=== PATIENT | male | born 1950 | race Caucasian/White ===

== ENCOUNTER 2017-04-07 17:20 | Emergency (ER) | payer MEDICARE, BC ==
[2017-04-07 17:29] VITALS: RESP 18; TEMP 99
--- NOTE | 2017-04-07 18:05 | ED ---
Head Injury HPI - General Chief complaint: Head Injury Stated complaint: fall Time Seen by Provider: 04/07/17 17:37 Source: patient, family, RN notes reviewed, old records reviewed Mode of arrival: ambulatory Limitations: no limitations - History of Present Illness Initial comments: 66-year-old male presents emergency department for possibly having a seizure, hitting his head and causing a left ear laceration.. Patient family reports that shortly after they discovered him after the fall they noticed some bleeding from the left ear. They state that he was acting normally approximately 1-2 minutes after they found him. Patient denies any head pain. Patient does have a history of seizures, and is managed by multiple medications from Dr. Rodriguez. 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 Patient's family reports that he is acting totally appropriate at this time. He stated he went to an urgent care and were not pleased with the urgent cares physician recommendations and therefore came here. Patient denies any recent fever, chills, shortness of breath, chest pain, back pain, abdominal pain, nausea vomiting, numbness or tingling, dysuria or hematuria, constipation or diarrhea, headaches or visual changes, or any other current symptoms Place: home - Related Data Home Medications Medication Instructions Recorded Confirmed Betamethasone Dipropionate 1 applic TOPICAL DAILY PRN 04/03/15 04/07/17 [Diprolene] Calcium Carbonate/Vitamin D3 1 each PO DAILY 04/03/15 04/07/17 [Calcium 600 + Vit D Tablet] Escitalopram [Lexapro] 10 mg PO DAILY 04/03/15 04/07/17 levETIRAcetam [Levetiracetam] 500 mg PO BID 04/03/15 04/07/17 levETIRAcetam [levETIRAcetam] 1,000 mg PO BID 04/03/15 04/07/17 Lacosamide [Vimpat] 150 mg PO BID 04/07/17 04/07/17 Allergies/Adverse reactions: Allergies Allergy/AdvReac Type Severity Reaction Status Date / Time No Known Allergies Allergy Verified 04/07/17 17:35 Review of Systems ROS Statement: Those systems with pertinent positive or pertinent negative responses have been documented in the HPI. ROS Other: All systems not noted in ROS Statement are negative. Past Medical History Past Medical History: Seizure Disorder Additional Past Medical History / Comment(s): head injury as a child History of Any Multi-Drug Resistant Organisms: None Reported Additional Past Surgical History / Comment(s): lip cancer removed Past Psychological History: Anxiety Smoking Status: Never smoker Past Alcohol Use History: None Reported Past Drug Use History: None Reported General Exam - General Exam Comments Initial Comments: Pleasant 66-year-old male. No acute distress. Limitations: no limitations General appearance: alert, in no apparent distress Head exam: Present: atraumatic, normocephalic, normal inspection Eye exam: Present: normal appearance, PERRL, EOMI. Absent: scleral icterus, conjunctival injection, periorbital swelling ENT exam: Present: normal exam, mucous membranes moist, other (Patient is a 2 cm laceration within the left pinna) Neck exam: Present: normal inspection. Absent: tenderness, meningismus, lymphadenopathy Respiratory exam: Present: normal lung sounds bilaterally. Absent: respiratory distress, wheezes, rales, rhonchi, stridor Cardiovascular Exam: Present: regular rate, normal rhythm, normal heart sounds. Absent: systolic murmur, diastolic murmur, rubs, gallop, clicks GI/Abdominal exam: Present: soft, normal bowel sounds. Absent: distended, tenderness, guarding, rebound, rigid Extremities exam: Present: normal inspection, full ROM, normal capillary refill. Absent: tenderness, pedal edema, joint swelling, calf tenderness Back exam: Present: normal inspection Neurological exam: Present: alert, oriented X3, CN II-XII intact Psychiatric exam: Present: normal affect, normal mood Skin exam: Present: warm, dry, intact, normal color. Absent: rash Course Vital Signs 04/07/17 04/07/17 04/07/17 17:22 19:10 19:11 Temperature 99 F 99 F Pulse Rate 59 L 61 61 Respiratory 18 18 18 Rate Blood Pressure 169/83 173/80 173/80 O2 Sat by Pulse 99 96 96 Oximetry Procedures - Laceration Laceration #1 Site: other (left ear) Size (cm): 2 Description: flap Depth: simple, single layer Anesthetic Used: lidocaine 1% Anesthesia Technique: local infiltration Amount (mls): 2 Pre-repair: wound explored, irrigated extensively Type of Sutures: nylon Size of Sutures: 6-0 Number of Sutures: 6 Technique: simple, interrupted Patient Tolerated Procedure: well, no complications Medical Decision Making - Medical Decision Making 66-year-old male presents emergency department for possibly having a seizure, hitting his head and causing a left ear laceration.. Patient family reports that shortly after they discovered him after the fall they noticed some bleeding from the left ear. They state that he was acting normally approximately 1-2 minutes after they found him. Patient denies any head pain. Patient does have a history of seizures, and is managed by multiple medications from Dr. Rodriguez. 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 And is neurologically intact and is appearing well. Patient does have a 2 cm laceration over the left auricle. Patient laceration will be cleaned and given a suture. Patient CT brain was performed and negative for any acute process. Patient's family reports is alert and oriented and in no distress. Patient discharged at this time instructed on head injury instructions. Patient family agrees to treatment plan will comply. Advised to monitor for any signs of infection of the suture site. - Radiology Data Radiology results: report reviewed Chronic appearing white matter ischemic changes. Exam is stable from 04/03/2015. Disposition Clinical Impression: Laceration of ear, Minor head injury Disposition: HOME SELF-CARE Condition: Good Instructions: Care For Your Stitches (ED) Additional Instructions: Please return to the emergency room in 7-10 days to have sutures removed. Please leave wound covered for the first 24-48 hours and then leave open to air after that time. Please use clean soap and water to clean the suture area to prevent scabbing over the top of your sutures. Please watch for any signs of infection which may include but not limited to increased pain, swelling, redness , fever or chills. Please return to the emergency room if any signs of infection do occur. Please return to the emergency room for any other concerns or complications. Referrals: Carlos Barry DO [Primary Care Provider] - 1-2 days Time of Disposition: 18:59
--- NOTE | 2017-04-07 18:14 | CT ---
EXAMINATION TYPE: CT brain wo con DATE OF EXAM: 04/07/2017 COMPARISON: 04/03/2015 INDICATION: Fall today, left sided head injury. Possible seizure today. History of seizures. DLP: 1095.60 mGycm, Automated exposure control for dose reduction was used. CONTRAST: None CT of the brain is performed utilizing 3 mm thick sections through the posterior fossa and 3 mm thick sections through the remaining calvarium. Study is performed within 24 hours of arrival to the hosp [facility]. No abnormal hyperdensity is present to suggest an acute intracranial hemorrhage. No mass lesion is evident. No acute infarcts are evident. Mild periventricular white matter hypodensity is present, likely on th e basis of chronic white matter ischemic changes. Ventricles and sulci are appropriate for the patient age. Paranasal sinuses and mastoid air cells within the [id number] are clear. IMPRESSIONS: 1. Chronic appearing white matter ischemic changes. 2. Exam is stable from 04/03/2015
[2017-04-07 19:11] VITALS: BP 173/80; PULSE 61
== END 2017-04-07 19:11 | disposition home or self-care (01) ==
LOC: EC 17:20
DX: S01.312A Laceration without foreign body of left ear, initial encounter (principal); S09.90XA Unspecified injury of head, initial encounter; I67.82 Cerebral ischemia; G40.909 Epilepsy, unspecified, not intractable, without status epilepticus; F41.9 Anxiety disorder, unspecified; Z79.899 Other long term (current) drug therapy; Z85.819 Personal history of malignant neoplasm of unspecified site of lip, oral cavity, and pharynx; Z98.890 Other specified postprocedural states; W22.8XXA Striking against or struck by other objects, initial encounter; Y92.009 Unspecified place in unspecified non-institutional (private) residence as the place of occurrence of the external cause
CPT/HCPCS: 12011; 70450; 99284

== ENCOUNTER 2018-05-03 07:45 | Emergency (ER) | payer MEDICARE, BC ==
[2018-05-03 07:55] VITALS: BP 174/96; PULSE 58; RESP 18; TEMP 98
[2018-05-03] MEDS ORDERED: DIPH,PERTUS(ACELL)TETVAC-LF 0.5 ML VIAL IM ONE (08:23)
[2018-05-03] MEDS ORDERED: LIDOCAINE 1% INJ 10MG/ML (20 ML MDV) SQ STA (08:23)
--- NOTE | 2018-05-03 08:25 | ED ---
General Adult HPI - General Chief complaint: Animal Bite Stated complaint: Bit by horse Time Seen by Provider: 05/03/18 08:16 Source: patient, RN notes reviewed Mode of arrival: wheelchair Limitations: no limitations - History of Present Illness Initial comments: 68-year-old male presented emergency room today with chief complaint of being bitten by a horse this morning. He states that they were feeding. He states that the horse turned around and bit him catching him on the face lower jaw top of the neck and chest area. States small abrasion to the top of the chest. No specific cut the neck. Does admit to come to the chin and lower lip. Patient states unsure of his tetanus status. Patient denies any other complaint. Patient denies any recent fever, chills, shortness of breath, chest pain, back pain, abdominal pain, nausea or vomiting, numbness or tingling, headaches or visual changes, or any other complaints. - Related Data Home Medications Medication Instructions Recorded Confirmed Betamethasone Dipropionate 1 applic TOPICAL DAILY PRN 04/03/15 05/03/18 [Diprolene] Calcium Carbonate/Vitamin D3 1 each PO DAILY 04/03/15 05/03/18 [Calcium 600 + Vit D Tablet] Escitalopram [Lexapro] 10 mg PO DAILY 04/03/15 05/03/18 levETIRAcetam 1,000 mg PO BID 04/03/15 05/03/18 levETIRAcetam [Levetiracetam] 500 mg PO BID 04/03/15 05/03/18 Lacosamide [Vimpat] 150 mg PO BID 04/07/17 05/03/18 Previous Rx's Medication Instructions Recorded Cephalexin [Keflex] 500 mg PO Q12HR #14 cap 05/03/18 Allergies Allergy/AdvReac Type Severity Reaction Status Date / Time No Known Allergies Allergy Verified 05/03/18 08:11 Review of Systems ROS Statement: Those systems with pertinent positive or pertinent negative responses have been documented in the HPI. ROS Other: All systems not noted in ROS Statement are negative. Past Medical History Past Medical History: Seizure Disorder Additional Past Medical History / Comment(s): head injury as a child History of Any Multi-Drug Resistant Organisms: None Reported Additional Past Surgical History / Comment(s): lip cancer removed Past Psychological History: Anxiety Smoking Status: Never smoker Past Alcohol Use History: None Reported Past Drug Use History: None Reported General Exam - General Exam Comments Initial Comments: General: The patient is awake and alert, in no distress, and does not appear acutely ill. Eye: Pupils are equal, round and reactive to light, extra-ocular movements are intact. No nystagmus. There is normal conjunctiva bilaterally. No signs of icterus. Ears, nose, mouth and throat: There are moist mucous membranes and no oral lesions. Neck: The neck is supple, there is no tenderness or JVD. Musculoskeletal: Normal ROM, no tenderness. Strength 5/5. Sensation intact. Pulses equal bilaterally 2+. Neurological: A&O x 3. CN II-XII intact, There are no obvious motor or sensory deficits. Coordination appears grossly intact. Speech is normal. Skin: Superficial skin tear to the upper chest measuring half centimeter in size. No lacerations to the neck. The 2 cm laceration running vertically to the right side of the chin. A 1 cm laceration to the right side of the lower lip through the vermilion border running vertically. No active bleeding. Psychiatric: Cooperative, appropriate mood & affect, normal judgment. Limitations: no limitations Course Vital Signs 05/03/18 07:51 Temperature 98.0 F Pulse Rate 58 L Respiratory 18 Rate Blood Pressure 174/96 O2 Sat by Pulse 97 Oximetry Procedures - Procedures Initial comment: Patient had 2 cm L-shaped laceration to the right side of the chin.The skin was anesthetized with 1% lidocaine. The laceration was then cleansed withand irrigated with normal saline. The wound was inspected, and there was no evidence of injury to deep structures. No foreign body was noted in the wound. A total of 5 skin sutures were placed utilizing 5-0 nylon. Second laceration to the lower lip on the right side running through the vermilion border measuring approximately 1 cm.The skin was anesthetized with 1% lidocaine. The laceration was then cleansed with and irrigated with normal saline. The wound was inspected, and there was no evidence of injury to deep structures. No foreign body was noted in the wound. A total of 2 skin sutures were placed utilizing 5-0 nylon. Medical Decision Making - Medical Decision Making Patient be started on antibiotics. Lacerations cleaned and closed here in emergency room. Signs of infection were discussed. Patient will be discharged home tetanus updated. Disposition Clinical Impression: Bite by animal Disposition: HOME SELF-CARE Condition: Good Instructions: Animal Bite (ED) Additional Instructions: Please use antibiotic that was sent to pharmacy as discussed. Please follow-up and have sutures removed in 5 days. Please watch for any signs of infection. Please return to emergency room if the symptoms increase or worsen or for any other concerns. Prescriptions: Cephalexin [Keflex] 500 mg PO Q12HR #14 cap Is patient prescribed a controlled substance at d/c from ED?: No Referrals: Carlos Barry DO [Primary Care Provider] - 1-2 days Time of Disposition: 09:06
== END 2018-05-03 09:28 | disposition home or self-care (01) ==
LOC: EC 07:45
DX: S01.85XA Open bite of other part of head, initial encounter (principal); S01.551A Open bite of lip, initial encounter; S20.319A Abrasion of unspecified front wall of thorax, initial encounter; G40.909 Epilepsy, unspecified, not intractable, without status epilepticus; F41.9 Anxiety disorder, unspecified; Z23 Encounter for immunization; Z79.899 Other long term (current) drug therapy; W55.11XA Bitten by horse, initial encounter; Y93.89 Activity, other specified
CPT/HCPCS: 90715; 99283; 12011; 40650; 90471; J2001

== ENCOUNTER 2018-10-16 15:54 | Emergency (ER) | payer MEDICARE, BC ==
--- NOTE | 2018-10-16 17:10 | CT ---
EXAMINATION TYPE: CT brain rasheed lay con DATE OF EXAM: 10/16/2018 COMPARISON: 04/03/2015 HISTORY: Pain post fall. CT DLP: 1356.3 mGycm Automated exposure control for dose reduction was used. TECHNIQUE: CT scan of the head and cervical spine are performed without contrast. FINDINGS: There is cerebral cortical atrophy. There is no mass effect nor midline shift. There is h ypodensity in the white matter of both frontal lobes. There is old 2 cm lacunar infarct left thalamus . The calvarium is intact. There is mild straightening of the cervical spine. There is extensive hypertrophic anterior spurring from C3 to C6. Posterior elements are intact. There is multilevel hypertrophic facet arthropathy. IMPRESSION: Cerebral atrophy and chronic small vessel ischemia. Old left thalamic lacunar infarct. Multilevel cervical spondylotic changes. No fracture. Brain and cervical spine not significantly different than old exam.
--- NOTE | 2018-10-16 17:31 | ED ---
General Adult HPI <Jamal Posada - Last Filed: 10/16/18 20:08> - General Source: patient, RN notes reviewed, old records reviewed Mode of arrival: wheelchair Limitations: no limitations <Sky Zacarias - Last Filed: 10/19/18 12:03> - General Chief complaint: Fall Stated complaint: FALL, RT ARM INJURY - History of Present Illness Initial comments: 68-year-old male patient past medical history of seizure disorder, cognitive disorder presents to ED after sustaining a mechanical fall in house. Patient was walking in the house with sister who is also primary caregiver. Patient reportedly tripped falling forward landing on his outstretched arms. Sustained was walking behind did not entirely witnessed fall. Head trauma loss of consciousness pain neck is denied. Patient primary complaint is left humerus pain. Patient denies suffering any other injury. Patient denies abdominal pain , nausea vomiting diarrhea, fever chills. Patient is ambulatory. Systemic: Pt denies fatigue, myalgia, fever/chills, rash. Pt denies weakness, night sweats, weight loss. Neuro: Pt denies headache, visual disturbances, syncope or pre-syncope. HEENT: Pt denies ocular discharge or irritation, otalgia, rhinorrhea, pharyngitis or notable lymphadenopathy. Cardiopulmonary: Pt denies chest pain, SOB, heart palpitations, dyspnea on exertion. Abdominal/GI: Pt denies abdominal pain, n/v/d. : Pt denies dysuria, burning w/ urination, frequency/urgency. Denies new onset urinary or bowel incontinence. MSK: Pt denies myalgia, loss of strength or function in extremities. Neuro: Pt denies new onset weakness, paresthesias. (Sky Zacarias) - Related Data Home Medications Medication Instructions Recorded Confirmed Betamethasone Dipropionate 1 applic TOPICAL DAILY PRN 04/03/15 05/03/18 [Diprolene] Calcium Carbonate/Vitamin D3 1 each PO DAILY 04/03/15 05/03/18 [Calcium 600 + Vit D Tablet] Escitalopram [Lexapro] 10 mg PO DAILY 04/03/15 05/03/18 levETIRAcetam 1,000 mg PO BID 04/03/15 05/03/18 levETIRAcetam [Levetiracetam] 500 mg PO BID 04/03/15 05/03/18 Lacosamide [Vimpat] 150 mg PO BID 04/07/17 05/03/18 Previous Rx's Medication Instructions Recorded Cephalexin [Keflex] 500 mg PO Q12HR #14 cap 05/03/18 Ibuprofen [Motrin] 600 mg PO Q6HR PRN #40 day 10/16/18 Allergies Allergy/AdvReac Type Severity Reaction Status Date / Time No Known Allergies Allergy Verified 10/16/18 16:03 Review of Systems ROS Other: All systems not noted in ROS Statement are negative. <Jamal Posada - Last Filed: 10/16/18 20:08> ROS Other: All systems not noted in ROS Statement are negative. <Sky Zacarias - Last Filed: 10/19/18 12:03> ROS Statement: Those systems with pertinent positive or pertinent negative responses have been documented in the HPI. Past Medical History Past Medical History: Seizure Disorder Additional Past Medical History / Comment(s): head injury as a child History of Any Multi-Drug Resistant Organisms: None Reported Additional Past Surgical History / Comment(s): lip cancer removed Past Psychological History: Anxiety Smoking Status: Never smoker Past Alcohol Use History: None Reported Past Drug Use History: None Reported <Sky Zacarias - Last Filed: 10/19/18 12:03> General Exam <Jamal Posada - Last Filed: 10/16/18 20:08> Limitations: no limitations <Sky Zacarias - Last Filed: 10/19/18 12:03> - General Exam Comments Initial Comments: Constitutional: NAD, AOX3, Pt has pleasant affect. HEENT: NC/AT, trachea midline, neck supple, no lymphadenopathy. Posterior pharynx non erythematous, without exudates. External ears appear normal, without discharge. Mucous membranes moist. Eyes PERRLA, EOM intact. There is no scleral icterus. No pallor noted. Cardiopulmonary: RRR, no murmurs, rubs or gallops, no JVD noted. Lungs CTAB in anterior and posterior loaiza. No peripheral edema. Abdominal exam: Abdomen soft and non-distended. Abdomen non-tender to palpation in all 4 quadrants. Bowel sounds active in LLQ. No hepatosplenomegaly. No ecchymosis Neuro: CN II-XII intact. No nuchal rigidity. No cervical spinal tenderness. MSK: anterior dislocation of R shoulder. Patient has tenderness to palpation of right midshaft humerus. Patient neurovascularly intact. Sensation intact. Radial pulse +2. No posterior calf tenderness bilaterally, homans sign negative bilaterally. Posterior tibialis and radial pulse +2 bilaterally. Sensation intact in upper and lower extremities. Full active ROM in upper and lower extremities, 5/5 stregnth. Pt neurovascularly intact post anatomic shoulder reduction. (Sky Zacarias) Vital Signs 10/16/18 10/16/18 10/16/18 16:03 19:14 19:34 Temperature 98 F 98.3 F Pulse Rate 53 L 64 63 Respiratory 18 18 18 Rate Blood Pressure 174/90 195/103 193/95 O2 Sat by Pulse 97 95 95 Oximetry 10/16/18 10/16/18 10/16/18 19:45 19:50 19:55 Temperature Pulse Rate 60 71 71 Respiratory 18 18 16 Rate Blood Pressure 195/104 181/100 200/107 O2 Sat by Pulse 98 97 96 Oximetry 10/16/18 10/16/18 10/16/18 20:00 20:17 21:34 Temperature Pulse Rate 65 71 82 Respiratory 16 18 18 Rate Blood Pressure 187/99 178/96 168/81 O2 Sat by Pulse 97 96 95 Oximetry 10/16/18 21:57 Temperature 98.5 F Pulse Rate Respiratory Rate Blood Pressure O2 Sat by Pulse Oximetry Procedures - Orthopedic Joint Reduction Joint #1 Consent Obtained: verbal consent Time Out Performed: Yes Side: right Joint Reduction Location: shoulder Analgesia: procedural sedation Shoulder Technique Used (if applicable): traction/counter-traction Post-Reduction Neuro Exam: intact Post-Reduction Vascular Exam: intact Post Reduction X-Ray Results: reduced Patient Tolerated Procedure: well, no complications - Procedural Sedation Procedural Sedation Start Time: 19:41 Procedural Sedation Stop Time: 20:09 Indications: fracture/dislocation reduction Preparation: vehicle monitor technician applied, pulse oximeter, capnometry used, supplemental O2 applied IV Propofol Dose (mgs): 10 Complications: none Patient Tolerated Procedure: well, no complications <Jamal Posada - Last Filed: 10/16/18 20:08> Medical Decision Making <Jamal Posada - Last Filed: 10/16/18 20:08> <Sky Zacarias - Last Filed: 10/19/18 12:03> - Medical Decision Making 68-year-old male patient past medical history of seizure disorder, cognitive disorder presents to ED after sustaining a mechanical fall in house. Patient was walking in the house with sister who is also primary caregiver. Patient reportedly tripped falling forward landing on his outstretched arms. Sustained was walking behind did not entirely witnessed fall. Head trauma loss of consciousness pain neck is denied. Patient primary complaint is left humerus pain. Patient denies suffering any other injury. Patient denies abdominal pain , nausea vomiting diarrhea, fever chills. Patient is ambulatory. Physical exam displayed anterior right shoulder dislocation. Patient neurovascularly intact. Imaging modalities right humerus displayed anterior dislocation of shoulder, CT had not did not display any acute process, right forearm film negative, chest x-ray did not display any acute process. Patient diagnosed with right anterior shoulder dislocation. Anterior shoulder Reduction performed by Dr. Posada. Conscious sedation performed. Follow-up right shoulder film confirmed anatomic reduction, patient neurovascularly intact after reduction. Radial pulse +2, capillary refill less than 2 seconds, sensation intact. Patient mildly hypertensive during hospital stay. Per patient family he has not had a history of hypertension. Review of previous hospital stays also displayed some mild hypertension. Patient blood pressures ranged from low 200's to 170's. Patient given 2.5 mg Norvasc by mouth in ED. Blood pressure 168/81 at discharge. Patient to follow up with PCP for continued monitoring of blood pressure. Patient to follow up with orthopedic for continued evaluation of right shoulder dislocation. Patient to return to ED if any new signs symptoms develop including headache, changes in vision, new symptoms of shoulder or if condition worsens in any way. Case discussed and pt seen by Dr. Posada. (Sky Zacarias) Disposition <Jamal Posada - Last Filed: 10/16/18 20:08> Is patient prescribed a controlled substance at d/c from ED?: No Time of Disposition: 21:47 <Sky Zacarias - Last Filed: 10/19/18 12:03> Clinical Impression: Anterior shoulder dislocation Disposition: HOME SELF-CARE Condition: Good Instructions: Shoulder Dislocation (ED), Fall Prevention for Older Adults (ED) Additional Instructions: Patient to adhere to previously discussed treatment plan and will take medication(s) as directed. Patient to follow up with PCP in 1-2 days. Patient to return to ED if symptoms do not improve. Prescriptions: Ibuprofen [Motrin] 600 mg PO Q6HR PRN #40 day PRN Reason: Pain Referrals: Carlos Barry DO [Primary Care Provider] - 1-2 days Aly Cummings PAC [PHYSICIAN [employer] MANAGER] - 1-2 days
--- NOTE | 2018-10-16 17:41 | XR ---
EXAMINATION TYPE: XR forearm RT DATE OF EXAM: 10/16/2018 COMPARISON: NONE HISTORY: Shoulder pain arm pain TECHNIQUE: 3 views FINDINGS: The radius and ulna appear intact. There is spurring on the olecranon process of the ulna. I see no fracture. IMPRESSION: Negative right forearm exam. No fracture seen.
--- NOTE | 2018-10-16 17:43 | XR ---
EXAMINATION TYPE: XR humerus RT DATE OF EXAM: 10/16/2018 COMPARISON: NONE HISTORY: Pain TECHNIQUE: 4 views FINDINGS: There is anterior dislocation of the glenohumeral joint. The elbow joint appears intact. Th ere is moderate spurring on the olecranon process. I see no fracture. IMPRESSION: Anterior dislocation of the shoulder joint.
--- NOTE | 2018-10-16 17:44 | XR ---
EXAMINATION TYPE: XR chest 2V DATE OF EXAM: 10/16/2018 COMPARISON: 04/03/2015 HISTORY: Pain TECHNIQUE: Frontal and lateral views of the chest are obtained. FINDINGS: There is no heart failure nor confluent pneumonic infiltrate. Costophrenic angles are delilah r. Ribs appear intact. There is anterior dislocation of the shoulder joint. There is old healed left clavicle fracture. IMPRESSION: No active cardiopulmonary disease. No change.
[2018-10-16] MEDS ORDERED: MORPHINE SULFATE 4 MG/ML SYRINGE IV STA ×2 (18:24→21:08)
[2018-10-16] MEDS ORDERED: ETOMIDATE 2 MG/ML 10 ML VIAL IVP STA (19:22)
--- NOTE | 2018-10-16 20:09 | XR ---
EXAMINATION TYPE: XR shoulder limited RT DATE OF EXAM: 10/16/2018 COMPARISON: Today HISTORY: Post reduction TECHNIQUE: Single view FINDINGS: There is anatomic reduction of the glenohumeral joint. I see no fracture line. There is spu rring at the AC joint. IMPRESSION: Anatomic reduction.
[2018-10-16 20:18] VITALS: RESP 18
[2018-10-16] MEDS ORDERED: amLODIPine 5 MG TAB PO STA (21:27)
[2018-10-16 21:35] VITALS: BP 168/81; PULSE 82
[2018-10-16 21:59] VITALS: TEMP 98.5
== END 2018-10-16 21:57 | disposition home or self-care (01) ==
LOC: EC 15:54
DX: S43.014A Anterior dislocation of right humerus, initial encounter (principal); G40.909 Epilepsy, unspecified, not intractable, without status epilepticus; F41.9 Anxiety disorder, unspecified; Z79.899 Other long term (current) drug therapy; Z85.818 Personal history of malignant neoplasm of other sites of lip, oral cavity, and pharynx; W10.9XXA Fall (on) (from) unspecified stairs and steps, initial encounter; Y93.01 Activity, walking, marching and hiking; Y92.008 Other place in unspecified non-institutional (private) residence as the place of occurrence of the external cause
CPT/HCPCS: 73020; 73060; 73090; 71046; 72125; 70450; 99284; 96374; 99152; 23650; L3670; J2270

== ENCOUNTER 2019-08-01 20:29 | Emergency (ER) | payer MEDICARE, BC ==
[2019-08-01] MEDS ORDERED: SODIUM CHLORIDE 0.9% 500 ML 500 ML IV STA (21:55)
[2019-08-01 22:04] LABS: Basophils # (A) 0.1 k/uL (0-0.2); Basophils % (A) 1 %; Eosinophils # (A) 0.1 k/uL (0-0.7); Eosinophils % (A) 1 %; HCT 46.6 % (39.0-53.0); HGB 15.7 gm/dL (13.0-17.5); Lymphocytes % (A) 9 %; MCH 32.5 pg (25.0-35.0); MCHC 33.7 g/dL (31.0-37.0); MCV 96.4 fL (80.0-100.0); Mean Platelet Volume 6.4; Monocytes # (A) 0.7 k/uL (0-1.0); Monocytes % (A) 6 %; Neutrophils # (A) 9.2 k/uL (1.3-7.7); Neutrophils % (A) 81 %; Platelet Count 334 k/uL (150-450); RBC 4.84 m/uL (4.30-5.90); WBC 11.3 k/uL (3.8-10.6)
[2019-08-01 22:14] LABS: ALT 20 U/L (21-72); AST 26 U/L (17-59); African American GFR (CKD) >90 (>60 ml/min/1.73 sqM); Albumin 4.2 g/dL (3.5-5.0); Alkaline Phosphatase 89 U/L (38-126); Anion Gap 9 mmol/L; Blood Urea Nitrogen 24 mg/dL (9-20); Calcium 9.6 mg/dL (8.4-10.2); Carbon Dioxide 27 mmol/L (22-30); Chloride 103 mmol/L (98-107); Glucose 105 mg/dL (74-99); Potassium 4.4 mmol/L (3.5-5.1); Sodium 139 mmol/L (137-145); Total Bilirubin 0.3 mg/dL (0.2-1.3); Total Protein 6.9 g/dL (6.3-8.2)
--- NOTE | 2019-08-01 22:31 | CT ---
EXAMINATION TYPE: CT brain rasheed lay con DATE OF EXAM: 08/01/2019 COMPARISON: 10/16/2018 HISTORY: fall CT DLP: 1594.4 mGycm Automated exposure control for dose reduction was used. TECHNIQUE: CT scan of the head and cervical spine are performed without contrast. FINDINGS: There is cerebral cortical atrophy. There is no mass effect nor midline shift. There is n o sign of intracranial hemorrhage. The calvarium is intact. 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 There is moderate spondylotic change in the cervical spine with hypertrophic endplate spur formation and bridging osteophyte formation. There is normal alignment of the vertebra. Posterior elements are intact. The skull base is intact. IMPRESSION: Spondylotic changes in the cervical spine. No fracture. No change. Old left thalamic lacunar infarct. No acute intracranial abnormality. No change.
[2019-08-01 23:09] VITALS: RESP 18; TEMP 97.8
[2019-08-01] MEDS ORDERED: KETOROLAC 30 MG/ML 1 ML VIAL IVP STA (23:32)
--- NOTE | 2019-08-01 23:43 | ED ---
Fall HPI - General Chief Complaint: Fall Stated Complaint: POSS SEIZURE Time Seen by Provider: 08/01/19 21:51 Source: patient Mode of arrival: ambulatory - History of Present Illness Initial Comments: 69-year-old male patient presents to the emergency department today for evaluati on after experiencing an unwitnessed fall at home. Family member states that he does have history of seizures and generally does not remember when he has one. States that she found patient sitting in the dark watching television. She noticed that he was bleeding. He had laceration to the left posterior scalp. States that she did find blood in the bathroom and believes that may have been where he fell. Patient denies any current headache, blurred vision, double vision. Denies any neck or back pain. Last tetanus vaccine was 05/03/2018. Patient denies any recent rash, fever, chills, shortness breath, chest pain, abdominal pain, nausea, vomiting, diarrhea, constipation, numbness, tingling, dizziness, weakness, hematuria, dysuria, urinary urgency, urinary frequency, visual changes, or any other complaints. - Related Data Home Medications Medication Instructions Recorded Confirmed Betamethasone Dipropionate 1 applic TOPICAL DAILY PRN 04/03/15 05/03/18 [Diprolene] Calcium Carbonate/Vitamin D3 1 each PO DAILY 04/03/15 05/03/18 [Calcium 600 + Vit D Tablet] Escitalopram [Lexapro] 10 mg PO DAILY 04/03/15 05/03/18 levETIRAcetam 1,000 mg PO BID 04/03/15 05/03/18 levETIRAcetam [Levetiracetam] 500 mg PO BID 04/03/15 05/03/18 Lacosamide [Vimpat] 150 mg PO BID 04/07/17 05/03/18 Previous Rx's Medication Instructions Recorded Cephalexin [Keflex] 500 mg PO Q12HR #14 cap 05/03/18 Ibuprofen [Motrin] 600 mg PO Q6HR PRN #40 day 10/16/18 Allergies Allergy/AdvReac Type Severity Reaction Status Date / Time No Known Allergies Allergy Verified 08/01/19 20:41 Review of Systems ROS Statement: Those systems with pertinent positive or pertinent negative responses have been documented in the HPI. ROS Other: All systems not noted in ROS Statement are negative. Past Medical History Past Medical History: Seizure Disorder Additional Past Medical History / Comment(s): head injury as a child History of Any Multi-Drug Resistant Organisms: None Reported Additional Past Surgical History / Comment(s): lip cancer removed Past Psychological History: Anxiety Smoking Status: Never smoker Past Alcohol Use History: None Reported Past Drug Use History: None Reported General Exam Limitations: no limitations General appearance: alert, in no apparent distress, other (Well-developed, well- nourished elderly male patient in no acute distress. Vital signs upon presentation are temperature 98.0F, pulse 64, respiration 16, blood pressure 147/89, pulse ox 96% on room air.) Head exam: Present: other (There is a 5 cm laceration noted to the left occipital scalp. There is mild active bleeding. Surrounding soft tissue swelling. No bony step-off or deformity noted.) Eye exam: Present: normal appearance, PERRL, EOMI. Absent: scleral icterus, conjunctival injection, nystagmus, periorbital swelling ENT exam: Present: normal exam, normal oropharynx, mucous membranes moist, TM's normal bilaterally (No hemotympanum) Neck exam: Present: normal inspection, tenderness (Lower cervical tenderness), full ROM, other (Linear area of ecchymosis noted to the right side of the neck.). Absent: meningismus, lymphadenopathy Respiratory exam: Present: normal lung sounds bilaterally. Absent: respiratory distress, wheezes, rales, rhonchi, stridor Cardiovascular Exam: Present: regular rate, normal rhythm, normal heart sounds. Absent: systolic murmur, diastolic murmur, rubs, gallop, clicks GI/Abdominal exam: Present: soft, normal bowel sounds. Absent: distended, tenderness, guarding, rebound, rigid Neurological exam: Present: alert, oriented X3, CN II-XII intact Psychiatric exam: Present: normal affect, normal mood Skin exam: Present: warm, dry, intact, normal color. Absent: rash Course Vital Signs 08/01/19 08/01/19 08/01/19 20:39 23:05 23:47 Temperature 98.0 F 97.8 F Pulse Rate 64 65 63 Respiratory 16 18 18 Rate Blood Pressure 147/89 170/105 160/94 O2 Sat by Pulse 96 97 98 Oximetry Procedures - Laceration Laceration #1 Consent Obtained: verbal consent Indication: laceration Site: scalp Size (cm): 5 Description: linear Depth: simple, single layer Pre-repair: irrigated extensively Type of Sutures: other (adriel) Number of Sutures: 7 Patient Tolerated Procedure: well, no complications Medical Decision Making - Medical Decision Making 69-year-old male patient presented to the emergency department today for evaluation of head injury with laceration after experiencing what was most likely a seizure. Physical examination did reveal 5 cm laceration to the left occipital scalp with surrounding hematoma. A CT brain C-spine was negative. Labs reviewed and were unremarkable. The level is pending. Laceration was repaired as documented. Patient will be discharged home to follow-up with his primary care physician for recheck in 1-2 days. Return parameters were discussed in detail. Family members verbalize understanding and agree with this plan. - Lab Data Result diagrams: 08/01/19 21:05 08/01/19 21:05 Lab Results 08/01/19 08/01/19 Range/Units 21:05 21:05 WBC 11.3 H (3.8-10.6) k/uL RBC 4.84 (4.30-5.90) m/uL Hgb 15.7 (13.0-17.5) gm/dL Hct 46.6 (39.0-53.0) % MCV 96.4 (80.0-100.0) fL MCH 32.5 (25.0-35.0) pg MCHC 33.7 (31.0-37.0) g/dL RDW 13.0 (11.5-15.5) % Plt Count 334 (150-450) k/uL Neutrophils % 81 % Lymphocytes % 9 % Monocytes % 6 % Eosinophils % 1 % Basophils % 1 % Neutrophils # 9.2 H (1.3-7.7) k/uL Lymphocytes # 1.0 (1.0-4.8) k/uL Monocytes # 0.7 (0-1.0) k/uL Eosinophils # 0.1 (0-0.7) k/uL Basophils # 0.1 (0-0.2) k/uL Sodium 139 (137-145) mmol/L Potassium 4.4 (3.5-5.1) mmol/L Chloride 103 (98-107) mmol/L Carbon Dioxide 27 (22-30) mmol/L Anion Gap 9 mmol/L BUN 24 H (9-20) mg/dL Creatinine 0.90 (0.66-1.25) mg/dL Est GFR (CKD-EPI)AfAm >90 (>60 ml/min/1.73 sqM) Est GFR (CKD-EPI)NonAf 86 (>60 ml/min/1.73 sqM) Glucose 105 H (74-99) mg/dL Calcium 9.6 (8.4-10.2) mg/dL Total Bilirubin 0.3 (0.2-1.3) mg/dL AST 26 (17-59) U/L ALT 20 L (21-72) U/L Alkaline Phosphatase 89 (38-126) U/L Total Protein 6.9 (6.3-8.2) g/dL Albumin 4.2 (3.5-5.0) g/dL - EKG Data -: EKG Interpreted by Me EKG Comments: EKG obtained at 2055 shows normal sinus rhythm with an incomplete right bundle branch block. Ventricular rate is 62, MD interval 152, QRS duration 94, QT 398, QTC 43. - Radiology Data Radiology results: report reviewed, image reviewed CT brain C-spine without contrast was obtained. Report was reviewed in its entirety. Impression by Dr. Sales shows spondylotic changes in the cervical spine. No fracture. No change. Old left thalamic lacunar infarct. No acute intracranial abnormality. No change. Disposition Clinical Impression: Seizure, Fall with injury, Head injury, Scalp laceration, Scalp hematoma Disposition: HOME SELF-CARE Condition: Good Instructions (If sedation given, give patient instructions): Laceration (ED), Head Injury (ED), Staple Care (ED), Recurrent Seizures in Adults (ED) Additional Instructions: Keep wound clean and dry. Monitor for signs or symptoms of infection including but not limited to redness, swelling, drainage of pus, fever, or chills. Monitor for signs of worsening head injury including but not limited to worsening headache, dizziness, confusion, or vomiting. Follow-up with the primary care physician for recheck in 1-2 days. Return in 7 days to have adriel removed. Return for any other new, worsening, or concerning symptoms. Is patient prescribed a controlled substance at d/c from ED?: No Referrals: Carlos Barry DO [Primary Care Provider] - 1-2 days Time of Disposition: 23:43
[2019-08-01 23:47] VITALS: BP 160/94; PULSE 63
== END 2019-08-02 00:08 | disposition home or self-care (01) ==
LOC: EC 20:29
DX: S01.01XA Laceration without foreign body of scalp, initial encounter (principal); G40.909 Epilepsy, unspecified, not intractable, without status epilepticus; S10.93XA Contusion of unspecified part of neck, initial encounter; F41.9 Anxiety disorder, unspecified; Z79.899 Other long term (current) drug therapy; Z85.819 Personal history of malignant neoplasm of unspecified site of lip, oral cavity, and pharynx; Z87.828 Personal history of other (healed) physical injury and trauma; Z98.890 Other specified postprocedural states; W19.XXXA Unspecified fall, initial encounter; Y92.009 Unspecified place in unspecified non-institutional (private) residence as the place of occurrence of the external cause
CPT/HCPCS: 36415; 93005; 80053; 80177; 85025; 72125; 70450; 99284; 12002; 96374; 96361 ×2; J1885

== ENCOUNTER 2020-01-05 10:17 | Emergency (ER) | payer MEDICARE, BC ==
[2020-01-05 10:25] VITALS: TEMP 97.6
[2020-01-05] MEDS ORDERED: SODIUM CHLORIDE 0.9% 500 ML 500 ML IV STA (10:47)
[2020-01-05] MEDS ORDERED: LIDOCAINE 1% INJ 10MG/ML (20 ML MDV) SQ ONE (11:16)
--- NOTE | 2020-01-05 11:20 | ED ---
General Adult HPI - General Source: patient, family, RN notes reviewed Mode of arrival: wheelchair Limitations: no limitations <Lui Mayen - Last Filed: 01/05/20 12:21> <Jennifer Sheikh - Last Filed: 01/06/20 21:26> - General Chief complaint: Fall Stated complaint: fall, facial injury Time Seen by Provider: 01/05/20 10:28 - History of Present Illness Initial comments: 69-year-old male with a past medical history of seizure disorder presents to the emergency department for a fall. Apparently patient fell around 5 AM this morning, or about 5 hours prior to arrival. He states he thinks he did this while he was getting ready for the day. States that he got up about 3 minutes after this fall and sat in the chair. Daughter did find patient in the chair this morning. However daughter at bedside states he is a very poor memory. Patient does not clearly remember the fall. Daughter states he may have had a seizure. She denies any bleeding from the mouth or patient was in bladder or bowel function. At this time he denies any chest pain or shortness of breath. Denies headache. Denies blood thinners. Patient does have a laceration noted above the right eye.Patient has no other complaints at this time including shortness of breath, chest pain, abdominal pain, nausea or vomiting, headache, or visual changes. (Lui Mayen) - Related Data Home Medications Medication Instructions Recorded Confirmed Betamethasone Dipropionate 1 applic TOPICAL DAILY PRN 04/03/15 05/03/18 [Diprolene] Calcium Carbonate/Vitamin D3 1 each PO DAILY 04/03/15 05/03/18 [Calcium 600 + Vit D Tablet] Escitalopram [Lexapro] 10 mg PO DAILY 04/03/15 05/03/18 levETIRAcetam 1,000 mg PO BID 04/03/15 05/03/18 levETIRAcetam [Levetiracetam] 500 mg PO BID 04/03/15 05/03/18 Lacosamide [Vimpat] 150 mg PO BID 04/07/17 05/03/18 Previous Rx's Medication Instructions Recorded Cephalexin [Keflex] 500 mg PO Q12HR #14 cap 05/03/18 Ibuprofen [Motrin] 600 mg PO Q6HR PRN #40 day 10/16/18 Allergies Allergy/AdvReac Type Severity Reaction Status Date / Time No Known Allergies Allergy Verified 01/05/20 10:25 Review of Systems ROS Other: All systems not noted in ROS Statement are negative. <Lui Mayen P - Last Filed: 01/05/20 12:21> ROS Other: All systems not noted in ROS Statement are negative. <AlyshuJennifer López - Last Filed: 01/06/20 21:26> ROS Statement: Those systems with pertinent positive or pertinent negative responses have been documented in the HPI. Past Medical History Past Medical History: Seizure Disorder Additional Past Medical History / Comment(s): head injury as a child History of Any Multi-Drug Resistant Organisms: None Reported Additional Past Surgical History / Comment(s): lip cancer removed Past Psychological History: Anxiety Smoking Status: Never smoker Past Alcohol Use History: None Reported Past Drug Use History: None Reported <Lui Mayen P - Last Filed: 01/05/20 12:21> General Exam Limitations: no limitations General appearance: alert, in no apparent distress Head exam: Present: normocephalic, normal inspection. Absent: atraumatic (Patient has a laceration noted above the right eye) Eye exam: Present: normal appearance, PERRL, EOMI. Absent: scleral icterus, conjunctival injection, periorbital swelling ENT exam: Present: normal exam, normal oropharynx, mucous membranes moist, TM's normal bilaterally, normal external ear exam Neck exam: Present: normal inspection, full ROM. Absent: tenderness, menin gismus, lymphadenopathy Respiratory exam: Present: normal lung sounds bilaterally. Absent: respiratory distress, wheezes, rales, rhonchi, stridor Cardiovascular Exam: Present: regular rate, normal rhythm, normal heart sounds. Absent: systolic murmur, diastolic murmur, rubs, gallop, clicks GI/Abdominal exam: Present: soft, normal bowel sounds. Absent: distended, tenderness, guarding, rebound, rigid Neurological exam: Present: alert, oriented X3 <Lui Mayen P - Last Filed: 01/05/20 12:21> Course Vital Signs 01/05/20 01/05/20 01/05/20 10:18 10:25 11:25 Temperature 97.6 F Pulse Rate 62 57 L Respiratory 16 16 16 Rate Blood Pressure 123/77 151/86 O2 Sat by Pulse 97 98 Oximetry 01/05/20 01/05/20 12:00 12:40 Temperature Pulse Rate 58 L 78 Respiratory 16 18 Rate Blood Pressure 151/90 151/90 O2 Sat by Pulse 98 98 Oximetry EKG Findings - EKG Comments: EKG Findings:: Sinus bradycardia, ventricular rate 56, VA interval 162, QTC 414, also reviewed by Dr. Sheikh. <Lui Mayen - Last Filed: 01/05/20 12:21> Procedures - Laceration Laceration #1 Consent Obtained: verbal consent Indication: laceration Site: face Size (cm): 3 Description: stellate Depth: simple, single layer Anesthetic Used: lidocaine 1% Anesthesia Technique: local infiltration Amount (mls): 3 Pre-repair: wound explored, irrigated extensively (with saline pressure irrigation) Type of Sutures: other (ethilon) Size of Sutures: 5-0 Number of Sutures: 5 Technique: simple, interrupted Patient Tolerated Procedure: well, no complications <Lui Mayen - Last Filed: 01/05/20 12:21> Medical Decision Making - Lab Data Result diagrams: 01/05/20 10:53 01/05/20 10:53 <Lui Mayen - Last Filed: 01/05/20 12:21> - Lab Data Result diagrams: 01/05/20 10:53 01/05/20 10:53 <Jennifer Sheikh - Last Filed: 01/06/20 21:26> - Medical Decision Making Physical exam does reveal left-sided facial droop however 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 Patient has a normal gait when testing him in the ER according to daughter. He limps on the left leg secondary to a bad knee. Patient denies any increased weakness of the left leg. Denies any other injuries besides hitting his head. Vitals are stable. Patient is well-appearing although does have a 3 cm laceration above the right eye extending through the eyebrow with associated con tusion. Globe appears within normal limits.. No other signs of trauma. CBC CMP unremarkable. There is evidence of dehydration, patient was gently rehydrated. CT brain and C-spine showed no acute fracture or dislocation. No acute intracranial hemorrhage, mass effect, or midline shift. There are chronic changes and soft tissue hematoma noted. Wound was sutured using 5 simple sutures. Chest x-ray shows subsegmental changes at the lung bases felt to be most typical of atelectasis. Coarsened interstitium could be the basis of poor respiration rather than venous congestion or interstitial pneumonitis. Patient is not complaining of cough or shortness of breath. At this time patient can be discharged home to follow up with primary care. I do have his seizure medication levels pending. He will return for any worsening symptoms. (Lui Mayen) I was available for consultation in the emergency department. The history and physical exam were done by the midlevel provider. I was consulted for this patients care. I reviewed the case with the midlevel provider and based on their presentation of the patient, I agree with the assessment, medical decision making and plan of care as documented. Chart was dictated using [employer] dictation software. Attempts were made to correct any dictation errors however some typographical errors may persist. (Jennifer Sheikh) - Lab Data Lab Results 01/05/20 01/05/20 01/05/20 Range/Units 10:53 10:53 10:53 WBC 8.3 (3.8-10.6) k/uL RBC 5.14 (4.30-5.90) m/uL Hgb 15.9 (13.0-17.5) gm/dL Hct 48.8 (39.0-53.0) % MCV 94.9 (80.0-100.0) fL MCH 31.0 (25.0-35.0) pg MCHC 32.7 (31.0-37.0) g/dL RDW 13.9 (11.5-15.5) % Plt Count 308 (150-450) k/uL Neutrophils % 71 % Lymphocytes % 16 % Monocytes % 9 % Eosinophils % 1 % Basophils % 1 % Neutrophils # 5.9 (1.3-7.7) k/uL Lymphocytes # 1.3 (1.0-4.8) k/uL Monocytes # 0.7 (0-1.0) k/uL Eosinophils # 0.1 (0-0.7) k/uL Basophils # 0.1 (0-0.2) k/uL PT 9.9 (9.0-12.0) sec INR 0.9 (<1.2) APTT 24.5 (22.0-30.0) sec Sodium 139 (137-145) mmol/L Potassium 4.3 (3.5-5.1) mmol/L Chloride 105 (98-107) mmol/L Carbon Dioxide 26 (22-30) mmol/L Anion Gap 8 mmol/L BUN 26 H (9-20) mg/dL Creatinine 0.95 (0.66-1.25) mg/dL Est GFR (CKD-EPI)AfAm >90 (>60 ml/min/1.73 sqM) Est GFR (CKD-EPI)NonAf 81 (>60 ml/min/1.73 sqM) Glucose 79 (74-99) mg/dL Calcium 9.2 (8.4-10.2) mg/dL Magnesium 2.5 H (1.6-2.3) mg/dL Total Bilirubin 0.6 (0.2-1.3) mg/dL AST 26 (17-59) U/L ALT 13 (4-49) U/L Alkaline Phosphatase 81 (38-126) U/L Troponin I (0.000-0.034) ng/mL Total Protein 6.8 (6.3-8.2) g/dL Albumin 4.1 (3.5-5.0) g/dL 01/05/20 Range/Units 10:53 WBC (3.8-10.6) k/uL RBC (4.30-5.90) m/uL Hgb (13.0-17.5) gm/dL Hct (39.0-53.0) % MCV (80.0-100.0) fL MCH (25.0-35.0) pg MCHC (31.0-37.0) g/dL RDW (11.5-15.5) % Plt Count (150-450) k/uL Neutrophils % % Lymphocytes % % Monocytes % % Eosinophils % % Basophils % % Neutrophils # (1.3-7.7) k/uL Lymphocytes # (1.0-4.8) k/uL Monocytes # (0-1.0) k/uL Eosinophils # (0-0.7) k/uL Basophils # (0-0.2) k/uL PT (9.0-12.0) sec INR (<1.2) APTT (22.0-30.0) sec Sodium (137-145) mmol/L Potassium (3.5-5.1) mmol/L Chloride (98-107) mmol/L Carbon Dioxide (22-30) mmol/L Anion Gap mmol/L BUN (9-20) mg/dL Creatinine (0.66-1.25) mg/dL Est GFR (CKD-EPI)AfAm (>60 ml/min/1.73 sqM) Est GFR (CKD-EPI)NonAf (>60 ml/min/1.73 sqM) Glucose (74-99) mg/dL Calcium (8.4-10.2) mg/dL Magnesium (1.6-2.3) mg/dL Total Bilirubin (0.2-1.3) mg/dL AST (17-59) U/L ALT (4-49) U/L Alkaline Phosphatase (38-126) U/L Troponin I <0.012 (0.000-0.034) ng/mL Total Protein (6.3-8.2) g/dL Albumin (3.5-5.0) g/dL Disposition Is patient prescribed a controlled substance at d/c from ED?: No Time of Disposition: 12:23 <Lui Mayen P - Last Filed: 01/05/20 12:21> <Jennifer Sheikh A - Last Filed: 01/06/20 21:26> Clinical Impression: Fall, Laceration Disposition: HOME SELF-CARE Condition: Good Instructions (If sedation given, give patient instructions): Care For Your Stitches (ED), Laceration (ED), Head Injury (ED) Additional Instructions: Please follow up with primary care in 1-2 days. Follow up on Keppra and Vimpat levels. Return in 5 days for suture removal. You have FIVE sutures. Return for any other worsening symptoms. Referrals: Carlos Barry DO [Primary Care Provider] - 1-2 days
[2020-01-05 11:35] LABS: Basophils # (A) 0.1 k/uL (0-0.2); Basophils % (A) 1 %; Eosinophils # (A) 0.1 k/uL (0-0.7); Eosinophils % (A) 1 %; HCT 48.8 % (39.0-53.0); HGB 15.9 gm/dL (13.0-17.5); Lymphocytes # (A) 1.3 k/uL (1.0-4.8); Lymphocytes % (A) 16 %; MCHC 32.7 g/dL (31.0-37.0); MCV 94.9 fL (80.0-100.0); Mean Platelet Volume 8.1; Monocytes # (A) 0.7 k/uL (0-1.0); Monocytes % (A) 9 %; Neutrophils # (A) 5.9 k/uL (1.3-7.7); Neutrophils % (A) 71 %; Platelet Count 308 k/uL (150-450); RBC 5.14 m/uL (4.30-5.90); RDW 13.9 % (11.5-15.5); WBC 8.3 k/uL (3.8-10.6)
--- NOTE | 2020-01-05 11:35 | XR ---
EXAMINATION TYPE: XR chest 2V DATE OF EXAM: 01/05/2020 COMPARISON: 10/16/2018 TECHNIQUE: PA and lateral views submitted. HISTORY: Chest pain FINDINGS: There is a left clavicular remote fracture. There is subsegmental changes at both lung bases with coa rsened central interstitium. Biapical pleural thickening. IMPRESSION: 1. Subsegmental changes at the lung bases felt to BE most typical of atelectasis. Coarsened interstit ium could been the basis of poor inspiration rather than venous congestion or interstitial pneumoniti s.
--- NOTE | 2020-01-05 11:42 | CT ---
EXAMINATION TYPE: CT brain rasheed wo con DATE OF EXAM: 01/05/2020 COMPARISON: 08/01/2019 HISTORY: Fall, head injury, open wound to Rt eyelid CT DLP: 1466.3 mGycm Automated exposure control for dose reduction was used. TECHNIQUE: CT scan of the head and cervical spine are performed without contrast. FINDINGS: There is cerebral cortical atrophy. There is no mass effect nor midline shift. There is no sign of intracranial hemorrhage. The calvarium is intact. 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 Soft tissue hematoma overlying the right orbit and frontal bone. Osseous structures appear intact. The globe appears intact. Low-attenuation t he white matter is nonspecific but most typical remote ischemia. There is loss the normal cervical lordosis with severe degenerative disc disease at level C3-T1. Ante rior hypertrophic spurring is noted. There is multilevel foraminal encroachment at all levels greater on the left. Multilevel canal stenosis suspected. Vascular calcifications of the carotid arteries no star. Calcified pleural nodule measuring 1 mm right upper lobe. On the coronal images there is a linea r lucency through the body of 4 which appears to be stable from prior exam. This is also noted on exa m dating back to 2014. Therefore is felt to be chronic. IMPRESSION: 1. There is no acute fracture or dislocation evident in the cervical spine. Severe degenerative disc disease and facet arthropathy with multilevel canal stenosis and foraminal encroachment. 2. No acute intracranial hemorrhage, mass effect, or midline shift is seen. Chronic appearing remote ischemic changes and agenesis of the corpus callosum again noted. Soft tissue hematoma overlying the right frontal bone and orbit.
[2020-01-05 11:45] LABS: ALT 13 U/L (4-49); AST 26 U/L (17-59); African American GFR (CKD) >90 (>60 ml/min/1.73 sqM); Albumin 4.1 g/dL (3.5-5.0); Alkaline Phosphatase 81 U/L (38-126); Anion Gap 8 mmol/L; Blood Urea Nitrogen 26 mg/dL (9-20); Calcium 9.2 mg/dL (8.4-10.2); Carbon Dioxide 26 mmol/L (22-30); Chloride 105 mmol/L (98-107); Glucose 79 mg/dL (74-99); Magnesium 2.5 mg/dL (1.6-2.3); Non-African American GFR(CKD) 81 (>60 ml/min/1.73 sqM); Potassium 4.3 mmol/L (3.5-5.1); Sodium 139 mmol/L (137-145); Total Bilirubin 0.6 mg/dL (0.2-1.3); Total Protein 6.8 g/dL (6.3-8.2)
[2020-01-05 12:17] LABS: INR 0.9 (<1.2); Partial Thromboplastin Time 24.5 sec (22.0-30.0); Prothrombin Time 9.9 sec (9.0-12.0)
[2020-01-05 12:41] VITALS: BP 151/90; PULSE 78; RESP 18
[2020-01-07 09:56] LABS: Levetiracetam (Keppra) 58.6 ug/mL (3.0-60.0)
== END 2020-01-05 12:45 | disposition home or self-care (01) ==
LOC: EC 10:17
DX: S01.111A Laceration without foreign body of right eyelid and periocular area, initial encounter (principal); G40.909 Epilepsy, unspecified, not intractable, without status epilepticus; Z79.899 Other long term (current) drug therapy; Z87.820 Personal history of traumatic brain injury; Z85.818 Personal history of malignant neoplasm of other sites of lip, oral cavity, and pharynx; W19.XXXA Unspecified fall, initial encounter
CPT/HCPCS: 36415; 93005; 80053; 80177; 83735; 84484; 85025; 85610; 85730; 80235; 71046; 72125; 70450; 99284; 12013; J2001

== ENCOUNTER → 2020-02-19 | Outpatient (CLI) | payer MEDICARE, BC, OTHER ==
[2020-02-19 11:22] LABS: ALT 14 U/L (4-49); AST 22 U/L (17-59); African American GFR (CKD) >90 (>60 ml/min/1.73 sqM); Albumin 4.1 g/dL (3.5-5.0); Alkaline Phosphatase 81 U/L (38-126); Anion Gap 9 mmol/L; Blood Urea Nitrogen 24 mg/dL (9-20); Calcium 9.3 mg/dL (8.4-10.2); Carbon Dioxide 24 mmol/L (22-30); Chloride 103 mmol/L (98-107); Cholesterol 191 mg/dL (<200); Glucose 89 mg/dL (74-99); HDL Cholesterol 60 mg/dL (40-60); LDL Cholesterol,Calculated 116 mg/dL (0-99); Non-African American GFR(CKD) 83 (>60 ml/min/1.73 sqM); Potassium 4.6 mmol/L (3.5-5.1); Sodium 136 mmol/L (137-145); Total Bilirubin 0.5 mg/dL (0.2-1.3); Total Protein 6.9 g/dL (6.3-8.2); Triglycerides 75 mg/dL (<150)
--- NOTE | 2020-02-19 11:32 | ECHOF ---
Referral Reason:Edema MEASUREMENTS -------- HEIGHT: 180.3 cm WEIGHT: 90.3 kg BP: RVIDd: 2.9 cm (< 3.3) IVSd: 1.6 cm (0.6 - 1.1) LVIDd: 4.1 cm (3.9 - 5.3) LVPWd: 1.7 cm (0.6 - 1.1) IVSs: 2.1 cm LVIDs: 2.3 cm LVPWs: 2.3 cm IVSd: 2.7 cm (0.6 - 1.1) Ao Diam: 2.7 cm (2.0 - 3.7) AV Cusp: 1.8 cm (1.5 - 2.6) LA Diam: 2.8 cm (2.7 - 3.8) MV EXCURSION: 14.924 mm (> 18.000) MV EF SLOPE: 55 mm/s (70 - 150) EPSS: 0.3 cm MV E Roland: 0.52 m/s MV DecT: 192 ms MV A Roland: 0.36 m/s MV E/A Ratio: 1.43 RAP: 5.00 mmHg RVSP: 11.51 mmHg FINDINGS -------- Sinus rhythm. This was a technically difficult study with suboptimal views. The left ventricular size is normal. There is severe concentric left ventricular hypertrophy. Ove rall left ventricular systolic function is normal with, an EF between 55 - 60 %. The right ventricle is normal in size. The left atrial size is normal. The right atrial size is normal. Aortic valve is trileaflet and is mildly thickened. The mitral valve is normal. There is trace mitral regurgitation. The tricuspid valve appears structurally normal. Trace tricuspid regurgitation present. Right kate tricular systolic pressure is normal at < 35 mmHg. There is no pulmonic regurgitation present. The aortic root size is normal. IVC Not well visulized. There is a small, generalized pericardial effusion present. CONCLUSIONS -------- 1. Sinus rhythm. 2. This was a technically difficult study with suboptimal views. 3. The left ventricular size is normal. 4. There is severe concentric left ventricular hypertrophy. 5. Overall left ventricular systolic function is normal with, an EF between 55 - 60 %. 6. The right ventricle is normal in size. 7. The left atrial size is normal. 8. The right atrial size is normal. 9. Aortic valve is trileaflet and is mildly thickened. 10. The mitral valve is normal. 11. There is trace mitral regurgitation. 12. The tricuspid valve appears structurally normal. 13. Trace tricuspid regurgitation present. 14. Right ventricular systolic pressure is normal at < 35 mmHg. 15. There is no pulmonic regurgitation present. 16. The aortic root size is normal. 17. IVC Not well visulized. 18. There is a small, generalized pericardial effusion present. CLAIM APPROVER: Xin Burger RDCS
[2020-02-19 11:38] LABS: T4, Free (Free Thyroxine) 1.03 ng/dL (0.78-2.19)
[2020-02-19 18:14] LABS: Hemoglobin A1C 5.6 % (4.0-6.0)
== END | disposition home or self-care (01) ==
LOC: RADECHMAIN 09:41
PROVIDERS: ATTEND Family Medicine
DX: I51.7 Cardiomegaly (principal); I31.3 Pericardial effusion (noninflammatory); Z00.00 Encounter for general adult medical examination without abnormal findings; R60.0 Localized edema; F32.9 Major depressive disorder, single episode, unspecified; E66.9 Obesity, unspecified; G40.909 Epilepsy, unspecified, not intractable, without status epilepticus
CPT/HCPCS: 80053; 80061; 80177; 83036; 83880; 84153; 84439; 84443; 93306

== ENCOUNTER 2021-03-22 20:39 | Emergency (ER) | payer MEDICARE, BC, OTHER ==
[2021-03-22 20:47] VITALS: TEMP 98.2
[2021-03-22] MEDS ORDERED: SODIUM CHLORIDE 0.9% 1,000 ML IV STA (21:55)
[2021-03-22] MEDS ORDERED: LIDOCAINE 1% INJ 10MG/ML (20 ML MDV) SQ ONE (21:56)
[2021-03-22 22:06] LABS: Basophils # (A) 0.1 k/uL (0-0.2); Basophils % (A) 1 %; Eosinophils # (A) 0.4 k/uL (0-0.7); Eosinophils % (A) 5 %; HCT 45.5 % (39.0-53.0); HGB 15.6 gm/dL (13.0-17.5); Lymphocytes # (A) 1.4 k/uL (1.0-4.8); Lymphocytes % (A) 19 %; MCH 32.2 pg (25.0-35.0); MCHC 34.3 g/dL (31.0-37.0); MCV 93.8 fL (80.0-100.0); Mean Platelet Volume 7.8; Monocytes # (A) 0.6 k/uL (0-1.0); Monocytes % (A) 8 %; Neutrophils # (A) 4.9 k/uL (1.3-7.7); Neutrophils % (A) 65 %; Platelet Count 277 k/uL (150-450); RBC 4.85 m/uL (4.30-5.90); RDW 13.2 % (11.5-15.5); WBC 7.5 k/uL (3.8-10.6)
--- NOTE | 2021-03-22 22:16 | ED ---
Fall HPI - General Chief Complaint: Fall Stated Complaint: seizure,Fall Time Seen by Provider: 03/22/21 21:16 Source: patient, RN notes reviewed Mode of arrival: ambulatory - History of Present Illness Initial Comments: Patient is a 70-year-old male that presents to emergency department after falling and hitting his head on a waste basket. He did get a left eye brow laceration. Sister state patient does have a history of seizures and this seemed like an episode of seizure. She notes that he is on medications but still has breakthrough seizures every once a while. She notes that when she found him he was on his knees with his head up against a plastic garbage pail. She notes that his pain shortness ankles as she was most likely go to the bathroom she notes that he was a little bit foggy and unclear. She notes that he gets like this after he has seizures. Patient denied any pain. He was in no apparent distress while sitting up in bed during exam and interview. He denied any chest pain shortness of breath headache nausea vomiting diarrhea constipation fever fatigue chills. - Related Data Home Medications Medication Instructions Recorded Confirmed Betamethasone Dipropionate 1 applic TOPICAL DAILY PRN 04/03/15 05/03/18 [Diprolene] Calcium Carbonate/Vitamin D3 1 each PO DAILY 04/03/15 05/03/18 [Calcium 600 + Vit D Tablet] Escitalopram [Lexapro] 10 mg PO DAILY 04/03/15 05/03/18 levETIRAcetam 1,000 mg PO BID 04/03/15 05/03/18 levETIRAcetam [Levetiracetam] 500 mg PO BID 04/03/15 05/03/18 Lacosamide [Vimpat] 150 mg PO BID 04/07/17 05/03/18 Previous Rx's Medication Instructions Recorded Cephalexin [Keflex] 500 mg PO Q12HR #14 cap 05/03/18 Ibuprofen [Motrin] 600 mg PO Q6HR PRN #40 day 10/16/18 Allergies Allergy/AdvReac Type Severity Reaction Status Date / Time No Known Allergies Allergy Verified 03/22/21 20:47 Review of Systems ROS Statement: Those systems with pertinent positive or pertinent negative responses have been documented in the HPI. ROS Other: All systems not noted in ROS Statement are negative. Past Medical History Past Medical History: Seizure Disorder Additional Past Medical History / Comment(s): head injury as a child History of Any Multi-Drug Resistant Organisms: None Reported Additional Past Surgical History / Comment(s): lip cancer removed Past Psychological History: Anxiety Smoking Status: Never smoker Past Alcohol Use History: None Reported Past Drug Use History: None Reported General Exam Limitations: no limitations General appearance: alert, in no apparent distress Head exam: Present: normocephalic, normal inspection. Absent: atraumatic (Patient has a 3-4 cm laceration following the contour of the left eyebrow on the lateral aspect.) Eye exam: Present: normal appearance, PERRL, EOMI. Absent: scleral icterus, conjunctival injection, periorbital swelling Neck exam: Present: normal inspection. Absent: tenderness, meningismus, lymphadenopathy Respiratory exam: Present: normal lung sounds bilaterally. Absent: respiratory distress, wheezes, rales, rhonchi, stridor Cardiovascular Exam: Present: regular rate, normal rhythm, normal heart sounds. Absent: systolic murmur, diastolic murmur, rubs, gallop, clicks GI/Abdominal exam: Present: soft, normal bowel sounds. Absent: distended, tenderness, guarding, rebound, rigid Extremities exam: Present: normal inspection, full ROM, normal capillary refill. Absent: tenderness, pedal edema, joint swelling, calf tenderness Neurological exam: Present: alert, oriented X3 Psychiatric exam: Present: normal affect, normal mood Skin exam: Present: warm, dry, intact, normal color. Absent: rash Course Vital Signs 03/22/21 03/22/21 20:43 22:00 Temperature 98.2 F Pulse Rate 62 54 L Respiratory 20 18 Rate Blood Pressure 179/85 177/94 O2 Sat by Pulse 96 98 Oximetry Procedures - Laceration Laceration #1 Consent Obtained: verbal consent Site: face (Left eyebrow) Size (cm): 5 Description: linear Depth: simple, single layer Anesthetic Used: lidocaine 1% Anesthesia Technique: local infiltration Pre-repair: irrigated extensively Type of Sutures: nylon Size of Sutures: 5-0 Number of Sutures: 6 Technique: simple, interrupted Patient Tolerated Procedure: well, no complications Medical Decision Making - Medical Decision Making 70-year-old male status post fall with left eyebrow laceration. Fall potentially due to a seizure. Labs, EKG, 1 L normal saline, CT of the brain ordered. Patient declined the need for any pain medication this time. Lidocaine ordered. Labs unremarkable. CT negative for any acute intracranial process. case discussed with Dr. Smith, patient can discharge home with follow-up primary care. - Lab Data Result diagrams: 03/22/21 21:59 03/22/21 21:59 Lab Results 03/22/21 03/22/21 03/22/21 Range/Units 21:59 21:59 21:59 WBC 7.5 (3.8-10.6) k/uL RBC 4.85 (4.30-5.90) m/uL Hgb 15.6 (13.0-17.5) gm/dL Hct 45.5 (39.0-53.0) % MCV 93.8 (80.0-100.0) fL MCH 32.2 (25.0-35.0) pg MCHC 34.3 (31.0-37.0) g/dL RDW 13.2 (11.5-15.5) % Plt Count 277 (150-450) k/uL MPV 7.8 Neutrophils % 65 % Lymphocytes % 19 % Monocytes % 8 % Eosinophils % 5 % Basophils % 1 % Neutrophils # 4.9 (1.3-7.7) k/uL Lymphocytes # 1.4 (1.0-4.8) k/uL Monocytes # 0.6 (0-1.0) k/uL Eosinophils # 0.4 (0-0.7) k/uL Basophils # 0.1 (0-0.2) k/uL Sodium 140 (137-145) mmol/L Potassium 3.7 (3.5-5.1) mmol/L Chloride 103 (98-107) mmol/L Carbon Dioxide 28 (22-30) mmol/L Anion Gap 9 mmol/L BUN 26 H (9-20) mg/dL Creatinine 0.89 (0.66-1.25) mg/dL Est GFR (CKD-EPI)AfAm >90 (>60 ml/min/1.73 sqM) Est GFR (CKD-EPI)NonAf 86 (>60 ml/min/1.73 sqM) Glucose 109 H (74-99) mg/dL Calcium 9.2 (8.4-10.2) mg/dL Magnesium 2.3 (1.6-2.3) mg/dL Total Bilirubin 0.2 (0.2-1.3) mg/dL AST 22 (17-59) U/L ALT 11 (4-49) U/L Alkaline Phosphatase 92 (38-126) U/L Total Protein 6.4 (6.3-8.2) g/dL Albumin 3.9 (3.5-5.0) g/dL - EKG Data -: EKG Interpreted by Me EKG shows normal: sinus rhythm Rate: bradycardia EKG Comments: Ventricular rate 54 bpm, NE interval 170 ms, QRS duration 84 ms, QT/QTc 418/396 ms, PRT axes 58/-12/64. Sinus bradycardia, inferior infarct, age undetermined, abnormal ECG. - Radiology Data Radiology results: report reviewed, image reviewed CT of the brain: Old lacunar infarct left thalamus. Cerebral atrophy. Chronic small vessel ischemia is more noticeable around the frontal lobes. No acute intracranial abnormality no significant change. Disposition Clinical Impression: Fall, Laceration of left eyebrow Disposition: HOME SELF-CARE Condition: Stable Instructions (If sedation given, give patient instructions): Fall Prevention for Older Adults (ED) Additional Instructions: Please return to the Emergency Department if symptoms worsen or any other concerns. Follow-up with primary care as needed. Please return in 5-7 days for suture removal. Can wash with warm water gentle soap to keep clean. Is patient prescribed a controlled substance at d/c from ED?: No Referrals: Carlos Barry DO [Primary Care Provider] - 1-2 days Time of Disposition: 23:51
[2021-03-22 22:19] LABS: ALT 11 U/L (4-49); AST 22 U/L (17-59); African American GFR (CKD) >90 (>60 ml/min/1.73 sqM); Albumin 3.9 g/dL (3.5-5.0); Alkaline Phosphatase 92 U/L (38-126); Anion Gap 9 mmol/L; Blood Urea Nitrogen 26 mg/dL (9-20); Calcium 9.2 mg/dL (8.4-10.2); Carbon Dioxide 28 mmol/L (22-30); Chloride 103 mmol/L (98-107); Glucose 109 mg/dL (74-99); Non-African American GFR(CKD) 86 (>60 ml/min/1.73 sqM); Potassium 3.7 mmol/L (3.5-5.1); Sodium 140 mmol/L (137-145); Total Bilirubin 0.2 mg/dL (0.2-1.3); Total Protein 6.4 g/dL (6.3-8.2)
--- NOTE | 2021-03-22 22:25 | CT ---
EXAMINATION TYPE: CT brain wo con DATE OF EXAM: 03/22/2021 COMPARISON: 01/05/2020 HISTORY: fall CT DLP: 1125.4 mGycm Automated exposure control for dose reduction was used. There is some cerebral cortical atrophy. There is no mass effect nor midline shift. There is no sign of intracranial hemorrhage. There is patchy hypodensity in the periventricular white matter. The calv arium is intact. There is 1.5 cm old lacunar infarct in the left thalamus. There is significant thinn ing or agenesis of the corpus callosum. The calvarium is intact. IMPRESSION: Old lacunar infarct left thalamus. Cerebral atrophy. Chronic small vessel ischemia that is more notic eable around the frontal lobes. No acute intracranial abnormality. No significant change.
[2021-03-22 23:17] VITALS: RESP 18
[2021-03-22] MEDS ORDERED: TOPICAL SKIN ADHESIVE 1 EACH AMP TOPICAL ONE (23:25)
[2021-03-23] LABS: INR 0.9 (<1.2); Prothrombin Time 9.9 sec (9.0-12.0)
[2021-03-23 00:19] VITALS: BP 169/95; PULSE 59
== END 2021-03-23 00:19 | disposition home or self-care (01) ==
LOC: EC 20:39
DX: S01.112A Laceration without foreign body of left eyelid and periocular area, initial encounter (principal); G40.909 Epilepsy, unspecified, not intractable, without status epilepticus; W01.198A Fall on same level from slipping, tripping and stumbling with subsequent striking against other object, initial encounter; Z79.899 Other long term (current) drug therapy
CPT/HCPCS: 12013 ×2; 99285 ×2; 96360 ×2; 93005; 80053; 83735; 85025; 85610; 85730; 70450; J2001

== ENCOUNTER 2021-05-10 14:42 | Inpatient (IN) | payer MEDICARE, BC, OTHER ==
[2021-05-10] MEDS ORDERED: ACETAMINOPHEN TAB 500 MG TAB PO STA (15:07)
[2021-05-10] MEDS ORDERED: SODIUM CHLORIDE 0.9% 1,000 ML IV ONE (15:54)
[2021-05-10] MEDS ORDERED: DIPH,PERTUS(ACELL)TETVAC-LF 0.5 ML VIAL IM ONE (15:56)
[2021-05-10] MEDS ORDERED: levETIRAcetam IV 1,500 MG in SALINE 1 100ML.BAG IVPB STA (15:58)
--- NOTE | 2021-05-10 16:17 | ED ---
General Adult HPI - General Chief complaint: Fall Stated complaint: Fall head lac Time Seen by Provider: 05/10/21 15:04 Source: patient, RN notes reviewed, old records reviewed Mode of arrival: ambulatory Limitations: no limitations - History of Present Illness Initial comments: Patient is a 71-year-old male with past medical history remarkable for seizure disorder who presents emergency Department today brought by her son after a fall at home. Patient was having seizures last night. They stopped and patient returned to baseline. Patient had an additional seizure possibly this morning, as he was home alone and was found at home on the ground with an injury to the back of his head. Patient does seem mildly postictal at this time per son, dominique doc he is mostly at baseline. He has not noticed any new weakness or anything else concerning except for a possible laceration or abrasion to his posterior scalp. He states that the patient is compliant with his antiepileptic medications. He states the fall was not witnessed. The patient cannot recall the fall. He has an overall poor historian which is his baseline. He denies any pain except to the back of his head. He is not on blood thinners. He is not up-to-date on his tetanus shot. - Related Data Home Medications Medication Instructions Recorded Confirmed Escitalopram [Lexapro] 10 mg PO DAILY 04/03/15 05/10/21 levETIRAcetam 1,000 mg PO BID 04/03/15 05/10/21 levETIRAcetam [Levetiracetam] 500 mg PO BID 04/03/15 05/10/21 Lacosamide [Vimpat] 150 mg PO BID 04/07/17 05/10/21 Allergies Allergy/AdvReac Type Severity Reaction Status Date / Time No Known Allergies Allergy Verified 05/10/21 19:51 Review of Systems ROS Statement: Those systems with pertinent positive or pertinent negative responses have been documented in the HPI. Review of Systems: CONST: Denies fever EYES: Denies blurry vision ENT: Denies nasal congestion C/V: Denies Chest pain RESP: Denies shortness of breath GI: Denies abdominal pain : Denies dysuria SKIN: Endorses abrasion or injury to the posterior scalp MSK: Denies joint pain. NEURO: Endorses headache ROS Other: All systems not noted in ROS Statement are negative. Past Medical History Past Medical History: Seizure Disorder Additional Past Medical History / Comment(s): head injury as a child History of Any Multi-Drug Resistant Organisms: None Reported Additional Past Surgical History / Comment(s): lip cancer removed Past Psychological History: Anxiety Smoking Status: Never smoker Past Alcohol Use History: None Reported Past Drug Use History: None Reported General Exam - General Exam Comments Initial Comments: General: Appears in no acute distress. HEAD: Patient has dried blood over the posterior scalp which makes examination of the source of the bleeding difficult. He is not currently bleeding. There are no obvious step-offs or deformities. Patient does not have raccoon eyes. There is no Fall sign. EYES: PERRLA, EOMI, conjunctiva normal, no discharge. Pupils are 3 mm and equal bilaterally. ENT: Hearing grossly intact, normal oropharynx. Patient has no face turns to palpation. RESPIRATORY: Clear breath sounds bilaterally. No wheezes, rales, or rhonchi. C/V: Regular rate and rhythm. S1 and S2 auscultated, no edema, peripheral pulses 2+ and intact throughout ABD: Abd is soft, nontender, nondistended EXT: Normal range of motion, no obvious deformity. Pelvis is stable. Patient is no extremity tenderness to palpation. He has no cervical, thoracic, lumbar spine tenderness to palpation. SKIN: Patient has dried blood caked over the posterior scalp. He has an approximate 5 cm linear laceration with underlying hematoma over the left posterior occiput. NEURO: Patient is alert and oriented 2-3 which is his baseline. Cranial nerves II through XII are intact. NIH stroke scale is 0. He has no focal sensory or strength deficits. Patient is able to ambulate. He does appear mildly postictal. Limitations: no limitations Course Vital Signs 05/10/21 05/10/21 14:56 18:03 Temperature 97.5 F L 98.9 F Pulse Rate 99 73 Respiratory 17 18 Rate Blood Pressure 150/83 166/93 O2 Sat by Pulse 94 L 97 Oximetry Medical Decision Making - Medical Decision Making Based on the patient's presentation and physical exam, I believe the patient experienced a fall of unknown etiology. I cannot rule syncopal, cardiac causes for his fall. He may have had a breakthrough seizure. Therefore we will obtain basic lab for studies, EKG, troponin, chest x-ray. We will also obtain a CT head. Seizure precautions were placed. He'll be bolus 1500 mg of IV Keppra. He appears mildly postictal and he will be observed for improvement. He'll be given a 1 L fluid bolus as well. We will check his urine. We will attempt to clean off the patient's posterior scalp to clear up any clotting. Patient was in agreement with this plan. He will be given Tylenol for pain management. Patient's EKG showed no signs of acute ischemia. Chest x-ray showed no acute cardiopulmonary process. Head CT showed no acute intracranial process. Laboratory studies are remarkable for mildly elevated leukocytosis of 1.3. Patient's troponin is elevated to 0.08. After exposing the patient's scalp, did place 6 adriel in the linear laceration over the posterior occiput. Patient tolerated the procedure well. This after the wound was irrigated by nursing staff. Physical crit the patient as well as his nephew regarding his findings and explained that I would like him to the hospital due to the elevated troponin and concern for possible NSTEMI. There were agreement with this plan. Troponins will be trended while he is admitted in the hospital. I spoke with the admitting physician, Dr. Posada, who accepted the patient. Cardiology was consult and I spoke with Dr. Sher who agreed with the plan. He'll be started on a heparin drip for the NSTEMI. I also consulted Dr. Adame of neurology to evaluate the patient and the morning as he did have at least one breakthrough seizure yesterday. There were agreement with this plan. He was therefore admitted to the hospital and serous condition to a telemetry bed.. - Lab Data Result diagrams: 05/10/21 16:08 05/10/21 16:08 Lab Results 05/10/21 05/10/21 05/10/21 Range/Units 16:08 16:08 16:08 WBC 11.3 H (3.8-10.6) k/uL RBC 5.09 (4.30-5.90) m/uL Hgb 16.0 (13.0-17.5) gm/dL Hct 48.1 (39.0-53.0) % MCV 94.6 (80.0-100.0) fL MCH 31.4 (25.0-35.0) pg MCHC 33.2 (31.0-37.0) g/dL RDW 13.8 (11.5-15.5) % Plt Count 335 (150-450) k/uL MPV 7.5 Neutrophils % 76 % Lymphocytes % 14 % Monocytes % 7 % Eosinophils % 0 % Basophils % 1 % Neutrophils # 8.6 H (1.3-7.7) k/uL Lymphocytes # 1.5 (1.0-4.8) k/uL Monocytes # 0.8 (0-1.0) k/uL Eosinophils # 0.0 (0-0.7) k/uL Basophils # 0.1 (0-0.2) k/uL PT 10.2 (9.0-12.0) sec INR 0.9 (<1.2) APTT 22.9 (22.0-30.0) sec Sodium 143 (137-145) mmol/L Potassium 3.8 (3.5-5.1) mmol/L Chloride 104 (98-107) mmol/L Carbon Dioxide 28 (22-30) mmol/L Anion Gap 11 mmol/L BUN 25 H (9-20) mg/dL Creatinine 0.97 (0.66-1.25) mg/dL Est GFR (CKD-EPI)AfAm 90 (>60 ml/min/1.73 sqM) Est GFR (CKD-EPI)NonAf 78 (>60 ml/min/1.73 sqM) Glucose 79 (74-99) mg/dL Calcium 9.8 (8.4-10.2) mg/dL Magnesium 2.4 H (1.6-2.3) mg/dL Total Bilirubin 0.3 (0.2-1.3) mg/dL AST 27 (17-59) U/L ALT 16 (4-49) U/L Alkaline Phosphatase 98 (38-126) U/L Troponin I (0.000-0.034) ng/mL Total Protein 7.3 (6.3-8.2) g/dL Albumin 4.7 (3.5-5.0) g/dL 05/10/21 Range/Units 16:08 WBC (3.8-10.6) k/uL RBC (4.30-5.90) m/uL Hgb (13.0-17.5) gm/dL Hct (39.0-53.0) % MCV (80.0-100.0) fL MCH (25.0-35.0) pg MCHC (31.0-37.0) g/dL RDW (11.5-15.5) % Plt Count (150-450) k/uL MPV Neutrophils % % Lymphocytes % % Monocytes % % Eosinophils % % Basophils % % Neutrophils # (1.3-7.7) k/uL Lymphocytes # (1.0-4.8) k/uL Monocytes # (0-1.0) k/uL Eosinophils # (0-0.7) k/uL Basophils # (0-0.2) k/uL PT (9.0-12.0) sec INR (<1.2) APTT (22.0-30.0) sec Sodium (137-145) mmol/L Potassium (3.5-5.1) mmol/L Chloride (98-107) mmol/L Carbon Dioxide (22-30) mmol/L Anion Gap mmol/L BUN (9-20) mg/dL Creatinine (0.66-1.25) mg/dL Est GFR (CKD-EPI)AfAm (>60 ml/min/1.73 sqM) Est GFR (CKD-EPI)NonAf (>60 ml/min/1.73 sqM) Glucose (74-99) mg/dL Calcium (8.4-10.2) mg/dL Magnesium (1.6-2.3) mg/dL Total Bilirubin (0.2-1.3) mg/dL AST (17-59) U/L ALT (4-49) U/L Alkaline Phosphatase (38-126) U/L Troponin I 0.080 H* (0.000-0.034) ng/mL Total Protein (6.3-8.2) g/dL Albumin (3.5-5.0) g/dL - EKG Data -: EKG Interpreted by Me EKG Comments: 12-lead Electrocardiogram Interpretation Note EKG was reviewed and interpreted by myself. 12-lead ECG performed at 1614 is interpreted by me as revealing normal sinus rhythm at a rate of 74 beats per minute. [place] is normal. OR interval is 160 ms, QRS duration is 94 ms, QTc is 386 pulse seconds.. There were no ST or T wave abnormalities to suggest myocardial ischemia or injury. R wave progression across the precordium was satisfactory. By my interpretation this EKG is non-diagnostic for acute ischemia. Patient does have an incomplete right bundle-branch block. Disposition Clinical Impression: NSTEMI (non-ST elevated myocardial infarction), Fall, Laceration of head, Sta pled skin wound, History of seizures, Hematoma of occipital region of scalp Disposition: ADMITTED IP TO THIS HOSP Condition: Serious
[2021-05-10 16:45] LABS: Basophils # (A) 0.1 k/uL (0-0.2); Basophils % (A) 1 %; Eosinophils % (A) 0 %; HCT 48.1 % (39.0-53.0); Lymphocytes # (A) 1.5 k/uL (1.0-4.8); Lymphocytes % (A) 14 %; MCH 31.4 pg (25.0-35.0); MCHC 33.2 g/dL (31.0-37.0); MCV 94.6 fL (80.0-100.0); Mean Platelet Volume 7.5; Monocytes # (A) 0.8 k/uL (0-1.0); Monocytes % (A) 7 %; Neutrophils # (A) 8.6 k/uL (1.3-7.7); Neutrophils % (A) 76 %; Platelet Count 335 k/uL (150-450); RBC 5.09 m/uL (4.30-5.90); RDW 13.8 % (11.5-15.5); WBC 11.3 k/uL (3.8-10.6)
[2021-05-10 16:47] LABS: Albumin 4.7 g/dL (3.5-5.0); Calcium 9.8 mg/dL (8.4-10.2); Magnesium 2.4 mg/dL (1.6-2.3); Potassium 3.8 mmol/L (3.5-5.1); Total Bilirubin 0.3 mg/dL (0.2-1.3); Total Protein 7.3 g/dL (6.3-8.2)
[2021-05-10 16:49] LABS: INR 0.9 (<1.2); Partial Thromboplastin Time 22.9 sec (22.0-30.0); Prothrombin Time 10.2 sec (9.0-12.0)
[2021-05-10] MEDS ORDERED: ASPIRIN 325 MG TAB PO STA (17:50)
--- NOTE | 2021-05-10 18:01 | XR ---
EXAMINATION TYPE: XR chest 1V portable DATE OF EXAM: 05/10/2021 COMPARISON: 01/05/2020 HISTORY: Fall. Injury. TECHNIQUE: FINDINGS: There is no heart failure. Heart size is top normal. Costophrenic angles are clear. There i s no pleural effusion or pneumothorax. There is some coarsening of the lung markings in the lower [place]. IMPRESSION: Mild pulmonary fibrotic changes. No change compared to old exam. No heart failure. Old he aled fracture left clavicle noted.
--- NOTE | 2021-05-10 18:19 | CT ---
EXAMINATION TYPE: CT brain wo con DATE OF EXAM: 05/10/2021 COMPARISON: 03/22/2021 HISTORY: Fall with injury and laceration today CT DLP: 1147.4 mGycm Automated exposure control for dose reduction was used. There is diffuse cerebral cortical atrophy. There is no mass effect nor midline shift. There is no si gn of intracranial hemorrhage. There are scalp adriel noted posteriorly on the left side. There is 1 .7 cm hypodense area in the left thalamus related to old lacunar infarct. There is hypodensity in the periventricular white matter. The calvarium is intact. IMPRESSION: No acute intracranial abnormality. Chronic small vessel ischemia. Old left thalamic infarct. Cerebral atrophy. No change.
[2021-05-10] MEDS ORDERED: HEPARIN SODIUM 1,000 UN/ML (10ML VL) IV ONE (18:29)
[2021-05-10] MEDS ORDERED: HEPARIN SODIUM 1,000 UN/ML (10ML VL) IV PRN (18:29)
[2021-05-10] MEDS ORDERED: HEPARIN SOD,PORK IN 0.45% NACL 25,000 UNIT in 0.45% NACL 1 250ML.BAG IV SCH (18:30)
[2021-05-10] MEDS ORDERED: ACETAMINOPHEN TAB 325 MG TAB PO PRN (18:45)
[2021-05-10] MEDS: levETIRAcetam 500 MG TAB PO SCH ×2 (22:56→22:57)
[2021-05-11] MEDS: LACOSAMIDE 150 MG TABLET PO SCH ×3 (01:01→20:17)
[2021-05-11 02:46] LABS: Prothrombin Time 10.6 sec (9.0-12.0)
[2021-05-11 04:48] LABS: Basophils # (A) 0.1 k/uL (0-0.2); Basophils % (A) 1 %; Eosinophils # (A) 0.3 k/uL (0-0.7); Eosinophils % (A) 4 %; HCT 43.3 % (39.0-53.0); HGB 14.5 gm/dL (13.0-17.5); Lymphocytes # (A) 1.9 k/uL (1.0-4.8); Lymphocytes % (A) 26 %; MCH 31.7 pg (25.0-35.0); MCHC 33.6 g/dL (31.0-37.0); MCV 94.5 fL (80.0-100.0); Mean Platelet Volume 8.2; Monocytes # (A) 0.7 k/uL (0-1.0); Monocytes % (A) 9 %; Neutrophils # (A) 4.3 k/uL (1.3-7.7); Neutrophils % (A) 58 %; Platelet Count 280 k/uL (150-450); RBC 4.58 m/uL (4.30-5.90); RDW 13.1 % (11.5-15.5); WBC 7.4 k/uL (3.8-10.6)
[2021-05-11] MEDS: levETIRAcetam 500 MG TAB PO SCH ×2 (08:17)
[2021-05-11] MEDS: ESCITALOPRAM 10 MG TAB PO SCH (08:17)
[2021-05-11] MEDS: ASPIRIN 81 MG PO SCH (08:26)
[2021-05-11] MEDS: METOPROLOL TARTRATE 25 MG TAB PO SCH (08:26)
--- NOTE | 2021-05-11 09:31 | P.CRDCN ---
History of Present Illness History of present illness: HISTORY OF PRESENTING ILLNESS Due to patient's current mental status HPI information obtained from patient, as well as patient's and son. This is a pleasant 71-year-old male past medical history significant for traumatic head injury at age 2 and seizures. He does not follow with a ca rdiologist. We have been asked to see in consultation for elevated troponin. Patient presents emergency department after an unwitnessed fall. Patient has a history of seizure disorder. Yesterday, somewhat congested check on the patient he was found in the living room in the chair bleeding from the back of his head. Apparently patient did fall in the kitchen, patient has had recurrent laceratio n posterior occipital, he did get up and walked to the living room and sat in his chair. This is where the patient was found. Unknown down time, Unknown if loss of consciousness. Patient denies chest pain, palpitations, shortness of breath, lower, fatigue, weakness, lightheadedness. Speaking with patient's , She denies patient complaining of chest pain, palpitations or shortness of breath. She also denies patient having symptoms of orthopnea or PND. She states he does not have history of coronary artery disease, DE, Diabetes, or Stroke. Patient occasionally has had hypertension in the past, but has never been prescribed medication. He is a non-smoker. He does not drink alcohol. He is not very active at home. She states he walks with a walker and has a history of his right knee "giving out" on him. He is a poor historian at baseline. states at baseline, does not remember the year or his age. DIAGNOSTICS EKG reveals sinus rhythm, heart rate 64, incomplete right bundle branch block, no significant STT wave abnormalities. Prior EKG with similar findings, HR 54, incomplete right bundle branch block, no significant STT wave abnormalities. Postexercise echocardiogram 01/2020 revealed EF of 55-60%, trace MR, trace TR, small generalized pericardial effusion Telemetry tracings indicate sinus mechanism HR 50-60s, no arrhythmia or ectopy noted Chest xray Some coarsening of the lung markings in the lower lung loaiza, Old healed fracture left clavicle noted. Heart size is stable Brain CT- No acute intracranial abnormality, Old left thalamic infarct, Chronic small vessel ischemia Laboratory reviewed, Troponin trend 0.08--0.07--0.05, CBC unremarkable, Sodium 143, K 2.8, BUN 25, sCr 0.97, Mag 2.4 REVIEW OF SYSTEMS At the time of my exam: CONSTITUTIONAL: Denies fever or chills. CARDIOVASCULAR: Denies chest pain, shortness of breath, orthopnea, PND or palpitations. RESPIRATORY: Denies cough. GASTROINTESTINAL: Denies abdominal pain, diarrhea, constipation, nausea or vomiting. MUSCULOSKELETAL: Denies myalgias. NEUROLOGIC: Denies numbness, tingling, headacbe or weakness. ENDOCRINE: Denies fatigue, weight change, polydipsia or polyurina. GENITOURINARY: Denies burning, hematuria or urgency with micturation. HEMATOLOGIC: Denies history of anemia or bleeding. PHYSICAL EXAMINATION Blood pressure 149/95 heart rate 62 afebrile and maintaining oxygen saturation 9 5% on room air CONSTITUTIONAL: No apparent distress. HEENT: Head is normocephalic. Pupils are equal, round. Sclerae anicteric. Mucous membranes of the mouth are moist. No JVD. No carotid bruit. CHEST EXAMINATION: Lungs are clear to auscultation. No chest wall tenderness is noted on palpation or with deep breathing. HEART EXAMINATION: Regular rate and rhythm. S1, S2 heard. No murmurs, gallops or rub. ABDOMEN: Soft, nontender. Positive bowel sounds. EXTREMITIES: 2+ peripheral pulses, no lower extremity edema and no calf tenderness. SKIN: Posterior occipital laceration with sanguineous drainage, with adriel present NEUROLOGIC EXAMINATION: Patient is awake, alert, oriented to person ASSESSMENT Elevated troponin, indicative to seizure activity, not indicative of acute coronary syndrome Seizure Disorder Fall with injury History of multiple falls Hypertension Old left thalamic infarct noted on CT brain PLAN Obtain 2D echocardiogram and doppler study to assess cardiac structure and function. 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 Patient was seen and examined. Past Medical History Past Medical History: Seizure Disorder Additional Past Medical History / Comment(s): head injury as a child History of Any Multi-Drug Resistant Organisms: None Reported Additional Past Surgical History / Comment(s): lip cancer removed Past Psychological History: Anxiety Smoking Status: Never smoker Past Alcohol Use History: None Reported Past Drug Use History: None Reported Medications and Allergies Home Medications Medication Instructions Recorded Confirmed Type Escitalopram [Lexapro] 10 mg PO DAILY 04/03/15 05/10/21 History levETIRAcetam 1,000 mg PO BID 04/03/15 05/10/21 History levETIRAcetam [Levetiracetam] 500 mg PO BID 04/03/15 05/10/21 History Lacosamide [Vimpat] 150 mg PO BID 04/07/17 05/10/21 History Allergies Allergy/AdvReac Type Severity Reaction Status Date / Time No Known Allergies Allergy Verified 05/10/21 19:51 Physical Exam Vitals: Vital Signs Temp Pulse Resp BP Pulse Ox 05/11/21 06:53 97.4 F L 71 18 161/93 94 L 05/11/21 04:42 97.4 F L 74 18 173/96 94 L 05/11/21 00:23 16 05/10/21 18:03 98.9 F 73 18 166/93 97 05/10/21 14:56 97.5 F L 99 17 150/83 94 L Intake and Output 05/10/21 05/10/21 05/11/21 14:59 22:59 06:59 Intake Total 61 Balance 61 Intake: Intake, IV Titration 61 Amount Heparin Sod,Pork in 0.45% 61 NaCl 25,000 unit In 0.45 % NaCl 1 250ml.bag @ 11. 603 UNITS/KG/HR 10 mls/hr IV .Q24H [facility] Rx#: [id number] Other: Weight 86.183 kg Results 05/11/21 04:37 05/10/21 16:08 Cardiac Enzymes 05/10/21 05/10/21 05/10/21 Range/Units 16:08 16:08 18:58 AST 27 (17-59) U/L Troponin I 0.080 H* 0.070 H* (0.000-0.034) ng/mL 05/10/21 Range/Units 22:15 AST (17-59) U/L Troponin I 0.058 H* (0.000-0.034) ng/mL Coagulation 05/10/21 05/11/21 05/11/21 Range/Units 16:08 00:11 02:22 PT 10.2 10.6 (9.0-12.0) sec APTT 22.9 >200.0 H* (22.0-30.0) sec 05/11/21 Range/Units 04:37 PT (9.0-12.0) sec APTT 23.8 (22.0-30.0) sec CBC 05/10/21 05/11/21 Range/Units 16:08 04:37 WBC 11.3 H 7.4 (3.8-10.6) k/uL RBC 5.09 4.58 (4.30-5.90) m/uL Hgb 16.0 14.5 (13.0-17.5) gm/dL Hct 48.1 43.3 (39.0-53.0) % Plt Count 335 280 (150-450) k/uL Comprehensive Metabolic Panel 05/10/21 Range/Units 16:08 Sodium 143 (137-145) mmol/L Potassium 3.8 (3.5-5.1) mmol/L Chloride 104 (98-107) mmol/L Carbon Dioxide 28 (22-30) mmol/L BUN 25 H (9-20) mg/dL Creatinine 0.97 (0.66-1.25) mg/dL Glucose 79 (74-99) mg/dL Calcium 9.8 (8.4-10.2) mg/dL AST 27 (17-59) U/L ALT 16 (4-49) U/L Alkaline Phosphatase 98 (38-126) U/L Total Protein 7.3 (6.3-8.2) g/dL Albumin 4.7 (3.5-5.0) g/dL Current Medications Generic Name Dose Route Start Last Admin Trade Name Freq PRN Reason Stop Dose Admin Acetaminophen 650 mg 05/10/21 18:45 Acetaminophen Tab 325 Mg Tab PO Q6HR PRN Mild Pain or Fever > 100.5 Escitalopram Oxalate 10 mg 05/11/21 09:00 Escitalopram 10 Mg Tab PO DAILY [facility] Heparin Sodium (Porcine) 0 unit 05/10/21 18:29 Heparin Sodium 1,000 Un/Ml (10ml Vl) IV PER PROTOCOL PRN Low PTT Protocol Heparin Sodium/Sodium Chloride 250 mls @ 10 mls/hr 05/10/21 18:30 05/11/21 05:58 25,000 unit/ Sodium Chloride IV 14.603 units/kg/hr .Q24H [facility] 12.585 mls/hr Titration Protocol 11.603 UNITS/KG/HR Lacosamide 150 mg 05/10/21 21:30 05/11/21 01:01 Lacosamide 150 Mg Tablet PO 150 mg BID [facility] Administration Levetiracetam 1,000 mg 05/10/21 21:00 05/10/21 22:56 Levetiracetam 500 Mg Tab PO 1,000 mg BID [facility] Administration Levetiracetam 500 mg 05/10/21 21:30 05/10/21 22:57 Levetiracetam 500 Mg Tab PO 500 mg BID P[facility]RO Administration Intake and Output 05/10/21 05/10/21 05/11/21 14:59 22:59 06:59 Intake Total 61 Balance 61 Intake: Intake, IV Titration 61 Amount Heparin Sod,Pork in 0.45% 61 NaCl 25,000 unit In 0.45 % NaCl 1 250ml.bag @ 11. 603 UNITS/KG/HR 10 mls/hr IV .Q24H [facility] Rx#: [id number] Other: Weight 86.183 kg Patient Weight 05/11/21 06:59 Weight 86.183 kg 05/11/21 04:37 05/10/21 16:08
--- NOTE | 2021-05-11 10:17 | P.CNNES ---
History of Present Illness Consult date: 05/11/21 Requesting physician: Michael Perkins Reason for Consult: breakthru seizure History of Present Illness: This is a 71-year-old gentleman with medical history of epilepsy, traumatic brain injury at the age of 2 who presented emergency department on 05/10/2021 after unwitnessed fall. He is accompanied with his great-grandson (Giuseppe) and spoke with his sister Sushma (via Giuseppe's phone). It seems that yesterday somebody check up on him and the patient was found in the living room and that he was sitting in the chair and he had some bleeding in the back of his head. According to the great-grandson the patient had a fall in the kitchen but the episode was unwitnessed. It is unknown how long the patient was down for an whether he lost consciousness of not. Per the patient's sister the patient has had seizures since a child and he has a blank stares and does not respond during these episodes. She stated that these are the episodes that the are considered seizures and that she denies that he has any jerk in of any of the extremities that they know. Denies any foaming around the mouth or urinary or bowel incon tinence. Per the sister his last seizure was about a week ago and the patient is known to Dr. Galvan for years. Patient is on Keppra 1500 mg 1 tablet twice a day and the Vimpat 150 mg 1 tablet twice a day for his antiepileptic drugs and the per the sister he's been on this for years and that they haven't been modified the for for couple years to her knowledge. She stated that he had the multiple workup for his epilepsy and and which the 15 years ago he was admitted to the hospital for mapping the seizures and the he was told that the seizures are throughout the brain and it seems that he is not a surgical candidate somewhat the sister was describing. She denies being told that he had a stroke to her knowledge. She stated that the baseline he is oriented to self and place and sometimes he'll know the month but not the year. He does have chronic left nasal labial flattening as well as mild slurring of the speech and left eye issues in which she stated that he has macular degeneration and he has some ptosis over the left eye which is chronic. Per the sister the patient is compliant with his medication, does not smoke or consume alcohol. Besides the antiepileptic medication the he is on at home he is on Lexapro 10 mg daily. He is not on any aspirin, Plavix, anticoagulation or statins. Some of the workup in our facility consisted of: Initial vital signs: Blood pressure of 150/83, heart rate of 99, Estefanía 17, temperature of 97.5 per hour oral and pulse ox of 94% liters on room air. CT of the head is reported as no acute intracranial abnormality. Chronic small vessel ischemia. Old left thalamus infarct appeared cerebral atrophy. No change. I will back as a 2017 and he had the left thalamus Stroke there. I spoke with the patient's sister and she denied that she was told that he had a stroke. EKG is reported as normal sinus rhythm. Incomplete right bundle branch block appeared moderate voltage criteria for left ventricle hypertrophy, may be normal variant. Inferior infarct, age undetermined. Abnormal EKG. On initial presentation the patient's white blood cells 11.3 thousand and is noted to photic 8.6 but then the repeated the CBC with differential is un remarkable. Chemistry panel: Pertinent is the magnesium is 2.4 which is just on the border of slight elevation otherwise the rest of the chemistry panel is unremarkable except for the troponin was 0.0 8-0 repeat it was 0.070 so it's trending down. Calcium is 9.8, glucose on presentation 79, AST of 27 ALT of 16 which is unremarkable. Initial basic chronic ablation study is within normal limits. As a result of elevated troponin that [facility] emergency Department started the patient on heparin drip and consulted cardiology. Review of Systems Review of system: The 12 point system was reviewed and apparent positive and negative per HPI. Past Medical History Past Medical History: Seizure Disorder Additional Past Medical History / Comment(s): head injury as a child History of Any Multi-Drug Resistant Organisms: None Reported Additional Past Surgical History / Comment(s): lip cancer removed Past Psychological History: Anxiety Smoking Status: Never smoker Past Alcohol Use History: None Reported Past Drug Use History: None Reported - Past Family History Father Additional Family Medical History / Comment(s): alzheimers Mother Family Medical History: Myocardial Infarction ([place]) Additional Family Medical History / Comment(s): macular degeneration Medications and Allergies Home Medications Medication Instructions Recorded Confirmed Type Escitalopram [Lexapro] 10 mg PO DAILY 04/03/15 05/10/21 History levETIRAcetam 1,000 mg PO BID 04/03/15 05/10/21 History levETIRAcetam [Levetiracetam] 500 mg PO BID 04/03/15 05/10/21 History Lacosamide [Vimpat] 150 mg PO BID 04/07/17 05/10/21 History Allergies Allergy/AdvReac Type Severity Reaction Status Date / Time No Known Allergies Allergy Verified 05/10/21 19:51 Physical Examination - Vital Signs Vital Signs: Vital Signs Temp Pulse Pulse Resp BP BP Pulse Ox 05/11/21 08:10 97.8 F 62 18 149/85 95 05/11/21 07:11 97.6 F 62 18 174/94 97 05/11/21 06:53 97.4 F L 71 18 161/93 94 L 05/11/21 04:42 97.4 F L 74 18 173/96 94 L 05/11/21 00:23 16 05/10/21 18:03 98.9 F 73 18 166/93 97 05/10/21 14:56 97.5 F L 99 17 150/83 94 L Intake and Output 05/10/21 05/11/21 05/11/21 22:59 06:59 14:59 Intake Total 61 Balance 61 Intake: Intake, IV Titration 61 Amount Heparin Sod,Pork in 0.45% 61 NaCl 25,000 unit In 0.45 % NaCl 1 250ml.bag @ 11. 603 UNITS/KG/HR 10 mls/hr IV .Q24H [facility] Rx#: [id number] Other: # Voids 1 # Bowel Movements 1 GENERAL: The patient is lying in bed and is not in acute distress. CHEST: The heart rate is regular rate rhythm. No murmurs to auscultation. LUNG: Clear to auscultation bilaterally no wheezing noted throughout. Not labored breathing. ABDOMEN/GI: Bowel sounds present in all 4 quadrants. No tenderness to palpation throughout. NEUROLOGICAL: Higher mental function: The patient is awake, alert, oriented to self and place. He stated the month correctly but said he does not know the year (baseline). He is able to identify some objects (pen, watch and glasses). Patient is f ollowing commands. Language testing is limited because of his cooperation but No aphasia and no neglect from limited testing. Cranial nerves: The pupils are round, equal and reactive to light. He has dysconjugate gaze and ptosis of left eye (baseline per family). Visual loaiza were hard to accurately assess. Extraocular movement is intact no nystagmus is noted. Facial sensation is normal to touch throughout. The facial strength is left nasolabial flattening (old per family). Hearing is moderately decreased bilaterally to hand rub. Tongue is midline and moved [id number] without any difficulty. Mild dysarthria is noted (baseline). Shoulder shrug is normal bilaterally. Motor: The strength is 5- over the left upper extremity while right seems 5/5. Bilateral lowers are 5-. Normal tone and bulk. Cerebellum: Had end action tremor over the right, otherwise Normal finger to nose bilaterally. Sensation: Sensation is normal to touch throughout. Reflexes (right/left): 1+ throughout. Plantars is upgoing on the left at baseline. Otherwise mute over the left. . Results - Laboratory Findings CBC and BMP: 05/11/21 04:37 05/10/21 16:08 Abnormal Lab Findings: Abnormal Labs 05/10/21 05/10/21 05/10/21 16:08 16:08 16:08 WBC 11.3 H Neutrophils # 8.6 H APTT BUN 25 H Magnesium 2.4 H Troponin I 0.080 H* 05/10/21 05/10/21 05/11/21 18:58 22:15 00:11 WBC Neutrophils # APTT >200.0 H* BUN Magnesium Troponin I 0.070 H* 0.058 H* Assessment and Plan Assessment: Fall posterior scalp laceration possibly due to breakthrough seizure. I feel undermedicated especially since having frequent seizures History of epilepsy since childhood with history of traumatic brain injury Old left thalamic stroke (was seen as back as 2017) Mild Elevated troponin Plan: * In the ED the patient was given 1500 mg Keppra loading dose once. Then was restarted on his the home medication of Keppra 1500 mg 1 tablet twice a day and Vimpat 150 mg twice a day. * The patient's sister stated that she does not want his antiepileptic drugs to be modified as an inpatient and was to defer the medication as well as the rest of the workup to his neurologist (Dr. Galvan) as outpatient. * Every 4 hours neuro checks. * Patient is placed on seizure pads and seizure precaution. * I agree with the aspirin 81 mg daily and I'll start the patient on Lipitor 20 mg daily for secondary stroke prophylaxis. * Regarding the history of stroke seen on the CT of the head looks old and that the sister well once further workup as an outpatient and we'll defer that to his neurologist. * Cardiology is on board and they ordered lipid panel and 2-D echo and that's pending. * We'll defer the rest of the medical management to primary team. * Upon discharge the patient needs to follow up with a neurologist (Dr. Galvan) the as an outpatient within 1-2 weeks. The plan is discussed with the patient family members (great-grand son (Giuseppe) and sister (Sushma)) as well as his nurse. Thank you for the consultation. Bienvenido Adame MD Neuro-Hospitalist Time with Patient: Greater than 30
--- NOTE | 2021-05-11 18:35 | ECHOF ---
Referral Reason:elevated troponin, LV function MEASUREMENTS -------- HEIGHT: 177.8 cm WEIGHT: 86.2 kg BP: 149/85 RVIDd: 2.9 cm (< 3.3) IVSd: 1.6 cm (0.6 - 1.1) LVIDd: 3.8 cm (3.9 - 5.3) LVPWd: 1.6 cm (0.6 - 1.1) IVSs: 2.2 cm LVIDs: 2.1 cm LVPWs: 1.9 cm LAESV Index (A-L): 32.65 ml/m Ao Diam: 3.5 cm (2.0 - 3.7) AV Cusp: 1.7 cm (1.5 - 2.6) MV E Roland: 0.84 m/s MV DecT: 171 ms MV A Roland: 0.61 m/s MV E/A Ratio: 1.36 RAP: 5.00 mmHg RVSP: 34.92 mmHg FINDINGS -------- This was a technically difficult study with suboptimal apical views. The left ventricular size is normal. There is moderate concentric left ventricular hypertrophy. O verall left ventricular systolic function is normal with, an EF between 55 - 60 %. The right ventricle is normal in size. LA is moderately dilated 34-39 ml/m2 The right atrium was not well visualized. 5.0mg of Lumason was utilized for enhancement of images Interatrial and interventricular septum intact. There is mild aortic valve sclerosis. There is no evidence of aortic regurgitation. There is no e vidence of aortic stenosis. Mild mitral regurgitation is present. Mild tricuspid regurgitation present. There is borderline pulmonary artery hypertension. The righ t ventricular systolic pressure, as measured by Doppler, is 34.92mmHg. There is no pulmonic regurgitation present. The aortic root size is normal. IVC Not well visulized. CONCLUSIONS -------- 1. The left ventricular size is normal. 2. There is moderate concentric left ventricular hypertrophy. 3. Overall left ventricular systolic function is normal with, an EF between 55 - 60 %. 4. LA is moderately dilated 34-39 ml/m2 5. There is mild aortic valve sclerosis. 6. Mild mitral regurgitation is present. 7. Mild tricuspid regurgitation present. 8. There is borderline pulmonary artery hypertension. 9. The right ventricular systolic pressure, as measured by Doppler, is 34.92mmHg. SALES ENGAGEMENT EXECUTIVE: Mary Anne Arshad RDCS
[2021-05-11] MEDS ORDERED: ATORVASTATIN 20 MG TAB PO SCH (21:00)
[2021-05-12] MEDS: METOPROLOL TARTRATE 25 MG TAB PO SCH ×2 (00:32→09:55)
[2021-05-12 01:17] LABS: Chol/HDL Ratio 3.8
[2021-05-12 04:19] VITALS: RESP 17
[2021-05-12 07:09] LABS: African American GFR (CKD) >90 (>60 ml/min/1.73 sqM); Anion Gap 6 mmol/L; Blood Urea Nitrogen 23 mg/dL (9-20); Calcium 8.9 mg/dL (8.4-10.2); Carbon Dioxide 27 mmol/L (22-30); Chloride 106 mmol/L (98-107); Glucose 109 mg/dL (74-99); Non-African American GFR(CKD) 86 (>60 ml/min/1.73 sqM); Sodium 139 mmol/L (137-145)
[2021-05-12 09:50] VITALS: BP 129/65; PULSE 72; TEMP 97.5
[2021-05-12] MEDS: ESCITALOPRAM 10 MG TAB PO SCH (09:55)
[2021-05-12] MEDS: ASPIRIN 81 MG PO SCH (09:55)
[2021-05-12] MEDS: LACOSAMIDE 150 MG TABLET PO SCH (09:55)
--- NOTE | 2021-05-12 10:49 | P.DS ---
Providers Date of admission: 05/10/21 18:46 Expected date of discharge: 05/12/21 Attending physician: Carlos Barry Consults: 05/10/21 18:45 Consult Physician Stat Consulting Provider: Royce Sher Consult Reason/Comments: NSTEMI, elevated troponin Do you want consulting provider notified?: Already Contacted 05/10/21 22:46 Consult Physician Stat Consulting Provider: Bienvenido Adame Consult Reason/Comments: breakthrough seizures Do you want consulting provider notified?: Yes, Notify in am Primary care physician: Carlos Barry Hospital Course: Possible breakthrough seizure, possibly undermedicated with frequent seizures at home, family declining further workup or adjustment in anticonvulsant therapy. Fall, unwitnessed, sustained posterior scalp laceration History of traumatic brain injury at age 2 with seizure disorder Old left thalamic stroke reported per CT, sister reports unaware of this finding prior; declining further inpatient workup, further workup outpatient with . Mild Elevated troponin, not ACS as per cardiology Hypertension Borderline pulmonary hypertension Hospital course: This a 71-year-old gentleman with medical history of epilepsy/traumatic brain injury since childhood, presented to the ER post unwitnessed fall sustaining a posterior scalp laceration. Received a loading dose of Keppra in the ER with home anticonvulsants, Keppra and Vimpat resumed.CT of the head is reported as no acute intracranial abnormality. Chronic small vessel ischemia. Old left thalamus infarct appeared cerebral atrophy. No change. EKG is reported as normal sinus rhythm. Incomplete right bundle branch block appeared moderate voltage criteria for left ventricle hypertrophy, may be normal variant. Inferior infarct, age undetermined. Abnormal EKG. Troponins was 0.080, 0.070 and continue trending down to 0.058. Evaluated by cardiology, not ACS with B-keith added to med regimen. Echo reported moderate concentric left ventricular hypertrophy, normal LV function, EF 55-60%, moderately dilated LA, borderline pulmonary hypertension Further neuro workup declined by family.The patient's sister does not want his antiepileptic drugs to be modified as an inpatient and request to defer the medication as well as the rest of the workup to his neurologist (Dr. Galvan) as outpatient. Aspirin and statin added for secondary stroke prophylaxis. No further seizure activity reported . Significant clinical improvement .Maintain seizure precautions, as further neurological workup recommended. Patient will be discharged home today in a stable condition with guarded prognosis. The impression and plan of care has been dictated as directed. : I performed a history and examination of this patient, discussed the same with the dictator. I agree with the dictator's note ,documented as a scribe. Any additional findings or plans will be noted. Patient Condition at Discharge: Stable Plan - Discharge Summary Discharge Rx Participant: Yes New Discharge Prescriptions: New Atorvastatin [Lipitor] 20 mg PO HS #30 tab Metoprolol Tartrate [Lopressor] 25 mg PO BID #60 tab Aspirin 81 mg PO DAILY chew Continue Escitalopram [Lexapro] 10 mg PO DAILY levETIRAcetam 1,000 mg PO BID levETIRAcetam [Levetiracetam] 500 mg PO BID Lacosamide [Vimpat] 150 mg PO BID Discharge Medication List Escitalopram [Lexapro] 10 mg PO DAILY 04/03/15 [History] levETIRAcetam 1,000 mg PO BID 04/03/15 [History] levETIRAcetam [Levetiracetam] 500 mg PO BID 04/03/15 [History] Lacosamide [Vimpat] 150 mg PO BID 04/07/17 [History] Aspirin 81 mg PO DAILY chew 05/12/21 [Rx] Atorvastatin [Lipitor] 20 mg PO HS #30 tab 05/12/21 [Rx] Metoprolol Tartrate [Lopressor] 25 mg PO BID #60 tab 05/12/21 [Rx] Follow up Appointment(s)/Referral(s): Linus Galvan DO [STAFF PHYSICIAN] - 1 Week Carlos Barry DO [Primary Care Provider] - 1 Week Activity/Diet/Wound Care/Special Instructions: Maintain seizure precautions /seizure pads .Patient's sister stated that she tuttle s not want his antiepileptic drugs to be modified as an inpatient and was to defer the medication as well as the rest of the workup to his neurologist (Dr. Galvan) as outpatient. Scalp sutures to be removed at PCPs office in one week.
--- NOTE | 2021-05-12 12:10 | P.PN ---
Subjective This is a pleasant 71-year-old male past medical history significant for traumatic head injury at age 2 and seizures. He does not follow with a card iologist. We have been asked to see in consultation for elevated troponin. Patient seen and examined at bedside, no acute distress. He denies any chest pain, shortness of breath, lightheadedness, dizziness, palpitations. He is seen at the bedside chair with his grand son at bedside. Blood pressure 129/65, heart rate 72, afebrile, maintaining oxygen saturations on room air. Echocardiogram revealed an EF 55-60%, LA is mildly dilated, mild aortic valve sclerosis, mild mitral regurgitation, mild tricuspid regurgitation. Laboratory data reviewed sodium 139, potassium 4.0, BUN 23, serum 0.87, triglycerides 105, cholesterol 194, LDL 122, HDL 51 PHYSICAL EXAMINATION CONSTITUTIONAL: No apparent distress. HEENT: Head is normocephalic. No JVD. No carotid bruit. CHEST EXAMINATION: Lungs are clear to auscultation. No chest wall tenderness is noted on palpation or with deep breathing. HEART EXAMINATION: Regular rate and rhythm. S1, S2 heard. No murmurs, gallops or rub. ABDOMEN: Soft, nontender. Positive bowel sounds. EXTREMITIES: 2+ peripheral pulses, no lower extremity edema and no calf tenderness. SKIN: Posterior occipital laceration with sanguineous drainage, with adriel p resent NEUROLOGIC EXAMINATION: Patient is awake, alert, oriented to person ASSESSMENT Elevated troponin, indicative to seizure activity, not indicative of acute coronary syndrome Seizure Disorder Fall with injury History of multiple falls Hypertension Old left thalamic infarct noted on CT brain Dyslipidemia- 10 year ASCVD risk is high 21.8% PLAN Recommending continue statin and aspirin 81mg daily and Metoprolol tartrate 25mg BID From cardiology, patient stable to be discharged home. Patient can follow up in the office as an outpatient Thank you kindly for this consultation Nurse Practitioner note has been reviewed, I agree with a documented findings and plan of care. Patient was seen and examined. Objective - Vital Signs Vital signs: Vital Signs Temp 97.5 F L 05/12/21 08:00 Pulse 72 05/12/21 08:00 Resp 17 05/12/21 08:00 BP 129/65 05/12/21 08:00 Pulse Ox 93 L 05/12/21 08:00 Intake & Output 05/11/21 05/12/2121 18:59 06:59 18:59 Intake Total 360 100 0 Output Total 550 1200 Balance -190 -1100 0 Weight 86.183 kg 100 kg Intake: Oral 360 100 0 Output: Urine 550 1200 Straight 600 Other: # Voids 1 1 0 # Bowel Movements 1 1 - Labs CBC & Chem 7: 05/11/21 04:37 05/12/21 05:57 Labs: Abnormal Lab Results - Last 24 Hours (Table) 05/12/21 Range/Units 05:57 BUN 23 H (9-20) mg/dL Glucose 109 H (74-99) mg/dL
== END 2021-05-12 11:59 | disposition home or self-care (01) | DRG 101 ==
LOC: EC 14:42 → 3SCARD 18:46 → 3NCARDOBS 05-11 22:59
PROVIDERS: ADMIT Family Medicine; ATTEND Family Medicine
PROC: 0HQ0XZZ Repair Scalp Skin, External Approach (ICD-10-PCS; principal; 2021-05-10)
DX: G40.909 Epilepsy, unspecified, not intractable, without status epilepticus (principal); H35.30 Unspecified macular degeneration; H02.402 Unspecified ptosis of left eyelid; D72.829 Elevated white blood cell count, unspecified; I10 Essential (primary) hypertension; R77.8 Other specified abnormalities of plasma proteins; F41.9 Anxiety disorder, unspecified; I27.20 Pulmonary hypertension, unspecified; Z85.819 Personal history of malignant neoplasm of unspecified site of lip, oral cavity, and pharynx; I45.10 Unspecified right bundle-branch block; Z87.820 Personal history of traumatic brain injury; R29.6 Repeated falls; S01.01XA Laceration without foreign body of scalp, initial encounter; W19.XXXA Unspecified fall, initial encounter; Y92.000 Kitchen of unspecified non-institutional (private) residence as the place of occurrence of the external cause; Z79.899 Other long term (current) drug therapy; Z82.0 Family history of epilepsy and other diseases of the nervous system; Z82.49 Family history of ischemic heart disease and other diseases of the circulatory system; Z83.518 Family history of other specified eye disorder; Z87.828 Personal history of other (healed) physical injury and trauma; Z91.81 History of falling
CPT/HCPCS: 36415; 70450; 71045; 80048; 80053; 80061; 83735; 84484; 85025; 85610; 85730; 90471; 90715; 93005; 93306; 96374; 99285

== ENCOUNTER 2021-08-26 18:00 | Emergency (ER) | payer MEDICARE, BC, OTHER ==
[2021-08-26 18:56] VITALS: TEMP 99.3
[2021-08-26] MEDS ORDERED: ACET/COD 300 MG/30 MG STARTER PACK 6 TAB BTL PO STA (20:09)
--- NOTE | 2021-08-26 20:38 | ED ---
Fall HPI - General Chief Complaint: Fall Stated Complaint: Fall/Right ankle injury Time Seen by Provider: 08/26/21 20:00 Source: family Mode of arrival: wheelchair - History of Present Illness Initial Comments: 71-year-old male patient presents to the emergency department today for evaluation of right ankle pain after a fall. Patient states he tripped over a chair and fell backwards. States he twisted his ankle in the process. States he did strike his mid upper back. Denies significant pain to the area. Denies any radiation down his arms. He denies hitting his head or losing consciousness. Denies any neck pain. Denies numbness or tingling to the foot. Reports pain around the ankle. Significant pain with weight bearing. Denies previous injury to the ankle. Denies use of blood thinning medications. Has not taken anything for pain. - Related Data Home Medications Medication Instructions Recorded Confirmed Escitalopram [Lexapro] 10 mg PO DAILY 04/03/15 05/10/21 levETIRAcetam 1,000 mg PO BID 04/03/15 05/10/21 levETIRAcetam [Levetiracetam] 500 mg PO BID 04/03/15 05/10/21 Lacosamide [Vimpat] 150 mg PO BID 04/07/17 05/10/21 Previous Rx's Medication Instructions Recorded Aspirin 81 mg PO DAILY chew 05/12/21 Atorvastatin [Lipitor] 20 mg PO HS #30 tab 05/12/21 Metoprolol Tartrate [Lopressor] 25 mg PO BID #60 tab 05/12/21 Allergies Allergy/AdvReac Type Severity Reaction Status Date / Time No Known Allergies Allergy Verified 08/26/21 18:56 Review of Systems ROS Statement: Those systems with pertinent positive or pertinent negative responses have been documented in the HPI. ROS Other: All systems not noted in ROS Statement are negative. Past Medical History Past Medical History: Seizure Disorder Additional Past Medical History / Comment(s): head injury as a child History of Any Multi-Drug Resistant Organisms: None Reported Additional Past Surgical History / Comment(s): lip cancer removed Past Anesthesia/Blood Transfusion Reactions: No Reported Reaction Additional Past Anesthesia/Blood Transfusion Reaction / Comment(s): never had blood transfusion Past Psychological History: Anxiety Smoking Status: Never smoker Past Alcohol Use History: None Reported Past Drug Use History: None Reported - Past Family History Father Additional Family Medical History / Comment(s): alzheimers Mother Family Medical History: Myocardial Infarction ([place]) Additional Family Medical History / Comment(s): macular degeneration General Exam Limitations: altered mental status General appearance: alert, in no apparent distress, other (This is a well- developed, well-nourished adult male patient in no acute distress.) ENT exam: Present: normal exam, normal oropharynx Neck exam: Present: normal inspection, full ROM, other (Nontender, no step-off, no deformity to firm midline palpation of the posterior cervical spine. Full range of motion without pain or limitation.) Respiratory exam: Present: normal lung sounds bilaterally. Absent: respiratory distress, wheezes, rales, rhonchi, stridor Cardiovascular Exam: Present: regular rate, normal rhythm, normal heart sounds. Absent: systolic murmur, diastolic murmur, rubs, gallop, clicks GI/Abdominal exam: Present: soft, normal bowel sounds. Absent: distended, tenderness, guarding, rebound, rigid Extremities exam: Present: full ROM, normal capillary refill, other (Right ankle swelling, pain with palpation over medial and lateral malleolus. Nursing Associate ankle ecchymosis. Skin to the foot is pink, warm, dry. Cap refill less than 3 seconds. Pedal and posttibial pulses 2+.). Absent: tenderness, pedal edema, joint swelling, calf tenderness Back exam: Present: normal inspection, vertebral tenderness (Thoracic mid. No bony step-off or deformity.), other (No surface trauma) Neurological exam: Present: alert, oriented X3, CN II-XII intact Psychiatric exam: Present: normal affect, normal mood Skin exam: Present: warm, dry, intact, normal color. Absent: rash Course Vital Signs 08/26/21 08/26/21 18:52 22:11 Temperature 99.3 F Pulse Rate 66 68 Respiratory 18 16 Rate Blood Pressure 142/79 130/68 O2 Sat by Pulse 95 96 Oximetry Medical Decision Making - Medical Decision Making 71-year-old male patient presented to the emergency department today for evaluation of back pain and right ankle pain after a fall. Physical examination did reveal mild tenderness over the upper thoracic spine. He also had soft tissue swelling surrounding the right ankle. Neurovascular status is intact. X-rays are negative for any acute fracture. He was placed in ankle stirrup splint. Discussed sprain as a cause for his symptoms. We discussed rest, ice, elevation. Instructed to follow-up with the primary care physician for further evaluation of symptoms are not improved over the next week. Return parameters were discussed in detail. They verbalize understanding and agree with this plan. My attending is Dr. Smith. Disposition Clinical Impression: Right ankle sprain Disposition: HOME SELF-CARE Condition: Good Instructions (If sedation given, give patient instructions): Ankle Sprain (ED) Additional Instructions: Use splint. Rest, ice, elevate the ankle. Take, Motrin for pain control. Follow-up with the primary care physician for recheck in 1-2 days. Return for any new, worsening, or concerning symptoms. Is patient prescribed a controlled substance at d/c from ED?: No Referrals: Carlos Barry DO [Primary Care Provider] - 1-2 days Time of Disposition: 21:39
--- NOTE | 2021-08-26 21:13 | XR ---
PROCEDURE: XR ankle complete LT - 3V DATE AND TIME: 08/26/2021 8:36 PM CLINICAL INDICATION: PHH; ankle pain TECHNIQUE: Department protocol COMPARISON: None FINDINGS: There is no fracture or malalignment. There appears to be circumferential soft tissue swell ing. IMPRESSION: Soft tissue swelling.
--- NOTE | 2021-08-26 21:18 | XR ---
PROCEDURE: XR thoracic spine complete - 4V DATE AND TIME: 08/26/2021 8:36 PM CLINICAL INDICATION: PHH; back pain after fall TECHNIQUE: Department protocol COMPARISON: None FINDINGS: There is no fracture or malalignment. The soft tissues are unremarkable. IMPRESSION: NO ACUTE PROCESS.
[2021-08-26 22:12] VITALS: BP 130/68; PULSE 68; RESP 16
== END 2021-08-26 22:11 | disposition home or self-care (01) ==
LOC: EC 18:00
DX: S93.401A Sprain of unspecified ligament of right ankle, initial encounter (principal); G40.909 Epilepsy, unspecified, not intractable, without status epilepticus; F41.9 Anxiety disorder, unspecified; Z79.82 Long term (current) use of aspirin; Z79.899 Other long term (current) drug therapy; Z82.49 Family history of ischemic heart disease and other diseases of the circulatory system; W07.XXXA Fall from chair, initial encounter; X50.1XXA Overexertion from prolonged static or awkward postures, initial encounter
CPT/HCPCS: 29515; 72072; 99284

== ENCOUNTER 2023-01-25 09:50 | Inpatient (IN) | payer MEDICARE, BC, OTHER ==
--- NOTE | 2023-01-25 10:36 | ED ---
General Adult HPI - General Chief complaint: Fall Stated complaint: Fall Source: family, EMS, RN notes reviewed Mode of arrival: EMS - History of Present Illness Initial comments: 72-year-old male presents to the emergency department via EMS with chief complaint of fall. PMH seizures. He was placed in a c-collar by EMS. Family states that he was going down wheelchair ramp and fell face first into the ground at 0900. He has a 4 cm laceration on his forehead and a 0.5 cm laceration on the bridge of his nose. Complains of left wrist pain. Denies loss of consciousness. Denies neck and back pain. Denies chest pain, shortness of breath. He is not on any blood thinners. Up-to-date on tetanus. - Related Data Home Medications Medication Instructions Recorded Confirmed Escitalopram [Lexapro] 10 mg PO HS 04/03/15 01/25/23 levETIRAcetam 1,000 mg PO BID 04/03/15 01/25/23 levETIRAcetam [Levetiracetam] 500 mg PO BID 04/03/15 01/25/23 Atorvastatin [Lipitor] 20 mg PO DAILY 01/25/23 01/25/23 Calcium Carbonate/Vitamin D3 2 tab PO W/SUPPER 01/25/23 01/25/23 [Calcium 600-Vit D3 10 mcg (400 Iu)] Vit C/E/Zn/Coppr/Lutein/Zeaxan 1 tab PO BID-W/MEALS 01/25/23 01/25/23 [Preservision Areds 2 Chew Tab] Previous Rx's Medication Instructions Recorded Metoprolol Tartrate [Lopressor] 25 mg PO BID #60 tab 05/12/21 Allergies Allergy/AdvReac Type Severity Reaction Status Date / Time No Known Allergies Allergy Verified 01/25/23 10:30 Review of Systems ROS Statement: Those systems with pertinent positive or pertinent negative responses have been documented in the HPI. ROS Other: All systems not noted in ROS Statement are negative. Past Medical History Past Medical History: Seizure Disorder Additional Past Medical History / Comment(s): head injury as a child History of Any Multi-Drug Resistant Organisms: None Reported Additional Past Surgical History / Comment(s): lip cancer removed Past Anesthesia/Blood Transfusion Reactions: No Reported Reaction Additional Past Anesthesia/Blood Transfusion Reaction / Comment(s): never had blood transfusion Past Psychological History: Anxiety Smoking Status: Never smoker Past Alcohol Use History: None Reported Past Drug Use History: None Reported - Past Family History Father Additional Family Medical History / Comment(s): alzheimers Mother Family Medical History: Myocardial Infarction ([place]) Additional Family Medical History / Comment(s): macular degeneration General Exam Limitations: language barrier General appearance: alert, in no apparent distress Head exam: Absent: atraumatic (4cm laceration on mid forehead), normal inspection Eye exam: Present: normal appearance, PERRL, EOMI. Absent: scleral icterus, conjunctival injection, periorbital swelling ENT exam: Present: mucous membranes moist. Absent: normal exam (.5cm laceration on bridge of nose ) Neck exam: Present: normal inspection. Absent: tenderness, meningismus, lymphadenopathy Respiratory exam: Present: normal lung sounds bilaterally. Absent: respiratory distress, wheezes, rales, rhonchi, stridor Cardiovascular Exam: Present: normal rhythm, bradycardia (bradycardic in 40s since arrival ), normal heart sounds. Absent: systolic murmur, diastolic murmur, rubs, gallop, clicks GI/Abdominal exam: Present: soft, normal bowel sounds. Absent: distended, tenderness, guarding, rebound, rigid Extremities exam: Present: full ROM, normal capillary refill, pedal edema (edema of zeferino lower extremities ). Absent: normal inspection (bruising of left hand and wrist ), tenderness, joint swelling, calf tenderness Left Forearm Wrist exam: Present: tenderness, swelling, ecchymosis Vascular: Present: normal capillary refill Neurological exam: Present: alert, oriented X3, CN II-XII intact Psychiatric exam: Present: normal affect, normal mood Skin exam: Present: warm, dry, intact, normal color. Absent: rash Course Vital Signs 01/25/23 01/25/23 01/25/23 09:55 10:54 12:26 Temperature 98.0 F Pulse Rate 45 L 41 L 41 L Respiratory 18 18 20 Rate Blood Pressure 178/87 169/80 176/79 O2 Sat by Pulse 96 98 97 Oximetry 01/25/23 13:35 Temperature Pulse Rate 40 L Respiratory 19 Rate Blood Pressure 182/93 O2 Sat by Pulse 98 Oximetry EKG Findings - EKG Comments: EKG Findings:: 14:26 Sinus bradycardia rate 42, GA 1, QRS 101, QT/QTc 463/405 - EKG Results: EKG: interpreted by ERMD Procedures - Laceration Laceration #1 Consent Obtained: verbal consent Indication: laceration Site: face (mid forehead ) Size (cm): 4 Description: irregular Depth: simple, single layer Anesthetic Used: lidocaine 1% Anesthesia Technique: local infiltration Pre-repair: wound explored, irrigated extensively Type of Sutures: nylon Size of Sutures: 6-0 Number of Sutures: 17 Technique: simple, interrupted Patient Tolerated Procedure: well Laceration #2 Consent Obtained: verbal consent Indication: laceration Site: face (nose) Size (cm): 1 Description: linear Depth: simple, single layer Anesthetic Used: lidocaine 1% Anesthesia Technique: local infiltration Pre-repair: wound explored, irrigated extensively Type of Sutures: nylon Size of Sutures: 6-0 Number of Sutures: 1 Technique: simple, interrupted Patient Tolerated Procedure: well Medical Decision Making - Medical Decision Making Was pt. sent in by a medical professional or institution (, PA, ELECTRONIC SCALE ASSEMBLER AND TESTER, urgent care, hospital, or skilled nursing...) When possible be specific @ -[No] Did you speak to anyone other than the patient for history (EMS, parent, family, police, friend...)? What history was obtained from this source @ -[No] Did you review nursing and triage notes (agree or disagree)? Why? @ -[I reviewed and agree with nursing and triage notes] Were old charts reviewed (outside hosp., previous admission, EMS record, old EKG, old radiological studies, urgent care reports/EKG's, skilled nursing records)? Report findings @ -[No old charts were reviewed] Differential Diagnosis (chest pain, altered mental status, abdominal pain women, abdominal pain men, vaginal bleeding, weakness, fever, dyspnea, syncope, headache, dizziness, GI bleed, back pain, seizure, CVA, palpatations, mental health, musculoskeletal)? @ -[Fall, laceration, cervical fracture, wrist fracture, bradycardia, hypokalemia this list is not all-inclusive. EKG interpreted by me (3pts min.). @ -[Sinus bradycardia rate 44, GA 204, QRS 101, QT/QTc 453/405] X-rays interpreted by me (1pt min.). @ -[X-ray left wrist shows no acute fractures] CT interpreted by me (1pt min.). @ -[CT brain showed atrophy with chronic appearing periventricular white matter ischemic-type changes. CT cervical spine shows no acute fractures. ] U/S interpreted by me (1pt. min.). @ -[None done] What testing was considered but not performed or refused? (CT, X-rays, U/S, labs)? Why? @ -[None] What meds were considered but not given or refused? Why? @ -[None] Did you discuss the management of the patient with other professionals (professionals i.e. , PA, ELECTRONIC SCALE ASSEMBLER [employer] TESTER, lab, RT, psych nurse, social media marketer, geothermal heat pump machinist, teacher, [employer] revenue officer, hospice case manager)? Give summary @ -[No] Was smoking cessation discussed for >3mins.? @ -[No] Was critical care preformed (if so, how long)? @ -[No] Were there social determinants of health that impacted care today? How? (Homelessness, low income, unemployed, alcoholism, drug addiction, transportation, low edu. Level, literacy, decrease access to med. care, assisted, rehab)? @ -[No] Was there de-escalation of care discussed even if they declined (Discuss DNR or withdrawal of care, Hospice)? DNR status @ -[No] What co-morbidities impacted this encounter? (DM, HTN, Smoking, COPD, CAD, Cancer, CVA, ARF, Chemo, Hep., AIDS, mental health diagnosis, sleep apnea, m orbid obesity)? @ -[None] Was patient admitted / discharged? Hospital course, mention meds given and route, prescriptions, significant lab abnormalities, going to OR and other pertinent info. @ -Admitted. Patient presented to emergency department after a fall in which he hit his head. He has a laceration on his forehead requiring 17 sutures and a 0.5 cm laceration on his nose requiring 1 suture. He was bradycardic at 40 bpm at presentation which persisted. CBC, CMP was obtained. Potassium 2.7. Admitted for cardiology evaluation, potassium replacement, and further monitoring. Undiagnosed new problem with uncertain prognosis? @ -[No] Drug Therapy requiring intensive monitoring for toxicity (Heparin, Nitro, Insulin, Cardizem)? @ -[No] Were any procedures done? @ -Yes. Laceration repair forehead requiring 17 sutures. Laceration repair nose requiring 1 suture. Diagnosis/symptom? @ -Bradycardia Acute, or Chronic, or Acute on Chronic? @ -Acute Uncomplicated (without systemic symptoms) or Complicated (systemic symptoms)? @ -Complicated Side effects of treatment? @ -[No] Exacerbation, Progression, or Severe Exacerbation? @ -[No] Poses a threat to life or bodily function? How? (Chest pain, [place], GA, pneumonia, PE, COPD, DKA, ARF, appy, cholecystitis, CVA, Diverticulitis, Homicidal, Suicidal, threat to staff... and all critical care pts) @ -[No] Diagnosis/symptom? @ -Hypokalemia Acute, or Chronic, or Acute on Chronic? @ -[Acute Uncomplicated (without systemic symptoms) or Complicated (systemic symptoms)? @ -Complicated Side effects of treatment? @ -[none] Exacerbation, Progression, or Severe Exacerbation] @ -[no] Poses a threat to life or bodily function? @ -[no] Diagnosis/symptom? @ -[Laceration Acute, or Chronic, or Acute on Chronic? @ -Acute Uncomplicated (without systemic symptoms) or Complicated (systemic symptoms)? @ -Uncomplicated Side effects of treatment? @ -[none] Exacerbation, Progression, or Severe Exacerbation] @ -[no] Poses a threat to life or bodily function? @ -[no] - Lab Data Result diagrams: 01/25/23 10:54 01/25/23 10:54 Lab Results 01/25/23 01/25/23 01/25/23 Range/Units 10:54 10:54 10:54 WBC 10.4 (3.8-10.6) k/uL RBC 4.48 (4.30-5.90) m/uL Hgb 14.3 (13.0-17.5) gm/dL Hct 41.1 (39.0-53.0) % MCV 91.8 (80.0-100.0) fL MCH 31.8 (25.0-35.0) pg MCHC 34.6 (31.0-37.0) g/dL RDW 14.0 (11.5-15.5) % Plt Count 325 (150-450) k/uL MPV 8.2 Neutrophils % 72 % Lymphocytes % 14 % Monocytes % 7 % Eosinophils % 4 % Basophils % 1 % Neutrophils # 7.5 (1.3-7.7) k/uL Lymphocytes # 1.4 (1.0-4.8) k/uL Monocytes # 0.8 (0-1.0) k/uL Eosinophils # 0.4 (0-0.7) k/uL Basophils # 0.1 (0-0.2) k/uL Sodium 143 (137-145) mmol/L Potassium 2.7 L* (3.5-5.1) mmol/L Chloride 100 (98-107) mmol/L Carbon Dioxide 37 H (22-30) mmol/L Anion Gap 6 mmol/L BUN 23 H (9-20) mg/dL Creatinine 0.88 (0.66-1.25) mg/dL Est GFR (CKD-EPI)AfAm >90 (>60 ml/min/1.73 sqM) Est GFR (CKD-EPI)NonAf 85 (>60 ml/min/1.73 sqM) Glucose 110 H (74-99) mg/dL Calcium 8.6 (8.4-10.2) mg/dL Magnesium (1.6-2.3) mg/dL Total Bilirubin 0.8 (0.2-1.3) mg/dL AST 26 (17-59) U/L ALT 17 (4-49) U/L Alkaline Phosphatase 107 (38-126) U/L NT-Pro-B Natriuret Pep 814 pg/mL Total Protein 6.8 (6.3-8.2) g/dL Albumin 3.9 (3.5-5.0) g/dL 01/25/23 Range/Units 10:54 WBC (3.8-10.6) k/uL RBC (4.30-5.90) m/uL Hgb (13.0-17.5) gm/dL Hct (39.0-53.0) % MCV (80.0-100.0) fL MCH (25.0-35.0) pg MCHC (31.0-37.0) g/dL RDW (11.5-15.5) % Plt Count (150-450) k/uL MPV Neutrophils % % Lymphocytes % % Monocytes % % Eosinophils % % Basophils % % Neutrophils # (1.3-7.7) k/uL Lymphocytes # (1.0-4.8) k/uL Monocytes # (0-1.0) k/uL Eosinophils # (0-0.7) k/uL Basophils # (0-0.2) k/uL Sodium (137-145) mmol/L Potassium (3.5-5.1) mmol/L Chloride (98-107) mmol/L Carbon Dioxide (22-30) mmol/L Anion Gap mmol/L BUN (9-20) mg/dL Creatinine (0.66-1.25) mg/dL Est GFR (CKD-EPI)AfAm (>60 ml/min/1.73 sqM) Est GFR (CKD-EPI)NonAf (>60 ml/min/1.73 sqM) Glucose (74-99) mg/dL Calcium (8.4-10.2) mg/dL Magnesium 2.3 (1.6-2.3) mg/dL Total Bilirubin (0.2-1.3) mg/dL AST (17-59) U/L ALT (4-49) U/L Alkaline Phosphatase (38-126) U/L NT-Pro-B Natriuret Pep pg/mL Total Protein (6.3-8.2) g/dL Albumin (3.5-5.0) g/dL Disposition Clinical Impression: Laceration of head, Fall, Bradycardia, Hypokalemia Disposition: ADMITTED IP TO THIS [facility] Condition: Stable Referrals: None,Stated [REFERRING] - 1-2 days Time of Disposition: 13:55
--- NOTE | 2023-01-25 11:00 | XR ---
EXAMINATION TYPE: XR chest 1V portable DATE OF EXAM: 01/25/2023 COMPARISON: Chest x-ray May 10, 2021 HISTORY: Fall injury with pain and swelling. TECHNIQUE: Single frontal view of the chest is obtained. FINDINGS: Cardiomegaly redemonstrated. No suspicious new focal airspace opacity, pleural effusion, p neumothorax seen bilaterally. Background mild chronic parenchymal changes remain present. The osseou s structures are intact. IMPRESSION: Cardiomegaly without acute pulmonary process. No significant change from prior.
--- NOTE | 2023-01-25 11:01 | XR ---
EXAMINATION TYPE: XR wrist complete LT DATE OF EXAM: 01/25/2023 CLINICAL HISTORY: Fall injury with pain TECHNIQUE: Frontal, lateral, scaphoid, and oblique images of the left wrist are obtained. 4 view sc aphoid view is performed. COMPARISON: None FINDINGS: There is no acute fracture/dislocation evident in the left wrist. The joint spaces in the left wrist appear within normal limits. The overlying soft tissue appears unremarkable. IMPRESSION: There is no acute fracture or dislocation in the left wrist.
--- NOTE | 2023-01-25 11:05 | CT ---
EXAMINATION TYPE: CT brain rasheed lay con DATE OF EXAM: 01/25/2023 COMPARISON: 05/10/2021 HISTORY: Fall CT DLP: 1526.1 mGycm, Automated exposure control for dose reduction was used. CONTRAST: Patient injected with 0 mL of Isovue 300. CT of the brain is performed utilizing 3 mm thick sections through the posterior fossa and 3 mm thick sections through the remaining calvarium. Study is performed within 24 hours of arrival to the hospital. No abnormal hyperdensity is present to suggest an acute intracranial hemorrhage. No mass lesion is evident. No acute infarcts are evident. Periventricular white matter hypodensity is present, likely on the ba sis of chronic white matter ischemic changes. Ventricles and sulci are prominent for the patient age. Paranasal sinuses and mastoid air cells within the [id number] are clear. Soft tissue swelling is over the frontal region. No fractures are evident. IMPRESSIONS: 1. Atrophy with chronic appearing periventricular white matter ischemic-type changes. CT cervical spine. COMPARISON: None CT of the cervical spine is performed in the axial plane at 2 mm thick sections. Reconstructed image s in the coronal, and sagittal plane are reviewed on the computer. No acute fractures are evident. There is a mild kyphosis present. There is loss of disc height present C3-4 through T1-T2. Vertebral body heights are preserved. No spinal canal stenosis is evident. Some uncovertebral joint hypertrophy is contributing to left foraminal stenosis C5-6 and C4-5. IMPRESSIONS: 1. Degenerative disc disease and left foraminal narrowing. 2. No acute fractures evident.
[2023-01-25 11:11] LABS: Basophils # (A) 0.1 k/uL (0-0.2); Basophils % (A) 1 %; Eosinophils # (A) 0.4 k/uL (0-0.7); Eosinophils % (A) 4 %; HCT 41.1 % (39.0-53.0); HGB 14.3 gm/dL (13.0-17.5); Lymphocytes # (A) 1.4 k/uL (1.0-4.8); Lymphocytes % (A) 14 %; MCH 31.8 pg (25.0-35.0); MCHC 34.6 g/dL (31.0-37.0); MCV 91.8 fL (80.0-100.0); Mean Platelet Volume 8.2; Monocytes # (A) 0.8 k/uL (0-1.0); Monocytes % (A) 7 %; Neutrophils # (A) 7.5 k/uL (1.3-7.7); Neutrophils % (A) 72 %; Platelet Count 325 k/uL (150-450); RBC 4.48 m/uL (4.30-5.90); WBC 10.4 k/uL (3.8-10.6)
[2023-01-25] MEDS ORDERED: LIDOCAINE 1% INJ 10MG/ML (30 ML VIAL-PF) SQ ONE (11:24)
[2023-01-25 11:40] LABS: ALT 17 U/L (4-49); AST 26 U/L (17-59); African American GFR (CKD) >90 (>60 ml/min/1.73 sqM); Albumin 3.9 g/dL (3.5-5.0); Alkaline Phosphatase 107 U/L (38-126); Anion Gap 6 mmol/L; Blood Urea Nitrogen 23 mg/dL (9-20); Calcium 8.6 mg/dL (8.4-10.2); Carbon Dioxide 37 mmol/L (22-30); Chloride 100 mmol/L (98-107); Glucose 110 mg/dL (74-99); Non-African American GFR(CKD) 85 (>60 ml/min/1.73 sqM); Sodium 143 mmol/L (137-145); Total Bilirubin 0.8 mg/dL (0.2-1.3); Total Protein 6.8 g/dL (6.3-8.2)
[2023-01-25 11:58] LABS: Potassium 2.7 mmol/L (3.5-5.1)
[2023-01-25] MEDS ORDERED: POTASSIUM CHLORIDE 40 MEQ in WATER FOR INJECTION 1 100ML.BAG IVPB STA (13:11)
[2023-01-25] MEDS ORDERED: ACETAMINOPHEN TAB 325 MG TAB PO PRN (13:43)
[2023-01-25] MEDS ORDERED: NALOXONE 0.4 MG/ML 1 ML VIAL IV PRN (13:43)
[2023-01-25] MEDS ORDERED: hydrALAZINE HCL 20 MG/ML 1 ML VIAL IVP STA (15:25)
[2023-01-25] MEDS: ESCITALOPRAM 10 MG TAB PO SCH (20:47)
[2023-01-25] MEDS ORDERED: levETIRAcetam 500 MG TAB PO SCH (21:00)
[2023-01-25] MEDS ORDERED: amLODIPine 5 MG TAB PO STA (21:43)
[2023-01-25] MEDS: HYDROmorphone 0.5 MG/0.5 ML SYRINGE IVP PRN (21:50)
[2023-01-26] MEDS: ATORVASTATIN 20 MG TAB PO SCH (08:56)
[2023-01-26 09:00] LABS: African American GFR (CKD) >90 (>60 ml/min/1.73 sqM); Anion Gap 9 mmol/L; Blood Urea Nitrogen 20 mg/dL (9-20); Calcium 8.6 mg/dL (8.4-10.2); Carbon Dioxide 32 mmol/L (22-30); Chloride 101 mmol/L (98-107); Glucose 148 mg/dL (74-99); Non-African American GFR(CKD) >90 (>60 ml/min/1.73 sqM); Sodium 142 mmol/L (137-145)
[2023-01-26] MEDS ORDERED: LOSARTAN 25 MG TAB PO SCH (09:00)
--- NOTE | 2023-01-26 10:01 | P.CRDCN ---
History of Present Illness History of present illness: HISTORY OF PRESENT ILLNESS: This is a 72-year-old male with a past medical history significant for traumatic brain injury, seizures, hypertension, hyperlipidemia. Patient does not follow with a aquatic laborer. We have been asked to see the patient in consultation for bradycardia. Patient examined at the bedside. Patient states he was in his wheelchair yesterday when he fell out of it and hit his head on the cement. According to the ER records, the patient did not lose consciousness. This morning, he states he does not remember falling. He states he does not remember having any chest pain, pressure, shortness of breath, dizziness or lightheadness. Patient was found to be bradycardic with a heart rate in the 40s. According to the ER documentation the patients heart rate was down into the 20s at times during suturing of his forehead laceration. The patient is prescribed metoprolol 25 mg twice a day at home. This is currently on hold. Telemetry this morning reveals sinus bradycardia with a heart rate in the 50s to 60s. * EKG reveals sinus bradycardia with no signs of AV block * Chest xray cardiomegaly without acute pulmonary process. No significant c hange from prior.. * Laboratory data: WBC 10.4. Hemoglobin 14.3. Platelet count 325. Sodium 142. Potassium 2.7. Repeat 3.0. B UN 20. Creatinine 0.72. Magnesium 2.3. * Current home cardiac medications include Lipitor 20 mg daily and metoprolol tartrate 25 mg twice a day * Most recent echocardiogram obtained in April 2021 revealing ejection fraction 55-60%, mild MR, mild TR, and borderline pulmonary artery hypertension REVIEW OF SYSTEMS: At the time of my exam: CONSTITUTIONAL: Denies fever or chills. HEENT: Denies blurred vision, vision changes, or eye pain. Denies hemoptysis CARDIOVASCULAR: Denies chest pain. Denies orthopnea. Denies PND. Denies palpitat ions RESPIRATORY: Denies shortness of breath. GASTROINTESTINAL: Denies abdominal pain. Denies nausea or vomiting. HEMATOLOGIC: Denies bleeding disorders. GENITOURINARY: Denies any blood in urine. SKIN: Denies pruitis. Denies rash. PHYSICAL EXAM: VITAL SIGNS: Reviewed. GENERAL: Well-developed in no acute distress. HEENT: Head is normocephalic. Pupils are equal, round. Sclerae anicteric. Mucous membranes of the mouth are moist. Neck supple. No JVD or thyromegaly. Lacera tion to forehead noted with suturing. LUNGS: Respirations even and unlabored. Lungs essentially clear to auscultation bilaterally. HEART: Bradycardic. Regular rate and rhythm. S1 and S2 heard. ABDOMEN: Soft. Nondistended. Nontender. EXTREMITIES: Normal range of motion. No clubbing or cyanosis. Peripheral pulses intact. No lower extremity edema NEUROLOGIC: Awake and alert. Oriented x 3. ASSESSMENT: S/P Fall, no evidence of seizure activity, r/o syncopal episodes secondary to bradycardia Bradycardia, on metoprolol outpatient, rule out syncopal episode Hypokalemia Hypertension, uncontrolled on admission Hyperlipidemia History of traumatic brain injury History of seizure PLAN: Obtain 2-D echo to assess cardiac structure and function Continue to hold AV raman blocking agents including metoprolol Check TSH Continue telemetry monitoring Add losartan for optimal blood pressure control Replace potassium No plans for PPM at this time Further recommendations pending patient's course Nurse practitioner note has been reviewed by physician. Signing provider agrees with the documented findings, assessment, and plan of care. Past Medical History Past Medical History: Seizure Disorder Additional Past Medical History / Comment(s): head injury as a child History of Any Multi-Drug Resistant Organisms: None Reported Additional Past Surgical History / Comment(s): lip cancer removed Past Anesthesia/Blood Transfusion Reactions: No Reported Reaction Additional Past Anesthesia/Blood Transfusion Reaction / Comment(s): never had blood transfusion Past Psychological History: Anxiety Additional Psychological History / Comment(s): On Lexapro Smoking Status: Never smoker Past Alcohol Use History: None Reported Past Drug Use History: None Reported - Past Family History Father Additional Family Medical History / Comment(s): alzheimers Mother Family Medical History: Myocardial Infarction ([place]) Additional Family Medical History / Comment(s): macular degeneration Medications and Allergies Home Medications Medication Instructions Recorded Confirmed Type Escitalopram [Lexapro] 10 mg PO HS 04/03/15 01/25/23 History levETIRAcetam 1,000 mg PO BID 04/03/15 01/25/23 History levETIRAcetam [Levetiracetam] 500 mg PO BID 04/03/15 01/25/23 History Metoprolol Tartrate [Lopressor] 25 mg PO BID #60 tab 05/12/21 01/25/23 Rx Atorvastatin [Lipitor] 20 mg PO DAILY 01/25/23 01/25/23 History Calcium Carbonate/Vitamin D3 2 tab PO W/SUPPER 01/25/23 01/25/23 History [Calcium 600-Vit D3 10 mcg (400 Iu)] Vit C/E/Zn/Coppr/Lutein/Zeaxan 1 tab PO BID-W/MEALS 01/25/23 01/25/23 History [Preservision Areds 2 Chew Tab] Allergies Allergy/AdvReac Type Severity Reaction Status Date / Time No Known Allergies Allergy Verified 01/25/23 10:30 Physical Exam Vitals: Vital Signs Temp Pulse Pulse Resp BP BP Pulse Ox 01/26/23 03:13 98.3 F 59 L 16 171/77 92 L 01/25/23 23:29 97 F L 58 L 16 175/90 94 L 01/25/23 20:20 97.5 F L 50 L 18 173/72 95 01/25/23 20:04 97.5 F L 47 L 16 190/91 98 01/25/23 18:19 50 L 16 168/87 99 01/25/23 17:05 52 L 17 148/87 98 01/25/23 16:30 50 L 19 150/76 97 01/25/23 15:25 97.6 F 43 L 17 191/102 97 01/25/23 14:29 42 L 17 180/88 98 01/25/23 13:35 40 L 19 182/93 98 01/25/23 12:26 41 L 20 176/79 97 01/25/23 10:54 41 L 18 169/80 98 01/25/23 09:55 98.0 F 45 L 18 178/87 96 Intake and Output 01/25/23 01/26/23 01/26/23 22:59 06:59 14:59 Other: Weight 113.398 kg Results 01/25/23 10:54 01/26/23 08:20 Cardiac Enzymes 01/25/23 Range/Units 10:54 AST 26 (17-59) U/L CBC 01/25/23 Range/Units 10:54 WBC 10.4 (3.8-10.6) k/uL RBC 4.48 (4.30-5.90) m/uL Hgb 14.3 (13.0-17.5) gm/dL Hct 41.1 (39.0-53.0) % Plt Count 325 (150-450) k/uL Comprehensive Metabolic Panel 01/25/23 Range/Units 10:54 Sodium 143 (137-145) mmol/L Potassium 2.7 L* (3.5-5.1) mmol/L Chloride 100 (98-107) mmol/L Carbon Dioxide 37 H (22-30) mmol/L BUN 23 H (9-20) mg/dL Creatinine 0.88 (0.66-1.25) mg/dL Glucose 110 H (74-99) mg/dL Calcium 8.6 (8.4-10.2) mg/dL AST 26 (17-59) U/L ALT 17 (4-49) U/L Alkaline Phosphatase 107 (38-126) U/L Total Protein 6.8 (6.3-8.2) g/dL Albumin 3.9 (3.5-5.0) g/dL Current Medications Generic Name Dose Route Start Last Admin Trade Name Freq PRN Reason Stop Dose Admin Acetaminophen 1,000 mg 01/25/23 21:43 Acetaminophen Tab 500 Mg Tab PO Q6HR PRN Fever and/ or Pain Atorvastatin Calcium 20 mg 01/26/23 09:00 Atorvastatin 20 Mg Tab PO DAILY PEDRO Escitalopram Oxalate 10 mg 01/25/23 21:00 01/25/23 20:47 Escitalopram 10 Mg Tab PO 10 mg HS PEDRO Administration Hydromorphone HCl 0.5 mg 01/25/23 21:44 01/25/23 21:50 Hydromorphone 0.5 Mg/0.5 Ml Syringe IVP 0.5 mg Q6HR PRN Administration Pain Levetiracetam 1,500 mg 01/25/23 21:00 01/25/23 20:47 Levetiracetam 750 Mg Tab PO 1,500 mg BID PEDRO Administration Naloxone HCl 0.2 mg 01/25/23 13:43 Naloxone 0.4 Mg/Ml 1 Ml Vial IV Q2M PRN Opioid Reversal Intake and Output 01/25/23 01/26/23 01/26/23 22:59 06:59 14:59 Other: Weight 113.398 kg 01/25/23 10:54 01/25/23 10:54
--- NOTE | 2023-01-26 11:44 | CA ---
Transthoracic Echo Report Name: Jhonny Newman Age: 72 Gender: M : 1950 Exam Date: 01/26/2023 09:58 Exam Location: [place] [facility] Echo Ht (in): 70 Wt (lb): 250 Ordering Physician: Christina Morton Attending/Referring Phys: [id number], Praveen Cryogenic Transport Driver Chapis Boyce, EMILIANO Procedure CPT: Indications: LV function, bradycardia Cardiac Hx: Technical Quality: Good Contrast 1: Total Dose (mL): Contrast 2: Total Dose (mL): MEASUREMENTS (Male / Female) Normal Values 2D ECHO LV Diastolic Diameter PLAX 5.0 cm 4.2 - 5.9 / 3.9 - 5.3 cm LV Systolic Diameter PLAX 3.1 cm IVS Diastolic Thickness 1.6 cm 0.6 - 1.0 / 0.6 - 0.9 cm LVPW Diastolic Thickness 1.5 cm 0.6 - 1.0 / 0.6 - 0.9 cm LV Relative Wall Thickness 0.6 RV Internal Dim ED PLAX 3.0 cm LA Systolic Diameter LX 3.6 cm 3.0 - 4.0 / 2.7 - 3.8 cm LA Volume 37.9 cm??? 18 - 58 / 22 - 52 cm??? M-MODE Aortic Root Diameter MM 3.5 cm MV E Point Septal Separation 0.3 cm AV Cusp Separation MM 2.1 cm DOPPLER AV Peak Velocity 218.9 cm/s AV Peak Gradient 19.2 mmHg AV Mean Velocity 131.0 cm/s AV Mean Gradient 8.8 mmHg AV Velocity Time Integral 39.9 cm MV Area PHT 3.0 cm??? Mitral E Point Velocity 75.6 cm/s Mitral A Point Velocity 85.3 cm/s Mitral E to A Ratio 0.9 MV Deceleration Time 255.4 ms MV E' Velocity 5.4 cm/s Mitral E to MV E' Ratio 14.0 FINDINGS Left Ventricle Left ventricular ejection fraction is estimated at 55-60 %. Left ventricular cavity size normal. Moderate concentric left ventricular hypertrophy. No obvious regional wall motion abnormalities. Right Ventricle Normal right ventricular size and function. No TR unable to estimate the right ventricular systolic pressure. Right Atrium Normal right atrial size. Left Atrium Left atrium not well visualized. Mitral Valve Structurally normal mitral valve. Trace mitral regurgitation. Aortic Valve Trileaflet aortic valve. Aortic valve sclerosis. Mild aortic stenosis with a peak gradient of 19 mmHg and a mean gradient of 9 mmHg. Tricuspid Valve Structurally normal tricuspid valve. No tricuspid stenosis, regurgitation or prolapse. Pulmonic Valve Structurally normal pulmonic valve. Trace to mild pulmonic regurgitation. Pericardium Normal pericardium. No pericardial effusion. Aorta Normal size aortic root and proximal ascending aorta. CONCLUSIONS Normal LV size and systolic function with [id number] concentric LVH. Aortic valve sclerosis with mild increase in velocity. Mild mitral and tricuspid regurgitation no pericardial effusion Previewed by: Dr. Jessica Aranda MD (Electronically Signed) Final Date: 26 January 2023 11:43
[2023-01-26] MEDS: POTASSIUM CHLORIDE ER 20 MEQ TAB.ER PO SCH ×6 (12:31→20:42)
--- NOTE | 2023-01-26 13:41 | P.HPIM ---
History of Present Illness H&P Date: 01/26/23 Chief Complaint: Status post fall, bradycardia This is a 72-year-old gentleman with medical history of epilepsy/traumatic brain injury since childhood, presented to the ER post unwitnessed fall sustaining a forehead laceration. Patient reported he fell out of the chair, hitting his head on the ground, denies chest pain, palpitations or shortness of breath. Denies seizure activity. ER reports, family stated he was going down wheelchair ramp and fell face first onto the ground without loss of consciousness, no seizure activity, bradycardic heart rates down into the 20s during suturing. Forehead laceration required 17 sutures. Telemetry currently reporting sinus bradycardia, heart rates in the mid to high 50s with metoprolol on hold. EKG refer to sinus bradycardia, chest x-ray reported nonacute. Afebrile, hematology panel unremarkable, sodium 142, potassium 3, bicarbonate 32, BUN 20, creatinine 0.7 to, glucose 148, mag 2.3, TSH 2.3. CT brain C-spine reported atrophy with chronic appearing periventricular white matter ischemic type changes, degenerative disc disease with left foraminal narrowing, no acute fractures evident. Wrist x-ray reported no acute fracture or dislocation of left wrist. Review of Systems Review of systems, Limited as patient is a poor historian, no family at bedside. Past Medical History Past Medical History: Seizure Disorder Additional Past Medical History / Comment(s): head injury as a child History of Any Multi-Drug Resistant Organisms: None Reported Additional Past Surgical History / Comment(s): lip cancer removed Past Anesthesia/Blood Transfusion Reactions: No Reported Reaction Additional Past Anesthesia/Blood Transfusion Reaction / Comment(s): never had blood transfusion Past Psychological History: Anxiety Additional Psychological History / Comment(s): On Lexapro Smoking Status: Never smoker Past Alcohol Use History: None Reported Past Drug Use History: None Reported - Past Family History Father Additional Family Medical History / Comment(s): alzheimers Mother Family Medical History: Myocardial Infarction ([place]) Additional Family Medical History / Comment(s): macular degeneration Medications and Allergies Home Medications Medication Instructions Recorded Confirmed Type Escitalopram [Lexapro] 10 mg PO HS 04/03/15 01/25/23 History levETIRAcetam 1,000 mg PO BID 04/03/15 01/25/23 History levETIRAcetam [Levetiracetam] 500 mg PO BID 04/03/15 01/25/23 History Metoprolol Tartrate [Lopressor] 25 mg PO BID #60 tab 05/12/21 01/25/23 Rx Atorvastatin [Lipitor] 20 mg PO DAILY 01/25/23 01/25/23 History Calcium Carbonate/Vitamin D3 2 tab PO W/SUPPER 01/25/23 01/25/23 History [Calcium 600-Vit D3 10 mcg (400 Iu)] Vit C/E/Zn/Coppr/Lutein/Zeaxan 1 tab PO BID-W/MEALS 01/25/23 01/25/23 History [Preservision Areds 2 Chew Tab] Allergies Allergy/AdvReac Type Severity Reaction Status Date / Time No Known Allergies Allergy Verified 01/25/23 10:30 Physical Exam Vitals: Vital Signs Temp Pulse Pulse Resp BP BP Pulse Ox 01/26/23 12:34 52 L 16 112/64 97 01/26/23 08:55 97 F L 54 L 16 124/72 96 01/26/23 03:13 98.3 F 59 L 16 171/77 92 L 01/25/23 23:29 97 F L 58 L 16 175/90 94 L 01/25/23 20:20 97.5 F L 50 L 18 173/72 95 01/25/23 20:04 97.5 F L 47 L 16 190/91 98 01/25/23 18:19 50 L 16 168/87 99 01/25/23 17:05 52 L 17 148/87 98 01/25/23 16:30 50 L 19 150/76 97 01/25/23 15:25 97.6 F 43 L 17 191/102 97 01/25/23 14:29 42 L 17 180/88 98 01/25/23 13:35 40 L 19 182/93 98 Intake and Output 01/25/23 01/26/23 01/26/23 22:59 06:59 14:59 Intake Total 190 Balance 190 Intake: IV 10 Invasive Line 1 10 Oral 180 Other: Weight 113.398 kg CONSTITUTIONAL: No apparent distress. HEENT: Head is normocephalic. Pupils equal, round, conjunctiva normal. Forehead laceration with suturing. Neck supple, No JVD. No carotid bruit. CHEST EXAMINATION: Lungs are clear to auscultation. No chest wall tenderness is noted on palpation or with deep breathing. HEART EXAMINATION: rate and rhythm. S1, S2 heard. Bradycardic. No murmurs, gallops or rub. ABDOMEN: Soft, nontender. Positive bowel sounds. EXTREMITIES: 2+ peripheral pulses, no lower extremity edema and no calf tenderness. SKIN: Posterior occipital laceration with sanguineous drainage, with adriel present NEUROLOGIC EXAMINATION: Patient is awake, alert, Results CBC & Chem 7: 01/25/23 10:54 01/26/23 08:20 Labs: Abnormal Lab Results - Last 24 Hours (Table) 01/26/23 Range/Units 08:20 Potassium 3.0 L (3.5-5.1) mmol/L Carbon Dioxide 32 H (22-30) mmol/L Glucose 148 H (74-99) mg/dL Thrombosis Risk Factor Assmnt - Choose All That Apply Any of the Below Risk Factors Present?: Yes Each Factor Represents 1 point: Obesity (BMI >25), Swollen legs (current) Each Risk Factor Represents 2 Points: Age 61-74 years Other congenital or acquired thrombophilia - If yes, enter type in comment: No Thrombosis Risk Factor Assessment Total Risk Factor Score: 4 Thrombosis Risk Factor Assessment Level: Moderate Risk Assessment and Plan Assessment: Status post Fall, suspect syncope ,no evidence of seizure activity, bradycardia in a patient on beta keith; beta keith discontinued Hypokalemia Hypertension, uncontrolled Hyperlipidemia History of multiple falls Seizure history History of traumatic brain injury at age 2 with seizure disorder History of old left thalamic stroke Borderline pulmonary hypertension Plan: Continue on current medication regime ,monitoring and symptomatic treatment. Beta keith placed on hold. 2-D echo pending. Cardiology consult in place, recommendations pending. Potassium replacement ordered. Keppra level ordered. The impression and plan of care has been dictated as directed. : I performed a history and examination of this patient, discussed the same with the dictator. I agree with the dictator's note ,documented as a scribe. Any additional findings or plans will be noted.
[2023-01-26] MEDS: ACETAMINOPHEN TAB 500 MG TAB PO PRN ×2 (14:19→20:10)
[2023-01-26] MEDS: PANTOPRAZOLE 40 MG/10 ML VIAL IVP SCH (16:28)
[2023-01-26] MEDS: ESCITALOPRAM 10 MG TAB PO SCH (20:10)
[2023-01-26] MEDS ORDERED: LOSARTAN 25 MG TAB PO STA (20:35)
[2023-01-26] MEDS: HYDROmorphone 0.5 MG/0.5 ML SYRINGE IVP PRN (22:34)
[2023-01-27 08:40] LABS: African American GFR (CKD) >90 (>60 ml/min/1.73 sqM); Anion Gap 7 mmol/L; Blood Urea Nitrogen 20 mg/dL (9-20); Calcium 8.4 mg/dL (8.4-10.2); Carbon Dioxide 32 mmol/L (22-30); Chloride 106 mmol/L (98-107); Glucose 116 mg/dL (74-99); Magnesium 2.2 mg/dL (1.6-2.3); Non-African American GFR(CKD) 90 (>60 ml/min/1.73 sqM); Potassium 3.2 mmol/L (3.5-5.1); Sodium 145 mmol/L (137-145)
[2023-01-27] MEDS ORDERED: LOSARTAN 50 MG TAB PO SCH (09:00)
[2023-01-27] MEDS: PANTOPRAZOLE 40 MG/10 ML VIAL IVP SCH (09:02)
[2023-01-27] MEDS: ATORVASTATIN 20 MG TAB PO SCH (09:02)
[2023-01-27] MEDS: POTASSIUM CHLORIDE ER 20 MEQ TAB.ER PO SCH ×3 (09:42→11:20)
[2023-01-27] MEDS: amLODIPine 10 MG TAB PO SCH (11:19)
--- NOTE | 2023-01-27 12:39 | P.PN ---
Subjective Progress Note Date: 01/27/23 HISTORY OF PRESENT ILLNESS: This is a 72-year-old male with a past medical history significant for traumatic brain injury, seizures, hypertension, hyperlipidemia. Patient does not follow with a environmental services aide. We have been asked to see the patient in consultation for bradycardia. Patient examined at the bedside. Patient states he was in his wheelchair yesterday when he fell out of it and hit his head on the cement. According to the ER records, the patient did not lose consciousness. This morning, he states he does not remember falling. He states he does not remember having any chest pain, pressure, shortness of breath, dizziness or lightheadness. Patient was found to be bradycardic with a heart rate in the 40s. According to the ER documentation the patients heart rate was down into the 20s at times during suturing of his forehead laceration. The patient is prescribed metoprolol 25 mg twice a day at home. This is currently on hold. Telemetry this morning reveals sinus bradycardia with a heart rate in the 50s to 60s. * EKG reveals sinus bradycardia with no signs of AV block * Chest xray cardiomegaly without acute pulmonary process. No significant change from prior.. * Laboratory data: WBC 10.4. Hemoglobin 14.3. Platelet count 325. Sodium 142. Potassium 2.7. Repeat 3.0. B UN 20. Creatinine 0.72. Magnesium 2.3. * Current home cardiac medications include Lipitor 20 mg daily and metoprolol tartrate 25 mg twice a day * Most recent echocardiogram obtained in April 2021 revealing ejection fraction 55-60%, mild MR, mild TR, and borderline pulmonary artery hypertension 01/27/2023 Patient examined this morning at the bedside. Patient denies chest pain or pressure. He denies shortness of breath. Patient worked with physical therapy this morning and was walking in his room and to the hallway. Telemetry reveals sinus mechanism. No significant bradycardia or AV block noted. Patients blood pressure remains elevated this morning and his blood pressure medication has been adjusted per primary medicine prior to my examination. Echocardiogram completed revealing EF 55-60%, trace MR, and mild . Patient's potassium remains low this morning at 3.2. TSH normal at 2.300. PHYSICAL EXAM: VITAL SIGNS: Reviewed. GENERAL: Well-developed in no acute distress. HEENT: Head is normocephalic. Pupils are equal, round. Sclerae anicteric. Mucous membranes of the mouth are moist. Neck supple. No JVD or thyromegaly. L aceration to forehead noted with suturing. LUNGS: Respirations even and unlabored. Lungs essentially clear to auscultation bilaterally. HEART: Bradycardic. Regular rate and rhythm. S1 and S2 heard. ABDOMEN: Soft. Nondistended. Nontender. EXTREMITIES: Normal range of motion. No clubbing or cyanosis. Peripheral pulses intact. No lower extremity edema NEUROLOGIC: Awake and alert. Oriented x 3. ASSESSMENT: S/P Fall, no evidence of seizure activity, r/o syncopal episodes secondary to bradycardia Bradycardia, on metoprolol outpatient, rule out syncopal episode Hypokalemia Hypertension, uncontrolled on admission Hyperlipidemia History of traumatic brain injury History of seizure PLAN: Continue to hold AV raman blocking agents including metoprolol. No indication for permanent pacemaker at this time Losartan increased this morning per primary medicine. Monitor blood pressure. Continue telemetry monitoring Replace potassium Further recommendations pending patient's course Nurse practitioner note has been reviewed by physician. Signing provider agrees with the documented findings, assessment, and plan of care. Objective - Vital Signs Vital signs: Vital Signs Temp 98.0 F 01/27/23 09:06 Pulse 72 01/27/23 11:15 Resp 16 01/27/23 11:15 BP 181/101 01/27/23 11:15 Pulse Ox 97 01/27/23 11:15 FiO2 Intake & Output 01/26/23 01/27/23 01/27/23 18:59 06:59 18:59 Intake Total 318 250 250 Balance 318 250 250 Intake: IV 20 10 10 Invasive Line 1 20 10 10 Oral 298 240 240 Other: Voiding Method Diaper Diaper # Voids 1 # Bowel Movements 1 - Labs CBC & Chem 7: 01/25/23 10:54 01/27/23 07:48 Labs: Abnormal Lab Results - Last 24 Hours (Table) 01/26/23 01/27/23 Range/Units 16:10 07:48 Potassium 3.0 L 3.2 L (3.5-5.1) mmol/L Carbon Dioxide 32 H (22-30) mmol/L Glucose 116 H (74-99) mg/dL
[2023-01-27] MEDS ORDERED: Potassium Replacement Protocol 1 EACH MISC MISCELLANE PRN (13:07)
--- NOTE | 2023-01-27 13:18 | P.PN ---
Subjective Progress Note Date: 01/27/23 H&P Date: 01/26/23 Chief Complaint: Status post fall, bradycardia This is a 72-year-old gentleman with medical history of epilepsy/traumatic brain injury since childhood, presented to the ER post unwitnessed fall sustaining a forehead laceration. Patient reported he fell out of the chair, hitting his head on the ground, denies chest pain, palpitations or shortness of breath. Denies seizure activity. ER reports, family stated he was going down wheelchair ramp and fell face first onto the ground without loss of consciousness, no seizure activity, bradycardic heart rates down into the 20s during suturing. Forehead laceration required 17 sutures. Telemetry currently reporting sinus bradycardia, heart rates in the mid to high 50s with metoprolol on hold. EKG refer to sinus bradycardia, chest x-ray reported nonacute. Afebrile, hematology panel unremarkable, sodium 142, potassium 3, bicarbonate 32, BUN 20, creatinine 0.7 to, glucose 148, mag 2.3, TSH 2.3. CT brain C-spine reported atrophy with chronic appearing periventricular white matter ischemic type changes, degenerative disc disease with left foraminal narrowing, no acute fractures bryant dent. Wrist x-ray reported no acute fracture or dislocation of left wrist. 01/27/2023 sitting up in bed, feels better. Echo reported EF 50-60%, mild aortic stenosis. Hypertensive, losartan increased. Telemetry sinus, heart rates currently in the low 70s. He ambulated with physical therapy today, tolerated exertion well. Potassium supplemented throughout yesterday, currently 3.2, supplementation ordered. Keppra level 41.4. Objective - Vital Signs Vital signs: Vital Signs Temp 98.0 F 01/27/23 09:06 Pulse 72 01/27/23 11:15 Resp 16 01/27/23 11:15 BP 181/101 01/27/23 11:15 Pulse Ox 97 01/27/23 11:15 FiO2 Intake & Output 01/26/23 01/27/23 01/27/23 18:59 06:59 18:59 Intake Total 318 250 250 Balance 318 250 250 Intake: IV 20 10 10 Invasive Line 1 20 10 10 Oral 298 240 240 Other: Voiding Method Diaper Diaper # Voids 1 # Bowel Movements 1 - Exam CONSTITUTIONAL: Alert and oriented 2 ,Sitting up in bed, No apparent distress. HEENT: Head is normocephalic. Pupils equal, round, conjunctiva normal, left eye with thickened clear drainage. Forehead laceration with suturing. Neck supple, No JVD. CHEST EXAMINATION: Lungs are clear to auscultation. No chest wall tenderness is noted on palpation or with deep breathing. HEART EXAMINATION: rate and rhythm. S1, S2 heard. No murmurs, gallops or rub. ABDOMEN: Soft, nontender. Positive bowel sounds. EXTREMITIES: 2+ peripheral pulses, no lower extremity edema and no calf tenderness. SKIN: Posterior occipital laceration with sanguineous drainage, with adriel present NEUROLOGIC EXAMINATION: Patient is awake, alert. 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 Beta keith remains on hold. Hypertensive, losartan increased, close monitoring of blood pressure.Potassium replacement ordered. Erythromycin eye ointment ordered. Patient reports she slept well, RN states patient did not state the last night, melatonin added to med regimen. Discharge planning in progress for tomorrow pending final DC recommendations and clearance per cardiology. The impression and plan of care has been dictated as directed. : I performed a history and examination of this patient, discussed the same with the dictator. I agree with the dictator's note ,documented as a scribe. Any additional findings or plans will be noted.
[2023-01-27] MEDS: polyethylene glycoL 3350 17 GM POWD.PACK PO SCH (15:17)
[2023-01-27] MEDS: POTASSIUM BICARBONATE/CIT AC 20 MEQ TABLET.EFF NG-TUBE SCH ×2 (15:17→16:47)
[2023-01-27] MEDS: SENNOSIDES-DOCUSATE SODIUM 1 EACH TAB PO SCH ×2 (15:17→20:05)
[2023-01-27] MEDS: ERYTHROMYCIN 5 MG/GM OPHTH OINT 3.5 GM TUBE BOTH EYES SCH ×3 (15:18→23:25)
[2023-01-27] MEDS ORDERED: LOSARTAN 50 MG TAB PO STA (19:49)
[2023-01-27] MEDS: MELATONIN 5 MG TABLET PO SCH (20:04)
[2023-01-27] MEDS: ESCITALOPRAM 10 MG TAB PO SCH (20:04)
[2023-01-27 20:05] LABS: African American GFR (CKD) >90 (>60 ml/min/1.73 sqM); Anion Gap 7 mmol/L; Blood Urea Nitrogen 20 mg/dL (9-20); Calcium 8.8 mg/dL (8.4-10.2); Carbon Dioxide 31 mmol/L (22-30); Chloride 106 mmol/L (98-107); Glucose 147 mg/dL (74-99); Non-African American GFR(CKD) >90 (>60 ml/min/1.73 sqM); Potassium 3.4 mmol/L (3.5-5.1); Sodium 144 mmol/L (137-145)
[2023-01-27] MEDS ORDERED: POTASSIUM BICARBONATE/CIT AC 20 MEQ TABLET.EFF PO ONE (20:21)
[2023-01-28 08:39] LABS: African American GFR (CKD) >90 (>60 ml/min/1.73 sqM); Anion Gap 5 mmol/L; Blood Urea Nitrogen 21 mg/dL (9-20); Calcium 8.8 mg/dL (8.4-10.2); Carbon Dioxide 34 mmol/L (22-30); Chloride 107 mmol/L (98-107); Glucose 121 mg/dL (74-99); Non-African American GFR(CKD) >90 (>60 ml/min/1.73 sqM); Potassium 3.6 mmol/L (3.5-5.1); Sodium 146 mmol/L (137-145)
[2023-01-28] MEDS ORDERED: POTASSIUM BICARBONATE/CIT AC 20 MEQ TABLET.EFF NG-TUBE SCH (09:00)
[2023-01-28] MEDS: amLODIPine 10 MG TAB PO SCH (09:23)
[2023-01-28] MEDS: ATORVASTATIN 20 MG TAB PO SCH (09:23)
[2023-01-28] MEDS: LOSARTAN 50 MG TAB PO SCH (09:23)
[2023-01-28] MEDS: SENNOSIDES-DOCUSATE SODIUM 1 EACH TAB PO SCH ×2 (09:23→19:38)
[2023-01-28] MEDS: PANTOPRAZOLE 40 MG/10 ML VIAL IVP SCH (09:23)
[2023-01-28] MEDS: ERYTHROMYCIN 5 MG/GM OPHTH OINT 3.5 GM TUBE BOTH EYES SCH ×3 (09:25→23:04)
[2023-01-28] MEDS ORDERED: POTASSIUM BICARBONATE/CIT AC 20 MEQ TABLET.EFF PO ONE (10:00)
--- NOTE | 2023-01-28 10:04 | P.PN ---
Subjective Progress Note Date: 01/28/23 HISTORY OF PRESENT ILLNESS: This is a 72-year-old male with a past medical history significant for traumatic brain injury, seizures, hypertension, hyperlipidemia. 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 We have been asked to see the patient in consultation for bradycardia. Patient examined at the bedside. Patient states he was in his wheelchair yesterday when he fell out of it and hit his head on the cement. According to the ER records, the patient did not lose consciousness. This morning, he states he does not remember falling. He states he does not remember having any chest pain, pressure, shortness of breath, dizziness or lightheadness. Patient was found to be bradycardic with a heart rate in the 40s. According to the ER documentation the patients heart rate was down into the 20s at times during suturing of his forehead laceration. The patient is prescribed metoprolol 25 mg twice a day at home. This is currently on hold. Telemetry this morning reveals sinus bradycardia with a heart rate in the 50s to 60s. * EKG reveals sinus bradycardia with no signs of AV block * Chest xray cardiomegaly without acute pulmonary process. No significant change from prior.. * Laboratory data: WBC 10.4. Hemoglobin 14.3. Platelet count 325. Sodium 142. Potassium 2.7. Repeat 3.0. B UN 20. Creatinine 0.72. Magnesium 2.3. * Current home cardiac medications include Lipitor 20 mg daily and metoprolol tartrate 25 mg twice a day * Most recent echocardiogram obtained in April 2021 revealing ejection fraction 55-60%, mild MR, mild TR, and borderline pulmonary artery hypertension 01/27/2023 Patient examined this morning at the bedside. Patient denies chest pain or pressure. He denies shortness of breath. Patient worked with physical therapy this morning and was walking in his room and to the hallway. Telemetry reveals sinus mechanism. No significant bradycardia or AV block noted. Patients blood pressure remains elevated this morning and his blood pressure medication has been adjusted per primary medicine prior to my examination. Echocardiogram completed revealing EF 55-60%, trace MR, and mild . Patient's potassium remains low this morning at 3.2. TSH normal at 2.300. 01/28/2023 Patient examined this morning at the bedside. Patient denies chest pain or pressure. He denies shortness of breath. Telemetry reveals sinus mechanism with a heart rate in the 70s. Patient's blood pressure remains elevated and his losartan was increased 100 mg daily. Patient's potassium remains low at 3.4 today. He he received supplementation. PHYSICAL EXAM: VITAL SIGNS: Reviewed. GENERAL: Well-developed in no acute distress. HEENT: Head is normocephalic. Pupils are equal, round. Sclerae anicteric. Mucous membranes of the mouth are moist. Neck supple. No JVD or thyromegaly. Laceration to forehead noted with suturing. LUNGS: Respirations even and unlabored. Lungs essentially clear to auscultation bilaterally. HEART: Bradycardic. Regular rate and rhythm. S1 and S2 heard. ABDOMEN: Soft. Nondistended. Nontender. EXTREMITIES: Normal range of motion. No clubbing or cyanosis. Peripheral pulses intact. No lower extremity edema NEUROLOGIC: Awake and alert. Oriented x 3. ASSESSMENT: S/P Fall, no evidence of seizure activity, r/o syncopal episodes secondary to bradycardia Bradycardia, on metoprolol outpatient, rule out syncopal episode Hypokalemia Hypertension, uncontrolled on admission Hyperlipidemia History of traumatic brain injury History of seizure PLAN: Continue to hold AV raman blocking agents including metoprolol. No indication for permanent pacemaker at this time Losartan increased per primary medicine. Monitor blood pressure. Continue telemetry monitoring Replace potassium Further recommendations pending patient's course Nurse practitioner note has been reviewed by physician. Signing provider agrees with the documented findings, assessment, and plan of care. Objective - Vital Signs Vital signs: Vital Signs Temp 98.0 F 01/28/23 09:30 Pulse 71 01/28/23 09:30 Resp 18 01/28/23 09:30 BP 179/81 01/28/23 09:30 Pulse Ox 97 01/28/23 09:30 FiO2 Intake & Output 01/27/23 01/28/23 01/28/23 18:59 06:59 18:59 Intake Total 620 20 550 Balance 620 20 550 Intake: IV 20 20 10 Invasive Line 1 20 20 10 Oral 600 540 Other: Voiding Method Diaper Diaper Diaper # Voids 2 - Labs CBC & Chem 7: 01/25/23 10:54 01/28/23 08:00 Labs: Abnormal Lab Results - Last 24 Hours (Table) 01/27/23 01/27/23 01/28/23 Range/Units 14:04 19:34 08:00 Sodium 146 H (137-145) mmol/L Potassium 3.1 L 3.4 L (3.5-5.1) mmol/L Carbon Dioxide 31 H 34 H (22-30) mmol/L BUN 21 H (9-20) mg/dL Glucose 147 H 121 H (74-99) mg/dL
[2023-01-28] MEDS: polyethylene glycoL 3350 17 GM POWD.PACK PO SCH (10:58)
[2023-01-28] MEDS: hydrALAZINE HCL 50 MG TAB PO SCH ×3 (11:58→19:39)
[2023-01-28] MEDS: ACETAMINOPHEN TAB 500 MG TAB PO PRN (11:58)
[2023-01-28] MEDS ORDERED: hydrALAZINE HCL 20 MG/ML 1 ML VIAL IVP PRN (12:53)
--- NOTE | 2023-01-28 12:58 | P.PN ---
Progress Note - Text Progress Note Date: 01/28/23 Subjective: Patient seen and evaluated bedside, patient resting in bed, and patient does have generalized weakness, patient does remember he fell. Review of systems: Does complain of weakness, positive for fall. Review of systems Limited in general secondary to history of traumatic brain injury PHYSICAL EXAM: VITAL SIGNS: Reviewed. GENERAL: Well-developed in no acute distress. HEENT: . Laceration to forehead noted with suturing. LUNGS: Respirations even and unlabored. Lungs essentially clear to auscultation bilaterally. HEART: . Regular rate and rhythm. S1 and S2 heard. Heart rate improved ABDOMEN: Soft. Nondistended. Nontender. EXTREMITIES: Normal range of motion. No clubbing or cyanosis. Peripheral pulses intact. No lower extremity edema NEUROLOGIC: Awake and alert. Oriented x 3. Generalized weakness ASSESSMENT: * S/P Fall, no evidence of seizure activity, r/o syncopal episodes secondary to bradycardia * Bradycardia, on metoprolol outpatient, rule out syncopal episode * Hypertension, uncontrolled on admission * Hyperlipidemia * History of traumatic brain injury * History of seizure PLAN: * Patient seen by cardiology, hold beta keith, no indication for pacemaker at this point * Continue patient on losartan dose increase, continue hydralazine ordered 01/28 due to increased blood pressure * Follow up on electrolyte panel * physical therapy occupational therapy evaluation and placement
[2023-01-28] MEDS: MELATONIN 5 MG TABLET PO SCH (19:38)
[2023-01-28] MEDS: ESCITALOPRAM 10 MG TAB PO SCH (19:38)
[2023-01-28] MEDS: HYDROmorphone 0.5 MG/0.5 ML SYRINGE IVP PRN (19:39)
[2023-01-29] MEDS: ATORVASTATIN 20 MG TAB PO SCH (08:09)
[2023-01-29] MEDS: hydrALAZINE HCL 50 MG TAB PO SCH ×3 (08:09→20:18)
[2023-01-29] MEDS: PANTOPRAZOLE 40 MG/10 ML VIAL IVP SCH (08:09)
[2023-01-29] MEDS: LOSARTAN 50 MG TAB PO SCH (08:09)
[2023-01-29] MEDS: SENNOSIDES-DOCUSATE SODIUM 1 EACH TAB PO SCH (08:09)
[2023-01-29] MEDS: amLODIPine 10 MG TAB PO SCH (08:09)
[2023-01-29] MEDS: polyethylene glycoL 3350 17 GM POWD.PACK PO SCH (08:10)
[2023-01-29] MEDS ORDERED: SODIUM CHLORIDE 0.45% 1,000 ML IV SCH (08:45)
[2023-01-29 09:01] LABS: HCT 41.3 % (39.0-53.0); HGB 13.5 gm/dL (13.0-17.5); MCH 30.9 pg (25.0-35.0); MCHC 32.7 g/dL (31.0-37.0); MCV 94.6 fL (80.0-100.0); Mean Platelet Volume 8.2; Platelet Count 351 k/uL (150-450); RBC 4.37 m/uL (4.30-5.90); RDW 14.2 % (11.5-15.5); WBC 9.2 k/uL (3.8-10.6)
[2023-01-29 09:12] LABS: African American GFR (CKD) >90 (>60 ml/min/1.73 sqM); Anion Gap 9 mmol/L; Blood Urea Nitrogen 24 mg/dL (9-20); Calcium 8.9 mg/dL (8.4-10.2); Carbon Dioxide 29 mmol/L (22-30); Chloride 107 mmol/L (98-107); Glucose 166 mg/dL (74-99); Non-African American GFR(CKD) 86 (>60 ml/min/1.73 sqM); Potassium 3.3 mmol/L (3.5-5.1); Sodium 145 mmol/L (137-145)
[2023-01-29] MEDS ORDERED: POTASSIUM CHLORIDE ER 20 MEQ TAB.ER PO SCH (10:00)
[2023-01-29] MEDS: SPIRONOLACTONE 25 MG TAB PO SCH (11:24)
[2023-01-29] MEDS: POTASSIUM BICARBONATE/CIT AC 20 MEQ TABLET.EFF PO SCH ×3 (11:24→13:24)
--- NOTE | 2023-01-29 11:31 | P.PN ---
Subjective Progress Note Date: 01/29/23 HISTORY OF PRESENT ILLNESS: This is a 72-year-old male with a past medical history significant for traumatic brain injury, seizures, hypertension, hyperlipidemia. 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 We have been asked to see the patient in consultation for bradycardia. Patient examined at the bedside. Patient states he was in his wheelchair yesterday when he fell out of it and hit his head on the cement. According to the ER records, the patient did not lose consciousness. This morning, he states he does not remember falling. He states he does not remember having any chest pain, pressure, shortness of breath, dizziness or lightheadness. Patient was found to be bradycardic with a heart rate in the 40s. According to the ER documentation the patients heart rate was down into the 20s at times during suturing of his forehead laceration. The patient is prescribed metoprolol 25 mg twice a day at home. This is currently on hold. Telemetry this morning reveals sinus bradycardia with a heart rate in the 50s to 60s. * EKG reveals sinus bradycardia with no signs of AV block * Chest xray cardiomegaly without acute pulmonary process. No significant change from prior.. * Laboratory data: WBC 10.4. Hemoglobin 14.3. Platelet count 325. Sodium 142. Potassium 2.7. Repeat 3.0. B UN 20. Creatinine 0.72. Magnesium 2.3. * Current home cardiac medications include Lipitor 20 mg daily and metoprolol tartrate 25 mg twice a day * Most recent echocardiogram obtained in April 2021 revealing ejection fraction 55-60%, mild MR, mild TR, and borderline pulmonary artery hypertension 01/27/2023 Patient examined this morning at the bedside. Patient denies chest pain or pressure. He denies shortness of breath. Patient worked with physical therapy this morning and was walking in his room and to the hallway. Telemetry reveals sinus mechanism. No significant bradycardia or AV block noted. Patients blood pressure remains elevated this morning and his blood pressure medication has been adjusted per primary medicine prior to my examination. Echocardiogram completed revealing EF 55-60%, trace MR, and mild . Patient's potassium remains low this morning at 3.2. TSH normal at 2.300. 01/28/2023 Patient examined this morning at the bedside. Patient denies chest pain or pressure. He denies shortness of breath. Telemetry reveals sinus mechanism with a heart rate in the 70s. Patient's blood pressure remains elevated and his losartan was increased 100 mg daily. Patient's potassium remains low at 3.4 today. He he received supplementation. 01/29/2023 Patient examined this morning at the bedside. Patient denies chest pain or pressure. He denies shortness of breath. Telemetry reveals sinus mechanism with a heart rate in the 70s. Blood pressure stable. Potassium remains low. PHYSICAL EXAM: VITAL SIGNS: Reviewed. GENERAL: Well-developed in no acute distress. HEENT: Head is normocephalic. Pupils are equal, round. Sclerae anicteric. Mucous membranes of the mouth are moist. Neck supple. No JVD or thyromegaly. Laceration to forehead noted with suturing. LUNGS: Respirations even and unlabored. Lungs essentially clear to auscultation bilaterally. HEART: Bradycardic. Regular rate and rhythm. S1 and S2 heard. ABDOMEN: Soft. Nondistended. Nontender. EXTREMITIES: Normal range of motion. No clubbing or cyanosis. Peripheral pulses intact. No lower extremity edema NEUROLOGIC: Awake and alert. Oriented x 3. ASSESSMENT: S/P Fall, no evidence of seizure activity, r/o syncopal episodes secondary to bradycardia Bradycardia, on metoprolol outpatient, rule out syncopal episode Hypokalemia Hypertension, uncontrolled on admission Hyperlipidemia History of traumatic brain injury History of seizure PLAN: Continue to hold AV raman blocking agents including metoprolol. No indication for permanent pacemaker at this time Continue amlodipine, hydralazine, and losartan Discontinue PRN hydralazine as this counterproductive in managing patient's oral antihypertensive medication regimen Add Aldactone 25 mg daily Supplement potassium Further recommendations pending patient's course Nurse practitioner note has been reviewed by physician. Signing provider agrees with the documented findings, assessment, and plan of care. Objective - Vital Signs Vital signs: Vital Signs Temp 98.0 F 01/29/23 08:00 Pulse 91 01/29/23 08:00 Resp 16 01/29/23 08:00 BP 154/94 01/29/23 08:00 Pulse Ox 93 L 01/29/23 08:00 FiO2 Intake & Output 01/28/23 01/29/23 01/29/23 18:59 06:59 18:59 Intake Total 560 560 550 Balance 560 560 550 Intake: IV 20 20 10 Invasive Line 1 20 20 10 Oral 540 540 540 Other: Voiding Method Diaper Diaper Diaper # Voids 1 1 1 # Bowel Movements 1 1 - Labs CBC & Chem 7: 01/29/23 08:47 01/29/23 08:47 Labs: Abnormal Lab Results - Last 24 Hours (Table) 01/29/23 Range/Units 08:47 Potassium 3.3 L (3.5-5.1) mmol/L BUN 24 H (9-20) mg/dL Glucose 166 H (74-99) mg/dL
[2023-01-29] MEDS: ERYTHROMYCIN 5 MG/GM OPHTH OINT 3.5 GM TUBE BOTH EYES SCH ×2 (13:03→16:04)
[2023-01-29] MEDS ORDERED: POTASSIUM CHLORIDE ER 20 MEQ TAB.ER PO STA (13:25)
--- NOTE | 2023-01-29 13:29 | P.PN ---
Progress Note - Text Progress Note Date: 01/29/23 SUBJECTIVE : Patient seen and evaluated bedside. Patient completed a sister at bedside. Patient is alert persistent mentation has been waxing and waning Expected discharge home with home care within the next 24 hours REVIEW OF SYSTEMS: NEGATIVE EXCEPT FOR weakness and falls CONSTITUTIONAL: No fever, no malaise, no fatigue. HEENT: No recent visual problems or hearing problems. Denied any sore throat. CARDIOVASCULAR: No chest pain, orthopnea, PND, no palpitations, no syncope. PULMONARY: No shortness of breath, no cough, no hemoptysis. GASTROINTESTINAL: No diarrhea, no nausea, no vomiting, no abdominal pain. NEUROLOGICAL: No headaches, no weakness, no numbness. HEMATOLOGICAL: Denies any bleeding or petechiae. GENITOURINARY: Denies any burning micturition, frequency, or urgency. MUSCULOSKELETAL/RHEUMATOLOGICAL: Denies any joint pain, swelling, or any muscle pain. ENDOCRINE: Denies any polyuria or polydipsia. PHYSICAL EXAM: VITAL SIGNS: Reviewed. GENERAL: Well-developed in no acute distress. HEENT: . Laceration to forehead noted with suturing. LUNGS: Respirations even and unlabored. Lungs essentially clear to auscultation bilaterally. HEART: . Regular rate and rhythm. S1 and S2 heard. Heart rate improved ABDOMEN: Soft. Nondistended. Nontender. EXTREMITIES: Normal range of motion. No clubbing or cyanosis. Peripheral pulses intact. No lower extremity edema NEUROLOGIC: Awake and alert. Oriented x 3. Generalized weakness ASSESSMENT: * S/P Fall, no evidence of seizure activity, r/o syncopal episodes secondary to bradycardia * Bradycardia, on metoprolol outpatient, rule out syncopal episode * Hypernatremia, hypokalemia * Hypertension, uncontrolled on admission * Hyperlipidemia * History of traumatic brain injury * History of seizure PLAN: * Patient seen by cardiology, hold beta keith, no indication for pacemaker at this point * Continue patient on losartan dose increase, continue amlodipine, hydralazine, losartan, Aldactone * Follow up on electrolyte panel, potassium replace, treated with 0.45 saline to complete total 1 L * physical therapy occupational therapy evaluation, will go home with home care
[2023-01-29] MEDS ORDERED: POTASSIUM BICARBONATE/CIT AC 20 MEQ TABLET.EFF PO ONE (14:00)
[2023-01-29] MEDS: ESCITALOPRAM 10 MG TAB PO SCH (20:18)
[2023-01-29] MEDS: MELATONIN 5 MG TABLET PO SCH (20:18)
[2023-01-29] MEDS: HYDROmorphone 0.5 MG/0.5 ML SYRINGE IVP PRN (20:19)
[2023-01-29] MEDS ORDERED: METOPROLOL TARTRATE 25 MG TAB PO STA (23:23)
[2023-01-30] MEDS: ERYTHROMYCIN 5 MG/GM OPHTH OINT 3.5 GM TUBE BOTH EYES SCH ×2 (00:15→08:56)
[2023-01-30 06:59] LABS: HCT 38.8 % (39.0-53.0); MCH 31.4 pg (25.0-35.0); MCHC 33.5 g/dL (31.0-37.0); MCV 93.6 fL (80.0-100.0); Mean Platelet Volume 8.3; Platelet Count 323 k/uL (150-450); RBC 4.14 m/uL (4.30-5.90); RDW 14.1 % (11.5-15.5); WBC 9.9 k/uL (3.8-10.6)
[2023-01-30 07:06] VITALS: TEMP 98.5
[2023-01-30 07:30] LABS: African American GFR (CKD) >90 (>60 ml/min/1.73 sqM); Anion Gap 5 mmol/L; Blood Urea Nitrogen 27 mg/dL (9-20); Calcium 8.2 mg/dL (8.4-10.2); Carbon Dioxide 29 mmol/L (22-30); Chloride 106 mmol/L (98-107); Glucose 113 mg/dL (74-99); Non-African American GFR(CKD) 87 (>60 ml/min/1.73 sqM); Potassium 3.6 mmol/L (3.5-5.1); Sodium 140 mmol/L (137-145)
[2023-01-30 08:57] VITALS: PULSE 57; RESP 16
[2023-01-30] MEDS: polyethylene glycoL 3350 17 GM POWD.PACK PO SCH (08:57)
[2023-01-30] MEDS: amLODIPine 10 MG TAB PO SCH (08:57)
[2023-01-30] MEDS: SPIRONOLACTONE 25 MG TAB PO SCH (08:57)
[2023-01-30] MEDS: hydrALAZINE HCL 50 MG TAB PO SCH (08:57)
[2023-01-30] MEDS: PANTOPRAZOLE 40 MG/10 ML VIAL IVP SCH (08:57)
[2023-01-30] MEDS: ATORVASTATIN 20 MG TAB PO SCH (08:57)
[2023-01-30] MEDS: LOSARTAN 50 MG TAB PO SCH (08:57)
--- NOTE | 2023-01-30 14:09 | P.PN ---
Subjective Progress Note Date: 01/30/23 HISTORY OF PRESENT ILLNESS: This is a 72-year-old male with a past medical history significant for traumatic brain injury, seizures, hypertension, hyperlipidemia. 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 We have been asked to see the patient in consultation for bradycardia. Patient examined at the bedside. Patient states he was in his wheelchair yesterday when he fell out of it and hit his head on the cement. According to the ER records, the patient did not lose consciousness. This morning, he states he does not remember falling. He states he does not remember having any chest pain, pressure, shortness of breath, dizziness or lightheadness. Patient was found to be bradycardic with a heart rate in the 40s. According to the ER documentation the patients heart rate was down into the 20s at times during suturing of his forehead laceration. The patient is prescribed metoprolol 25 mg twice a day at home. This is currently on hold. Telemetry this morning reveals sinus bradycardia with a heart rate in the 50s to 60s. * EKG reveals sinus bradycardia with no signs of AV block * Chest xray cardiomegaly without acute pulmonary process. No significant change from prior.. * Laboratory data: WBC 10.4. Hemoglobin 14.3. Platelet count 325. Sodium 142. Potassium 2.7. Repeat 3.0. B UN 20. Creatinine 0.72. Magnesium 2.3. * Current home cardiac medications include Lipitor 20 mg daily and metoprolol tartrate 25 mg twice a day * Most recent echocardiogram obtained in April 2021 revealing ejection fraction 55-60%, mild MR, mild TR, and borderline pulmonary artery hypertension 01/27/2023 Patient examined this morning at the bedside. Patient denies chest pain or pressure. He denies shortness of breath. Patient worked with physical therapy this morning and was walking in his room and to the hallway. Telemetry reveals sinus mechanism. No significant bradycardia or AV block noted. Patients blood pressure remains elevated this morning and his blood pressure medication has been adjusted per primary medicine prior to my examination. Echocardiogram completed revealing EF 55-60%, trace MR, and mild . Patient's potassium remains low this morning at 3.2. TSH normal at 2.300. 01/28/2023 Patient examined this morning at the bedside. Patient denies chest pain or pressure. He denies shortness of breath. Telemetry reveals sinus mechanism with a heart rate in the 70s. Patient's blood pressure remains elevated and his losartan was increased 100 mg daily. Patient's potassium remains low at 3.4 today. He he received supplementation. 01/29/2023 Patient examined this morning at the bedside. Patient denies chest pain or pressure. He denies shortness of breath. Telemetry reveals sinus mechanism with a heart rate in the 70s. Blood pressure stable. Potassium remains low. 01/30 patient is seen today in follow-up. Early this morning, heart rate was in the 120s now at 57 sinus bradycardia. It appears that during the night, patient went into an atrial flutter typical and subsequently converted to sinus halina cardia. There is no plan for any anticoagulation at this time due to patient's frequent falls. Patient is a unable to provide any history. PHYSICAL EXAM: VITAL SIGNS: Reviewed. GENERAL: Well-developed in no acute distress. HEENT: Head is normocephalic. Pupils are equal, round. Sclerae anicteric. Mucous membranes of the mouth are moist. Neck supple. No JVD or thyromegaly. Laceration to forehead noted with suturing, ecchymosis to the face. LUNGS: Respirations even and unlabored. Lungs essentially clear to auscultation bilaterally. HEART: Bradycardic. Regular rate and rhythm. S1 and S2 heard. ABDOMEN: Soft. Nondistended. Nontender. EXTREMITIES: Normal range of motion. No clubbing or cyanosis. Peripheral pulses intact. No lower extremity edema ASSESSMENT: S/P Fall, no evidence of seizure activity, r/o syncopal episodes secondary to bradycardia Bradycardia, on metoprolol outpatient, rule out syncopal episode New-onset atrial flutter, typical Hypokalemia Hypertension, uncontrolled on admission Hyperlipidemia History of traumatic brain injury History of seizure PLAN: Continue to hold AV raman blocking agents including metoprolol. No indication for permanent pacemaker at this time Continue amlodipine, hydralazine, and losartan Discontinue PRN hydralazine as this counterproductive in managing patient's oral antihypertensive medication regimen Continue added Aldactone 25 mg daily Recommend outpatient event monitor Patient is cleared from Cardiology for discharge and may follow-up in the office with Dr. Chen in 2 weeks Nurse practitioner note has been reviewed by physician. Signing provider agrees with the documented findings, assessment, and plan of care. Objective - Vital Signs Vital signs: Vital Signs Temp 98.5 F 01/30/23 08:00 Pulse 57 L 01/30/23 08:00 Resp 16 01/30/23 08:00 BP 133/89 01/30/23 08:00 Pulse Ox 95 01/30/23 08:00 FiO2 Intake & Output 01/29/23 01/30/23 01/30/23 18:59 06:59 18:59 Intake Total 1458 20 Balance 1458 20 Intake: IV 20 20 Invasive Line 1 20 20 Oral 1438 Other: Voiding Method Diaper Diaper # Voids 1 1 # Bowel Movements 1 - Labs CBC & Chem 7: 01/30/23 06:29 01/30/23 06:29 Labs: Abnormal Lab Results - Last 24 Hours (Table) 01/30/23 01/30/23 Range/Units 06:29 06:29 RBC 4.14 L (4.30-5.90) m/uL Hct 38.8 L (39.0-53.0) % BUN 27 H (9-20) mg/dL Glucose 113 H (74-99) mg/dL Calcium 8.2 L (8.4-10.2) mg/dL
[2023-01-30 16:28] VITALS: BP 138/55
== END 2023-01-30 17:21 | disposition home or self-care (01) | DRG 310 ==
LOC: EC 09:50 → 3SCARD 13:24
PROVIDERS: ADMIT Family Medicine; ATTEND Family Medicine
PROC: 0HQ1XZZ Repair Face Skin, External Approach (ICD-10-PCS; principal; 2023-01-25)
DX: I48.3 Typical atrial flutter (principal); R29.6 Repeated falls; Z91.81 History of falling; S01.81XA Laceration without foreign body of other part of head, initial encounter; S01.21XA Laceration without foreign body of nose, initial encounter; W05.0XXA Fall from non-moving wheelchair, initial encounter; E78.5 Hyperlipidemia, unspecified; E87.6 Hypokalemia; F41.9 Anxiety disorder, unspecified; G40.909 Epilepsy, unspecified, not intractable, without status epilepticus; I10 Essential (primary) hypertension; I08.0 Rheumatic disorders of both mitral and aortic valves; I27.20 Pulmonary hypertension, unspecified; Z79.899 Other long term (current) drug therapy; Z82.0 Family history of epilepsy and other diseases of the nervous system; Z82.49 Family history of ischemic heart disease and other diseases of the circulatory system; Z85.819 Personal history of malignant neoplasm of unspecified site of lip, oral cavity, and pharynx; Z86.73 Personal history of transient ischemic attack (TIA), and cerebral infarction without residual deficits; Z87.820 Personal history of traumatic brain injury; Z87.828 Personal history of other (healed) physical injury and trauma; Z28.21 Immunization not carried out because of patient refusal
CPT/HCPCS: 12013; 36415; 70450; 71045; 72125; 80048; 80053; 80177; 83735; 83880; 84132; 84443; 85025; 85027; 93005; 93306; 96365; 99285

== ENCOUNTER 2023-02-03 10:06 | Inpatient (IN) | payer MEDICARE, BC, OTHER ==
[2023-02-03 10:11] LABS: Glucose,Whole Blood 119 mg/dL (70-110)
--- NOTE | 2023-02-03 10:19 | ED ---
General Adult HPI - General Stated complaint: Weakness Time Seen by Provider: 02/03/23 10:10 Source: patient, EMS, RN notes reviewed, old records reviewed - History of Present Illness Initial comments: This is a 72-year-old male presents emergency Department because his caregiver which is his sister sentiment because he is too weak to even stand and help him. This is abnormal for his baseline. Patient normally is able to get up and help but he is unable to do so. Patient did have a fall approximately one week ago and was seen at the hospital at that time. Patient did hit his head. Patient has not had any fever chills. There is been no difficulty breathing there's been no vomiting or diarrhea. Patient has no complaints himself but he is a very poor historian. EMS states he is not altered this is his normal baseline according to the family - Related Data Home Medications Medication Instructions Recorded Confirmed Escitalopram [Lexapro] 10 mg PO HS 04/03/15 02/03/23 levETIRAcetam 1,000 mg PO BID 04/03/15 02/03/23 levETIRAcetam [Levetiracetam] 500 mg PO BID 04/03/15 02/03/23 Atorvastatin [Lipitor] 20 mg PO DAILY 01/25/23 02/03/23 Calcium Carbonate/Vitamin D3 2 tab PO W/SUPPER 01/25/23 02/03/23 [Calcium 600-Vit D3 10 mcg (400 Iu)] Vit C/E/Zn/Coppr/Lutein/Zeaxan 1 tab PO BID-W/MEALS 01/25/23 02/03/23 [Preservision Areds 2 Chew Tab] Lacosamide [Vimpat] 200 mg PO BID 02/03/23 02/03/23 Naproxen Sodium [Aleve] 440 mg PO W/BRKFST 02/03/23 02/03/23 Previous Rx's Medication Instructions Recorded Losartan [Cozaar] 100 mg PO DAILY #30 tab 01/30/23 Spironolactone [Aldactone] 25 mg PO DAILY #30 tab 01/30/23 amLODIPine [Norvasc] 10 mg PO DAILY #30 tab 01/30/23 hydrALAZINE HCL [Apresoline] 50 mg PO TID #90 tab 01/30/23 Allergies Allergy/AdvReac Type Severity Reaction Status Date / Time No Known Allergies Allergy Verified 02/03/23 11:04 Review of Systems ROS Statement: Those systems with pertinent positive or pertinent negative responses have been documented in the HPI. ROS Other: All systems not noted in ROS Statement are negative. Past Medical History Past Medical History: Seizure Disorder Additional Past Medical History / Comment(s): head injury as a child History of Any Multi-Drug Resistant Organisms: None Reported Additional Past Surgical History / Comment(s): lip cancer removed Past Anesthesia/Blood Transfusion Reactions: No Reported Reaction Additional Past Anesthesia/Blood Transfusion Reaction / Comment(s): never had blood transfusion Past Psychological History: Anxiety Additional Psychological History / Comment(s): On Lexapro Smoking Status: Never smoker Past Alcohol Use History: None Reported Past Drug Use History: None Reported - Past Family History Father Additional Family Medical History / Comment(s): alzheimers Mother Family Medical History: Myocardial Infarction ([place]) Additional Family Medical History / Comment(s): macular degeneration General Exam - General Exam Comments Initial Comments: GENERAL: Patient is well-developed and well-nourished. Patient is nontoxic and well- hydrated and is in no acute distress. ENT: Neck is soft and supple. No significant lymphadenopathy is noted. Oropharynx is clear. Moist mucous membranes. Neck has full range of motion without eliciting any pain. EYES: The sclera were anicteric and conjunctiva were pink and moist. Extraocular movements were intact and pupils were equal round and reactive to light. Eyelids were unremarkable. PULMONARY: Unlabored respirations. Good breath sounds bilaterally. No audible rales rhonchi or wheezing was noted. CARDIOVASCULAR: Patient is a regular rate and rhythm at about 50 beats a minute. ABDOMEN: Soft and nontender with normal bowel sounds. No palpable organomegaly was noted. There is no palpable pulsatile mass. SKIN: Skin is clear with no lesions or rashes and otherwise unremarkable. NEUROLOGIC: Patient is alert and oriented 1 EMS states this is his baseline mentally. Cranial nerves II through XII are grossly intact. Motor and sensory are also intact. Normal speech, volume and content. Symmetrical smile. MUSCULOSKELETAL: Normal extremities with adequate strength and full range of motion. 2+ edema bilaterally LYMPHATICS: No significant lymphadenopathy is noted PSYCHIATRIC: Normal psychiatric evaluation. Course Vital Signs 02/03/23 02/03/23 02/03/23 10:08 13:12 14:31 Temperature 97.6 F Pulse Rate 49 L 59 L 56 L Respiratory 16 18 16 Rate Blood Pressure 122/68 122/68 133/67 O2 Sat by Pulse 98 98 98 Oximetry Medical Decision Making - Medical Decision Making EKG shows sinus bradycardia 50 bpm [place] interval is 179 QRS 101 Q-T intervals 462 QTC is 435. Patient's EKG shows no ST segment elevation or depression. Patient has Q waves in 3 and aVF Was pt. sent in by a medical professional or institution (, PA, SENIOR BUSINESS ARCHITECT, urgent care, hospital, or custodial...) When possible be specific @ -No Did you speak to anyone other than the patient for history (EMS, parent, family, police, friend...)? What history was obtained from this source @ -EMS and sister gave all of the history. Did you review nursing and triage notes (agree or disagree)? Why? @ -I reviewed and agree with nursing and triage notes Were old charts reviewed (outside hosp., previous admission, EMS record, old EKG, old radiological studies, urgent care reports/EKG's, custodial records)? Report findings @ -I reviewed prior charting on this patient as well as prior lab work Differential Diagnosis (chest pain, altered mental status, abdominal pain women, abdominal pain men, vaginal bleeding, weakness, fever, dyspnea, syncope, headache, dizziness, GI bleed, back pain, seizure, CVA, palpatations, mental health, musculoskeletal)? @ -Differential Weakness: Hypoglycemia, shock, sepsis, hyponatremia, anemia, infection, CA, ETOH, adverse medicine reaction, overdose, stroke, this is not meant to be an all-inclusive list. EKG interpreted by me (3pts min.). @ -As above X-rays interpreted by me (1pt min.). @ -Chest x-ray was interpreted by myself as no acute abnormality. CT interpreted by me (1pt min.). @ -CT of the brain was interpreted by myself I no acute abnormality. CT of the abdomen and pelvis showed a distended colon with possible stricture or obstruction of the distal colon U/S interpreted by me (1pt. min.). @ -None done What testing was considered but not performed or refused? (CT, X-rays, U/S, labs)? Why? @ -None What meds were considered but not given or refused? Why? @ -None Did you discuss the management of the patient with other professionals (professionals i.e. , PA, SENIOR BUSINESS ARCHITECT, lab, RT, psych nurse, social media strategist, last waxer, teacher, light armored reconnaissance officer, child welfare caseworker)? Give summary @ -I spoke with Dr. linares and he agreed to admit the patient admitted the patient wrote admitting orders Was smoking cessation discussed for >3mins.? @ -No Was critical care preformed (if so, how long)? @ -No Were there social determinants of health that impacted care today? How? (Homelessness, low income, unemployed, alcoholism, drug addiction, transportation, low edu. Level, literacy, decrease access to med. care, prison, rehab)? @ -No Was there de-escalation of care discussed even if they declined (Discuss DNR or withdrawal of care, Hospice)? DNR status @ -No What co-morbidities impacted this encounter? (DM, HTN, Smoking, COPD, CAD, Cance r, CVA, ARF, Chemo, Hep., AIDS, mental health diagnosis, sleep apnea, morbid obesity)? @ -None Was patient admitted / discharged? Hospital course, mention meds given and route, prescriptions, significant lab abnormalities, going to OR and other pertinent info. @ -Patient CAT scan showed a possible extraction also patient had low potassium and a slightly elevated troponin. Patient will be brought in place him on her troponins will be repeated potassium will be replaced and surgery will evaluate the possible stricture or obstruction of the colon Undiagnosed new problem with uncertain prognosis? @ -No Drug Therapy requiring intensive monitoring for toxicity (Heparin, Nitro, Insul in, Cardizem)? @ -No Were any procedures done? @ -No Diagnosis/symptom? @ -Colonic obstruction Acute, or Chronic, or Acute on Chronic? @ -Acute Uncomplicated (without systemic symptoms) or Complicated (systemic symptoms)? @ -Complicated Side effects of treatment? @ -No Exacerbation, Progression, or Severe Exacerbation? @ -No Poses a threat to life or bodily function? How? (Chest pain, [place], CA, pneumonia, PE, COPD, DKA, ARF, appy, cholecystitis, CVA, Diverticulitis, Homicidal, Suicidal, threat to staff... and all critical care pts) @ -No Diagnosis/symptom? @ -Hypokalemia Acute, or Chronic, or Acute on Chronic? @ -Acute Uncomplicated (without systemic symptoms) or Complicated (systemic symptoms)? @ -Uncomplicated Side effects of treatment? @ -none Exacerbation, Progression, or Severe Exacerbation] @ -no Poses a threat to life or bodily function? @ -no Diagnosis/symptom? @ -Elevated troponin Acute, or Chronic, or Acute on Chronic? @ -Acute Uncomplicated (without systemic symptoms) or Complicated (systemic symptoms)? @ -Complicated Side effects of treatment? @ -none Exacerbation, Progression, or Severe Exacerbation] @ -no Poses a threat to life or bodily function? @ -no - Lab Data Result diagrams: 02/03/23 10:53 02/03/23 10:53 Lab Results 02/03/23 02/03/23 02/03/23 Range/Units 10:09 10:53 10:53 WBC 11.1 H (3.8-10.6) k/uL RBC 4.62 (4.30-5.90) m/uL Hgb 14.3 (13.0-17.5) gm/dL Hct 43.4 (39.0-53.0) % MCV 94.1 (80.0-100.0) fL MCH 31.0 (25.0-35.0) pg MCHC 33.0 (31.0-37.0) g/dL RDW 14.0 (11.5-15.5) % Plt Count 360 (150-450) k/uL MPV 8.4 Neutrophils % 86 % Lymphocytes % 5 % Monocytes % 4 % Eosinophils % 4 % Basophils % 0 % Neutrophils # 9.6 H (1.3-7.7) k/uL Lymphocytes # 0.6 L (1.0-4.8) k/uL Monocytes # 0.4 (0-1.0) k/uL Eosinophils # 0.4 (0-0.7) k/uL Basophils # 0.0 (0-0.2) k/uL PT 10.5 (9.0-12.0) sec INR 1.0 (<1.2) APTT 24.0 (22.0-30.0) sec Sodium (137-145) mmol/L Potassium (3.5-5.1) mmol/L Chloride (98-107) mmol/L Carbon Dioxide (22-30) mmol/L Anion Gap mmol/L BUN (9-20) mg/dL Creatinine (0.66-1.25) mg/dL Est GFR (CKD-EPI)AfAm (>60 ml/min/1.73 sqM) Est GFR (CKD-EPI)NonAf (>60 ml/min/1.73 sqM) Glucose (74-99) mg/dL POC Glucose (mg/dL) 119 H (70-110) mg/dL POC Glu Fashion Designer ID Mclaughlin, Anyi Plasma Lactic Acid Hari (0.7-2.0) mmol/L Calcium (8.4-10.2) mg/dL Magnesium (1.6-2.3) mg/dL Total Bilirubin (0.2-1.3) mg/dL AST (17-59) U/L ALT (4-49) U/L Alkaline Phosphatase (38-126) U/L Troponin I (0.000-0.034) ng/mL NT-Pro-B Natriuret Pep pg/mL Total Protein (6.3-8.2) g/dL Albumin (3.5-5.0) g/dL Urine Color Urine Appearance (Clear) Urine pH (5.0-8.0) Ur Specific [place] (1.001-1.035) Urine Protein (Negative) Urine Glucose (UA) (Negative) Urine Ketones (Negative) Urine Blood (Negative) Urine Nitrite (Negative) Urine Bilirubin (Negative) Urine Urobilinogen (<2.0) mg/dL Ur Leukocyte Esterase (Negative) 02/03/23 02/03/23 02/03/23 Range/Units 10:53 10:53 10:53 WBC (3.8-10.6) k/uL RBC (4.30-5.90) m/uL Hgb (13.0-17.5) gm/dL Hct (39.0-53.0) % MCV (80.0-100.0) fL MCH (25.0-35.0) pg MCHC (31.0-37.0) g/dL RDW (11.5-15.5) % Plt Count (150-450) k/uL MPV Neutrophils % % Lymphocytes % % Monocytes % % Eosinophils % % Basophils % % Neutrophils # (1.3-7.7) k/uL Lymphocytes # (1.0-4.8) k/uL Monocytes # (0-1.0) k/uL Eosinophils # (0-0.7) k/uL Basophils # (0-0.2) k/uL PT (9.0-12.0) sec INR (<1.2) APTT (22.0-30.0) sec Sodium 144 (137-145) mmol/L Potassium 3.1 L (3.5-5.1) mmol/L Chloride 109 H (98-107) mmol/L Carbon Dioxide 28 (22-30) mmol/L Anion Gap 7 mmol/L BUN 26 H (9-20) mg/dL Creatinine 0.72 (0.66-1.25) mg/dL Est GFR (CKD-EPI)AfAm >90 (>60 ml/min/1.73 sqM) Est GFR (CKD-EPI)NonAf >90 (>60 ml/min/1.73 sqM) Glucose 107 H (74-99) mg/dL POC Glucose (mg/dL) (70-110) mg/dL POC Glu Fashion Designer ID Plasma Lactic Acid Hari 1.4 (0.7-2.0) mmol/L Calcium 8.6 (8.4-10.2) mg/dL Magnesium 2.3 (1.6-2.3) mg/dL Total Bilirubin 0.6 (0.2-1.3) mg/dL AST 23 (17-59) U/L ALT 21 (4-49) U/L Alkaline Phosphatase 105 (38-126) U/L Troponin I (0.000-0.034) ng/mL NT-Pro-B Natriuret Pep pg/mL Total Protein 6.4 (6.3-8.2) g/dL Albumin 3.7 (3.5-5.0) g/dL Urine Color Yellow Urine Appearance Clear (Clear) Urine pH 5.5 (5.0-8.0) Ur Specific [place] 1.019 (1.001-1.035) Urine Protein Trace H (Negative) Urine Glucose (UA) Negative (Negative) Urine Ketones Negative (Negative) Urine Blood Negative (Negative) Urine Nitrite Negative (Negative) Urine Bilirubin Negative (Negative) Urine Urobilinogen 2.0 (<2.0) mg/dL Ur Leukocyte Esterase Negative (Negative) 04/14/23 04/14/23 Range/Units 10:53 10:53 WBC (3.8-10.6) k/uL RBC (4.30-5.90) m/uL Hgb (13.0-17.5) gm/dL Hct (39.0-53.0) % MCV (80.0-100.0) fL MCH (25.0-35.0) pg MCHC (31.0-37.0) g/dL RDW (11.5-15.5) % Plt Count (150-450) k/uL MPV Neutrophils % % Lymphocytes % % Monocytes % % Eosinophils % % Basophils % % Neutrophils # (1.3-7.7) k/uL Lymphocytes # (1.0-4.8) k/uL Monocytes # (0-1.0) k/uL Eosinophils # (0-0.7) k/uL Basophils # (0-0.2) k/uL PT (9.0-12.0) sec INR (<1.2) APTT (22.0-30.0) sec Sodium (137-145) mmol/L Potassium (3.5-5.1) mmol/L Chloride (98-107) mmol/L Carbon Dioxide (22-30) mmol/L Anion Gap mmol/L BUN (9-20) mg/dL Creatinine (0.66-1.25) mg/dL Est GFR (CKD-EPI)AfAm (>60 ml/min/1.73 sqM) Est GFR (CKD-EPI)NonAf (>60 ml/min/1.73 sqM) Glucose (74-99) mg/dL POC Glucose (mg/dL) (70-110) mg/dL POC Glu Fashion Designer ID Plasma Lactic Acid Hari (0.7-2.0) mmol/L Calcium (8.4-10.2) mg/dL Magnesium (1.6-2.3) mg/dL Total Bilirubin (0.2-1.3) mg/dL AST (17-59) U/L ALT (4-49) U/L Alkaline Phosphatase (38-126) U/L Troponin I 0.041 H* (0.000-0.034) ng/mL NT-Pro-B Natriuret Pep 777 pg/mL Total Protein (6.3-8.2) g/dL Albumin (3.5-5.0) g/dL Urine Color Urine Appearance (Clear) Urine pH (5.0-8.0) Ur Specific [place] (1.001-1.035) Urine Protein (Negative) Urine Glucose (UA) (Negative) Urine Ketones (Negative) Urine Blood (Negative) Urine Nitrite (Negative) Urine Bilirubin (Negative) Urine Urobilinogen (<2.0) mg/dL Ur Leukocyte Esterase (Negative) Disposition Clinical Impression: Colonic obstruction, Troponin level elevated, Hypokalemia Disposition: ADMITTED IP TO THIS HOSP Referrals: Carlos Barry DO [Primary Care Provider] - 1-2 days Time of Disposition: 14:44
[2023-02-03 11:10] LABS: Basophils % (A) 0 %; Eosinophils # (A) 0.4 k/uL (0-0.7); Eosinophils % (A) 4 %; HCT 43.4 % (39.0-53.0); HGB 14.3 gm/dL (13.0-17.5); Lymphocytes # (A) 0.6 k/uL (1.0-4.8); Lymphocytes % (A) 5 %; MCV 94.1 fL (80.0-100.0); Mean Platelet Volume 8.4; Monocytes # (A) 0.4 k/uL (0-1.0); Monocytes % (A) 4 %; Neutrophils # (A) 9.6 k/uL (1.3-7.7); Neutrophils % (A) 86 %; Platelet Count 360 k/uL (150-450); RBC 4.62 m/uL (4.30-5.90); WBC 11.1 k/uL (3.8-10.6)
--- NOTE | 2023-02-03 11:26 | CT ---
EXAMINATION TYPE: CT brain wo con DATE OF EXAM: 02/03/2023 COMPARISON: 01/25/2023, 03/22/2021 HISTORY: Weakness post recent fall. CT DLP: 1202.4 mGycm Automated exposure control for dose reduction was used. FINDINGS: Moderate generalized degenerative change. No midline shift or mass effect. Low attenuation in the whi te matter is nonspecific but most typical remote white matter ischemia. Area of abnormal density seen within the left thalamus stable from multiple prior exams compatible with remote thalamic infarct. Calvarium is intact. Craniocervical junction is maintained. Sella turcica has a normal appearance. Or bits are symmetric. There is no evidence of acute hemorrhage or mass effect. IMPRESSION: DEGENERATIVE AND NONSPECIFIC WHITE MATTER CHANGES MOST AT THE LEVEL OF REMOTE ISCHEMIA.
[2023-02-03 11:29] LABS: ALT 21 U/L (4-49); AST 23 U/L (17-59); African American GFR (CKD) >90 (>60 ml/min/1.73 sqM); Albumin 3.7 g/dL (3.5-5.0); Alkaline Phosphatase 105 U/L (38-126); Anion Gap 7 mmol/L; Blood Urea Nitrogen 26 mg/dL (9-20); Calcium 8.6 mg/dL (8.4-10.2); Carbon Dioxide 28 mmol/L (22-30); Chloride 109 mmol/L (98-107); Glucose 107 mg/dL (74-99); Magnesium 2.3 mg/dL (1.6-2.3); Non-African American GFR(CKD) >90 (>60 ml/min/1.73 sqM); Potassium 3.1 mmol/L (3.5-5.1); Sodium 144 mmol/L (137-145); Total Bilirubin 0.6 mg/dL (0.2-1.3); Total Protein 6.4 g/dL (6.3-8.2)
[2023-02-03 11:30] LABS: Prothrombin Time 10.5 sec (9.0-12.0)
--- NOTE | 2023-02-03 11:57 | XR ---
EXAMINATION TYPE: XR chest 2V DATE OF EXAM: 02/03/2023 COMPARISON: NONE TECHNIQUE: PA and lateral views submitted. HISTORY: Shortness of breath FINDINGS: The lungs are clear and there is no pneumothorax, pleural effusion, or focal pneumonia. Heart size upper limits of normal and there is mild central interstitial prominence.. Chronic left clavicular fr acture noted. 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 IMPRESSION: 1. Cardiomegaly correlate for mild central venous congestion. No overt failure.
--- NOTE | 2023-02-03 12:15 | XR ---
EXAMINATION TYPE: XR shoulder complete RT DATE OF EXAM: 02/03/2023 COMPARISON: NONE HISTORY: Pain TECHNIQUE: Three views are submitted. FINDINGS: The osseous structures are intact. There is no acute fracture or dislocation. Severe hypertrophic AC joint arthropathy. IMPRESSION: 1. Severe AC joint arthropathy. No acute fracture.
[2023-02-03 12:30] LABS: Appearance,Urine Clear (Clear); Bilirubin,Urine Negative (Negative); Blood,Urine Negative (Negative); Color,Urine Yellow; Glucose,Urine (UA) Negative (Negative); Ketones,Urine Negative (Negative); Leukocyte Esterase,Urine Negative (Negative); Nitrite,Urine Negative (Negative); PH, Urine 5.5 (5.0-8.0); Protein,Urine Trace (Negative); Specific Gravity,Urine 1.019 (1.001-1.035)
--- NOTE | 2023-02-03 12:36 | XR ---
EXAMINATION TYPE: XR KUB DATE OF EXAM: 02/03/2023 COMPARISON: NONE HISTORY: Abdominal pain and distention TECHNIQUE: One view abdominal series FINDINGS: The osseous structures are intact. The bowel gas pattern is nonspecific. Hypertrophic degenerative c hanges spine. Arthropathy of the hips. Diffuse bowel dilation. Retained fecal debris throughout the c olon suggests constipation. IMPRESSION: 1. Markedly dilated bowel loops. Superior somewhat out of proportion for just constipation and findin gs are suspicious for distal obstruction obstruction, possibly colonic. Recommend CT scan.
--- NOTE | 2023-02-03 14:02 | CT ---
EXAMINATION TYPE: CT abdomen pelvis wo con CT DLP: 1483.4 mGycm, Automated exposure control for dose reduction was used. DATE OF EXAM: 02/03/2023 1:37 PM COMPARISON: KUB 02/03/2023 CLINICAL INDICATION:Male, 72 years old with history of Possible obstruction; Abdominal distention. TECHNIQUE: Standard CT of the abdomen and pelvis without IV or oral contrast. Lack of IV or oral co ntrast limits evaluation of solid and hollow organ viscera. Coronal and sagittal reformats were perfo rmed. FINDINGS: LOWER CHEST: The visualized lung bases are clear. Mild cardiomegaly. Mild coronary arterial calcifica tions. ABDOMEN LIVER: Unremarkable noncontrast appearance. GALLBLADDER AND BILE DUCTS: Cholelithiasis. No biliary ductal dilatation. PANCREAS: Unremarkable noncontrast appearance. SPLEEN: Unremarkable noncontrast appearance. ADRENAL GLANDS: Nonspecific thickening of the bilateral adrenal gland.. KIDNEYS AND URETERS: No evidence of hydronephrosis. Nonobstructive bilateral renal calculi. Bilateral renal sinus cysts. PELVIS BLADDER: Incompletely distended but grossly unremarkable. REPRODUCTIVE: Coarse calcifications of the prostate gland are identified. ABDOMEN & PELVIS STOMACH AND BOWEL: Stomach and duodenum are unremarkable. Gas-filled dilated sigmoid colon with narro wing of the distal aspect. Fluid-filled distal sigmoid colon and rectum. Moderate amount stool is pre sent throughout the colon. There is some mild narrowing of the distal: Wo twisted appearance measurin g up to 2 cm (series 201, image 73). No pneumatosis. Normal caliber small bowel. PERITONEUM: No evidence of pneumoperitoneum or free fluid. VASCULATURE: Mild atherosclerotic calcifications are present throughout the abdominal aorta and its b ranches. No evidence of aortic aneurysm. MUSCULOSKELETAL: No acute osseous abnormalities. Moderate disc degeneration changes are present throu ghout the thoracolumbar spine. Mild retrolisthesis of L2 on L3 and L3 on L4. LYMPH NODES: No gross evidence for lymphadenopathy. SOFT TISSUE/ABDOMINAL WALL: Fat filled right inguinal hernia. IMPRESSION: 1. Gas and fluid-filled dilated sigmoid colon with mild narrowing involving the distal portion. No f ocal twist identified to suggest volvulus. Findings may relate to colonic pseudoobstruction versus co lonic ileus versus mild stricture versus less likely sigmoid volvulus. 2. Nonobstructive bilateral renal calculi. 3. Cholelithiasis.
[2023-02-03] MEDS ORDERED: SODIUM CHLORIDE 0.9% 1,000 ML IV ONE (14:45)
[2023-02-03] MEDS ORDERED: POTASSIUM CHLORIDE 20 MEQ in WATER FOR INJECTION 1 100ML.BAG IVPB STA (14:46)
--- NOTE | 2023-02-03 16:43 | P.HPIM ---
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 Patient presents because of increased weakness. Patient is poor historian. Information obtained from the guardian and his sister Sushma I called the legal guardian and tried to talk to Miss Ordaz at [phone] (I left a message to call me back), and [phone] (I could not leave a message). However I met Sushma at bedside as per sister patient was feeling worsening generalized weakness. He is been generally weak for about 1.5 years, he mainly uses a wheelchair, he was able to walk little bit to the bathroom and just to stand and change position to he got more falling about 2 weeks ago and they brought him to the hospital. After discharge his sister thought he was going to rehab but he was sent home and stated. However the sister now, take care of him. As per sister his mentation is at baseline but he has most low to eat or to move . Also system and patient noticed that he has little more weakness on his right leg, right arm and light right facial droop. This is been going on for about a week. No recent more weakness over the last 1 or 2 days. Also as per sister he had a seizure about 2 weeks ago prior to hospitalization and she thinks he had another seizure while here in the hospital. Patient himself is alert awake to place as he knows he is in [facility] and he couldn't tell his sister but he is disoriented to his time and this is his baseline as per sister. He denies chest pain or dyspnea however he was breathing deep and slightly fast . No abdominal pain vomiting or diarrhea. He has been constipated for the last 2 days. Vital signs are reviewed, is mildly bradycardic at 56 other than that vitals are stable and he is afebrile. Labs showed mild leukocytosis of 11.1, rest of CBC is unremarkable INR is 1.0 BMP showed mild hypokalemia with creatinine within the reference range, elevated BUN at 26, liver enzymes were unremarkable Troponin is at 0.04 which is same as last admission and proBNP is 777. Urine analysis is negative for infection. CT of the brain: Degenerative and nonspecific white matter changes most of the level of remote ischemia Chest x-ray: Cardiomegaly with mild central venous congestion Shoulder x-ray showing severe before meals joint arthropathy, with no fracture KUB: Markedly dilated bowel loops. Suspicious for distal bowel obstruction possibly colonic and the recommended CAT scan CT of the abdomen and pelvis: Without IV or oral contrast showing gas and fluid- filled dilated sigmoid colon with mild narrowing involving the distal portion. This could be colonic pseudoobstruction versus colonic ileus versus mild stricture versus less likely sigmoid volvulus. Cholelithiasis. Nonobstructive bilateral renal calculi Review of Systems Review of systems CONSTITUTIONAL: No fever, no malaise, no fatigue. HEENT: No recent visual problems or hearing problems. Denied any sore throat. CARDIOVASCULAR: No orthopnea, PND, no palpitations, no syncope. PULMONARY: No shortness of breath, no cough, no hemoptysis. GASTROINTESTINAL: No diarrhea, no nausea, no vomiting, no abdominal pain. Normoactive bowel sounds. NEUROLOGICAL: No headaches, no numbness. HEMATOLOGICAL: Denies any bleeding or petechiae. GENITOURINARY: Denies any burning micturition, frequency, or urgency. MUSCULOSKELETAL/RHEUMATOLOGICAL: Denies any joint pain, swelling, or any muscle pain. ENDOCRINE: Denies any polyuria or polydipsia. Past Medical History Past Medical History: Seizure Disorder Additional Past Medical History / Comment(s): head injury as a child History of Any Multi-Drug Resistant Organisms: None Reported Additional Past Surgical History / Comment(s): lip cancer removed Past Anesthesia/Blood Transfusion Reactions: No Reported Reaction Additional Past Anesthesia/Blood Transfusion Reaction / Comment(s): never had blood transfusion Past Psychological History: Anxiety Additional Psychological History / Comment(s): On Lexapro Smoking Status: Never smoker Past Alcohol Use History: None Reported Past Drug Use History: None Reported - Past Family History Father Additional Family Medical History / Comment(s): alzheimers Mother Family Medical History: Myocardial Infarction ([place]) Additional Family Medical History / Comment(s): macular degeneration Medications and Allergies Home Medications Medication Instructions Recorded Confirmed Type Escitalopram [Lexapro] 10 mg PO HS 04/03/15 02/03/23 History levETIRAcetam 1,000 mg PO BID 04/03/15 02/03/23 History levETIRAcetam [Levetiracetam] 500 mg PO BID 04/03/15 02/03/23 History Atorvastatin [Lipitor] 20 mg PO DAILY 01/25/23 02/03/23 History Calcium Carbonate/Vitamin D3 2 tab PO W/SUPPER 01/25/23 02/03/23 History [Calcium 600-Vit D3 10 mcg (400 Iu)] Vit C/E/Zn/Coppr/Lutein/Zeaxan 1 tab PO BID-W/MEALS 01/25/23 02/03/23 History [Preservision Areds 2 Chew Tab] Losartan [Cozaar] 100 mg PO DAILY #30 tab 01/30/23 02/03/23 Rx Spironolactone [Aldactone] 25 mg PO DAILY #30 tab 01/30/23 02/03/23 Rx amLODIPine [Norvasc] 10 mg PO DAILY #30 tab 01/30/23 02/03/23 Rx hydrALAZINE HCL [Apresoline] 50 mg PO TID #90 tab 01/30/23 02/03/23 Rx Lacosamide [Vimpat] 200 mg PO BID 02/03/23 02/03/23 History Naproxen Sodium [Aleve] 440 mg PO W/BRKFST 02/03/23 02/03/23 History Allergies Allergy/AdvReac Type Severity Reaction Status Date / Time No Known Allergies Allergy Verified 02/03/23 11:04 Physical Exam Vitals: Vital Signs Temp Pulse Resp BP Pulse Ox 02/03/23 14:31 56 L 16 133/67 98 02/03/23 13:12 59 L 18 122/68 98 02/03/23 10:08 97.6 F 49 L 16 122/68 98 Intake and Output 02/02/23 02/03/23 02/03/23 22:59 06:59 14:59 Other: Weight 108.862 kg -GENERAL: The patient is alert and oriented x2, not in any acute distress. Well developed, well nourished. Generally weak HEENT: Pupils are round and equally reacting to light. EOMI. No scleral icterus. No conjunctival pallor. Normocephalic, atraumatic. No pharyngeal erythema. No thyromegaly. CARDIOVASCULAR: S1 and S2 present. No murmurs, rubs, or gallops. PULMONARY: Chest is clear to auscultation, no wheezing or crackles. ABDOMEN: Soft, nontender, nondistended, normoactive bowel sounds. No palpable organomegaly. MUSCULOSKELETAL: No joint swelling or deformity. -EXTREMITIES: No cyanosis, clubbing, bilateral pitting leg edema, swelling hands as well NEUROLOGICAL: Cranial nerves are grossly intact. He has mild weakness of the right upper extremity, right lower extremity like 4/5 on the right arm and leg compared to 4+/5 on the left side. Also he has slight right facial droop SKIN: No rashes. no petechiae. Results CBC & Chem 7: 02/03/23 10:53 02/03/23 10:53 Labs: Abnormal Lab Results - Last 24 Hours (Table) 02/03/23 02/03/23 02/03/23 Range/Units 10:09 10:53 10:53 WBC 11.1 H (3.8-10.6) k/uL Neutrophils # 9.6 H (1.3-7.7) k/uL Lymphocytes # 0.6 L (1.0-4.8) k/uL Potassium (3.5-5.1) mmol/L Chloride (98-107) mmol/L BUN (9-20) mg/dL Glucose (74-99) mg/dL POC Glucose (mg/dL) 119 H (70-110) mg/dL Troponin I (0.000-0.034) ng/mL Urine Protein Trace H (Negative) 02/03/23 02/03/23 Range/Units 10:53 10:53 WBC (3.8-10.6) k/uL Neutrophils # (1.3-7.7) k/uL Lymphocytes # (1.0-4.8) k/uL Potassium 3.1 L (3.5-5.1) mmol/L Chloride 109 H (98-107) mmol/L BUN 26 H (9-20) mg/dL Glucose 107 H (74-99) mg/dL POC Glucose (mg/dL) (70-110) mg/dL Troponin I 0.041 H* (0.000-0.034) ng/mL Urine Protein (Negative) Assessment and Plan Assessment: generalized weakness and myopathy, could be multifactorial, likely due to hypokalemia, bowel abnormality versus medication effect Bilateral leg swelling and anasarca, could be related to diastolic CHF Recent fall, patient also has history of recurrent falls. Suspected right-sided weakness, subsequent stroke colon Ileus versus bowel obstruction Mild asymptomatic bradycardia History of seizure Plan: Continue with gentle hydration Bowel rest Pain medication for management Surgery team consult there is suspicion of stroke however this is a pleasant 100 to start on aspirin until he speaks with Dr. Galvan as he is at-risk of falling. Risks and benefits were explained for the cistern details on patient as well. The holding aspirin upon the recommendation on any antiplatelet Check TSH, CPK, hemoglobin A1c, vitamin B12 Start IV Lasix 40 mg twice daily Continue with local some light and Keppra Continue with blood pressure medication losartan and Norvasc. Labs and medication were reviewed.. Continue same treatment. Continue with symptomatic treatment. Resume home medication. Monitor labs and vitals. DVT and GI prophylaxis. Further recommendations as per clinical course of the patient DVT prophylaxis: Subcutaneous heparin GI Prophylaxis: Pepcid PT/OT: Pending Prognosis is guarded. I discussed with the sister CODE STATUS she wants to be full code but she will consider it. Given multiple medical problems I would recommend more palliative approach especially if patient condition deteriorates. This was discussed with the sister and she agrees.
[2023-02-03 17:58] LABS: ABG Base Excess 2.6 mmol/L; ABG HCO3 26 mmol/L (21-25); ABG Oxygen Saturation 95.1 % (94-97); ABG PCO2 34 mmHg (35-45); ABG PH 7.49 (7.35-7.45); ABG PO2 74 mmHg (83-108); ABG TCO2 27 mmol/L (19-24); Allen Test Performed? Yes
[2023-02-03] MEDS: FUROSEMIDE 10 MG/ML 4 ML VIAL IV SCH (21:17)
[2023-02-03] MEDS: LACOSAMIDE 50 MG TABLET PO SCH (21:17)
[2023-02-03] MEDS: levETIRAcetam 500 MG TAB PO SCH ×2 (21:18)
[2023-02-03] MEDS: hydrALAZINE HCL 50 MG TAB PO SCH (21:18)
[2023-02-04 02:40] LABS: Glucose,Whole Blood 140 mg/dL (70-110)
[2023-02-04] MEDS ORDERED: Magnesium Replacement Protocol 1 EACH MISC MISCELLANE PRN (04:57)
[2023-02-04] MEDS ORDERED: Potassium Replacement Protocol 1 EACH MISC MISCELLANE PRN (04:57)
[2023-02-04] MEDS: levETIRAcetam 500 MG TAB PO SCH ×4 (09:29→20:34)
[2023-02-04] MEDS: LOSARTAN 50 MG TAB PO SCH (09:29)
[2023-02-04] MEDS: FUROSEMIDE 10 MG/ML 4 ML VIAL IV SCH (09:30)
[2023-02-04] MEDS: amLODIPine 10 MG TAB PO SCH (09:30)
[2023-02-04] MEDS: SPIRONOLACTONE 25 MG TAB PO SCH (09:30)
[2023-02-04] MEDS: CYANOCOBALAMIN 1,000 MCG/ML 1 ML VIAL IM SCH (09:30)
[2023-02-04] MEDS: LACOSAMIDE 50 MG TABLET PO SCH ×2 (09:30→20:33)
[2023-02-04] MEDS: ATORVASTATIN 20 MG TAB PO SCH (09:30)
[2023-02-04] MEDS: hydrALAZINE HCL 50 MG TAB PO SCH ×3 (09:30→20:34)
[2023-02-04 10:50] LABS: Basophils % (A) 0 %; Eosinophils % (A) 1 %; HCT 40.4 % (39.0-53.0); HGB 13.3 gm/dL (13.0-17.5); Lymphocytes # (A) 0.6 k/uL (1.0-4.8); Lymphocytes % (A) 10 %; MCH 31.1 pg (25.0-35.0); MCV 94.1 fL (80.0-100.0); Mean Platelet Volume 8.6; Monocytes # (A) 0.3 k/uL (0-1.0); Monocytes % (A) 6 %; Neutrophils # (A) 4.8 k/uL (1.3-7.7); Neutrophils % (A) 82 %; Platelet Count 330 k/uL (150-450); RBC 4.29 m/uL (4.30-5.90); RDW 14.1 % (11.5-15.5); WBC 5.8 k/uL (3.8-10.6)
[2023-02-04 11:02] LABS: ALT 20 U/L (4-49); AST 23 U/L (17-59); African American GFR (CKD) >90 (>60 ml/min/1.73 sqM); Albumin 3.3 g/dL (3.5-5.0); Alkaline Phosphatase 85 U/L (38-126); Anion Gap 9 mmol/L; Bilirubin, Delta 0.2 mg/dL (0.0-0.2); Bilirubin,Unconjugated 0.3 mg/dL (0.0-1.1); Blood Urea Nitrogen 28 mg/dL (9-20); Calcium 7.8 mg/dL (8.4-10.2); Carbon Dioxide 27 mmol/L (22-30); Chloride 110 mmol/L (98-107); Creatine Kinase 99 U/L (55-170); Glucose 113 mg/dL (74-99); Non-African American GFR(CKD) 87 (>60 ml/min/1.73 sqM); Potassium 2.8 mmol/L (3.5-5.1); Sodium 146 mmol/L (137-145); Total Bilirubin 0.5 mg/dL (0.2-1.3); Total Protein 5.9 g/dL (6.3-8.2)
--- NOTE | 2023-02-04 11:42 | P.CNNES ---
History of Present Illness Consult date: 02/04/23 Requesting physician: Tio E Sheet Reason for Consult: Possible stroke, generalized weakness History of Present Illness: This is a 72-year-old gentleman with history of epilepsy since childhoold who presented emergency department by his caregiver because of generalized weakness. Some of the history is obtained from medical record that. It seems that his sister's the caregiver and she brought in because he was too weak to stand up and had to help him. It seems that the patient is at baseline able to stand up with some help but is a unable to do so and that's why she brought him. It seems that he had a fall about a week ago and he did his ad. Today he is feeling better. I spoke with the primary team yesterday and he was generalized weak but today he is also better. Personally seen the patient myself in April 2021 for a fall and felt was possibly breakthrough seizure. I recommend the patient education usual medication of Keppra 1500 mg 1 tablet twice a day and Vimpat 150 mg twice a day. He was followed up with Dr. Galvan for her neurological management. Some of the workup during his hospital visit consisted of: Vitamin B12 is 188 which is deficient Folate is 8.90 Sodium is 146, potassium is 2.8 Immobile when it was a 6.5. Magnesium 2.3. CT of the head is reported as degenerative and nonspecific white matter changes most at the level of remote ischemia. I personally reviewed the CT of the head and the patient the looks like had an old left thalamus stroke Of note patient had a recent TSH on 01/26/2023 and it was 2.3 which was considered within normal limits. Review of Systems Review of system: The 12 point system was reviewed and apparent positive and negative per HPI. Past Medical History Past Medical History: Seizure Disorder Additional Past Medical History / Comment(s): head injury as a child History of Any Multi-Drug Resistant Organisms: None Reported Additional Past Surgical History / Comment(s): lip cancer removed Past Anesthesia/Blood Transfusion Reactions: No Reported Reaction Additional Past Anesthesia/Blood Transfusion Reaction / Comment(s): never had blood transfusion Past Psychological History: Anxiety Additional Psychological History / Comment(s): On Lexapro Smoking Status: Never smoker Past Alcohol Use History: None Reported Past Drug Use History: None Reported - Past Family History Father Additional Family Medical History / Comment(s): alzheimers Mother Family Medical History: Myocardial Infarction ([place]) Additional Family Medical History / Comment(s): macular degeneration Medications and Allergies Home Medications Medication Instructions Recorded Confirmed Type Escitalopram [Lexapro] 10 mg PO HS 04/03/15 02/03/23 History levETIRAcetam 1,000 mg PO BID 04/03/15 02/03/23 History levETIRAcetam [Levetiracetam] 500 mg PO BID 04/03/15 02/03/23 History Atorvastatin [Lipitor] 20 mg PO DAILY 01/25/23 02/03/23 History Calcium Carbonate/Vitamin D3 2 tab PO W/SUPPER 01/25/23 02/03/23 History [Calcium 600-Vit D3 10 mcg (400 Iu)] Vit C/E/Zn/Coppr/Lutein/Zeaxan 1 tab PO BID-W/MEALS 01/25/23 02/03/23 History [Preservision Areds 2 Chew Tab] Losartan [Cozaar] 100 mg PO DAILY #30 tab 01/30/23 02/03/23 Rx Spironolactone [Aldactone] 25 mg PO DAILY #30 tab 01/30/23 02/03/23 Rx amLODIPine [Norvasc] 10 mg PO DAILY #30 tab 01/30/23 02/03/23 Rx hydrALAZINE HCL [Apresoline] 50 mg PO TID #90 tab 01/30/23 02/03/23 Rx Lacosamide [Vimpat] 200 mg PO BID 02/03/23 02/03/23 History Naproxen Sodium [Aleve] 440 mg PO W/BRKFST 02/03/23 02/03/23 History Allergies Allergy/AdvReac Type Severity Reaction Status Date / Time No Known Allergies Allergy Verified 02/03/23 11:04 Physical Examination - Vital Signs Vital Signs: Vital Signs Temp Pulse Pulse Resp BP BP Pulse Ox 02/04/23 08:00 98.0 F 75 18 143/67 95 02/04/23 00:00 97.0 F L 77 18 138/75 93 L 02/03/23 20:00 97.2 F L 79 18 140/80 93 L 02/03/23 17:04 98.0 F 63 19 140/84 97 02/03/23 16:00 69 16 115/54 96 02/03/23 14:31 56 L 16 133/67 98 02/03/23 13:12 59 L 18 122/68 98 Intake and Output 02/03/23 02/04/23 02/04/23 22:59 06:59 14:59 Other: Voiding Method External Catheter External Catheter # Voids 2 Weight 108.862 kg GENERAL: The patient is lying in bed and is not in acute distress. HENT: Has old bruise on the middle of forehead (black in coloration) CHEST: The heart rate is regular rate rhythm. No murmurs to auscultation. LUNG: Clear to auscultation bilaterally no wheezing noted throughout. Not labored breathing. ABDOMEN/GI: Bowel sounds present in all 4 quadrants. No tenderness to palpation throughout. NEUROLOGICAL: Higher mental function: The patient is awake, alert, oriented to self and place (stated he was in the hospital). Stated current year is 1997 and month is February. Is able to name objects (pen and watch). Patient is following simple commands. No aphasia and no neglect. Cranial nerves: The pupils are round, equal and reactive to light. Visual loaiza are full to confrontation throughout. Extraocular movement is intact no nystagmus is noted. Facial sensation is normal to touch throughout. The facial strength is normal throughout. Hearing is moderately decreased bilaterally to hand rub. Tongue is midline and moved [id number] without any difficulty. Has nasal tone. Shoulder shrug is normal bilaterally. Motor: The strength is 5 over 5 throughout uppers and proximal lower extr emities. While distally in foot had antigravity but had hard time assessing because of cooperation.. Normal tone and bulk. Cerebellum: Normal finger to nose bilaterally. Sensation: Sensation is normal to touch throughout. Reflexes (right/left): 2+ in uppers while lowers is 1+. Plantars are mute bilaterally. Results - Laboratory Findings CBC and BMP: 02/04/23 09:13 02/04/23 09:13 Abnormal Lab Findings: Abnormal Labs 02/03/23 02/03/23 02/03/23 10:09 10:53 10:53 WBC 11.1 H RBC Neutrophils # 9.6 H Lymphocytes # 0.6 L ABG pH ABG pCO2 ABG pO2 ABG HCO3 ABG Total CO2 Sodium Potassium Chloride BUN Glucose POC Glucose (mg/dL) 119 H Hemoglobin A1c Calcium Troponin I Total Protein Albumin Vitamin B12 Procalcitonin Urine Protein Trace H 02/03/23 02/03/23 02/03/23 10:53 10:53 17:49 WBC RBC Neutrophils # Lymphocytes # ABG pH 7.49 H ABG pCO2 34 L ABG pO2 74 L ABG HCO3 26 H ABG Total CO2 27 H Sodium Potassium 3.1 L Chloride 109 H BUN 26 H Glucose 107 H POC Glucose (mg/dL) Hemoglobin A1c Calcium Troponin I 0.041 H* Total Protein Albumin Vitamin B12 Procalcitonin Urine Protein 02/03/23 02/03/23 02/03/23 19:20 19:26 19:26 WBC RBC Neutrophils # Lymphocytes # ABG pH ABG pCO2 ABG pO2 ABG HCO3 ABG Total CO2 Sodium Potassium Chloride BUN Glucose POC Glucose (mg/dL) Hemoglobin A1c 6.5 H Calcium Troponin I Total Protein Albumin Vitamin B12 188.0 L Procalcitonin 0.22 H Urine Protein 02/04/23 02/04/23 02/04/23 02:38 09:13 09:13 WBC RBC 4.29 L Neutrophils # Lymphocytes # 0.6 L ABG pH ABG pCO2 ABG pO2 ABG HCO3 ABG Total CO2 Sodium 146 H Potassium 2.8 L Chloride 110 H BUN 28 H Glucose 113 H POC Glucose (mg/dL) 140 H Hemoglobin A1c Calcium 7.8 L Troponin I Total Protein 5.9 L Albumin 3.3 L Vitamin B12 Procalcitonin Urine Protein Assessment and Plan Assessment: * Generalized weakness seems due to more electrolyte imbalance and vitamin B12 deficiency * B12 deficiency * Recurrent falls and most recent is about 1 week ago. Unsure of the cause. Possibly due to his peripheral diabetic neuropathy in addition has vitamin B12 deficiency that can cause neuropathy that would lead to falls. Unsure if the patient is having seizures as a result he is falling. * Hypokalemia * Slightly elevated troponin * Diabetes mellitus hemoglobin A1c is 6.5 most recent * History of epilepsy since childhood * History of left thalamic stroke Plan: I ordered a routine EEG which will be the performed this Monday since there is no tech for routine EEG over the weekend. Patient started on the vitamin B12 1000 mg IM by the primary team Currently the patient is also on his home antiseizure medication of Keppra 1500 mg 1 tablet twice a day and Vimpat 200 mg 1 tab twice a day at. Pending level for Keppra as well as Vimpat TSH is ordered by the primary team and is pending Unsure why the patient is not on any antiplatelets such as aspirin for secondary stroke prophylaxis unsure is because of the recurrent falls and risk of bleeding. In my opinion I would consider low dose aspirin as a secondary stroke prophylaxis if also felt safe by primary team. PT and OT is consulted We'll defer the rest of the medical management to primary team Plan was discussed with the primary team ordered Thank you for the consultation Time with Patient: Greater than 30
[2023-02-04] MEDS: POTASSIUM CHLORIDE 20 MEQ in WATER FOR INJECTION 1 100ML.BAG IVPB SCH ×4 (13:16→23:10)
--- NOTE | 2023-02-04 13:19 | P.PN ---
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 Patient presents because of increased weakness. Patient is poor historian. Information obtained from the guardian and his sister Sushma I called the legal guardian and tried to talk to Miss Ordaz at [phone] (I left a message to call me back), and [phone] (I could not leave a message). However I met Sushma at bedside as per sister patient was feeling worsening generalized weakness. He is been generally weak for about 1.5 years, he mainly uses a wheelchair, he was able to walk little bit to the bathroom and just to stand and change position to he got more falling about 2 weeks ago and they brought him to the hospital. After discharge his sister thought he was going to rehab but he was sent home and stated. However the sister now, take care of h im. As per sister his mentation is at baseline but he has most low to eat or to move. Also system and patient noticed that he has little more weakness on his right leg, right arm and light right facial droop. This is been going on for about a week. No recent more weakness over the last 1 or 2 days. Also as per sister he had a seizure about 2 weeks ago prior to hospitalization and she thinks he had another seizure while here in the hospital. Patient himself is alert awake to place as he knows he is in [facility] and he couldn't tell his sister but he is disoriented to his time and this is his baseline as per sister. He denies chest pain or dyspnea however he was breathing deep and slightly fast . No abdominal pain vomiting or diarrhea. He has been constipated for the last 2 days. Vital signs are reviewed, is mildly bradycardic at 56 other than that vitals are stable and he is afebrile. Labs showed mild leukocytosis of 11.1, rest of CBC is unremarkable INR is 1.0 BMP showed mild hypokalemia with creatinine within the reference range, elevated BUN at 26, liver enzymes were unremarkable Troponin is at 0.04 which is same as last admission and proBNP is 777. Urine analysis is negative for infection. CT of the brain: Degenerative and nonspecific white matter changes most of the level of remote ischemia Chest x-ray: Cardiomegaly with mild central venous congestion Shoulder x-ray showing severe before meals joint arthropathy, with no fracture KUB: Markedly dilated bowel loops. Suspicious for distal bowel obstruction possibly colonic and the recommended CAT scan CT of the abdomen and pelvis: Without IV or oral contrast showing gas and fluid- filled dilated sigmoid colon with mild narrowing involving the distal portion. This could be colonic pseudoobstruction versus colonic ileus versus mild stricture versus less likely sigmoid volvulus. Cholelithiasis. Nonobstructive bilateral renal calculi 02/04/2030 Patient generalized weakness significantly improved today after he was started on IV Lasix and this helped with some diuresis, his leg swelling is also im proved however not completely resolved. He has mild hypernatremia and hypokalemia secondary to diuretic effect therefore I think we can switch his IV Lasix in to oral dose 20 mg twice daily. We are going to replace electrolytes per protocol and monitor closely. Low vitamin B12 has been replaced IM 3 days and then continue with oral dose. Patient to resume his seizure medication, EEG pending. Level for vimpat and Keppra is pending. Patient is more pleasant today and he thinks that his back to baseline Objective - Vital Signs Vital signs: Vital Signs Temp 97.0 F L 02/04/23 00:00 Pulse 77 02/04/23 00:00 Resp 18 02/04/23 00:00 BP 138/75 02/04/23 00:00 Pulse Ox 93 L 02/04/23 00:00 FiO2 Intake & Output 02/03/23 02/04/23 02/04/23 18:59 06:59 18:59 Weight 108.862 kg Other: Voiding Method External Catheter # Voids 2 - Exam -GENERAL: The patient is alert and oriented x3, not in any acute distress. Well obesity, generalized weakness improving significantly today HEENT: Pupils are round and equally reacting to light. EOMI. No scleral icterus. No conjunctival pallor. Normocephalic, atraumatic. No pharyngeal erythema. No thyromegaly. CARDIOVASCULAR: S1 and S2 present. No murmurs, rubs, or gallops. PULMONARY: Chest is clear to auscultation, no wheezing or crackles. ABDOMEN: Soft, nontender, nondistended, normoactive bowel sounds. No palpable organomegaly. MUSCULOSKELETAL: No joint swelling or deformity. EXTREMITIES: No cyanosis, clubbing, or pedal edema. -NEUROLOGICAL: Gross neurological examination did not reveal any focal deficits. Right sided weakness he was complaining of yesterday is completely resolved today. Motor is 5/5 all extremities. SKIN: No rashes. no petechiae. - Labs CBC & Chem 7: 02/04/23 09:13 02/04/23 09:13 Labs: Abnormal Lab Results - Last 24 Hours (Table) 02/03/23 02/03/23 02/03/23 Range/Units 10:53 10:53 10:53 WBC 11.1 H (3.8-10.6) k/uL Neutrophils # 9.6 H (1.3-7.7) k/uL Lymphocytes # 0.6 L (1.0-4.8) k/uL ABG pH (7.35-7.45) ABG pCO2 (35-45) mmHg ABG pO2 (83-108) mmHg ABG HCO3 (21-25) mmol/L ABG Total CO2 (19-24) mmol/L Potassium 3.1 L (3.5-5.1) mmol/L Chloride 109 H (98-107) mmol/L BUN 26 H (9-20) mg/dL Glucose 107 H (74-99) mg/dL POC Glucose (mg/dL) (70-110) mg/dL Hemoglobin A1c (0.0-6.0) % Troponin I (0.000-0.034) ng/mL Vitamin B12 (200.0-944.0) pg/mL Procalcitonin (0.02-0.09) ng/mL Urine Protein Trace H (Negative) 02/03/23 02/03/23 02/03/23 Range/Units 10:53 17:49 19:20 WBC (3.8-10.6) k/uL Neutrophils # (1.3-7.7) k/uL Lymphocytes # (1.0-4.8) k/uL ABG pH 7.49 H (7.35-7.45) ABG pCO2 34 L (35-45) mmHg ABG pO2 74 L (83-108) mmHg ABG HCO3 26 H (21-25) mmol/L ABG Total CO2 27 H (19-24) mmol/L Potassium (3.5-5.1) mmol/L Chloride (98-107) mmol/L BUN (9-20) mg/dL Glucose (74-99) mg/dL POC Glucose (mg/dL) (70-110) mg/dL Hemoglobin A1c 6.5 H (0.0-6.0) % Troponin I 0.041 H* (0.000-0.034) ng/mL Vitamin B12 (200.0-944.0) pg/mL Procalcitonin (0.02-0.09) ng/mL Urine Protein (Negative) 02/03/23 02/03/23 02/04/23 Range/Units 19:26 19:26 02:38 WBC (3.8-10.6) k/uL Neutrophils # (1.3-7.7) k/uL Lymphocytes # (1.0-4.8) k/uL ABG pH (7.35-7.45) ABG pCO2 (35-45) mmHg ABG pO2 (83-108) mmHg ABG HCO3 (21-25) mmol/L ABG Total CO2 (19-24) mmol/L Potassium (3.5-5.1) mmol/L Chloride (98-107) mmol/L BUN (9-20) mg/dL Glucose (74-99) mg/dL POC Glucose (mg/dL) 140 H (70-110) mg/dL Hemoglobin A1c (0.0-6.0) % Troponin I (0.000-0.034) ng/mL Vitamin B12 188.0 L (200.0-944.0) pg/mL Procalcitonin 0.22 H (0.02-0.09) ng/mL Urine Protein (Negative) Assessment and Plan Assessment: generalized weakness and myopathy, could be multifactorial, likely due to hypokalemia, bowel abnormality versus medication effect as well as vitamin B12 deficiency, significantly improved Bilateral leg swelling and anasarca, could be related to diastolic CHF, mild. le g swellling significantly improved Vitamin B12 deficiency Recent fall, patient also has history of recurrent falls. Suspected right-sided weakness, subsequent stroke colon Ileus versus bowel obstruction Mild asymptomatic bradycardia History of seizure Plan: Discontinue IV fluid Bowel rest, patient can be started on liquid diet Pain medication for management Surgery team consult Stroke felt likely given his significant improvement today with general measures and medication changes. I discussed with patient and yesterday to start small dose of aspirin, wants to hold until he sees his neurologist Dr. Galvan Start continue with oral Lasix 20 mg twice daily Continue with vimpat and Keppra Continue with blood pressure medication losartan and Norvasc. Follow-up level of, and vimpat EKG pending Labs and medication were reviewed.. Continue same treatment. Continue with symptomatic treatment. Resume home medication. Monitor labs and vitals. DVT and GI prophylaxis. Further recommendations as per clinical course of the patient DVT prophylaxis: Subcutaneous heparin GI Prophylaxis: Pepcid PT/OT: Pending Prognosis is guarded.
[2023-02-04 14:18] VITALS: BMI 34.4
[2023-02-04] MEDS: FUROSEMIDE 20 MG TAB PO SCH (17:16)
--- NOTE | 2023-02-04 18:43 | P.GSCN ---
History of Present Illness Consult date: 02/04/23 Reason for Consult: sigmoid narrowing on CT History of present illness: Initially brought in & admitted for weakness. Recent fall. Surgery consulted for possible sigmoid narrowing seen on CT; no volvulus. No family at bedside on evaluation. He is unable to answer questions. Wants to drink something. Denies abdominal pain but unsure of reliability of recall. Had small BM on nights. Review of Systems ROS unobtainable: due to mental status - Constitutional Reports as per HPI - EENT Ears, nose, mouth and throat: Reports as per HPI - Cardiovascular Reports as per HPI - Respiratory Reports as per HPI - Gastrointestinal Reports as per HPI - Genitourinary Reports as per HPI - Musculoskeletal Reports as per HPI - Integumentary Reports as per HPI - Neurological Reports as per HPI - Psychiatric Reports as per HPI - Endocrine Reports as per HPI - Hematologic/Lymphatic Reports as per HPI - Allergic/Immunologic Reports as per HPI Past Medical History Past Medical History: Seizure Disorder Additional Past Medical History / Comment(s): head injury as a child History of Any Multi-Drug Resistant Organisms: None Reported Additional Past Surgical History / Comment(s): lip cancer removed Past Anesthesia/Blood Transfusion Reactions: No Reported Reaction Additional Past Anesthesia/Blood Transfusion Reaction / Comm: never had blood transfusion Past Psychological History: Anxiety Additional Psychological History / Comment(s): On Lexapro Smoking Status: Never smoker Past Alcohol Use History: None Reported Past Drug Use History: None Reported - Past Family History Father Additional Family Medical History / Comment(s): alzheimers Mother Family Medical History: Myocardial Infarction ([place]) Additional Family Medical History / Comment(s): macular degeneration Medications and Allergies Home Medications Medication Instructions Recorded Confirmed Type Escitalopram [Lexapro] 10 mg PO HS 04/03/15 02/03/23 History levETIRAcetam 1,000 mg PO BID 04/03/15 02/03/23 History levETIRAcetam [Levetiracetam] 500 mg PO BID 04/03/15 02/03/23 History Atorvastatin [Lipitor] 20 mg PO DAILY 01/25/23 02/03/23 History Calcium Carbonate/Vitamin D3 2 tab PO W/SUPPER 01/25/23 02/03/23 History [Calcium 600-Vit D3 10 mcg (400 Iu)] Vit C/E/Zn/Coppr/Lutein/Zeaxan 1 tab PO BID-W/MEALS 01/25/23 02/03/23 History [Preservision Areds 2 Chew Tab] Losartan [Cozaar] 100 mg PO DAILY #30 tab 01/30/23 02/03/23 Rx Spironolactone [Aldactone] 25 mg PO DAILY #30 tab 01/30/23 02/03/23 Rx amLODIPine [Norvasc] 10 mg PO DAILY #30 tab 01/30/23 02/03/23 Rx hydrALAZINE HCL [Apresoline] 50 mg PO TID #90 tab 01/30/23 02/03/23 Rx Lacosamide [Vimpat] 200 mg PO BID 02/03/23 02/03/23 History Naproxen Sodium [Aleve] 440 mg PO W/BRKFST 02/03/23 02/03/23 History Allergies Allergy/AdvReac Type Severity Reaction Status Date / Time No Known Allergies Allergy Verified 02/03/23 11:04 Surgical - Exam Vital Signs Temp Pulse Resp BP Pulse Ox 97.6 F 49 L 16 122/68 98 02/03/23 10:08 02/03/23 10:08 02/03/23 10:08 02/03/23 10:08 02/03/23 10:08 - General non toxic appearing well developed, well nourished, no distress - Eyes no pale, no icteric - ENT normal mucosa - Neck supple - Respiratory normal respiratory effort, clear to auscultation - Cardiovascular Rhythm: regular - Abdomen ?rotund belly vs distention Abdomen: soft, non tender, no guarding, no rigid, no rebound Results - Labs 02/04/23 09:13 02/04/23 17:06 Abnormal Lab Results - Last 24 Hours (Table) 02/03/23 02/03/23 02/03/23 Range/Units 19:20 19:26 19:26 RBC (4.30-5.90) m/uL Lymphocytes # (1.0-4.8) k/uL Sodium (137-145) mmol/L Potassium (3.5-5.1) mmol/L Chloride (98-107) mmol/L BUN (9-20) mg/dL Glucose (74-99) mg/dL POC Glucose (mg/dL) (70-110) mg/dL Hemoglobin A1c 6.5 H (0.0-6.0) % Calcium (8.4-10.2) mg/dL Total Protein (6.3-8.2) g/dL Albumin (3.5-5.0) g/dL Vitamin B12 188.0 L (200.0-944.0) pg/mL Procalcitonin 0.22 H (0.02-0.09) ng/mL 02/04/23 02/04/23 02/04/23 Range/Units 02:38 09:13 09:13 RBC 4.29 L (4.30-5.90) m/uL Lymphocytes # 0.6 L (1.0-4.8) k/uL Sodium 146 H (137-145) mmol/L Potassium 2.8 L (3.5-5.1) mmol/L Chloride 110 H (98-107) mmol/L BUN 28 H (9-20) mg/dL Glucose 113 H (74-99) mg/dL POC Glucose (mg/dL) 140 H (70-110) mg/dL Hemoglobin A1c (0.0-6.0) % Calcium 7.8 L (8.4-10.2) mg/dL Total Protein 5.9 L (6.3-8.2) g/dL Albumin 3.3 L (3.5-5.0) g/dL Vitamin B12 (200.0-944.0) pg/mL Procalcitonin (0.02-0.09) ng/mL 02/04/23 Range/Units 17:06 RBC (4.30-5.90) m/uL Lymphocytes # (1.0-4.8) k/uL Sodium (137-145) mmol/L Potassium 3.0 L (3.5-5.1) mmol/L Chloride (98-107) mmol/L BUN (9-20) mg/dL Glucose (74-99) mg/dL POC Glucose (mg/dL) (70-110) mg/dL Hemoglobin A1c (0.0-6.0) % Calcium (8.4-10.2) mg/dL Total Protein (6.3-8.2) g/dL Albumin (3.5-5.0) g/dL Vitamin B12 (200.0-944.0) pg/mL Procalcitonin (0.02-0.09) ng/mL Diabetes panel 02/03/23 02/04/23 02/04/23 Range/Units 19:20 09:13 17:06 Sodium 146 H (137-145) mmol/L Potassium 2.8 L 3.0 L (3.5-5.1) mmol/L Chloride 110 H (98-107) mmol/L Carbon Dioxide 27 (22-30) mmol/L BUN 28 H (9-20) mg/dL Creatinine 0.82 (0.66-1.25) mg/dL Glucose 113 H (74-99) mg/dL Hemoglobin A1c 6.5 H (0.0-6.0) % Calcium 7.8 L (8.4-10.2) mg/dL AST 23 (17-59) U/L ALT 20 (4-49) U/L Alkaline Phosphatase 85 (38-126) U/L Total Protein 5.9 L (6.3-8.2) g/dL Albumin 3.3 L (3.5-5.0) g/dL Thyroid panel 02/04/23 Range/Units 09:13 TSH 1.400 (0.465-4.680) mIU/L Calcium panel 02/04/23 Range/Units 09:13 Calcium 7.8 L (8.4-10.2) mg/dL Albumin 3.3 L (3.5-5.0) g/dL Pituitary panel 02/04/23 02/04/23 Range/Units 09:13 17:06 Sodium 146 H (137-145) mmol/L Potassium 2.8 L 3.0 L (3.5-5.1) mmol/L Chloride 110 H (98-107) mmol/L Carbon Dioxide 27 (22-30) mmol/L BUN 28 H (9-20) mg/dL Creatinine 0.82 (0.66-1.25) mg/dL Glucose 113 H (74-99) mg/dL Calcium 7.8 L (8.4-10.2) mg/dL TSH 1.400 (0.465-4.680) mIU/L Adrenal panel 02/04/23 02/04/23 Range/Units 09:13 17:06 Sodium 146 H (137-145) mmol/L Potassium 2.8 L 3.0 L (3.5-5.1) mmol/L Chloride 110 H (98-107) mmol/L Carbon Dioxide 27 (22-30) mmol/L BUN 28 H (9-20) mg/dL Creatinine 0.82 (0.66-1.25) mg/dL Glucose 113 H (74-99) mg/dL Calcium 7.8 L (8.4-10.2) mg/dL Total Bilirubin 0.5 (0.2-1.3) mg/dL AST 23 (17-59) U/L ALT 20 (4-49) U/L Alkaline Phosphatase 85 (38-126) U/L Total Protein 5.9 L (6.3-8.2) g/dL Albumin 3.3 L (3.5-5.0) g/dL - Imaging CT scan - abdomen: report reviewed, image reviewed CT scan - pelvis: report reviewed, image reviewed Assessment and Plan Assessment: incidental finding of possible sigmoid narrowing on CT - unsure of last colonoscopy recent fall weakness Plan: OK for few ice chips will tentatively plan for colonoscopy/flexible sigmoidoscopy - likely Monday due to scheduling conflicts may need GI consultation for possible colonic dilation Time with Patient: Less than 30
[2023-02-05] MEDS: CYANOCOBALAMIN 1,000 MCG/ML 1 ML VIAL IM SCH (09:25)
[2023-02-05] MEDS: amLODIPine 10 MG TAB PO SCH (09:25)
[2023-02-05] MEDS: hydrALAZINE HCL 50 MG TAB PO SCH ×3 (09:25→20:41)
[2023-02-05] MEDS: ATORVASTATIN 20 MG TAB PO SCH (09:25)
[2023-02-05] MEDS: FUROSEMIDE 20 MG TAB PO SCH ×2 (09:25→17:50)
[2023-02-05] MEDS: LACOSAMIDE 50 MG TABLET PO SCH ×2 (09:25→20:40)
[2023-02-05] MEDS: LOSARTAN 50 MG TAB PO SCH (09:25)
[2023-02-05] MEDS: levETIRAcetam 500 MG TAB PO SCH ×4 (09:25→20:40)
[2023-02-05] MEDS: SPIRONOLACTONE 25 MG TAB PO SCH (09:26)
[2023-02-05 10:10] LABS: Glucose,Whole Blood 116 mg/dL (70-110)
[2023-02-05] MEDS ORDERED: DEXTROSE 5%-0.45% NACL 1,000 ML IV SCH (10:30)
[2023-02-05 11:46] LABS: African American GFR (CKD) >90 (>60 ml/min/1.73 sqM); Anion Gap 5 mmol/L; Blood Urea Nitrogen 25 mg/dL (9-20); Calcium 8.2 mg/dL (8.4-10.2); Carbon Dioxide 27 mmol/L (22-30); Chloride 113 mmol/L (98-107); Glucose 109 mg/dL (74-99); Non-African American GFR(CKD) 88 (>60 ml/min/1.73 sqM); Sodium 145 mmol/L (137-145)
[2023-02-05] MEDS: POTASSIUM CHLORIDE 10 MEQ in WATER FOR INJECTION 1 100ML.BAG IVPB SCH ×6 (12:32→20:40)
[2023-02-05] MEDS: DEXTROSE 5%-0.45% NACL 1,000 ML IV SCH ×2 (12:32→22:22)
--- NOTE | 2023-02-05 12:57 | P.PN ---
Subjective Progress Note Date: 02/05/23 The patient is seen at bedside and is feeling feel. Denies of any new neurological issues. Objective - Vital Signs Vital signs: Vital Signs Temp 98.2 F 02/05/23 04:00 Pulse 95 02/05/23 08:00 Resp 18 02/05/23 08:00 BP 148/82 02/05/23 08:00 Pulse Ox 95 02/05/23 08:00 FiO2 Intake & Output 02/04/23 02/05/23 02/05/23 18:59 06:59 18:59 Intake Total 400 10 Balance 400 10 Weight 108.862 kg Intake: IV 10 Invasive Line 3 10 Intake, IV Titration 400 Amount Potassium Chloride 20 meq 100 In Water For Injection 1 100ml.bag @ 50 mls/hr IVPB Q2HR [facility] Rx#: [id number] Sodium Chloride 0.9% 1, 300 000 ml @ 75 mls/hr IV . [id number] Rx#:[id number] Other: Voiding Method External Catheter External Catheter External Catheter # Voids 1 1 # Bowel Movements 1 1 - Exam GENERAL: The patient is lying in bed and is not in acute distress. NEUROLOGICAL: Higher mental function: The patient is awake, alert, oriented to self and place (stated he was in the hospital). Stated current year is 1997 and month is February. Is able to name objects (pen and watch). Patient is following simple commands. No aphasia and no neglect. Cranial nerves: The pupils are round, equal and reactive to light. Visual loaiza are full to confrontation throughout. Extraocular movement is intact no nystagmus is noted. Facial sensation is normal to touch throughout. The facial strength is normal throughout. Hearing is moderately decreased bilaterally to hand rub. Tongue is midline and moved [id number] without any difficulty. Has nasal tone. Shoulder shrug is normal bilaterally. Motor: The strength is 5 over 5 throughout uppers and proximal lower extremities. While distally in foot had antigravity but had hard time assessing because of cooperation.. Normal tone and bulk. Cerebellum: Normal finger to nose bilaterally. Sensation: Sensation is normal to touch throughout. Reflexes (right/left): 2+ in uppers while lowers is 1+. Plantars are mute bilaterally. Some of the workup during his hospital visit consisted of: Vitamin B12 is 188 which is deficient Folate is 8.90 Sodium is 146, potassium is 2.8 Immobile when it was a 6.5. Magnesium 2.3. CT of the head is reported as degenerative and nonspecific white matter changes most at the level of remote ischemia. I personally reviewed the CT of the head and the patient the looks like had an old left thalamus stroke TSH: 1.4 - Labs CBC & Chem 7: 02/04/23 09:13 02/05/23 10:42 Labs: Abnormal Lab Results - Last 24 Hours (Table) 02/04/23 02/05/23 02/05/23 Range/Units 17:06 10:07 10:42 Potassium 3.0 L 3.0 L (3.5-5.1) mmol/L Chloride 113 H (98-107) mmol/L BUN 25 H (9-20) mg/dL Glucose 109 H (74-99) mg/dL POC Glucose (mg/dL) 116 H (70-110) mg/dL Calcium 8.2 L (8.4-10.2) mg/dL Assessment and Plan Assessment: * Generalized weakness seems due to more electrolyte imbalance and vitamin B12 deficiency * B12 deficiency * Recurrent falls and most recent is about 1 week ago. Unsure of the cause. Possibly due to his peripheral diabetic neuropathy in addition has vitamin B12 deficiency that can cause neuropathy that would lead to falls. Unsure if the patient is having seizures as a result he is falling. * Hypokalemia * Slightly elevated troponin * Diabetes mellitus hemoglobin A1c is 6.5 most recent * History of epilepsy since childhood * History of left thalamic stroke Plan: Routine EEG which will be the performed this Monday since there is no tech for routine EEG over the weekend. Patient started on the vitamin B12 1000 mcg IM by the primary team Currently the patient is also on his home antiseizure medication of Keppra 1500 mg 1 tablet twice a day and Vimpat 200 mg 1 tab twice a day at. Pending level for Keppra as well as Vimpat Unsure why the patient is not on any antiplatelets such as aspirin for secondary stroke prophylaxis unsure is because of the recurrent falls and risk of bleeding. In my opinion I would consider low dose aspirin as a secondary stroke prophylaxis if also felt safe by primary team. PT and OT is consulted We'll defer the rest of the medical management to primary team Plan was discussed with the primary team. Dr. Henderson will start neurology service tomorrow A.M. Time with Patient: Less than 30
--- NOTE | 2023-02-05 14:46 | P.PN ---
Subjective Progress Note Date: 02/05/23 Principal diagnosis: sigmoid colon narrowing on CT Initially brought in & admitted for weakness. Recent fall. Surgery consulted for possible sigmoid narrowing seen on CT; no volvulus. Per nursing, fell overnight. Smear of BMs. Objective - Vital Signs Vital signs: Vital Signs Temp 98.2 F 02/05/23 04:00 Pulse 74 02/05/23 04:00 Resp 18 02/05/23 04:00 BP 143/83 02/05/23 04:00 Pulse Ox 94 L 02/05/23 04:00 FiO2 Intake & Output 02/04/23 02/05/23 02/05/23 18:59 06:59 18:59 Intake Total 400 Balance 400 Weight 108.862 kg Intake: Intake, IV Titration 400 Amount Potassium Chloride 20 meq 100 In Water For Injection 1 100ml.bag @ 50 mls/hr IVPB Q2HR [facility] Rx#: [id number] Sodium Chloride 0.9% 1, 300 000 ml @ 75 mls/hr IV . [id number] ONE Rx#:[id number] Other: Voiding Method External Catheter External Catheter # Voids 1 # Bowel Movements 1 - Constitutional Constitutional Comment(s): non toxic appearing General appearance: Present: no acute distress - EENT Eyes: Present: anicteric sclerae ENT: Present: hearing grossly normal - Neck Details: supple - Respiratory Details: non labored - Cardiovascular Rhythm: regular - Gastrointestinal Gastrointestinal Comment(s): ?distended or rotund abdomen General gastrointestinal: Present: soft. Absent: rigid, tenderness - Integumentary Integumentary Comment(s): eschar to forehead - Neurologic Neurologic Comment(s): pleasantly confused - Labs CBC & Chem 7: 02/04/23 09:13 02/05/23 10:42 Labs: Abnormal Lab Results - Last 24 Hours (Table) 02/04/23 02/04/23 02/04/23 Range/Units 09:13 09:13 17:06 RBC 4.29 L (4.30-5.90) m/uL Lymphocytes # 0.6 L (1.0-4.8) k/uL Sodium 146 H (137-145) mmol/L Potassium 2.8 L 3.0 L (3.5-5.1) mmol/L Chloride 110 H (98-107) mmol/L BUN 28 H (9-20) mg/dL Glucose 113 H (74-99) mg/dL POC Glucose (mg/dL) (70-110) mg/dL Calcium 7.8 L (8.4-10.2) mg/dL Total Protein 5.9 L (6.3-8.2) g/dL Albumin 3.3 L (3.5-5.0) g/dL 02/05/23 Range/Units 10:07 RBC (4.30-5.90) m/uL Lymphocytes # (1.0-4.8) k/uL Sodium (137-145) mmol/L Potassium (3.5-5.1) mmol/L Chloride (98-107) mmol/L BUN (9-20) mg/dL Glucose (74-99) mg/dL POC Glucose (mg/dL) 116 H (70-110) mg/dL Calcium (8.4-10.2) mg/dL Total Protein (6.3-8.2) g/dL Albumin (3.5-5.0) g/dL Assessment and Plan Assessment: incidental finding of possible sigmoid narrowing on CT - unsure of last colonoscopy recent fall weakness Plan: OK for few ice chips will tentatively plan for colonoscopy/flexible sigmoidoscopy - likely Monday due to scheduling conflicts may need GI consultation for possible colonic dilation Time with Patient: Less than 30
[2023-02-05] MEDS: HEPARIN SODIUM,PORCINE/PF 5,000 UNIT/0.5 ML SYRINGE SQ SCH (17:50)
[2023-02-06] MEDS: HEPARIN SODIUM,PORCINE/PF 5,000 UNIT/0.5 ML SYRINGE SQ SCH ×3 (01:00→15:33)
--- NOTE | 2023-02-06 02:17 | P.PN ---
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 Patient presents because of increased weakness. Patient is poor historian. Information obtained from the guardian and his sister Sushma I called the legal guardian and tried to talk to Miss Ordaz at [phone] (I left a message to call me back), and [phone] (I could not leave a message). However I met Sushma at bedside as per sister patient was feeling worsening generalized weakness. He is been generally weak for about 1.5 years, he mainly uses a wheelchair, he was able to walk little bit to the bathroom and just to stand and change position to he got more falling about 2 weeks ago and they brought him to the hospital. After discharge his sister thought he was going to rehab but he was sent home and stated. However the sister now, take care of him. As per sister his mentation is at baseline but he has most low to eat or to move. Also system and patient noticed that he has little more weakness on his right leg, right arm and light right facial droop. This is been going on for about a week. No recent more weakness over the last 1 or 2 days. Also as per sister he had a seizure about 2 weeks ago prior to hospitalization and she thinks he had another seizure while here in the hospital. Patient himself is alert awake to place as he knows he is in [facility] and he couldn't tell his sister but he is disoriented to his time and this is his baseline as per sister. He denies chest pain or dyspnea however he was breathing deep and slightly fast . No abdominal pain vomiting or diarrhea. He has been constipated for the last 2 days. Vital signs are reviewed, is mildly bradycardic at 56 other than that vitals are stable and he is afebrile. Labs showed mild leukocytosis of 11.1, rest of CBC is unremarkable INR is 1.0 BMP showed mild hypokalemia with creatinine within the reference range, elevated BUN at 26, liver enzymes were unremarkable Troponin is at 0.04 which is same as last admission and proBNP is 777. Urine analysis is negative for infection. CT of the brain: Degenerative and nonspecific white matter changes most of the level of remote ischemia Chest x-ray: Cardiomegaly with mild central venous congestion Shoulder x-ray showing severe before meals joint arthropathy, with no fracture KUB: Markedly dilated bowel loops. Suspicious for distal bowel obstruction possibly colonic and the recommended CAT scan CT of the abdomen and pelvis: Without IV or oral contrast showing gas and fluid- filled dilated sigmoid colon with mild narrowing involving the distal portion. This could be colonic pseudoobstruction versus colonic ileus versus mild stricture versus less likely sigmoid volvulus. Cholelithiasis. Nonobstructive bilateral renal calculi 02/04/2030 Patient generalized weakness significantly improved today after he was started on IV Lasix and this helped with some diuresis, his leg swelling is also improved however not completely resolved. He has mild hypernatremia and hypokalemia secondary to diuretic effect therefore I think we can switch his IV Lasix in to oral dose 20 mg twice daily. We are going to replace electrolytes per protocol and monitor closely. Low vitamin B12 has been replaced IM 3 days and then continue with oral dose. Patient to resume his seizure medication, EEG pending. Level for vimpat and Keppra is pending. Patient is more pleasant today and he thinks that his back to baseline. 02/05/2023 Patient is currently resting in bed. Awake alert and oriented x1-2. Mentation is at baseline as per family at bedside. No complaints of chest pain or shortness of breath. No bowel movement today. Otherwise patient is currently nothing by mouth except ice chips for possible colonic obstruction and pending colonoscopy scheduled on Monday. Mentation is much improved after starting B12 supplementation and neurology is on board. Replace potassium and repeat level. Continue with gentle IV hydration and Lasix is on hold. Echocardiogram on 01/26/2023 showed ejection fraction 55 to 60% left ventricular cavity size normal. Moderate concentric left ventricular hypertrophy. No obvious regional wall motion abnormalities. Mild MR and TR. Laboratory showed sodium 145 potassium 3.0 chloride 113 bicarb is 27 BUN 25 and creatinine 0.80 and blood sugar is 109 and magnesium 2.0. Current medications reviewed. Objective - Vital Signs Vital signs: Vital Signs Temp 98.2 F 02/05/23 04:00 Pulse 74 02/05/23 04:00 Resp 18 02/05/23 04:00 BP 143/83 02/05/23 04:00 Pulse Ox 94 L 02/05/23 04:00 FiO2 Intake & Output 02/04/23 02/05/23 02/05/23 18:59 06:59 18:59 Intake Total 400 Balance 400 Weight 108.862 kg Intake: Intake, IV Titration 400 Amount Potassium Chloride 20 meq 100 In Water For Injection 1 100ml.bag @ 50 mls/hr IVPB Q2HR [facility] Rx#: [id number] Sodium Chloride 0.9% 1, 300 000 ml @ 75 mls/hr IV . [id number] Rx#:[id number] Other: Voiding Method External Catheter External Catheter # Voids 1 # Bowel Movements 1 - Exam - Exam -GENERAL: The patient is alert and oriented x2-3, not in any acute distress. Well obesity, generalized weakness improving significantly today HEENT: Pupils are round and equally reacting to light. EOMI. No scleral icterus. No conjunctival pallor. Normocephalic, atraumatic. No pharyngeal erythema. No thyromegaly. CARDIOVASCULAR: S1 and S2 present. No murmurs, rubs, or gallops. PULMONARY: Chest is clear to auscultation, no wheezing or crackles. ABDOMEN: Soft, nontender, nondistended, normoactive bowel sounds. No palpable organomegaly. MUSCULOSKELETAL: No joint swelling or deformity. EXTREMITIES: No cyanosis, clubbing, or pedal edema. -NEUROLOGICAL: Gross neurological examination did not reveal any focal deficits. Right sided weakness he was complaining of yesterday is completely resolved today. Motor is 5/5 all extremities. SKIN: No rashes. no petechiae. - Labs CBC & Chem 7: 02/04/23 09:13 02/05/23 10:42 Labs: Abnormal Lab Results - Last 24 Hours (Table) 02/04/23 02/04/23 02/04/23 Range/Units 09:13 09:13 17:06 RBC 4.29 L (4.30-5.90) m/uL Lymphocytes # 0.6 L (1.0-4.8) k/uL Sodium 146 H (137-145) mmol/L Potassium 2.8 L 3.0 L (3.5-5.1) mmol/L Chloride 110 H (98-107) mmol/L BUN 28 H (9-20) mg/dL Glucose 113 H (74-99) mg/dL POC Glucose (mg/dL) (70-110) mg/dL Calcium 7.8 L (8.4-10.2) mg/dL Total Protein 5.9 L (6.3-8.2) g/dL Albumin 3.3 L (3.5-5.0) g/dL 02/05/23 Range/Units 10:07 RBC (4.30-5.90) m/uL Lymphocytes # (1.0-4.8) k/uL Sodium (137-145) mmol/L Potassium (3.5-5.1) mmol/L Chloride (98-107) mmol/L BUN (9-20) mg/dL Glucose (74-99) mg/dL POC Glucose (mg/dL) 116 H (70-110) mg/dL Calcium (8.4-10.2) mg/dL Total Protein (6.3-8.2) g/dL Albumin (3.5-5.0) g/dL Assessment and Plan Assessment: generalized weakness and myopathy, could be multifactorial, likely due to hypokalemia, bowel abnormality versus medication effect as well as vitamin B12 deficiency, significantly improved Bilateral leg swelling and anasarca, could be related to diastolic CHF, mild. leg swellling significantly improved Vitamin B12 deficiency Recent fall, patient also has history of recurrent falls. Suspected right-sided weakness, subsequent stroke colon Ileus versus bowel obstruction Mild asymptomatic bradycardia History of seizure Plan: Gentle IV hydration Bowel rest, patient can be be given ice chips. General surgery is planning for colonoscopy likely on Monday. Pain medication for management Stroke felt less likely given his significant improvement today with general measures and medication changes. discussed with patient and yesterday to start small dose of aspirin, wants to hold until he sees his neurologist Dr. Galvan Continue with vimpat and Eduardo Continue with blood pressure medication losartan and Norvasc. Follow-up level of, and vimpat EEG pending DVT prophylaxis: Subcutaneous heparin GI Prophylaxis: Pepcid PT/OT: Pending Prognosis is guarded. Time with Patient: Greater than 30
[2023-02-06] MEDS: DEXTROSE 5%-0.45% NACL 1,000 ML IV SCH ×2 (05:25→15:36)
[2023-02-06 07:59] LABS: Levetiracetam (Keppra) 39.6 ug/mL (3.0-60.0)
[2023-02-06 08:13] LABS: Basophils % (A) 0 %; Eosinophils # (A) 0.2 k/uL (0-0.7); Eosinophils % (A) 3 %; HCT 39.3 % (39.0-53.0); Lymphocytes # (A) 1.4 k/uL (1.0-4.8); Lymphocytes % (A) 18 %; MCH 30.8 pg (25.0-35.0); MCHC 33.1 g/dL (31.0-37.0); MCV 93.1 fL (80.0-100.0); Mean Platelet Volume 8.3; Monocytes # (A) 0.6 k/uL (0-1.0); Monocytes % (A) 8 %; Neutrophils # (A) 5.5 k/uL (1.3-7.7); Neutrophils % (A) 69 %; Platelet Count 355 k/uL (150-450); RBC 4.22 m/uL (4.30-5.90); WBC 7.9 k/uL (3.8-10.6)
[2023-02-06 08:31] LABS: African American GFR (CKD) >90 (>60 ml/min/1.73 sqM); Anion Gap 5 mmol/L; Blood Urea Nitrogen 16 mg/dL (9-20); Calcium 8.1 mg/dL (8.4-10.2); Carbon Dioxide 28 mmol/L (22-30); Chloride 107 mmol/L (98-107); Glucose 122 mg/dL (74-99); Non-African American GFR(CKD) >90 (>60 ml/min/1.73 sqM); Sodium 140 mmol/L (137-145)
[2023-02-06] MEDS: amLODIPine 10 MG TAB PO SCH (09:21)
[2023-02-06] MEDS: LACOSAMIDE 50 MG TABLET PO SCH ×2 (09:21→21:04)
[2023-02-06] MEDS: SPIRONOLACTONE 25 MG TAB PO SCH (09:21)
[2023-02-06] MEDS: levETIRAcetam 500 MG TAB PO SCH ×4 (09:21→21:05)
[2023-02-06] MEDS: hydrALAZINE HCL 50 MG TAB PO SCH ×3 (09:21→21:04)
[2023-02-06] MEDS: ATORVASTATIN 20 MG TAB PO SCH (09:21)
[2023-02-06] MEDS: LOSARTAN 50 MG TAB PO SCH (09:21)
[2023-02-06] MEDS: CYANOCOBALAMIN 1,000 MCG/ML 1 ML VIAL IM SCH (09:22)
--- NOTE | 2023-02-06 09:51 | P.PN ---
Subjective Progress Note Date: 02/06/23 Principal diagnosis: sigmoid colon narrowing on CT Initially brought in & admitted for weakness. Recent fall. Surgery consulted for possible sigmoid narrowing seen on CT; no volvulus. Enema given this afternoon with minimal success. Otherwise no issues. Objective - Vital Signs Vital signs: Vital Signs Temp 98.2 F 02/06/23 04:00 Pulse 60 02/06/23 04:00 Resp 16 02/06/23 04:00 BP 164/70 02/06/23 04:00 Pulse Ox 95 02/06/23 04:00 FiO2 Intake & Output 02/05/23 02/06/23 02/06/23 18:59 06:59 18:59 Intake Total 10 Balance 10 Intake: IV 10 Invasive Line 3 10 Other: Voiding Method External Catheter Diaper # Voids 1 2 # Bowel Movements 1 2 - Constitutional General appearance: Present: no acute distress - Respiratory Details: non labored - Cardiovascular Rhythm: regular - Gastrointestinal Gastrointestinal Comment(s): rotund abdomen - Labs CBC & Chem 7: 02/06/23 07:41 02/06/23 07:41 Labs: Abnormal Lab Results - Last 24 Hours (Table) 02/05/23 02/05/23 02/06/23 Range/Units 10:07 10:42 07:41 RBC (4.30-5.90) m/uL Potassium 3.0 L 3.0 L (3.5-5.1) mmol/L Chloride 113 H (98-107) mmol/L BUN 25 H (9-20) mg/dL Creatinine 0.62 L (0.66-1.25) mg/dL Glucose 109 H 122 H (74-99) mg/dL POC Glucose (mg/dL) 116 H (70-110) mg/dL Calcium 8.2 L 8.1 L (8.4-10.2) mg/dL 02/06/23 Range/Units 07:41 RBC 4.22 L (4.30-5.90) m/uL Potassium (3.5-5.1) mmol/L Chloride (98-107) mmol/L BUN (9-20) mg/dL Creatinine (0.66-1.25) mg/dL Glucose (74-99) mg/dL POC Glucose (mg/dL) (70-110) mg/dL Calcium (8.4-10.2) mg/dL Assessment and Plan Assessment: incidental finding of possible sigmoid narrowing on CT - unsure of last colonoscopy recent fall weakness Plan: OK for few ice chips will plan for colonoscopy/flexible sigmoidoscopy around 1530 - NPO at midnight, enemas today & tomorrow - will refrain from full prep due to possible narrowing; want to avoid emesis & potential aspiration may need GI consultation for possible colonic dilation Time with Patient: Less than 30
--- NOTE | 2023-02-06 12:39 | P.PN ---
Subjective Progress Note Date: 02/06/23 Patient initially seen by Dr. Bienvenido Adame. Please refer to his note for details. Patient is a 72-year-old male with generalized weakness that has improved. Patient is having falls at home. Patient states that he fell 2 times over couple days. Dr. Adame was not sure if patient was having seizures. He also has B12 deficiency and getting supplements for it. Patient states that he lives with his sister and uses a cane for ambulation. He believes that the falls were related to the seizures. Patient is not a good historian. Has history of seizures for last 1 year. Had about 4 seizures the last 1 year. Objective - Vital Signs Vital signs: Vital Signs Temp 97.5 F L 02/06/23 09:20 Pulse 54 L 02/06/23 12:00 Resp 17 02/06/23 12:00 BP 157/75 02/06/23 12:00 Pulse Ox 94 L 02/06/23 12:00 FiO2 Intake & Output 02/05/23 02/06/23 02/06/23 18:59 06:59 18:59 Intake Total 10 Balance 10 Intake: IV 10 Invasive Line 3 10 Other: Voiding Method External Catheter Diaper Diaper # Voids 1 2 # Bowel Movements 1 2 - Exam On examination patient is alert and awake. He states it is January and the year is 2000. He knows he is in [facility] in [place]. Pupils are equal, round and reacting, extraocular muscles are intact. Face is symmetric and tongue protrudes the midline. He had a scab on the forehead. His speech and language functions are normal. Muscle strength is normal in the arms. Hip flexion is weak about 3+, ankle dorsiflexion 5-, with difficulty understanding the directions. - Labs CBC & Chem 7: 02/06/23 07:41 02/06/23 07:41 Labs: Abnormal Lab Results - Last 24 Hours (Table) 02/06/23 02/06/23 Range/Units 07:41 07:41 RBC 4.22 L (4.30-5.90) m/uL Potassium 3.0 L (3.5-5.1) mmol/L Creatinine 0.62 L (0.66-1.25) mg/dL Glucose 122 H (74-99) mg/dL Calcium 8.1 L (8.4-10.2) mg/dL Assessment and Plan Assessment: * Generalized weakness seems due to more electrolyte imbalance and vitamin B12 deficiency * B12 deficiency * Recurrent falls and most recent is about 1 week ago. Unsure of the cause. Possibly due to his peripheral diabetic neuropathy in addition has vitamin B12 deficiency that can cause neuropathy that would lead to falls. Unsure if the patient is having seizures as a result he is falling. * Hypokalemia * Slightly elevated troponin * Diabetes mellitus hemoglobin A1c is 6.5 most recent * History of epilepsy since childhood * History of left thalamic stroke Plan: Check EEG as requested by Dr. Adame. Patient started on the vitamin B12 1000 mcg IM by the primary team Currently the patient is also on his home antiseizure medication of Keppra 1500 mg 1 tablet twice a day and Vimpat 200 mg 1 tab twice a day. We will continue the medication. Pending level for Keppra as well as Vimpat Per Dr. Adame, consider low dose aspirin as a secondary stroke prophylaxis if also felt safe by primary team. PT and OT is consulted We'll defer the rest of the medical management to primary team
[2023-02-06] MEDS ORDERED: ASPIRIN 81 MG PO SCH (14:45)
[2023-02-06] MEDS ORDERED: Potassium Replacement Protocol 1 EACH MISC MISCELLANE PRN (15:19)
--- NOTE | 2023-02-06 15:20 | P.PN ---
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 Evaluated by general surgery, scheduled for colonoscopy, flexible sigmoidoscopy Monday. Evaluated by neurology, EEG pending. No seizure activity reported. Objective - Vital Signs Vital signs: Vital Signs Temp 97.5 F L 02/06/23 09:20 Pulse 54 L 02/06/23 12:00 Resp 17 02/06/23 12:00 BP 157/75 02/06/23 12:00 Pulse Ox 94 L 02/06/23 12:00 FiO2 Intake & Output 02/05/23 02/06/23 02/06/23 18:59 06:59 18:59 Intake Total 10 240 Balance 10 240 Intake: IV 10 Invasive Line 3 10 Oral 240 Other: Voiding Method External Catheter Diaper Diaper # Voids 1 2 # Bowel Movements 1 2 - Exam - Exam -GENERAL: The patient is alert and oriented x 1-2, no acute distress. HEENT: Pupils are round and equally reacting to light. EOMI. No scleral icterus. No conjunctival pallor. Normocephalic, atraumatic. No pharyngeal erythema. No thyromegaly. Healing forehead scab,well-approximated. CARDIOVASCULAR: S1 and S2 present. No murmurs, rubs, or gallops. PULMONARY: Unlabored, Chest is clear to auscultation, no wheezing or crackles. ABDOMEN: Soft, nontender, nondistended, normoactive bowel sounds. No palpable organomegaly. EXTREMITIES: No cyanosis, clubbing, or pedal edema. -NEUROLOGICAL: Gross neurological examination did not reveal any focal deficits. Strength and sensation grossly intact. SKIN: No rashes. Warm and dry. - Labs CBC & Chem 7: 02/06/23 07:41 02/06/23 07:41 Labs: Abnormal Lab Results - Last 24 Hours (Table) 02/06/23 02/06/23 Range/Units 07:41 07:41 RBC 4.22 L (4.30-5.90) m/uL Potassium 3.0 L (3.5-5.1) mmol/L Creatinine 0.62 L (0.66-1.25) mg/dL Glucose 122 H (74-99) mg/dL Calcium 8.1 L (8.4-10.2) mg/dL Assessment and Plan Assessment: Generalized weakness secondary to electrolyte imbalance, vitamin B12 deficiency and diabetic neuropathy. Possible seizure activity,Keppra and Vimpat levels pending. EEg pendinh. Recently admitted status post Fall, etiology unclear. Beta keith had been discontinued on last visit secondary to bradycardia. Hypokalemia Sigmoid narrowing reported per CT, colonoscopy pending Diabetes mellitus, hemoglobin A1c 6.5 Hypertension Hyperlipidemia History of multiple falls Seizure history History of traumatic brain injury at age 2 with seizure disorder History of old left thalamic stroke Borderline pulmonary hypertension Plan: Continue on current medication regime ,monitoring and symptomatic treatment. Maintain IV fluid hydration. PT/OT. EEG, Vimpat/and Keppra levels pending. Scheduled for endoscopy tomorrow. Low-dose aspirin to be initiated after colonoscopy. PT/OT, Subacute rehab. At [place]. The impression and plan of care has been dictated as directed. : I performed a history and examination of this patient, discussed the same with the dictator. I agree with the dictator's note ,documented as a scribe. Any additional findings or plans will be noted.
[2023-02-06] MEDS: POTASSIUM CHLORIDE ER 20 MEQ TAB.ER PO SCH ×2 (15:34→16:55)
[2023-02-06] MEDS ORDERED: MINERAL OIL 133 ML ENEMA RECTAL ONE (18:00)
--- NOTE | 2023-02-06 22:30 | EEG ---
ELECTROENCEPHALOGRAM REPORT PREAMBLE: This is a 72-year-old male with seizure disorder. CURRENT MEDICATIONS: 1. Keppra. 2. Vimpat. 3. Cozaar. 4. Potassium. 5. Lactone. EEG FINDINGS: This is a 21-channel digital EEG recorded with video component, utilizing 10/20 international system with referential and bipolar montages. Background consists of moderately well-developed and regulated, predominantly 6 hertz theta activity seen in posterior head region. Background does not seem to be reactive to eye opening or closing. Different stages of sleep were not clearly seen. No focal or generalized epileptiform activity was seen. IMPRESSION: This is an abnormal EEG due to background slowing of mild to moderate degree. This is suggestive of generalized cerebral dysfunction as can be seen with encephalopathy or related to diffuse structural brain abnormality. Clinical correlation is recommended. No epileptiform activity was seen. MMSHITALL / IJN: [id number] /
[2023-02-07] MEDS: HEPARIN SODIUM,PORCINE/PF 5,000 UNIT/0.5 ML SYRINGE SQ SCH ×4 (00:35→23:54)
[2023-02-07 07:49] LABS: African American GFR (CKD) >90 (>60 ml/min/1.73 sqM); Anion Gap 9 mmol/L; Blood Urea Nitrogen 9 mg/dL (9-20); Calcium 8.3 mg/dL (8.4-10.2); Carbon Dioxide 28 mmol/L (22-30); Chloride 103 mmol/L (98-107); Glucose 108 mg/dL (74-99); Non-African American GFR(CKD) >90 (>60 ml/min/1.73 sqM); Potassium 2.9 mmol/L (3.5-5.1); Sodium 140 mmol/L (137-145)
[2023-02-07] MEDS ORDERED: MINERAL OIL 133 ML ENEMA RECTAL STA (08:47)
[2023-02-07] MEDS: LOSARTAN 50 MG TAB PO SCH (08:48)
[2023-02-07] MEDS: SPIRONOLACTONE 25 MG TAB PO SCH (08:48)
[2023-02-07] MEDS: POTASSIUM CHLORIDE ER 20 MEQ TAB.ER PO SCH ×3 (08:48→11:22)
[2023-02-07] MEDS: amLODIPine 10 MG TAB PO SCH (08:48)
[2023-02-07] MEDS: LACOSAMIDE 50 MG TABLET PO SCH ×2 (08:48→21:40)
[2023-02-07] MEDS: levETIRAcetam 500 MG TAB PO SCH ×4 (08:48→21:41)
[2023-02-07] MEDS: hydrALAZINE HCL 50 MG TAB PO SCH ×3 (08:48→21:42)
[2023-02-07] MEDS: ATORVASTATIN 20 MG TAB PO SCH (08:48)
[2023-02-07] MEDS: CYANOCOBALAMIN 1,000 MCG/ML 1 ML VIAL IM SCH (08:49)
[2023-02-07] MEDS: MINERAL OIL 133 ML ENEMA RECTAL SCH ×2 (09:49→13:11)
[2023-02-07] MEDS ORDERED: PROPOFOL 10 MG/ML 20 ML VIAL IV ONE (14:30)
[2023-02-07] MEDS ORDERED: Potassium Replacement Protocol 1 EACH MISC MISCELLANE PRN (14:41)
--- NOTE | 2023-02-07 14:47 | P.PN ---
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 Evaluated by general surgery, scheduled for colonoscopy, flexible sigmoidoscopy Monday. Evaluated by neurology, EEG pending. No seizure activity reported. 02/07/2023 NPO, scheduled for colonoscopy/flexible sigmoidoscopy today. Denies nausea, vomiting. Denies abdominal pain, Denies chest pain, palpitations or shortness of breath. Afebrile. Bradycardia, heart rates ranging in the high 40s to low 50s. Labs pending. Evaluated by physical therapy, moderate assist, recommending subacute rehab. Objective - Vital Signs Vital signs: Vital Signs Temp 98 F 02/07/23 08:45 Pulse 53 L 02/07/23 11:25 Resp 18 02/07/23 11:25 BP 164/71 02/07/23 11:25 Pulse Ox 95 02/07/23 11:25 FiO2 Intake & Output 02/06/23 02/07/23 02/07/23 18:59 06:59 18:59 Intake Total 358 Balance 358 Weight 108.862 kg Intake: Oral 358 Other: Voiding Method Diaper Diaper Diaper # Voids 1 3 2 # Bowel Movements 1 1 - Exam - Exam -GENERAL: The patient is sitting up in bed, alert and oriented x 2, no acute distress. HEENT: Pupils are round and equally reacting to light. EOMI. No scleral icterus. No conjunctival pallor. Normocephalic, atraumatic. Healing forehead scab,well-approximated. CARDIOVASCULAR: S1 and S2 present. No murmurs, rubs, or gallops. PULMONARY: Unlabored, Chest is clear to auscultation, no wheezing or crackles. ABDOMEN: Soft, nontender, distended, distant BS. EXTREMITIES: No clubbing,minimal pedal edema. -NEUROLOGICAL: Cranial nerves II through XII grossly intact .Strength and sensation grossly intact. SKIN: No rashes. Warm and dry. - Labs CBC & Chem 7: 02/06/23 07:41 02/07/23 05:36 Labs: Abnormal Lab Results - Last 24 Hours (Table) 02/07/23 Range/Units 05:36 Potassium 2.9 L (3.5-5.1) mmol/L Creatinine 0.63 L (0.66-1.25) mg/dL Glucose 108 H (74-99) mg/dL Calcium 8.3 L (8.4-10.2) mg/dL Assessment and Plan Assessment: Generalized weakness secondary to electrolyte imbalance, vitamin B12 deficiency and diabetic neuropathy. Possible seizure activity,Keppra and Vimpat levels pending. EEg pendinh. Recently admitted status post Fall, etiology unclear. Beta keith had been discontinued on last visit secondary to bradycardia. Hypokalemia Sigmoid narrowing reported per CT, colonoscopy pending Diabetes mellitus, hemoglobin A1c 6.5 Hypertension Hyperlipidemia History of multiple falls Seizure history History of traumatic brain injury at age 2 with seizure disorder History of old left thalamic stroke Borderline pulmonary hypertension Plan: Continue on current medication regime ,monitoring and symptomatic treatment. Labs pending. Maintain IV fluid hydration. Endoscopy pending. Low- dose aspirin to be initiated after colonoscopy. PT/OT. Discharge planning in progress for subacute rehab.pending endoscopy results. The impression and plan of care has been dictated as directed. : I performed a history and examination of this patient, discussed the same with the dictator. I agree with the dictator's note ,documented as a scribe. Any additional findings or plans will be noted.
[2023-02-07] MEDS ORDERED: IV FLUID CONTINUATION 700 ML IV ONE (14:55)
--- NOTE | 2023-02-07 15:36 | P.OP ---
Date of Procedure: 02/07/23 Preoperative Diagnosis: sigmoid narrowing on CT Postoperative Diagnosis: normal sigmoid colon Procedure(s) Performed: colonoscopy to mid transverse colon Anesthesia: other (general) Surgeon: Laverne Ibanez Estimated Blood Loss (ml): 5 Pathology: none sent Condition: stable Disposition: PACU Indications for Procedure: sigmoid narrowing noted on CT Operative Findings: No stricture or narrowing of sigmoid colon. Tortuous sigmoid colon. No notable masses. Suspect narrowing noted on CT is his anatomic make up of sigmoid colon. Description of Procedure: Jhonny was brought to the endoscopy suite & placed in left lateral decubitus position. Standard timeout was taken. Anesthesia was provided by the anesthesia service; heart rate, pulse oximetry & blood pressure were monitored throughout the entire case. Digital rectal examination was performed; no hemorrhoids noted. The colonoscope was then inserted into the rectum advanced throughout the sigmoid and to the mid-transverse colon. There was no notable sigmoid stricture. The sigmoid was tortuous & the changes seen on CT were likely due to the patient's anatomy. No inflammation or polyps were identified in the areas of colon visualized. Colonoscope was then retroflexed in the J maneuver and no internal hemorrhoids were appreciated. Scope was straightened out and removed completely. Jhonny was awoken without incident; transferred from the endoscopy suite to recovery & back to his room on the floor in a stable condition. Will plan for a full colonosopy with prep in 6-12 weeks, pending rehab outcome. Incidentally, a wound on his buttocks was noted. Would recommend wound care. Additionally, forehead wound still has sutures (placed in ER). Per sister, been in place for about 2 weeks; would be OK for removal.
[2023-02-08] MEDS: DEXTROSE 5%-0.45% NACL 1,000 ML IV SCH (05:00)
--- NOTE | 2023-02-08 08:22 | P.PN ---
Subjective Progress Note Date: 02/07/23 02/07/2023: Patient is laying comfortably in the bed. Patient's sister was present, who provided with detailed history. She mentions that patient had a closed head injury at age 2, when he fell off a hay mount and landed on the floor. He was admitted to the hospital at that time. Patient started having seizure at age 33. He was evaluated at Hospital, and was found to have scar tissue in the brain. They tried to map his seizures and was told that seizure tendency is "everywhere". He was not a surgical candidate. Patient follows up with Dr. Galvan. Patient's sister also mentions that he has never , has no children. 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 Patient's sister mentions that his seizures are very sporadic, may not occur for 3 months and then may occur daily for a week or even 3 in a day. He may have a seizure while in the hospital, and she describes his seizure as random movement of the legs and becomes fidgety, and then becomes combative before he settles down. Patient's sister also mentioned that the reason that they brought him to the hospital was not for seizure. Patient was in a wheelchair, and she was driving his wheelchair, going down the ramp when he was leaning forward, and flew off the wheelchair and fell on the face. There was no seizure activity. 02/06/2023: Patient initially seen by Dr. Bienvenido Adame. Please refer to his note for details. Patient is a 72-year-old male with generalized weakness that has improved. Nelson richards is having falls at home. Patient states that he fell 2 times over couple days. Dr. Adame was not sure if patient was having seizures. He also has B12 deficiency and getting supplements for it. Patient states that he lives with his sister and uses a cane for ambulation. He believes that the falls were related to the seizures. Patient is not a good historian. Has history of seizures for last 1 year. Had about 4 seizures the last 1 year. Objective - Vital Signs Vital signs: Vital Signs Temp 98 F 02/07/23 08:45 Pulse 51 L 02/07/23 15:35 Resp 18 02/07/23 15:35 BP 143/76 02/07/23 15:35 Pulse Ox 97 02/07/23 15:35 FiO2 Intake & Output 02/06/23 02/07/23 02/07/23 18:59 06:59 18:59 Intake Total 358 100 Balance 358 100 Weight 108.862 kg Intake: IV 100 Oral 358 Other: Voiding Method Diaper Diaper Diaper # Voids 1 3 2 # Bowel Movements 1 1 - Exam On examination patient is alert and awake. Patient is in no distress. Detailed cognitive function testing deferred. Pupils are equal, round and reacting, extraocular muscles are intact. Face is symmetric and tongue protrudes the midline. He had a scab on the forehead. His speech and language functions are normal. Muscle strength is normal in the arms. Hip flexion is weak about 3+, ankle dorsiflexion 5-, with difficulty understanding the directions. - Labs CBC & Chem 7: 02/06/23 07:41 02/07/23 05:36 Labs: Abnormal Lab Results - Last 24 Hours (Table) 02/07/23 Range/Units 05:36 Potassium 2.9 L (3.5-5.1) mmol/L Creatinine 0.63 L (0.66-1.25) mg/dL Glucose 108 H (74-99) mg/dL Calcium 8.3 L (8.4-10.2) mg/dL Assessment and Plan Assessment: * Generalized weakness seems due to more due to electrolyte imbalance (hypokalemia) and vitamin B12 deficiency * B12 deficiency * Recurrent falls and most recent is about 1 week ago. Possible due to B12 deficiency. * Hypokalemia * Slightly elevated troponin * Diabetes mellitus hemoglobin A1c is 6.5 most recent * History of epilepsy since age 33 * History of closed head injury due to falling off [employer] at age 2. * History of left thalamic stroke Plan: EEG was performed, which was abnormal due to background slowing of mild to moderate degree. This is suggestive of generalized cerebral dysfunction as can be seen with encephalopathy or related to diffuse structural brain abnormality. Clinical correlation is recommended. No epileptiform activity was seen. Continue same dose of Keppra and Vimpat. Patient started on the vitamin B12 1000 mcg IM by the primary team Currently the patient is also on his home antiseizure medication of Keppra 1500 mg 1 tablet twice a day and Vimpat 200 mg 1 tab twice a day. We will continue the medication. Keppra level therapeutic 39.6 (3-60), await Vimpat level. Per Dr. Adame, consider low dose aspirin as a secondary stroke prophylaxis if also felt safe by primary team. PT and OT is consulted We'll defer the rest of the medical management to primary team Patient had undergone colonoscopy today. Neurologically no other workup indicated. Neurologically clear.
[2023-02-08] MEDS: SPIRONOLACTONE 25 MG TAB PO SCH (08:25)
[2023-02-08] MEDS: levETIRAcetam 500 MG TAB PO SCH ×4 (08:25→20:36)
[2023-02-08] MEDS: CYANOCOBALAMIN 500 MCG TAB PO SCH (08:25)
[2023-02-08] MEDS: HEPARIN SODIUM,PORCINE/PF 5,000 UNIT/0.5 ML SYRINGE SQ SCH ×2 (08:25→15:13)
[2023-02-08] MEDS: LACOSAMIDE 50 MG TABLET PO SCH ×2 (08:25→20:35)
[2023-02-08] MEDS: LOSARTAN 50 MG TAB PO SCH (08:25)
[2023-02-08] MEDS: ATORVASTATIN 20 MG TAB PO SCH (08:25)
[2023-02-08] MEDS: amLODIPine 10 MG TAB PO SCH (08:25)
[2023-02-08] MEDS: hydrALAZINE HCL 50 MG TAB PO SCH ×3 (08:25→20:34)
--- NOTE | 2023-02-08 11:00 | P.DS ---
Providers Date of admission: 02/03/23 14:46 Expected date of discharge: 02/08/23 Attending physician: Carlos Barry Consults: 02/03/23 14:45 Consult Physician Urgent Consulting Provider: Laverne Ibanez Consult Reason/Comments: Possible colonic stricture or obstruction Do you want consulting provider notified?: Yes 02/03/23 17:36 Consult Physician Routine Consulting Provider: Bienvenido Adame Consult Reason/Comments: possible stroke, generalized weakness Do you want consulting provider notified?: Yes, Notify in am Primary care physician: Carlos Barry [facility] Course: Final Diagnoses: Generalized weakness secondary to electrolyte imbalance, vitamin B12 deficiency and diabetic neuropathy. Possible seizure activity,Keppra and Vimpat levels pending. EEg pendinh. Recently admitted status post Fall, etiology unclear. Beta keith had been discontinued on last visit secondary to bradycardia. Hypokalemia Sigmoid narrowing reported per CT, colonoscopy reporting normal sigmoid co isabel;narrowing noted on CT is his anatomic makeup of sigmoid as per general surgery. 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 Evaluated by general surgery, scheduled for colonoscopy, flexible sigmoidoscopy Monday. Evaluated by neurology, EEG pending. No seizure activity reported. 02/07/2023 NPO, scheduled for colonoscopy/flexible sigmoidoscopy today. Denies nausea, vomiting. Denies abdominal pain, Denies chest pain, palpitations or shortness of breath. Afebrile. Bradycardia, heart rates ranging in the high 40s to low 50s. Labs pending. Evaluated by physical therapy, moderate assist, recommending subacute rehab. Completed colonoscopy to mid transverse colon reporting normal sigmoid colon-no stricture or narrowing of sigmoid colon, tortuous sigmoid colon, no notable masses-suspect narrowing noted on CT is his anatomic makeup of sigmoid as per general surgery. Full colonoscopy was prepped in 6-12 weeks pending rehab outcome. Significant clinical improvement. Patient will be discharged today to [facility] subacute rehab in a stable condition with guarded prognosis pending la bs, final DC recommendations and clearance per neurology and Gen. surgery. The impression and plan of care has been dictated as directed. : I performed a history and examination of this patient, discussed the same with the dictator. I agree with the dictator's note ,documented as a scribe. Any additional findings or plans will be noted. Patient Condition at Discharge: Stable Plan - Discharge Summary New Discharge Prescriptions: New Cyanocobalamin [Vitamin B-12] 1,000 mcg PO DAILY tab Aspirin EC [Ecotrin Low Dose] 81 mg PO DAILY #30 tab Omeprazole 40 mg PO DAILY #30 cap Continue Escitalopram [Lexapro] 10 mg PO HS levETIRAcetam 1,000 mg PO BID levETIRAcetam [Levetiracetam] 500 mg PO BID Spironolactone [Aldactone] 25 mg PO DAILY #30 tab Losartan [Cozaar] 100 mg PO DAILY #30 tab amLODIPine [Norvasc] 10 mg PO DAILY #30 tab Lacosamide [Vimpat] 200 mg PO BID Atorvastatin [Lipitor] 20 mg PO DAILY Calcium Carbonate/Vitamin D3 [Calcium 600-Vit D3 10 mcg (400 Iu)] 2 tab PO W/SUPPER Vit C/E/Zn/Coppr/Lutein/Zeaxan [Preservision Areds 2 Chew Tab] 1 tab PO BID- W/MEALS hydrALAZINE HCL [Apresoline] 50 mg PO TID #90 tab Discontinued Naproxen Sodium [Aleve] 440 mg PO W/BRKFST Discharge Medication List Escitalopram [Lexapro] 10 mg PO HS 04/03/15 [History] levETIRAcetam 1,000 mg PO BID 04/03/15 [History] levETIRAcetam [Levetiracetam] 500 mg PO BID 04/03/15 [History] Atorvastatin [Lipitor] 20 mg PO DAILY 01/25/23 [History] Calcium Carbonate/Vitamin D3 [Calcium 600-Vit D3 10 mcg (400 Iu)] 2 tab PO W/SUPPER 01/25/23 [History] Vit C/E/Zn/Coppr/Lutein/Zeaxan [Preservision Areds 2 Chew Tab] 1 tab PO BID- W/MEALS 01/25/23 [History] Losartan [Cozaar] 100 mg PO DAILY #30 tab 01/30/23 [Rx] Spironolactone [Aldactone] 25 mg PO DAILY #30 tab 01/30/23 [Rx] amLODIPine [Norvasc] 10 mg PO DAILY #30 tab 01/30/23 [Rx] hydrALAZINE HCL [Apresoline] 50 mg PO TID #90 tab 01/30/23 [Rx] Lacosamide [Vimpat] 200 mg PO BID 02/03/23 [History] Aspirin EC [Ecotrin Low Dose] 81 mg PO DAILY #30 tab 02/08/23 [Rx] Cyanocobalamin [Vitamin B-12] 1,000 mcg PO DAILY tab 02/08/23 [Rx] Omeprazole 40 mg PO DAILY #30 cap 02/08/23 [Rx] Follow up Appointment(s)/Referral(s): Carlos Barry DO [Primary Care Provider] - 1 Week (after dc from [facility]) Activity/Diet/Wound Care/Special Instructions: [facility] cbc,bmp in 3 days Discharge Disposition: TRANSFER TO SNF/ECF
[2023-02-08] MEDS: PANTOPRAZOLE 40 MG/10 ML VIAL IVP SCH (11:17)
[2023-02-08] MEDS: ASPIRIN 81 MG PO SCH (11:17)
[2023-02-08 11:59] LABS: Potassium 3.1 mmol/L (3.5-5.1)
[2023-02-08] MEDS: POTASSIUM CHLORIDE ER 20 MEQ TAB.ER PO SCH ×2 (13:07→15:14)
--- NOTE | 2023-02-08 13:32 | P.PN ---
Subjective Progress Note Date: 02/08/23 02/08/2023: Patient was seen for a follow-up. Patient is sitting comfortably in the recliner, watching TV. No seizures, offers no complaints. 02/07/2023: Patient is laying comfortably in the bed. Patient's sister was present, who provided with detailed history. She mentions that patient had a closed head injury at age 2, when he fell off a hay mount and landed on the floor. He was admitted to the hospital at that time. Patient started having seizure at age 33. He was evaluated at Hospital, and was found to have scar tissue in the brain. They tried to map his seizures and was told that seizure tendency is "everywhere". He was not a surgical candidate. Patient follows up with Dr. Galvan. Patient's sister also mentions that he has never , has no children. 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 Patient's sister mentions that his seizures are very sporadic, may not occur for 3 months and then may occur daily for a week or even 3 in a day. He may have a seizure while in the hospital, and she describes his seizure as random movement of the legs and becomes fidgety, and then becomes combative before he settles down. Patient's sister also mentioned that the reason that they brought him to the hospital was not for seizure. Patient was in a wheelchair, and she was driving his wheelchair, going down the ramp when he was leaning forward, and flew off the wheelchair and fell on the face. There was no seizure activity. 02/06/2023: Patient initially seen by Dr. Bienvenido Adame. Please refer to his note for details. Patient is a 72-year-old male with generalized weakness that has improved. Patient is having falls at home. Patient states that he fell 2 times over couple days. Dr. Adame was not sure if patient was having seizures. He also has B12 deficiency and getting supplements for it. Patient states that he lives with his sister and uses a cane for ambulation. He believes that the falls were related to the seizures. Patient is not a good historian. Has history of seizures for last 1 year. Had about 4 seizures the last 1 year. Objective - Vital Signs Vital signs: Vital Signs Temp 98 F 02/08/23 08:25 Pulse 54 L 02/08/23 11:20 Resp 18 02/08/23 11:20 BP 142/74 02/08/23 11:20 Pulse Ox 95 02/08/23 11:20 FiO2 Intake & Output 02/07/23 02/08/23 02/08/23 18:59 06:59 18:59 Intake Total 700 250 Output Total 400 Balance 300 250 Weight 108.862 kg Intake: IV 100 Oral 600 250 Output: Urine 400 Other: Voiding Method Diaper Diaper Diaper # Voids 2 1 # Bowel Movements 1 - Exam On examination patient is alert and awake. Patient is in no distress. Detailed cognitive function testing deferred. Patient's speech is slightly slurred, which is probably baseline. Pupils are equal, round and reacting, extraocular muscles are intact. Face is symmetric and tongue protrudes the midline. He had a scab on the forehead. His speech and language functions are normal. 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 Hip flexion is weak about 3+, ankle dorsiflexion 5-, with difficulty understanding the directions. - Labs CBC & Chem 7: 02/06/23 07:41 02/08/23 10:30 Labs: Abnormal Lab Results - Last 24 Hours (Table) 02/08/23 Range/Units 10:30 Potassium 3.1 L (3.5-5.1) mmol/L Assessment and Plan Assessment: * Generalized weakness seems due to more due to electrolyte imbalance (hypokalemia) and vitamin B12 deficiency * B12 deficiency * Recurrent falls and most recent is about 1 week ago. Possible due to B12 deficiency. * Hypokalemia * Slightly elevated troponin * Diabetes mellitus hemoglobin A1c is 6.5 most recent * History of epilepsy since age 33, medically intractable seizure disorder * History of closed head injury due to falling off [place] at age 2. * History of left thalamic stroke Plan: EEG was performed, which was abnormal due to background slowing of mild to moderate degree. This is suggestive of generalized cerebral dysfunction as can be seen with encephalopathy or related to diffuse structural brain abnormality. Clinical correlation is recommended. No epileptiform activity was seen. Continue same dose of Keppra and Vimpat. Patient started on the vitamin B12 1000 mcg IM by the primary team Currently the patient is also on his home antiseizure medication of Keppra 1500 mg 1 tablet twice a day and Vimpat 200 mg 1 tab twice a day. We will continue the medication. Keppra level therapeutic 39.6 (3-60), await Vimpat level. Per Dr. Adame, consider low dose aspirin as a secondary stroke prophylaxis if also felt safe by primary team. PT and OT is consulted We'll defer the rest of the medical management to primary team Neurologically no other workup indicated. Neurologically clear.
--- NOTE | 2023-02-08 15:49 | P.PN ---
Subjective Progress Note Date: 02/08/23 Principal diagnosis: sigmoid colon narrowing on CT Initially brought in & admitted for weakness. Recent fall. Surgery consulted for possible sigmoid narrowing seen on CT; no volvulus. Colonoscopy yesterday essentially negative for stricture. Appears the CT finding is likely his normal anatomy vs peristalsis. Tolerating diet today. Had a BM last night & this morning per nursing. Objective - Vital Signs Vital signs: Vital Signs Temp 98 F 02/08/23 08:25 Pulse 54 L 02/08/23 11:20 Resp 18 02/08/23 11:20 BP 142/74 02/08/23 11:20 Pulse Ox 95 02/08/23 11:20 FiO2 Intake & Output 02/07/23 02/08/23 02/08/23 18:59 06:59 18:59 Intake Total 700 250 Output Total 400 Balance 300 250 Weight 108.862 kg Intake: IV 100 Oral 600 250 Output: Urine 400 Other: Voiding Method Diaper Diaper Diaper # Voids 2 1 # Bowel Movements 1 - Constitutional Constitutional Comment(s): sitting up in chair, non toxic General appearance: Present: no acute distress - EENT Eyes: Present: anicteric sclerae ENT: Present: hearing grossly normal - Respiratory Details: non labored breathing - Cardiovascular Rhythm: regular - Gastrointestinal General gastrointestinal: Present: soft. Absent: distended, tenderness - Integumentary Integumentary: Present: normal - Psychiatric Psychiatric Comment(s): cooperative - Labs CBC & Chem 7: 02/06/23 07:41 02/08/23 10:30 Labs: Abnormal Lab Results - Last 24 Hours (Table) 02/08/23 Range/Units 10:30 Potassium 3.1 L (3.5-5.1) mmol/L Assessment and Plan Assessment: incidental finding of possible sigmoid narrowing on CT - colonoscopy yesterday negative for stricture - tolerating diet, having BMs recent fall weakness Plan: OK for discharge from surgical standpoint follow up in 6-12 weeks for formal colonoscopy Time with Patient: Less than 30
[2023-02-08] MEDS ORDERED: Potassium Replacement Protocol 1 EACH MISC MISCELLANE PRN (18:21)
[2023-02-09] MEDS: HEPARIN SODIUM,PORCINE/PF 5,000 UNIT/0.5 ML SYRINGE SQ SCH ×3 (00:13→19:38)
[2023-02-09] MEDS: DEXTROSE 5%-0.45% NACL 1,000 ML IV SCH (03:20)
[2023-02-09] MEDS: LACOSAMIDE 50 MG TABLET PO SCH ×2 (08:40→21:49)
[2023-02-09] MEDS: SPIRONOLACTONE 25 MG TAB PO SCH (08:41)
[2023-02-09] MEDS: levETIRAcetam 500 MG TAB PO SCH ×4 (08:41→21:49)
[2023-02-09] MEDS: ASPIRIN 81 MG PO SCH (08:41)
[2023-02-09] MEDS: LOSARTAN 50 MG TAB PO SCH (08:41)
[2023-02-09] MEDS: PANTOPRAZOLE 40 MG/10 ML VIAL IVP SCH (08:41)
[2023-02-09] MEDS: hydrALAZINE HCL 50 MG TAB PO SCH ×3 (08:41→21:48)
[2023-02-09] MEDS: CYANOCOBALAMIN 500 MCG TAB PO SCH (08:41)
[2023-02-09] MEDS: amLODIPine 10 MG TAB PO SCH (08:41)
[2023-02-09] MEDS: ATORVASTATIN 20 MG TAB PO SCH (08:41)
[2023-02-09] MEDS: POTASSIUM CHLORIDE ER 20 MEQ TAB.ER PO SCH ×4 (14:17→23:00)
[2023-02-09 18:22] VITALS: RESP 18
[2023-02-10] MEDS: HEPARIN SODIUM,PORCINE/PF 5,000 UNIT/0.5 ML SYRINGE SQ SCH ×2 (00:15→09:24)
--- NOTE | 2023-02-10 07:01 | P.PN ---
Subjective Progress Note Date: 02/09/23 02/09/2023: Patient was seen for a follow-up. Patient is sitting comfortably in the recliner. Patient denies headache, offers no complaints. No seizures or syncope. 02/08/2023: Patient was seen for a follow-up. Patient is sitting comfortably in the recliner, watching TV. No seizures, offers no complaints. 02/07/2023: Patient is laying comfortably in the bed. Patient's sister was present, who provided with detailed history. She mentions that patient had a closed head injury at age 2, when he fell off a hay mount and landed on the floor. He was admitted to the hospital at that time. Patient started having seizure at age 33. He was evaluated at Hospital, and was found to have scar tissue in the brain. They tried to map his seizures and was told that seizure tendency is "everywhere". He was not a surgical candidate. Patient follows up with Dr. Galvan. Patient's sister also mentions that he has never , has no children. 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 Patient's sister mentions that his seizures are very sporadic, may not occur for 3 months and then may occur daily for a week or even 3 in a day. He may have a seizure while in the hospital, and she describes his seizure as random movement of the legs and becomes fidgety, and then becomes combative before he settles down. Patient's sister also mentioned that the reason that they brought him to the hospital was not for seizure. Patient was in a wheelchair, and she was driving his wheelchair, going down the ramp when he was leaning forward, and flew off the wheelchair and fell on the face. There was no seizure activity. 02/06/2023: Patient initially seen by Dr. Bienvenido Adame. Please refer to his note for details. Patient is a 72-year-old male with generalized weakness that has improved. Patient is having falls at home. Patient states that he fell 2 times over couple days. Dr. Adame was not sure if patient was having seizures. He also has B12 deficiency and getting supplements for it. Patient states that he lives with his sister and uses a cane for ambulation. He believes that the falls were related to the seizures. Patient is not a good historian. Has history of seizures for last 1 year. Had about 4 seizures the last 1 year. Objective - Vital Signs Vital signs: Vital Signs Temp 97.1 F L 02/09/23 04:00 Pulse 90 02/09/23 08:00 Resp 20 02/09/23 08:00 BP 131/63 02/09/23 08:00 Pulse Ox 97 02/09/23 08:19 FiO2 Intake & Output 02/08/23 02/09/23 02/09/23 18:59 06:59 18:59 Intake Total 730 Output Total 1250 650 300 Balance -520 -650 -300 Intake: Oral 730 Output: Urine 1250 650 300 Other: Voiding Method Diaper External Catheter External Catheter - Exam On examination patient is alert and awake. Patient is in no distress. Detailed cognitive function testing deferred. Patient's speech is slightly slurred, which is probably baseline. Pupils are equal, round and reacting, extraocular muscles are intact. Face is symmetric and tongue protrudes the midline. He had a scab on the forehead, which is healing now. 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 Hip flexion is weak about 3+, ankle dorsiflexion 5-, with difficulty understanding the directions. - Labs CBC & Chem 7: 02/06/23 07:41 02/09/23 18:01 Labs: Abnormal Lab Results - Last 24 Hours (Table) 02/08/23 Range/Units 18:32 Potassium 3.1 L (3.5-5.1) mmol/L Assessment and Plan Assessment: * Generalized weakness seems due to more due to electrolyte imbalance (hypokalemia) and vitamin B12 deficiency * B12 deficiency * Recurrent falls and most recent is about 1 week ago. Possible due to B12 deficiency. * Hypokalemia * Slightly elevated troponin * Diabetes mellitus hemoglobin A1c is 6.5 most recent * History of epilepsy since age 33, medically intractable seizure disorder * History of closed head injury due to falling off hay [employer] at age 2. * History of left thalamic stroke Plan: EEG was performed, which was abnormal due to background slowing of mild to moderate degree. This is suggestive of generalized cerebral dysfunction as can be seen with encephalopathy or related to diffuse structural brain abnormality. Clinical correlation is recommended. No epileptiform activity was seen. Continue same dose of Keppra and Vimpat. Patient started on the vitamin B12 1000 mcg IM by the primary team Currently the patient is also on his home antiseizure medication of Keppra 1500 mg 1 tablet twice a day and Vimpat 200 mg 1 tab twice a day. We will continue the medication. Keppra level therapeutic 39.6 (3-60), await Vimpat level. Per Dr. Adame, consider low dose aspirin as a secondary stroke prophylaxis if also felt safe by primary team. PT and OT is consulted We'll defer the rest of the medical management to primary team Neurologically no other workup indicated. Neurologically clear. Patient accepted to [facility], but pending discharge because of hypokalemia.
[2023-02-10 07:49] VITALS: BP 142/89; PULSE 61; TEMP 98.3
[2023-02-10] MEDS: DEXTROSE 5%-0.45% NACL 1,000 ML IV SCH ×2 (08:17→09:52)
[2023-02-10] MEDS: SPIRONOLACTONE 25 MG TAB PO SCH (09:24)
[2023-02-10] MEDS: PANTOPRAZOLE 40 MG/10 ML VIAL IVP SCH (09:24)
[2023-02-10] MEDS: ATORVASTATIN 20 MG TAB PO SCH (09:24)
[2023-02-10] MEDS: ASPIRIN 81 MG PO SCH (09:25)
[2023-02-10] MEDS: CYANOCOBALAMIN 500 MCG TAB PO SCH (09:25)
[2023-02-10] MEDS: amLODIPine 10 MG TAB PO SCH (09:25)
[2023-02-10] MEDS: LACOSAMIDE 50 MG TABLET PO SCH (09:26)
[2023-02-10] MEDS: hydrALAZINE HCL 50 MG TAB PO SCH (09:26)
[2023-02-10] MEDS: LOSARTAN 50 MG TAB PO SCH (09:26)
[2023-02-10] MEDS: levETIRAcetam 500 MG TAB PO SCH ×2 (09:29)
[2023-02-10] MEDS ORDERED: POTASSIUM CHLORIDE ER 20 MEQ TAB.ER PO STA (09:32)
[2023-02-10] MEDS ORDERED: levETIRAcetam 500 MG TAB PO SCH (21:00)
== END 2023-02-10 11:10 | DRG 641 ==
LOC: EC 10:06 → 3SCARD 14:46 → 5NMEDONC 02-10 06:41
PROVIDERS: ADMIT Family Medicine; ATTEND Family Medicine
PROC: 0DJD8ZZ Inspection of Lower Intestinal Tract, Via Natural or Artificial Opening Endoscopic (ICD-10-PCS; principal; 2023-02-07 15:30)
DX: E87.6 Hypokalemia (principal); I69.351 Hemiplegia and hemiparesis following cerebral infarction affecting right dominant side; I50.32 Chronic diastolic (congestive) heart failure; E87.0 Hyperosmolality and hypernatremia; G40.909 Epilepsy, unspecified, not intractable, without status epilepticus; I11.0 Hypertensive heart disease with heart failure; K63.89 Other specified diseases of intestine; T50.1X5A Adverse effect of loop [high-ceiling] diuretics, initial encounter; M12.811 Other specific arthropathies, not elsewhere classified, right shoulder; L89.312 Pressure ulcer of right buttock, stage 2; K80.20 Calculus of gallbladder without cholecystitis without obstruction; I27.20 Pulmonary hypertension, unspecified; F41.9 Anxiety disorder, unspecified; E78.5 Hyperlipidemia, unspecified; E53.8 Deficiency of other specified B group vitamins; E11.42 Type 2 diabetes mellitus with diabetic polyneuropathy; K59.00 Constipation, unspecified; D72.829 Elevated white blood cell count, unspecified; G72.9 Myopathy, unspecified; R00.1 Bradycardia, unspecified; W05.0XXA Fall from non-moving wheelchair, initial encounter; R77.8 Other specified abnormalities of plasma proteins; R29.6 Repeated falls; Z87.820 Personal history of traumatic brain injury; Z91.81 History of falling; Z85.819 Personal history of malignant neoplasm of unspecified site of lip, oral cavity, and pharynx; Z79.899 Other long term (current) drug therapy
CPT/HCPCS: 36415; 36600; 45378; 70450; 71046; 74018; 74176; 80048; 80053; 80076; 80177; 80235; 81003; 82550; 82607; 82746; 82805; 83036; 83605; 83735; 83880; 84132; 84145; 84443; 84484; 85025; 85610; 85730; 93005; 94760; 95816; 96365; 99285

== ENCOUNTER 2023-03-18 16:30 | Inpatient (IN) | payer MEDICARE, BC, OTHER ==
[2023-03-18] MEDS ORDERED: SODIUM CHLORIDE 0.9% 1,000 ML IV STA (16:46)
--- NOTE | 2023-03-18 16:49 | ED ---
General Adult HPI - General Stated complaint: Cough Time Seen by Provider: 03/18/23 16:33 Source: patient, EMS, RN notes reviewed Mode of arrival: EMS Limitations: altered mental status - History of Present Illness Initial comments: Patient is a pleasant 72-year-old male presenting to the emergency department with concern for abnormal chest x-ray. Patient states he feels fine and has no complaints. He should denies any cough or shortness of breath. Patient denies any abdominal discomfort. No vomiting. Patient does come with chest x-ray report considering possible pneumoperitoneum and possible atelectasis versus pneumonia. - Related Data Home Medications Medication Instructions Recorded Confirmed Escitalopram [Lexapro] 10 mg PO HS 04/03/15 02/03/23 levETIRAcetam 1,000 mg PO BID 04/03/15 02/03/23 levETIRAcetam [Levetiracetam] 500 mg PO BID 04/03/15 02/03/23 Atorvastatin [Lipitor] 20 mg PO DAILY 01/25/23 02/03/23 Calcium Carbonate/Vitamin D3 2 tab PO W/SUPPER 01/25/23 02/03/23 [Calcium 600-Vit D3 10 mcg (400 Iu)] Vit C/E/Zn/Coppr/Lutein/Zeaxan 1 tab PO BID-W/MEALS 01/25/23 02/03/23 [Preservision Areds 2 Chew Tab] Lacosamide [Vimpat] 200 mg PO BID 02/03/23 02/03/23 Previous Rx's Medication Instructions Recorded Losartan [Cozaar] 100 mg PO DAILY #30 tab 01/30/23 Spironolactone [Aldactone] 25 mg PO DAILY #30 tab 01/30/23 amLODIPine [Norvasc] 10 mg PO DAILY #30 tab 01/30/23 hydrALAZINE HCL [Apresoline] 50 mg PO TID #90 tab 01/30/23 Aspirin EC [Ecotrin Low Dose] 81 mg PO DAILY #30 tab 02/08/23 Cyanocobalamin [Vitamin B-12] 1,000 mcg PO DAILY tab 02/08/23 Omeprazole 40 mg PO DAILY #30 cap 02/08/23 Allergies Allergy/AdvReac Type Severity Reaction Status Date / Time No Known Allergies Allergy Verified 03/18/23 17:22 Review of Systems ROS Statement: Those systems with pertinent positive or pertinent negative responses have been documented in the HPI. ROS Other: All systems not noted in ROS Statement are negative. Constitutional: Denies: fever, chills Respiratory: Denies: cough, dyspnea Gastrointestinal: Reports: as per HPI. Denies: abdominal pain Past Medical History Past Medical History: Seizure Disorder Additional Past Medical History / Comment(s): head injury as a child History of Any Multi-Drug Resistant Organisms: None Reported Additional Past Surgical History / Comment(s): lip cancer removed Past Anesthesia/Blood Transfusion Reactions: No Reported Reaction Additional Past Anesthesia/Blood Transfusion Reaction / Comment(s): never had blood transfusion Past Psychological History: Anxiety Additional Psychological History / Comment(s): On Lexapro Smoking Status: Never smoker Past Alcohol Use History: None Reported Past Drug Use History: None Reported - Past Family History Father Additional Family Medical History / Comment(s): alzheimers Mother Family Medical History: Myocardial Infarction ([place]) Additional Family Medical History / Comment(s): macular degeneration General Exam Limitations: altered mental status General appearance: alert, in no apparent distress Head exam: Present: atraumatic Eye exam: Present: normal appearance Neck exam: Present: normal inspection Respiratory exam: Present: normal lung sounds bilaterally Cardiovascular Exam: Present: regular rate, normal rhythm GI/Abdominal exam: Present: distended. Absent: tenderness, guarding, rebound, rigid Extremities exam: Present: pedal edema. Absent: calf tenderness Neurological exam: Present: alert Psychiatric exam: Present: normal affect, normal mood Skin exam: Present: normal color Course Vital Signs 03/18/23 03/18/23 03/18/23 17:16 18:22 19:00 Temperature 98.6 F Pulse Rate 83 85 88 Respiratory 20 18 18 Rate Blood Pressure 117/67 131/69 127/69 O2 Sat by Pulse 94 L 93 L 94 L Oximetry EKG Findings - EKG Results: EKG: interpreted by ERMD (Nonspecific T waves), sinus rhythm, normal axis, normal QRS Medical Decision Making - Medical Decision Making Was pt. sent in by a medical professional or institution (, PA, OFFICE SERVICES CLERK, urgent care, hospital, or detention...) When possible be specific @ -Patient was sent from nursing facility Did you speak to anyone other than the patient for history (EMS, parent, family, police, friend...)? What history was obtained from this source @ -No Did you review nursing and triage notes (agree or disagree)? Why? @ -I reviewed and agree with nursing and triage notes Were old charts reviewed (outside hosp., previous admission, EMS record, old EKG, old radiological studies, urgent care reports/EKG's, detention records)? Report findings @ -Chart reviewed from nursing facility including chest x-ray report Differential Diagnosis (chest pain, altered mental status, abdominal pain women, abdominal pain men, vaginal bleeding, weakness, fever, dyspnea, syncope, headache, dizziness, GI bleed, back pain, seizure, CVA, palpatations, mental health)? @ - dyspnea.Differential Abdominal Pain Men: Appendicitis, cholecystitis, diverticulosis, ischemic bowel, pancreatitis, hepatitis, UTI, gastroenteritis, AAA, incarcerated hernia, bowel obstruction, constipation, inflammatory bowel, hepatitis, peptic ulcer disease, splenic infarction, perforated viscus, testicular torsion, this is not meant to be an all-inclusive listDifferential Dyspnea: Coronary syndrome, arrhythmia, tamponade, asthma, COPD, pulmonary embolism, pneumonia, pneumothorax, pulmonary effusion, anaphylaxis, diabetic ketoacidosis, flailed chest, pulmonary contusion, diaphragmatic rupture, anemia, neuromuscular, this is not meant to be an all-inclusive list. EKG interpreted by me (3pts min.). @ -As above X-rays interpreted by me (1pt min.). @ -Chest x-ray shows some interstitial change CT interpreted by me (1pt min.). @ -Report reviewed U/S interpreted by me (1pt. min.). @ -None done What testing was considered but not performed or refused? (CT, X-rays, U/S, labs)? Why? @ -None What meds were considered but not given or refused? Why? @ -None Did you discuss the management of the patient with other professionals (professionals i.e. DrTristen, PA, OFFICE SERVICES CLERK, lab, RT, psych nurse, social services coordinator, ophthalmic assistant, teacher, bank operations officer, heel caser)? Give summary @ -Case discussed with Dr. Higgins who will admit cover Dr. Barry Was smoking cessation discussed for >3mins.? @ -No Was critical care preformed (if so, how long)? @ -No Were there social determinants of health that impacted care today? How? (Homelessness, low income, unemployed, alcoholism, drug addiction, transportation, low edu. Level, literacy, decrease access to med. care, shelter, rehab)? @ -No Was there de-escalation of care discussed even if they declined (Discuss DNR or withdrawal of care, Hospice)? DNR status @ -No What co-morbidities impacted this encounter? (DM, HTN, Smoking, COPD, CAD, Cancer, CVA, ARF, Chemo, Hep., AIDS, mental health diagnosis, sleep apnea, morbid obesity)? @ -None Was patient admitted / discharged? Hospital course, mention meds given and route, prescriptions, significant lab abnormalities, going to OR and other pertinent info. @ -Patient reevaluated and resting comfortable in bed. Patient updated on results and plan. Patient will be admitted with antibiotics for multifocal pneumonia and surgical consult Undiagnosed new problem with uncertain prognosis? @ -No Drug Therapy requiring intensive monitoring for toxicity (Heparin, Nitro, Insulin, Cardizem)? @ -No Were any procedures done? @ -No Diagnosis/symptom? @ -multifocal pneumonia Acute, or Chronic, or Acute on Chronic? @ -Acute Uncomplicated (without systemic symptoms) or Complicated (systemic symptoms)? @ -default Side effects of treatment? @ -No Exacerbation, Progression, or Severe Exacerbation? @ -No Poses a threat to life or bodily function? How? (Chest pain, [place], [place], pneumonia, PE, COPD, DKA, ARF, appy, cholecystitis, CVA, Diverticulitis, Homicidal, Suicidal, threat to staff... and all critical care pts) @ -No - Lab Data Result diagrams: 03/18/23 17:15 03/18/23 17:15 Lab Results 03/18/23 03/18/23 03/18/23 Range/Units 16:47 17:15 17:15 WBC 21.9 H (3.8-10.6) k/uL RBC 3.68 L (4.30-5.90) m/uL Hgb 11.5 L (13.0-17.5) gm/dL Hct 34.7 L (39.0-53.0) % MCV 94.2 (80.0-100.0) fL MCH 31.2 (25.0-35.0) pg MCHC 33.1 (31.0-37.0) g/dL RDW 14.0 (11.5-15.5) % Plt Count 461 H (150-450) k/uL MPV 9.2 Neutrophils % 86 % Lymphocytes % 7 % Monocytes % 5 % Eosinophils % 0 % Basophils % 0 % Neutrophils # 18.9 H (1.3-7.7) k/uL Lymphocytes # 1.5 (1.0-4.8) k/uL Monocytes # 1.2 H (0-1.0) k/uL Eosinophils # 0.0 (0-0.7) k/uL Basophils # 0.0 (0-0.2) k/uL PT 10.5 (9.0-12.0) sec INR 1.0 (<1.2) APTT 27.3 (22.0-30.0) sec Sodium (137-145) mmol/L Potassium (3.5-5.1) mmol/L Chloride (98-107) mmol/L Carbon Dioxide (22-30) mmol/L Anion Gap mmol/L BUN (9-20) mg/dL Creatinine (0.66-1.25) mg/dL Est GFR (CKD-EPI)AfAm (>60 ml/min/1.73 sqM) Est GFR (CKD-EPI)NonAf (>60 ml/min/1.73 sqM) Glucose (74-99) mg/dL Calcium (8.4-10.2) mg/dL Total Bilirubin (0.2-1.3) mg/dL AST (17-59) U/L ALT (4-49) U/L Alkaline Phosphatase (38-126) U/L Total Protein (6.3-8.2) g/dL Albumin (3.5-5.0) g/dL Amylase (30-110) U/L Lipase (23-300) U/L Urine Color Light Yellow Urine Appearance Clear (Clear) Urine pH 5.0 (5.0-8.0) Ur Specific [place] 1.009 (1.001-1.035) Urine Protein Negative (Negative) Urine Glucose (UA) Negative (Negative) Urine Ketones Negative (Negative) Urine Blood Negative (Negative) Urine Nitrite Negative (Negative) Urine Bilirubin Negative (Negative) Urine Urobilinogen <2.0 (<2.0) mg/dL Ur Leukocyte Esterase Negative (Negative) 03/18/23 Range/Units 17:15 WBC (3.8-10.6) k/uL RBC (4.30-5.90) m/uL Hgb (13.0-17.5) gm/dL Hct (39.0-53.0) % MCV (80.0-100.0) fL MCH (25.0-35.0) pg MCHC (31.0-37.0) g/dL RDW (11.5-15.5) % Plt Count (150-450) k/uL MPV Neutrophils % % Lymphocytes % % Monocytes % % Eosinophils % % Basophils % % Neutrophils # (1.3-7.7) k/uL Lymphocytes # (1.0-4.8) k/uL Monocytes # (0-1.0) k/uL Eosinophils # (0-0.7) k/uL Basophils # (0-0.2) k/uL PT (9.0-12.0) sec INR (<1.2) APTT (22.0-30.0) sec Sodium 141 (137-145) mmol/L Potassium 4.4 (3.5-5.1) mmol/L Chloride 107 (98-107) mmol/L Carbon Dioxide 23 (22-30) mmol/L Anion Gap 11 mmol/L BUN 26 H (9-20) mg/dL Creatinine 1.18 (0.66-1.25) mg/dL Est GFR (CKD-EPI)AfAm 70 (>60 ml/min/1.73 sqM) Est GFR (CKD-EPI)NonAf 60 (>60 ml/min/1.73 sqM) Glucose 98 (74-99) mg/dL Calcium 9.2 (8.4-10.2) mg/dL Total Bilirubin 0.7 (0.2-1.3) mg/dL AST 27 (17-59) U/L ALT 21 (4-49) U/L Alkaline Phosphatase 84 (38-126) U/L Total Protein 6.6 (6.3-8.2) g/dL Albumin 3.6 (3.5-5.0) g/dL Amylase 38 (30-110) U/L Lipase 15 L (23-300) U/L Urine Color Urine Appearance (Clear) Urine pH (5.0-8.0) Ur Specific [place] (1.001-1.035) Urine Protein (Negative) Urine Glucose (UA) (Negative) Urine Ketones (Negative) Urine Blood (Negative) Urine Nitrite (Negative) Urine Bilirubin (Negative) Urine Urobilinogen (<2.0) mg/dL Ur Leukocyte Esterase (Negative) Disposition Clinical Impression: Multifocal pneumonia Disposition: ADMITTED IP TO THIS HOSP Is patient prescribed a controlled substance at d/c from ED?: No Referrals: Carlos Barry DO [Primary Care Provider] - 1-2 days Time of Disposition: 19:56
[2023-03-18 18:05] LABS: Basophils % (A) 0 %; Eosinophils % (A) 0 %; HCT 34.7 % (39.0-53.0); HGB 11.5 gm/dL (13.0-17.5); Lymphocytes # (A) 1.5 k/uL (1.0-4.8); Lymphocytes % (A) 7 %; MCH 31.2 pg (25.0-35.0); MCHC 33.1 g/dL (31.0-37.0); MCV 94.2 fL (80.0-100.0); Mean Platelet Volume 9.2; Monocytes # (A) 1.2 k/uL (0-1.0); Monocytes % (A) 5 %; Neutrophils # (A) 18.9 k/uL (1.3-7.7); Neutrophils % (A) 86 %; Partial Thromboplastin Time 27.3 sec (22.0-30.0); Platelet Count 461 k/uL (150-450); Prothrombin Time 10.5 sec (9.0-12.0); RBC 3.68 m/uL (4.30-5.90); WBC 21.9 k/uL (3.8-10.6)
[2023-03-18 18:14] LABS: Albumin 3.6 g/dL (3.5-5.0); Calcium 9.2 mg/dL (8.4-10.2); Potassium 4.4 mmol/L (3.5-5.1); Total Bilirubin 0.7 mg/dL (0.2-1.3); Total Protein 6.6 g/dL (6.3-8.2)
[2023-03-18 18:40] LABS: Appearance,Urine Clear (Clear); Bilirubin,Urine Negative (Negative); Blood,Urine Negative (Negative); Color,Urine Light Yellow; Glucose,Urine (UA) Negative (Negative); Ketones,Urine Negative (Negative); Leukocyte Esterase,Urine Negative (Negative); Nitrite,Urine Negative (Negative); Protein,Urine Negative (Negative); Specific Gravity,Urine 1.009 (1.001-1.035); Urobilinogen,Urine <2.0 mg/dL (<2.0)
--- NOTE | 2023-03-18 19:19 | XR ---
EXAMINATION TYPE: XR chest 2V DATE OF EXAM: 03/18/2023 6:18 PM COMPARISON: Chest x-ray 02/03/2023, CT abdomen pelvis 03/18/2023 TECHNIQUE: XR chest 2V . CLINICAL INDICATION:Male, 72 years old with history of abdominal pain; FINDINGS: Lungs/Pleura: Increased interstitial markings bilaterally, predominantly around the central perihilar regions. No pneumothorax. No sizable pleural effusion. Pulmonary vascularity: Pulmonary vascular congestion. Heart/mediastinum: Cardiomediastinal silhouette is enlarged and stable. Musculoskeletal: Multiple level degenerative disc disease changes seen throughout the spine. Chronic left clavicular fracture redemonstrated. IMPRESSION: Cardiomegaly, pulmonary vascular congestion with interstitial edema, intervally progressed from 2022. Correlate with BNP for acute exacerbation of congestive heart failure.
--- NOTE | 2023-03-18 19:40 | CT ---
EXAMINATION TYPE: CT abdomen pelvis w con CT DLP: 1471.6 mGycm, Automated exposure control for dose reduction was used. DATE OF EXAM: 03/18/2023 6:20 PM COMPARISON: CT abdomen pelvis 02/03/2023 CLINICAL INDICATION:Male, 72 years old with history of abdominal pain; Pneumoperitoneum. TECHNIQUE: Axial CT of the abdomen and pelvis. Sagittal and coronal reformats were created on a [employer] workstation. Contrast used:100cc mL of Isovue 300 with IV Contrast, Oral contrast used: without Oral Contrast FINDINGS: LOWER CHEST: Patchy airspace opacities affecting the bilateral lower lobes. No pleural effusions. ABDOMEN LIVER: Unremarkable GALLBLADDER AND BILE DUCTS: Cholelithiasis. No wall thickening or pericholecystic fluid. PANCREAS: Unremarkable. SPLEEN: Small accessory spleen. ADRENAL GLANDS: Nodular thickening of the left adrenal gland. Right adrenal gland is normal.. KIDNEYS AND URETERS: Bilateral nonobstructing renal calculi. Largest in the right lower pole measures 4 mm. No hydronephrosis. PELVIS BLADDER: Nondistended with Delcid catheter in place. REPRODUCTIVE: Mild prostamegaly with coarse central calcifications. ABDOMEN & PELVIS STOMACH AND BOWEL: Stomach is normal in appearance. Small bowel is nondilated. Moderate gaseous diste ntion of the distal colonic bowel affecting the distal descending to the sigmoid colon. There is isabel g segment (6.5 cm) of narrowing at the sigmoid colon (series 301, image 83), with liquid stool and la yering contrast material in the distal rectum from prior oral contrast. Narrowing is intervally progr essed from prior CT of 02/03/2023 and may represent a component of peristalsis. No evidence for twisti ng or tethering. Moderate colonic stool burden. No pneumatosis. PERITONEUM: No evidence of pneumoperitoneum or free fluid. VASCULATURE: Scattered calcified atherosclerotic ossifications of the abdominal aorta and distal bran ches. MUSCULOSKELETAL: No acute osseous abnormalities. Moderate disc degeneration changes are present throu ghout the thoracolumbar spine. Mild retrolisthesis of L2 on L3 and L3 on L4. LYMPH NODES: No gross evidence for lymphadenopathy. SOFT TISSUE/ABDOMINAL WALL: Fat-containing right inguinal hernia. IMPRESSION: 1. Gaseous dilatation of the descending and sigmoid colon with focal narrowing of the distal sigmoid colon. Focal narrowing is intervally progressed from 02/03/2023, possibly component of peristalsis. Di fferential includes chronic stricture, colonic pseudoobstruction versus colonic ileus. Sigmoid volvul us is thought to be less likely given lack of twisting or focal tethering. 2. Bibasilar patchy airspace opacities is concerning for acute infectious process such as multifocal pneumonia. 3. Nonobstructing bilateral renal calculi. 4. Cholelithiasis and other incidental findings as detailed above..
[2023-03-18] MEDS ORDERED: PNEUMONIA PROTOCOL UTILIZED 1 EACH MISC PO PRN (19:57)
[2023-03-18] MEDS ORDERED: AZITHROMYCIN 500 MG in SODIUM CHLORIDE 0.9% 250 ML IVPB STA (19:57)
[2023-03-18] MEDS: SODIUM CHLORIDE 0.9% 1,000 ML IV SCH (20:23)
--- NOTE | 2023-03-19 07:31 | XR ---
EXAMINATION TYPE: XR chest 1V portable DATE OF EXAM: 03/19/2023 5:58 AM COMPARISON: Chest radiographs from 03/18/2023 TECHNIQUE: XR chest 1V portable Frontal view of the chest. CLINICAL INDICATION:Male, 72 years old with history of pneumonia; FINDINGS: Lungs/Pleura: Multifocal airspace opacities in the lower lobes are unchanged. No evidence of pneumoth orax or pleural effusion. Pulmonary vascularity: Unremarkable. Heart/mediastinum: Cardiomediastinal silhouette is enlarged and stable. Musculoskeletal: No acute osseous pathology. IMPRESSION: Persistent bilateral lower lobe airspace opacities not significantly changed from prior.
[2023-03-19] MEDS: AZITHROMYCIN 500 MG TAB PO SCH (08:35)
[2023-03-19] MEDS ORDERED: NON FORMULARY DRUG (Lactose-Reduced Food [Ensure Plus] 237 ML Ml) PO SCH (12:00)
[2023-03-19 12:44] LABS: Basophils # (A) 0.1 k/uL (0-0.2); Basophils % (A) 0 %; Eosinophils # (A) 0.1 k/uL (0-0.7); Eosinophils % (A) 1 %; HCT 36.2 % (39.0-53.0); HGB 11.6 gm/dL (13.0-17.5); Lymphocytes # (A) 1.3 k/uL (1.0-4.8); Lymphocytes % (A) 9 %; MCH 30.8 pg (25.0-35.0); MCHC 32.1 g/dL (31.0-37.0); MCV 95.7 fL (80.0-100.0); Mean Platelet Volume 8.8; Monocytes # (A) 0.8 k/uL (0-1.0); Monocytes % (A) 5 %; Neutrophils # (A) 12.2 k/uL (1.3-7.7); Neutrophils % (A) 83 %; Platelet Count 462 k/uL (150-450); RBC 3.78 m/uL (4.30-5.90); RDW 13.9 % (11.5-15.5); WBC 14.7 k/uL (3.8-10.6)
[2023-03-19 13:20] LABS: African American GFR (CKD) >90 (>60 ml/min/1.73 sqM); Anion Gap 10 mmol/L; Blood Urea Nitrogen 18 mg/dL (9-20); Calcium 8.9 mg/dL (8.4-10.2); Carbon Dioxide 23 mmol/L (22-30); Chloride 111 mmol/L (98-107); Glucose 94 mg/dL (74-99); Non-African American GFR(CKD) 84 (>60 ml/min/1.73 sqM); Potassium 3.4 mmol/L (3.5-5.1); Sodium 144 mmol/L (137-145)
--- NOTE | 2023-03-19 13:33 | P.GSCN ---
History of Present Illness Consult date: 03/19/23 Reason for Consult: Abnormal computed tomography scan of the abdomen showing colonic distention, bibasilar pneumonia History of present illness: Patient is a 72-year-old gentleman admitted to [facility] through the emergency department 03/18/2023. Apparently he had an outpatient chest x-ray obtained showing findings concerning for pneumonia and potential pneumoperitoneum. Patient denies any issues with cough, shortness of breath, chest pain, abdominal pain, fever or chills. He tells me is been passing flatus on and off, the modest bowel movement earlier today. Denies dysuria. Appears comfortable at rest. He's had a hemodynamically stable, although hypertensive, and afebrile appearance overnight. Initial laboratory studies showed a leukocytosis at 21.9 thousand which is trended down to 14.7 today. Hemoglobin is low but stable at 11.6. MCV, MCH and RDW indices are all within normal limits. Platelet count is moderately elevated at 462. INR normal range at 1.0. Conference of metabolic panel and liver function studies were essentially within normal limits. Amylase and lipase similar normal range. He had a mildly elevated BUN/creatinine at 926, creatinine trivially elevated at 1.18. Urinalysis is negative for UTI. A computed tomography scan of the abdomen and pelvis was obtained, images and official report were reviewed. There is evidence of 5 basal or pulmonary consolidation consistent with pneumonia. Colon looks redundant in the sigmoid markedly distended up to around 10 cm or so. There is no free air or free fluid. There is an area of relative narrowing towards the rectosigmoid that may represent peristalsis or stricture. I don't appreciate a discrete findings for sigmoid volvulus. Patient doesn't recall having undergone previous colonoscopy. At present patient has no complaints, comfortable at rest. Review of Systems - Constitutional Reports as per HPI Past Medical History Past Medical History: Seizure Disorder Additional Past Medical History / Comment(s): head injury as a child History of Any Multi-Drug Resistant Organisms: None Reported Additional Past Surgical History / Comment(s): lip cancer removed Past Anesthesia/Blood Transfusion Reactions: No Reported Reaction Additional Past Anesthesia/Blood Transfusion Reaction / Comm: never had blood t ransfusion Past Psychological History: Anxiety Additional Psychological History / Comment(s): On Lexapro Smoking Status: Never smoker Past Alcohol Use History: None Reported Past Drug Use History: None Reported - Past Family History Father Additional Family Medical History / Comment(s): alzheimers Mother Family Medical History: Myocardial Infarction ([place]) Additional Family Medical History / Comment(s): macular degeneration Medications and Allergies Home Medications Medication Instructions Recorded Confirmed Type Escitalopram [Lexapro] 10 mg PO HS 04/03/15 03/18/23 History levETIRAcetam [Levetiracetam] 1,500 mg PO BID 04/03/15 03/18/23 History Atorvastatin [Lipitor] 20 mg PO HS 01/25/23 03/18/23 History Calcium Carbonate/Vitamin D3 2 tab PO HS@2100 01/25/23 03/18/23 History [Calcium 600-Vit D3 10 mcg (400 Iu)] Vit C/E/Zn/Coppr/Lutein/Zeaxan 1 tab PO BID@0500,2100 01/25/23 03/18/23 History [Preservision Areds 2 Chew Tab] Spironolactone [Aldactone] 25 mg PO DAILY #30 tab 01/30/23 03/18/23 Rx amLODIPine [Norvasc] 10 mg PO DAILY #30 tab 01/30/23 03/18/23 Rx Lacosamide [Vimpat] 200 mg PO BID 02/03/23 03/18/23 History Aspirin EC [Ecotrin Low Dose] 81 mg PO DAILY #30 tab 02/08/23 03/18/23 Rx Omeprazole 40 mg PO DAILY #30 cap 02/08/23 03/18/23 Rx Ascorbic Acid [Vitamin C] 500 mg PO DAILY 03/18/23 03/18/23 History Cholecalciferol [Vitamin D3 (25 50 mcg PO DAILY 03/18/23 03/18/23 History Mcg = 1000 Iu)] Cyanocobalamin (Vitamin B-12) 1,000 mcg PO DAILY 03/18/23 03/18/23 History [Vitamin B-12] Furosemide [Lasix] 40 mg PO DAILY@0600 03/18/23 03/18/23 History Ipratropium-Albuterol Nebulize 3 ml INHALATION RT-QID 03/18/23 03/18/23 History [Duoneb 0.5 mg-3 mg/3 ml Soln] Lactose-Reduced Food [Ensure Plus] 1 can PO DAILY 03/18/23 03/18/23 History Losartan Potassium 100 mg PO DAILY 03/18/23 03/18/23 History Potassium Chloride ER [K-Dur 20] 40 meq PO DAILY 03/18/23 03/18/23 History Zinc Gluconate [Zinc] 50 mg PO DAILY 03/18/23 03/18/23 History hydrALAZINE HCL [Apresoline] 50 mg PO TID@0600,1400,2200 03/18/23 03/18/23 History Allergies Allergy/AdvReac Type Severity Reaction Status Date / Time No Known Allergies Allergy Verified 03/18/23 17:22 Surgical - Exam Osteopathic Statement: *. No significant issues noted on an osteopathic structural exam other than those noted in the History and Physical/Consult. Vital Signs Temp Pulse Resp BP Pulse Ox 98.6 F 83 20 117/67 94 L 03/18/23 17:16 03/18/23 17:16 03/18/23 17:16 03/18/23 17:16 03/18/23 17:16 - General well developed, no distress - Eyes PERRL, normal ocular movement - ENT normal pinna, normal nares, normal mucosa, no hearing loss - Neck trachea midline - Respiratory Lungs are clear to auscultation bilaterally - Cardiovascular Rhythm: regular - Abdomen Abdomen is soft although distended with tympany. There is no guarding, rebound, or tenderness of any kind. Abdominal exam is benign. Abdomen: soft, non tender, distended - Psychiatric oriented to time, oriented to person, oriented to place, speech is normal, memory intact Results - Labs 03/19/23 12:05 03/18/23 17:15 Abnormal Lab Results - Last 24 Hours (Table) 03/18/23 03/18/23 03/19/23 Range/Units 17:15 17:15 12:05 WBC 21.9 H 14.7 H (3.8-10.6) k/uL RBC 3.68 L 3.78 L (4.30-5.90) m/uL Hgb 11.5 L 11.6 L (13.0-17.5) gm/dL Hct 34.7 L 36.2 L (39.0-53.0) % Plt Count 461 H 462 H (150-450) k/uL Neutrophils # 18.9 H 12.2 H (1.3-7.7) k/uL Monocytes # 1.2 H (0-1.0) k/uL BUN 26 H (9-20) mg/dL Lipase 15 L (23-300) U/L Diabetes panel 03/18/23 Range/Units 17:15 Sodium 141 (137-145) mmol/L Potassium 4.4 (3.5-5.1) mmol/L Chloride 107 (98-107) mmol/L Carbon Dioxide 23 (22-30) mmol/L BUN 26 H (9-20) mg/dL Creatinine 1.18 (0.66-1.25) mg/dL Glucose 98 (74-99) mg/dL Calcium 9.2 (8.4-10.2) mg/dL AST 27 (17-59) U/L ALT 21 (4-49) U/L Alkaline Phosphatase 84 (38-126) U/L Total Protein 6.6 (6.3-8.2) g/dL Albumin 3.6 (3.5-5.0) g/dL Calcium panel 03/18/23 Range/Units 17:15 Calcium 9.2 (8.4-10.2) mg/dL Albumin 3.6 (3.5-5.0) g/dL Pituitary panel 03/18/23 Range/Units 17:15 Sodium 141 (137-145) mmol/L Potassium 4.4 (3.5-5.1) mmol/L Chloride 107 (98-107) mmol/L Carbon Dioxide 23 (22-30) mmol/L BUN 26 H (9-20) mg/dL Creatinine 1.18 (0.66-1.25) mg/dL Glucose 98 (74-99) mg/dL Calcium 9.2 (8.4-10.2) mg/dL Adrenal panel 03/18/23 Range/Units 17:15 Sodium 141 (137-145) mmol/L Potassium 4.4 (3.5-5.1) mmol/L Chloride 107 (98-107) mmol/L Carbon Dioxide 23 (22-30) mmol/L BUN 26 H (9-20) mg/dL Creatinine 1.18 (0.66-1.25) mg/dL Glucose 98 (74-99) mg/dL Calcium 9.2 (8.4-10.2) mg/dL Total Bilirubin 0.7 (0.2-1.3) mg/dL AST 27 (17-59) U/L ALT 21 (4-49) U/L Alkaline Phosphatase 84 (38-126) U/L Total Protein 6.6 (6.3-8.2) g/dL Albumin 3.6 (3.5-5.0) g/dL - Imaging Abdominal x-ray: report reviewed, image reviewed CT scan - abdomen: report reviewed, image reviewed CT scan - pelvis: report reviewed, image reviewed Assessment and Plan Assessment: 72-year-old gentleman with clinical history, physical exam and imaging findings most consistent with a colonic ileus in the setting of pneumonia. No evidence of pneumoperitoneum on CT, abdominal exam is benign, no evidence of peritonitis. Question of rectosigmoid stricture versus artifact of peristalsis. Admits to bowel function today. Maintained on oral medications for seizure and depression which could also be contributing to impaired colonic motility with respect to Keppra, lacosamide, and Lexapro. Plan: Continue with antibiotics for community-acquired pneumonia, if the patient has interval worsening with respect to abdominal findings we may need to entertain decompressive colonoscopy, if at any point he shows signs of pneumoperitoneum or peritonitis will need abdominal exploration. I suspect that he has a degree of chronic colonic distention given his medications for seizure and depression as outlined above which is being exacerbated by an ileus in the setting of bibasilar pneumonia.. Time with Patient: Greater than 30
[2023-03-19] MEDS: SODIUM CHLORIDE 0.9% 1,000 ML IV SCH ×2 (15:17→22:06)
[2023-03-19] MEDS: LACOSAMIDE 50 MG TABLET PO SCH (15:17)
[2023-03-19] MEDS: LOSARTAN 50 MG TAB PO SCH (15:17)
[2023-03-19] MEDS: amLODIPine 10 MG TAB PO SCH (15:17)
[2023-03-19] MEDS: hydrALAZINE HCL 25 MG TAB PO SCH ×2 (15:17→22:06)
[2023-03-19] MEDS: IPRATROPIUM-ALBUTEROL 3 ML NEB INHALATION SCH ×3 (15:47→20:17)
--- NOTE | 2023-03-19 17:53 | P.HPIM ---
History of Present Illness H&P Date: 03/18/23 Chief Complaint: Cough 72-year-old male presenting to the emergency department with concern for abnormal chest x-ray. Patient states he feels fine and has no complaints. He should denies any cough or shortness of breath. Patient denies any abdominal discomfort. No vomiting. Patient does come with chest x-ray report considering possible pneumoperitoneum and possible atelectasis versus pneumonia. Blood work completed in ED revealed a WBC of 21.9, hemoglobin of 11.5 and platelet count of 461, sodium 140 ongoing transported 4, BUN/creatinine of 26/1.18 UA is unremarkable Review of Systems REVIEW OF SYSTEMS: CONSTITUTIONAL: No fever, no malaise, no fatigue. HEENT: No recent visual problems or hearing problems. Denied any sore throat. CARDIOVASCULAR: No chest pain, orthopnea, PND, no palpitations, no syncope. PULMONARY: No shortness of breath, no cough, no hemoptysis. GASTROINTESTINAL: No diarrhea, no nausea, no vomiting, no abdominal pain. NEUROLOGICAL: No headaches, no weakness, no numbness. HEMATOLOGICAL: Denies any bleeding or petechiae. GENITOURINARY: Denies any burning micturition, frequency, or urgency. MUSCULOSKELETAL/RHEUMATOLOGICAL: Denies any joint pain, swelling, or any muscle pain. ENDOCRINE: Denies any polyuria or polydipsia. The rest of the 14-point review of systems is negative. Past Medical History Past Medical History: Seizure Disorder Additional Past Medical History / Comment(s): head injury as a child History of Any Multi-Drug Resistant Organisms: None Reported Additional Past Surgical History / Comment(s): lip cancer removed Past Anesthesia/Blood Transfusion Reactions: No Reported Reaction Additional Past Anesthesia/Blood Transfusion Reaction / Comment(s): never had blood transfusion Past Psychological History: Anxiety Additional Psychological History / Comment(s): On Lexapro Smoking Status: Never smoker Past Alcohol Use History: None Reported Past Drug Use History: None Reported - Past Family History Father Additional Family Medical History / Comment(s): alzheimers Mother Family Medical History: Myocardial Infarction ([place]) Additional Family Medical History / Comment(s): macular degeneration Medications and Allergies Home Medications Medication Instructions Recorded Confirmed Type Escitalopram [Lexapro] 10 mg PO HS 04/03/15 03/18/23 History levETIRAcetam [Levetiracetam] 1,500 mg PO BID 04/03/15 03/18/23 History Atorvastatin [Lipitor] 20 mg PO HS 01/25/23 03/18/23 History Calcium Carbonate/Vitamin D3 2 tab PO HS@2100 01/25/23 03/18/23 History [Calcium 600-Vit D3 10 mcg (400 Iu)] Vit C/E/Zn/Coppr/Lutein/Zeaxan 1 tab PO BID@0500,2100 01/25/23 03/18/23 History [Preservision Areds 2 Chew Tab] Spironolactone [Aldactone] 25 mg PO DAILY #30 tab 01/30/23 03/18/23 Rx amLODIPine [Norvasc] 10 mg PO DAILY #30 tab 01/30/23 03/18/23 Rx Lacosamide [Vimpat] 200 mg PO BID 02/03/23 03/18/23 History Aspirin EC [Ecotrin Low Dose] 81 mg PO DAILY #30 tab 02/08/23 03/18/23 Rx Omeprazole 40 mg PO DAILY #30 cap 02/08/23 03/18/23 Rx Ascorbic Acid [Vitamin C] 500 mg PO DAILY 03/18/23 03/18/23 History Cholecalciferol [Vitamin D3 (25 50 mcg PO DAILY 03/18/23 03/18/23 History Mcg = 1000 Iu)] Cyanocobalamin (Vitamin B-12) 1,000 mcg PO DAILY 03/18/23 03/18/23 History [Vitamin B-12] Furosemide [Lasix] 40 mg PO DAILY@0600 03/18/23 03/18/23 History Ipratropium-Albuterol Nebulize 3 ml INHALATION RT-QID 03/18/23 03/18/23 History [Duoneb 0.5 mg-3 mg/3 ml Soln] Lactose-Reduced Food [Ensure Plus] 1 can PO DAILY 03/18/23 03/18/23 History Losartan Potassium 100 mg PO DAILY 03/18/23 03/18/23 History Potassium Chloride ER [K-Dur 20] 40 meq PO DAILY 03/18/23 03/18/23 History Zinc Gluconate [Zinc] 50 mg PO DAILY 03/18/23 03/18/23 History hydrALAZINE HCL [Apresoline] 50 mg PO TID@0600,1400,2200 03/18/23 03/18/23 History Allergies Allergy/AdvReac Type Severity Reaction Status Date / Time No Known Allergies Allergy Verified 03/18/23 17:22 Physical Exam Vitals: Vital Signs Temp Pulse Resp BP Pulse Ox 03/18/23 19:00 88 18 127/69 94 L 03/18/23 18:22 85 18 131/69 93 L 03/18/23 17:16 98.6 F 83 20 117/67 94 L Intake and Output 03/18/23 03/18/23 03/18/23 06:59 14:59 22:59 Output Total 400 Balance -400 Output: Urine 400 Uretheral (Delcid) 400 Other: Weight 95.708 kg General appearance: alert, in no apparent distress Head exam: Present: atraumatic Eye exam: Present: normal appearance Neck exam: Present: normal inspection Respiratory exam: Present: normal lung sounds bilaterally Cardiovascular Exam: Present: regular rate, normal rhythm GI/Abdominal exam: Present: distended. Absent: tenderness, guarding, rebound, rigid Extremities exam: Present: pedal edema. Absent: calf tenderness Neurological exam: Present: alert Psychiatric exam: Present: normal affect, normal mood Skin exam: Present: normal color Results CBC & Chem 7: 03/19/23 12:05 03/19/23 12:05 Labs: Abnormal Lab Results - Last 24 Hours (Table) 03/18/23 03/18/23 Range/Units 17:15 17:15 WBC 21.9 H (3.8-10.6) k/uL RBC 3.68 L (4.30-5.90) m/uL Hgb 11.5 L (13.0-17.5) gm/dL Hct 34.7 L (39.0-53.0) % Plt Count 461 H (150-450) k/uL Neutrophils # 18.9 H (1.3-7.7) k/uL Monocytes # 1.2 H (0-1.0) k/uL BUN 26 H (9-20) mg/dL Lipase 15 L (23-300) U/L Assessment and Plan Assessment: 1. Multifocal pneumonia - Patient has been placed on IV Rocephin and azithromycin; bronchodilator nebulizer treatments as needed; supportive treatment; but cultures and sputum culture - Consult pulmonary for further recommendations; appreciate input 2. Mild acute renal injury; BUN/creatinine elevated at 26/1.18 on admission -- continue with slow IV fluid hydration with normal saline at a rate of 75 mL an hour; we will monitor strict JOCELYN's, daily weights, renal function and electrolytes; avoid nephrotoxins and hypotension 3. Abnormal CT of the abdomen; showing colonic distention A computed tomography scan of the abdomen and pelvis was obtained, images and official report were reviewed. There is evidence of 5 basal or pulmonary consolidation consistent with pneumonia. Colon looks redundant in the sigmoid markedly distended up to around 10 cm or so. There is no free air or free fluid. There is an area of relative narrowing towards the rectosigmoid that may represent peristalsis or stricture. -- Patient has been evaluated by surgery-- imaging findings most consistent with a colonic ileus in the setting of pneumonia. No evidence of pneumoperitoneum on CT, abdominal exam is benign, no evidence of peritonitis. Question of rectosigmoid stricture versus artifact of peristalsis. Admits to bowel function today. Maintained on oral medications for seizure and depression which could also be contributing to impaired colonic motility with respect to Keppra, lacosamide, and Lexapro. --if the patient has interval worsening with respect to abdominal findings we may need to entertain decompressive colonoscopy 4. Hypertension; losartan 100 mg daily, amlodipine 10 mg daily 5. Hyperlipidemia; Lipitor 20 mg by mouth daily at bedtime 6. Seizure disorder; Keppra 1500 mg twice a day; Vimpat 200 mg twice a day 7. Depression/anxiety; Lexapro 10 mg by mouth daily at bedtime
[2023-03-19] MEDS: ATORVASTATIN 20 MG TAB PO SCH (22:06)
[2023-03-19] MEDS: CALCIUM CARB-VIT D 500 MG-5 MCG TAB PO SCH (22:07)
--- NOTE | 2023-03-20 00:48 | P.CNPUL ---
History of Present Illness Consult date: 03/20/23 Requesting physician: Marissa Newberry Reason for consult: pneumonia Chief complaint: Abnormal x-ray findings History of present illness: I am seeing this patient in new consultation today 03/20/2023 after he presented 2 days ago with apparently abnormal x-ray findings. 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 Patient presented March 18 for concerning findings on outpatient chest x-ray. Patient is a poor historian, and I'm unable to obtain events leading up to this. I believe he sees Dr. Barry in the outpatient setting. Apparently, the patient currently resides at an [facility]. Patient is resting in bed, on 3 L nasal cannula, in no acute distress. A follow-up CT of the abdomen and pelvis with contrast on arrival showed gaseous dilation of the descending and sigmoid colon with focal narrowing of the distal sigmoid colon. This was concerning for chronic stricture, colonic pseudoobstruction, versus colonic ileus. No evidence of perforation or pneumoperitoneum. There was also bibasilar patchy airspace opacities concerning for multifocal pneumonia versus atelectasis. Incidental findings included a non-obstructing right renal calculi and cholelithiasis without cholecystitis. Patient does have a persistent nonproductive cough. He denies any shortness of breath, chest pain, fevers, chills, hemoptysis. He also denies any GI complaints such as abdominal pain, nausea or vomiting, diarrhea, constipation. He states that he had a formed bowel movement this morning. His abdomen is quite distended. No plans for surgery at this time per surgical services. CBC on arrival did show some leuk ocytosis which is down to 15 today, hemoglobin 11.6, hematocrit 36.2, platelets 462. BMP shows a sodium 144, potassium 3.4, chloride 111, serum CO2 23, BUN 18, creatinine 0.9, glucose 94. Normal saline is infusing at 100 mL per hour. Patient nt proBNP was mildly elevated at 1770. No evidence of overt heart failure on chest x-ray. Patient's home dose of Lasix was restarted, and patient has urinary catheter with adequate urine output. No evidence of UTI on UA. Patient is currently covered on a course of Rocephin and Zithromax. He remains afebrile. Procalcitonin levels pending. Vital signs are stable. Review of Systems REVIEW OF SYSTEMS: CONSTITUTIONAL: Denies any recent significant weight loss or weight gain. EYES: Denies change in vision. EARS, NOSE, MOUTH, THROAT: Denies headaches, denies sore throat. CARDIOVASCULAR: Denies chest pain, palpitations or syncopal episodes. RESPIRATORY: See HPI GASTROINTESTINAL: Denies change in appetite, abdominal pain, nausea and vomiting, or diarrhea GENITOURINARY: Denies hematuria, denies infections. MUSKULOSKELETAL: Denies pain, denies swelling. INTEGUMENTARY: Denies rash, denies eczema. NEUROLOGICAL: Denies recent seizure activity. PSYCHIATRIC: Denies anxiety, denies depression. HEMATOLOGIC/LYMPHATIC: Denies anemia, denies enlarged lymph node Past Medical History Past Medical History: Seizure Disorder Additional Past Medical History / Comment(s): head injury as a child History of Any Multi-Drug Resistant Organisms: None Reported Additional Past Surgical History / Comment(s): lip cancer removed Past Anesthesia/Blood Transfusion Reactions: No Reported Reaction Additional Past Anesthesia/Blood Transfusion Reaction / Comment(s): never had blood transfusion Past Psychological History: Anxiety Additional Psychological History / Comment(s): On Lexapro Smoking Status: Never smoker Past Alcohol Use History: None Reported Past Drug Use History: None Reported - Past Family History Father Additional Family Medical History / Comment(s): alzheimers Mother Family Medical History: Myocardial Infarction ([place]) Additional Family Medical History / Comment(s): macular degeneration Medications and Allergies Home Medications Medication Instructions Recorded Confirmed Type Escitalopram [Lexapro] 10 mg PO HS 04/03/15 03/18/23 History levETIRAcetam [Levetiracetam] 1,500 mg PO BID 04/03/15 03/18/23 History Atorvastatin [Lipitor] 20 mg PO HS 01/25/23 03/18/23 History Calcium Carbonate/Vitamin D3 2 tab PO HS@209901/25/23 03/18/23 History [Calcium 600-Vit D3 10 mcg (400 Iu)] Vit C/E/Zn/Coppr/Lutein/Zeaxan 1 tab PO BID@0500,2100 01/25/23 03/18/23 History [Preservision Areds 2 Chew Tab] Spironolactone [Aldactone] 25 mg PO DAILY #30 tab 01/30/23 03/18/23 Rx amLODIPine [Norvasc] 10 mg PO DAILY #30 tab 01/30/23 03/18/23 Rx Lacosamide [Vimpat] 200 mg PO BID 02/03/23 03/18/23 History Aspirin EC [Ecotrin Low Dose] 81 mg PO DAILY #30 tab 02/08/23 03/18/23 Rx Omeprazole 40 mg PO DAILY #30 cap 02/08/23 03/18/23 Rx Ascorbic Acid [Vitamin C] 500 mg PO DAILY 03/18/23 03/18/23 History Cholecalciferol [Vitamin D3 (25 50 mcg PO DAILY 03/18/23 03/18/23 History Mcg = 1000 Iu)] Cyanocobalamin (Vitamin B-12) 1,000 mcg PO DAILY 03/18/23 03/18/23 History [Vitamin B-12] Furosemide [Lasix] 40 mg PO DAILY@0600 03/18/23 03/18/23 History Ipratropium-Albuterol Nebulize 3 ml INHALATION RT-QID 03/18/23 03/18/23 History [Duoneb 0.5 mg-3 mg/3 ml Soln] Lactose-Reduced Food [Ensure Plus] 1 can PO DAILY 03/18/23 03/18/23 History Losartan Potassium 100 mg PO DAILY 03/18/23 03/18/23 History Potassium Chloride ER [K-Dur 20] 40 meq PO DAILY 03/18/23 03/18/23 History Zinc Gluconate [Zinc] 50 mg PO DAILY 03/18/23 03/18/23 History hydrALAZINE HCL [Apresoline] 50 mg PO TID@0600,1400,2200 03/18/23 03/18/23 History Allergies Allergy/AdvReac Type Severity Reaction Status Date / Time No Known Allergies Allergy Verified 03/18/23 17:22 Physical Exam Vitals: Vital Signs Temp Pulse Pulse Resp BP Pulse Ox 03/19/23 20:25 104 H 03/19/23 20:17 100 03/19/23 20:00 98.1 F 81 19 141/74 97 03/19/23 16:00 100 03/19/23 15:50 108 H 03/19/23 13:15 97.5 F L 91 21 180/84 96 03/19/23 08:10 95 03/19/23 07:27 97.6 F 98 23 188/75 95 03/19/23 02:00 98.6 F 77 163/78 93 L Intake and Output 03/19/23 03/19/23 03/20/23 14:59 22:59 06:59 Output Total 1800 Balance -1800 Output: Urine 1800 Other: Voiding Method Indwelling Catheter # Bowel Movements 1 GENERAL EXAM: Alert, only oriented to self and time, appears comfortable in no apparent distress. HEAD: Normocephalic and atraumatic EYES: Normal reaction of pupils, equal size. NOSE: Clear with pink turbinates. THROAT: No erythema or exudates. NECK: No masses, no JVD. CHEST: No chest wall deformity. LUNGS: Equal air entry with bibasilar crackles. no wheeze, rhonchi or focal dullness. On 3 L nasal cannula. No conversational dyspnea or accessory muscle use.. CVS: S1 and S2 normal with no audible murmur, regular rhythm. No extra heart sounds ABDOMEN: Abdomen is distended. No hepatosplenomegaly, active bowel sounds, no guarding or rigidity. SPINE: No scoliosis or deformity SKIN: No rashes CENTRAL NERVOUS SYSTEM: No focal deficits, tone is normal in all 4 extremities. EXTREMITIES: There is bilateral lower extremity 2+ peripheral edema. no clubbing, or cyanosis. Peripheral pulses are intact. Results - Laboratory Findings CBC and BMP: 03/19/23 12:05 03/19/23 12:05 PT/INR, D-dimer PT 10.5 sec (9.0-12.0) 03/18/23 17:15 INR 1.0 (<1.2) 03/18/23 17:15 Abnormal lab findings: Abnormal Labs 03/18/23 03/18/23 03/19/23 17:15 17:15 12:05 WBC 21.9 H 14.7 H RBC 3.68 L 3.78 L Hgb 11.5 L 11.6 L Hct 34.7 L 36.2 L Plt Count 461 H 462 H Neutrophils # 18.9 H 12.2 H Monocytes # 1.2 H Potassium Chloride BUN 26 H Lipase 15 L 03/19/23 12:05 WBC RBC Hgb Hct Plt Count Neutrophils # Monocytes # Potassium 3.4 L Chloride 111 H BUN Lipase - Diagnostic Findings Chest x-ray: image reviewed Assessment and Plan Assessment: Suspected community-acquired pneumonia versus atelectasis. Chest x-ray shows persistent bilateral lower lobe patchy infiltrates. Leukocytosis Acute hypoxic respiratory failure secondary to above, currently on 3 L nasal cannula Abnormal findings on CT of the abdomen and pelvis with contrast, indicating colonic distention and focal narrowing of the distal sigmoid colon. Abdomen does not appear acute, and there are no plans for surgery at this time. Hypertension Hyperlipidemia Seizure disorder Plan: Patient's medications, labs, chest x-ray, CT of abdomen and pelvis reviewed Continue antibiotics for suspected community acquired pneumonia Check procalcitonin level Urine Legionella antigen negative Blood cultures are pending Continue supplemental oxygen to maintain oxygen saturation 92% or greater Continue bronchodilators Check COVID-19 Home dose of Lasix was restarted Recommendations per surgery We will continue to follow I have personally seen and examined the patient, performed the documentation and the assessment and plan as written. Number of minutes spent on the visit:20 Time with Patient: Greater than 30
[2023-03-20] MEDS: LACOSAMIDE 50 MG TABLET PO SCH ×3 (00:51→20:18)
[2023-03-20] MEDS: SODIUM CHLORIDE 0.9% 1,000 ML IV SCH ×3 (03:40→21:33)
[2023-03-20] MEDS: FUROSEMIDE 40 MG TAB PO SCH (05:39)
[2023-03-20] MEDS: hydrALAZINE HCL 25 MG TAB PO SCH ×3 (05:39→20:18)
[2023-03-20] MEDS: IPRATROPIUM-ALBUTEROL 3 ML NEB INHALATION SCH (07:55)
[2023-03-20] MEDS: LOSARTAN 50 MG TAB PO SCH (08:08)
[2023-03-20] MEDS: CYANOCOBALAMIN 500 MCG TAB PO SCH (08:08)
[2023-03-20] MEDS: CHOLECALCIFEROL 25 MCG (1000 IU) TABLET PO SCH (08:08)
[2023-03-20] MEDS: ASPIRIN 81 MG PO SCH (08:08)
[2023-03-20] MEDS: ASCORBIC ACID 500 MG TAB PO SCH (08:08)
[2023-03-20] MEDS: amLODIPine 10 MG TAB PO SCH (08:08)
[2023-03-20] MEDS: DEXAMETHASONE SOD PHOSPHATE 10 MG/ML 1 ML VIAL IVP SCH (08:09)
[2023-03-20] MEDS: ALBUTEROL HFA INHALER INHALATION SCH ×4 (08:12→21:12)
[2023-03-20] MEDS: AZITHROMYCIN 500 MG TAB PO SCH (08:18)
--- NOTE | 2023-03-20 10:03 | P.PN ---
Subjective Progress Note Date: 03/20/23 Principal diagnosis: Distended sigmoid colon, suspected colonic ileus in the setting of pneumonia and Covid infection. Patient seen and examined at bedside. He's had a hemodynamically stable and afebrile appearance overnight. His PCR came back positive for Covid. He is comfortable at rest. Denies any abdominal pain. He is tolerated clear liquids, had a good bowel movement overnight. No reports of nausea or emesis. Objective - Vital Signs Vital signs: Vital Signs Temp 98.6 F 03/20/23 08:00 Pulse 71 03/20/23 08:00 Resp 18 03/20/23 08:00 BP 132/73 03/20/23 08:00 Pulse Ox 95 03/20/23 08:00 FiO2 Intake & Output 03/19/23 03/20/23 03/20/23 18:59 06:59 18:59 Intake Total 600 Output Total 1800 1000 Balance -1800 -400 Intake: Oral 600 Output: Urine 1800 1000 Other: Voiding Method Indwelling Catheter Indwelling Catheter Indwelling Catheter # Bowel Movements 1 1 - Constitutional General appearance: Present: cooperative, no acute distress - EENT Eyes: Present: PERRLA ENT: Present: hearing grossly normal, NA/AT - Respiratory Details: Lung sounds slightly coarse bilaterally. - Cardiovascular Rhythm: regular - Gastrointestinal Gastrointestinal Comment(s): Abdomen remains moderately distended with tympany, no tenderness to palpation. No guarding or rebound. No evidence of peritonitis. - Neurologic Neurologic: Present: CNII-XII intact - Psychiatric Psychiatric Comment(s): Flat affect, somnolent Psychiatric: Present: A&O x's 3 - Labs CBC & Chem 7: 03/19/23 12:05 03/19/23 12:05 Labs: Abnormal Lab Results - Last 24 Hours (Table) 03/19/23 03/19/23 03/19/23 Range/Units 12:05 12:05 21:01 WBC 14.7 H (3.8-10.6) k/uL RBC 3.78 L (4.30-5.90) m/uL Hgb 11.6 L (13.0-17.5) gm/dL Hct 36.2 L (39.0-53.0) % Plt Count 462 H (150-450) k/uL Neutrophils # 12.2 H (1.3-7.7) k/uL Potassium 3.4 L (3.5-5.1) mmol/L Chloride 111 H (98-107) mmol/L Procalcitonin 0.15 H (0.02-0.09) ng/mL Coronavirus (PCR) (Not Detectd) 03/20/23 Range/Units 01:55 WBC (3.8-10.6) k/uL RBC (4.30-5.90) m/uL Hgb (13.0-17.5) gm/dL Hct (39.0-53.0) % Plt Count (150-450) k/uL Neutrophils # (1.3-7.7) k/uL Potassium (3.5-5.1) mmol/L Chloride (98-107) mmol/L Procalcitonin (0.02-0.09) ng/mL Coronavirus (PCR) Detected A (Not Detectd) Assessment and Plan Assessment: 72-year-old gentleman with clinical history, physical exam and imaging findings most consistent with a colonic ileus in the setting of pneumonia. No evidence of pneumoperitoneum on CT, abdominal exam is benign, no evidence of peritonitis. Question of rectosigmoid stricture versus artifact of peristalsis. Positive bowel function overnight. Maintained on oral medications for seizure and depression which could also be contributing to impaired colonic motility with respect to Keppra, lacosamide, and Lexapro. COVID-19 infection. Plan: May advance diet as tolerated. Continue with antibiotics for pneumonia, isolation precautions for COVID-19. No indication for surgery seen at present. I suspect that the has a colonic ileus that is multifactorial and likely has an element of chronic dilation of the sigmoid seems to be improving. Positive bowel function, doubt obstruction. No indication for surgery at present. We'll reassess at your request. Time with Patient: Greater than 30
[2023-03-20 11:42] LABS: Basophils # (A) 0.08 X 10*3/uL (0.00-0.10); Basophils % (A) 0.8 %; Eosinophils # (A) 0.35 X 10*3/uL (0.04-0.35); Eosinophils % (A) 3.3 %; HCT 30.8 % (39.6-50.0); HGB 9.8 g/dL (13.0-17.0); Immature Grans, Automated 1.8 %; Lymphocytes # (A) 1.61 X 10*3/uL (0.90-5.00); Lymphocytes % (A) 15.4 %; MCH 30.8 pg (27.0-32.0); MCHC 31.8 g/dL (32.0-37.0); MCV 96.9 fL (80.0-97.0); Mean Platelet Volume 10.7 fL (9.5-12.2); Monocytes # (A) 1.05 X 10*3/uL (0.20-1.00); NRBC Per 100 WBC 0 /100 WBCS (0.0-0.0); Neutrophils # (A) 7.17 X 10*3/uL (1.80-7.70); Neutrophils % (A) 68.7 %; Platelet Count 417 X 10*3/uL (140-440); RBC 3.18 X 10*6/uL (4.40-5.60); RDW 14.6 % (11.5-14.5); WBC 10.45 X 10*3/uL (4.50-10.00)
[2023-03-20 11:47] LABS: Anion Gap 11.6 mmol/L (10.00-18.00); BUN/Creat Ratio 16.5 Ratio (12.00-20.00); Blood Urea Nitrogen 13.2 mg/dL (9.0-27.0); Calcium 8.6 mg/dL (8.7-10.3); Carbon Dioxide 21.4 mmol/L (20.0-27.5); Potassium 3.1 mmol/L (3.5-5.5)
--- NOTE | 2023-03-20 16:09 | P.PN ---
Subjective Progress Note Date: 03/20/23 Principal diagnosis: Multifocal pneumonia Acute renal injury Distended sigmoid colon; suspected ileus COVID-19 infection 72-year-old male presenting to the emergency department with concern for abnormal chest x-ray. Patient states he feels fine and has no complaints. He should denies any cough or shortness of breath. Patient denies any abdominal discomfort. No vomiting. Patient does come with chest x-ray report considering possible pneumoperitoneum and possible atelectasis versus pneumonia. Blood work completed in ED revealed a WBC of 21.9, hemoglobin of 11.5 and platelet count of 461, sodium 140 ongoing transported 4, BUN/creatinine of 26/1 .18 UA is unremarkable Patient seen and evaluated in room at bedside. He's had a hemodynamically s table and afebrile appearance overnight. His PCR came back positive for Covid. He is comfortable at rest. Denies any abdominal pain. He is tolerated clear liquids, had a good bowel movement overnight. No reports of nausea or emesis. Vital signs are stable with temperature of 98.6 pulse 71, respiration 18 and blood pressure 132/73 with O2 saturation of 95% Lab work reveals WBC improved at 10.5 from 21.9 upon admission, hemoglobin of 9.8 with platelet count of 417, sodium 145, potassium 3.1, BUN/creatinine improved at 13.2/0.8 - Patient has been evaluated by pulmonary and recommended to continue with current antibiotic therapy - We will supplement with KCl 40 mg IV 1; monitor electrolytes and continue to supplement as needed Objective - Vital Signs Vital signs: Vital Signs Temp 98.6 F 03/20/23 08:00 Pulse 71 03/20/23 08:00 Resp 18 03/20/23 08:00 BP 132/73 03/20/23 08:00 Pulse Ox 95 03/20/23 08:00 FiO2 Intake & Output 03/19/23 03/20/23 03/20/23 18:59 06:59 18:59 Intake Total 600 Output Total 1800 1000 Balance -1800 -400 Intake: Oral 600 Output: Urine 1800 1000 Other: Voiding Method Indwelling Catheter Indwelling Catheter Indwelling Catheter # Bowel Movements 1 1 - Exam General appearance: alert, in no apparent distress Head exam: Present: atraumatic Eye exam: Present: normal appearance Neck exam: Present: normal inspection Respiratory exam: Present: normal lung sounds bilaterally Cardiovascular Exam: Present: regular rate, normal rhythm GI/Abdominal exam: Present: distended. Absent: tenderness, guarding, rebound, rigid Extremities exam: Present: pedal edema. Absent: calf tenderness Neurological exam: Present: alert Psychiatric exam: Present: normal affect, normal mood Skin exam: Present: normal color - Labs CBC & Chem 7: 03/20/23 07:13 03/20/23 07:13 Labs: Abnormal Lab Results - Last 24 Hours (Table) 03/19/23 03/19/23 03/19/23 Range/Units 12:05 12:05 21:01 WBC 14.7 H (3.8-10.6) k/uL RBC 3.78 L (4.30-5.90) m/uL Hgb 11.6 L (13.0-17.5) gm/dL Hct 36.2 L (39.0-53.0) % Plt Count 462 H (150-450) k/uL Neutrophils # 12.2 H (1.3-7.7) k/uL Potassium 3.4 L (3.5-5.1) mmol/L Chloride 111 H (98-107) mmol/L Procalcitonin 0.15 H (0.02-0.09) ng/mL Coronavirus (PCR) (Not Detectd) 03/20/23 Range/Units 01:55 WBC (3.8-10.6) k/uL RBC (4.30-5.90) m/uL Hgb (13.0-17.5) gm/dL Hct (39.0-53.0) % Plt Count (150-450) k/uL Neutrophils # (1.3-7.7) k/uL Potassium (3.5-5.1) mmol/L Chloride (98-107) mmol/L Procalcitonin (0.02-0.09) ng/mL Coronavirus (PCR) Detected A (Not Detectd) Microbiology - Last 24 Hours (Table) 03/18/23 18:30 Blood Culture - Preliminary Blood 03/18/23 17:15 Blood Culture - Preliminary Blood Assessment and Plan Assessment: 1. Multifocal pneumonia - Patient has been placed on IV Rocephin and azithromycin; bronchodilator nebulizer treatments as needed; supportive treatment; but cultures and sputum culture - Consult pulmonary for further recommendations; appreciate input 2. Mild acute renal injury; BUN/creatinine elevated at 26/1.18 on admission -- continue with slow IV fluid hydration with normal saline at a rate of 75 mL an hour; we will monitor strict JOCELYN's, daily weights, renal function and electrolytes; avoid nephrotoxins and hypotension 3. Abnormal CT of the abdomen; showing colonic distention A computed tomography scan of the abdomen and pelvis was obtained, images and official report were reviewed. There is evidence of 5 basal or pulmonary consolidation consistent with pneumonia. Colon looks redundant in the sigmoid markedly distended up to around 10 cm or so. There is no free air or free fluid. There is an area of relative narrowing towards the rectosigmoid that may represent peristalsis or stricture. -- Patient has been evaluated by surgery-- imaging findings most consistent with a colonic ileus in the setting of pneumonia. No evidence of pneumoperitoneum on CT, abdominal exam is benign, no evidence of peritonitis. Question of rectosi gmoid stricture versus artifact of peristalsis. Admits to bowel function today. Maintained on oral medications for seizure and depression which could also be contributing to impaired colonic motility with respect to Keppra, lacosamide, and Lexapro. --if the patient has interval worsening with respect to abdominal findings we may need to entertain decompressive colonoscopy 4. Hypertension; losartan 100 mg daily, amlodipine 10 mg daily 5. Hyperlipidemia; Lipitor 20 mg by mouth daily at bedtime 6. Seizure disorder; Keppra 1500 mg twice a day; Vimpat 200 mg twice a day 7. Depression/anxiety; Lexapro 10 mg by mouth daily at bedtime
[2023-03-20] MEDS: POTASSIUM CHLORIDE 10 MEQ in WATER FOR INJECTION 1 100ML.BAG IVPB SCH ×4 (16:55→21:32)
[2023-03-20] MEDS: CALCIUM CARB-VIT D 500 MG-5 MCG TAB PO SCH (20:18)
[2023-03-20] MEDS: ATORVASTATIN 20 MG TAB PO SCH (20:18)
[2023-03-21] MEDS: hydrALAZINE HCL 25 MG TAB PO SCH ×3 (06:07→20:15)
[2023-03-21] MEDS: FUROSEMIDE 40 MG TAB PO SCH (06:07)
[2023-03-21] MEDS: ALBUTEROL HFA INHALER INHALATION SCH ×4 (08:16→19:44)
[2023-03-21] MEDS: CYANOCOBALAMIN 500 MCG TAB PO SCH (09:14)
[2023-03-21] MEDS: ASPIRIN 81 MG PO SCH (09:14)
[2023-03-21] MEDS: LOSARTAN 50 MG TAB PO SCH (09:15)
[2023-03-21] MEDS: amLODIPine 10 MG TAB PO SCH (09:15)
[2023-03-21] MEDS: ASCORBIC ACID 500 MG TAB PO SCH (09:15)
[2023-03-21] MEDS: CHOLECALCIFEROL 25 MCG (1000 IU) TABLET PO SCH (09:15)
[2023-03-21] MEDS: DEXAMETHASONE SOD PHOSPHATE 10 MG/ML 1 ML VIAL IVP SCH (09:16)
[2023-03-21] MEDS: LACOSAMIDE 50 MG TABLET PO SCH ×2 (09:16→20:15)
[2023-03-21] MEDS: SODIUM CHLORIDE 0.9% 1,000 ML IV SCH ×2 (09:20→17:29)
[2023-03-21 10:57] LABS: Basophils # (A) 0.03 X 10*3/uL (0.00-0.10); Basophils % (A) 0.3 %; Eosinophils # (A) 0.07 X 10*3/uL (0.04-0.35); Eosinophils % (A) 0.6 %; HGB 10.8 g/dL (13.0-17.0); Immature Grans, Automated 1.8 %; Lymphocytes # (A) 1.78 X 10*3/uL (0.90-5.00); Lymphocytes % (A) 15.6 %; MCHC 32.7 g/dL (32.0-37.0); MCV 94.8 fL (80.0-97.0); Mean Platelet Volume 10.6 fL (9.5-12.2); Monocytes # (A) 0.75 X 10*3/uL (0.20-1.00); Monocytes % (A) 6.6 %; NRBC Per 100 WBC 0 /100 WBCS (0.0-0.0); Neutrophils # (A) 8.56 X 10*3/uL (1.80-7.70); Neutrophils % (A) 75.1 %; Platelet Count 434 X 10*3/uL (140-440); RBC 3.48 X 10*6/uL (4.40-5.60); RDW 14.2 % (11.5-14.5); WBC 11.39 X 10*3/uL (4.50-10.00)
[2023-03-21 11:08] LABS: Anion Gap 12.3 mmol/L (10.00-18.00); BUN/Creat Ratio 15.13 Ratio (12.00-20.00); Blood Urea Nitrogen 12.1 mg/dL (9.0-27.0); Calcium 9.3 mg/dL (8.7-10.3); Carbon Dioxide 24.7 mmol/L (20.0-27.5); Potassium 3.3 mmol/L (3.5-5.5)
--- NOTE | 2023-03-21 12:46 | P.PN ---
Subjective Progress Note Date: 03/21/23 I am seeing this patient in new consultation today 03/20/2023 after he presented 2 days ago with apparently abnormal x-ray findings. 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 Patient presented March 18 for concerning findings on outpatient chest x-ray. Patient is a poor historian, and I'm unable to obtain events leading up to this. I believe he sees Dr. Barry in the outpatient setting. Apparently, the patient currently resides at an [facility]. Patient is resting in bed, on 3 L nasal cannula, in no acute distress. A follow-up CT of the abdomen and pelvis with contrast on arrival showed gaseous dilation of the descending and sigmoid colon with focal narrowing of the distal sigmoid colon. This was concerning for chronic stricture, colonic pseudoobstruction, versus colonic ileus. No evidence of perforation or pneumoperitoneum. There was also bibasilar patchy airspace opacities concerning for multifocal pneumonia versus atelectasis. Incidental findings included a non-obstructing right renal calculi and cholelithiasis without cholecystitis. Patient does have a persistent nonproductive cough. He denies any shortness of breath, chest pain, fevers, chills, hemoptysis. He also denies any GI complaints such as abdominal pain, nausea or vomiting, diarrhea, constipation. He states that he had a formed bowel movement this morning. His abdomen is quite distended. No plans for surgery at this time per surgical services. CBC on arrival did show some leukocytosis which is down to 15 today, hemoglobin 11.6, hematocrit 36.2, platelets 462. BMP shows a sodium 144, potassium 3.4, chloride 111, serum CO2 23, BUN 18, creatinine 0.9, glucose 94. Normal saline is infusing at 100 mL per hour. Patient nt proBNP was mildly elevated at 1770. No evidence of overt heart failure on chest x-ray. Patient's home dose of Lasix was restarted, and patient has urinary catheter with adequate urine output. No evidence of UTI on UA. Patient is currently covered on a course of Rocephin and Zithromax. He remains afebrile. Procalcitonin levels pending. Vital signs are stable. On today's evaluation of 03/21/2023, the patient is being seen for a follow-up. The patient is a poor historian. The patient resides in an ECF facility and the patient is currently on 2 L of oxygen by nasal cannula. He was having some diarrhea. Covid 19 testing came back positive. CAT scan of the abdomen was done that showed no evidence of pneumoperitoneum. Some limited patchy infiltrates in lung bases bilaterally and the patient had some colonic pseudoobstruction versus ileus and possibility of a focal narrowing of the distal sigmoid wall was also considered. Not having any major respiratory distress. Afebrile. Pulse ox is 96% liters of oxygen by nasal cannula. WBC count is 11.3 with a hemoglobin 10.8 and a platelet count of 434. The sodium level is at 142, BUN is at 4 with a creatinine of 0.8 and a potassium level of 3.3. Noted the patient has already been vaccinated for Covid 19. He is currently on IV Rocephin. Is also on Decadron 6 mg IV every 24 hours. Objective - Vital Signs Vital signs: Vital Signs Temp 97.4 F L 03/21/23 07:50 Pulse 57 L 03/21/23 07:50 Resp 16 03/21/23 08:00 BP 149/74 03/21/23 07:50 Pulse Ox 96 03/21/23 08:17 FiO2 Intake & Output 03/20/23 03/21/23 03/21/23 18:59 06:59 18:59 Output Total 1250 900 Balance -1250 -900 Output: Urine 1250 900 Other: Voiding Method Indwelling Catheter Indwelling Catheter Indwelling Catheter # Bowel Movements 1 - Exam GENERAL EXAM: Alert, only oriented to self and time, appears comfortable in no apparent distress. The patient is currently on 2 L O2 nasal cannula with a pulse ox of 96% HEAD: Normocephalic and atraumatic EYES: Normal reaction of pupils, equal size. NOSE: Clear with pink turbinates. THROAT: No erythema or exudates. NECK: No masses, no JVD. CHEST: No chest wall deformity. LUNGS: Equal air entry with bibasilar crackles. no wheeze, rhonchi or focal du llness. On 3 L nasal cannula. No conversational dyspnea or accessory muscle use.. CVS: S1 and S2 normal with no audible murmur, regular rhythm. No extra heart sounds ABDOMEN: Abdomen is distended. No hepatosplenomegaly, active bowel sounds, no guarding or rigidity. SPINE: No scoliosis or deformity SKIN: No rashes CENTRAL NERVOUS SYSTEM: No focal deficits, tone is normal in all 4 extremities. EXTREMITIES: There is bilateral lower extremity 2+ peripheral edema. no clubbing, or cyanosis. Peripheral pulses are intact. - Labs CBC & Chem 7: 03/21/23 07:36 03/21/23 07:36 Labs: Abnormal Lab Results - Last 24 Hours (Table) 03/20/23 03/20/23 Range/Units 07:13 07:13 WBC 10.45 H (4.50-10.00) X 10*3/uL RBC 3.18 L (4.40-5.60) X 10*6/uL Hgb 9.8 L (13.0-17.0) g/dL Hct 30.8 L (39.6-50.0) % MCHC 31.8 L (32.0-37.0) g/dL RDW 14.6 H (11.5-14.5) % Immature Gran # 0.19 H (0.00-0.04) X 10*3/uL Monocytes # 1.05 H (0.20-1.00) X 10*3/uL Potassium 3.1 L (3.5-5.5) mmol/L Chloride 112 H (96-109) mmol/L Calcium 8.6 L (8.7-10.3) mg/dL Microbiology - Last 24 Hours (Table) 03/18/23 18:30 Blood Culture - Preliminary Blood 03/18/23 17:15 Blood Culture - Preliminary Blood Assessment and Plan Plan: Acute Covid 19 infection Acute hypoxic respiratory failure, currently on 2 L of O2 by nasal cannula, consider pneumonia could be related to virus/Covid 19 Diarrhea, likely secondary to above Leukocytosis, white cell count has dropped down to 10.4 from being as high as 21. Abnormal findings on CT of the abdomen and pelvis with contrast, indicating colonic distention and focal narrowing of the distal sigmoid colon. Abdomen does not appear acute, and there are no plans for surgery at this time. Hypertension Hyperlipidemia Seizure disorder Plan: Continue Decadron 6 mg IV every 24 hours Pro calcitonin level is at 0.15 Infiltrates are minimal in the lung bases bilaterally Patient's oxygen is stable currently on 97% pulse ox at 2 L nasal cannula Urine Legionella antigen negative Blood cultures are pending Continue supplemental oxygen to maintain oxygen saturation 92% or greater Continue bronchodilators
[2023-03-21] MEDS: ATORVASTATIN 20 MG TAB PO SCH (20:15)
[2023-03-21] MEDS: CALCIUM CARB-VIT D 500 MG-5 MCG TAB PO SCH (20:15)
--- NOTE | 2023-03-21 22:57 | P.PN ---
Subjective Progress Note Date: 03/21/23 Patient is a pleasant 72-year-old pleasantly confused patient with respiratory problems and Covid infection. Patient was recently at a rehab facility and he has since returned home with his sister she denies any complaints he denies any nausea vomiting or fever. Admits to cough patient is I'm not a good historian. Objective - Vital Signs Vital signs: Vital Signs Temp 97.9 F 03/21/23 20:00 Pulse 54 L 03/21/23 20:00 Resp 18 03/21/23 20:00 BP 110/62 03/21/23 20:00 Pulse Ox 97 03/21/23 20:00 FiO2 Intake & Output 03/21/23 03/21/23 03/22/23 06:59 18:59 06:59 Intake Total 350 Output Total 900 1100 Balance -900 -750 Intake: Oral 350 Output: Urine 900 1100 Other: Voiding Method Indwelling Catheter Indwelling Catheter Indwelling Catheter # Bowel Movements 1 1 - Exam PHYSICAL EXAMINATION: Patient is lying in the bed comfortably, no acute distress, awake alert and oriented.. HEENT: Normocephalic. Neck is supple. Pupils reactive. Nostrils clear. Oral cavity is moist. Neck reveals no JVD, carotid bruits, or thyromegaly. CHEST EXAMINATION: Trachea is central. Symmetrical expansion. Minimal left basilar crackles. No wheezing. CARDIAC: Normal S1, S2 with no gallops. No murmurs ABDOMEN: Soft. Bowel sounds normal. No organomegaly. No abdominal bruits. Extremities: reveal no edema. No clubbing or cyanosis Neurologically awake, alert, oriented 2-3 with well-coordinated movements. No focal deficits noted Skin: . Patient does have left groin rash and swelling. Scrotal swelling. No other skin lesions. Psychiatric: Coperative. Could not be sure she completely Musculoskeletal: No joint swelling or deformity. Normal range of motion. - Labs CBC & Chem 7: 03/21/23 07:36 03/21/23 07:36 Labs: Abnormal Lab Results - Last 24 Hours (Table) 03/21/23 03/21/23 Range/Units 07:36 07:36 WBC 11.39 H (4.50-10.00) X 10*3/uL RBC 3.48 L (4.40-5.60) X 10*6/uL Hgb 10.8 L (13.0-17.0) g/dL Hct 33.0 L (39.6-50.0) % Immature Gran # 0.20 H (0.00-0.04) X 10*3/uL Neutrophils # 8.56 H (1.80-7.70) X 10*3/uL Potassium 3.3 L (3.5-5.5) mmol/L Glucose 112 H (70-110) mg/dL Microbiology - Last 24 Hours (Table) 03/18/23 18:30 Blood Culture - Preliminary Blood 03/18/23 17:15 Blood Culture - Preliminary Blood Assessment and Plan (1) COVID-19 Current Visit: Yes Status: Acute Code(s): U07.1 - COVID-19 SNOMED Code(s): 279069147 (2) Multifocal pneumonia Current Visit: Yes Status: Acute Code(s): J18.9 - PNEUMONIA, UNSPECIFIED ORGANISM SNOMED Code(s): 169909922 (3) Closed head injury Current Visit: Yes Status: Chronic Code(s): S09.90XA - UNSPECIFIED INJURY OF HEAD, INITIAL ENCOUNTER SNOMED Code(s): 964724508516 (4) History of seizures Current Visit: No Status: Chronic Code(s): Z87.898 - PERSONAL HISTORY OF OTHER SPECIFIED CONDITIONS SNOMED Code(s): 684305211 Plan: Continue IV hydration and IV antibiotics pulmonary treatment continue to follow patient until improvement with hopes of discharge back to primary residence.
[2023-03-22] MEDS: SODIUM CHLORIDE 0.9% 1,000 ML IV SCH ×3 (03:36→18:15)
[2023-03-22] MEDS: hydrALAZINE HCL 25 MG TAB PO SCH ×3 (05:26→21:59)
[2023-03-22] MEDS: FUROSEMIDE 40 MG TAB PO SCH (05:26)
[2023-03-22] MEDS: ASCORBIC ACID 500 MG TAB PO SCH (08:27)
[2023-03-22] MEDS: LOSARTAN 50 MG TAB PO SCH (08:27)
[2023-03-22] MEDS: amLODIPine 10 MG TAB PO SCH (08:27)
[2023-03-22] MEDS: ASPIRIN 81 MG PO SCH (08:27)
[2023-03-22] MEDS: CHOLECALCIFEROL 25 MCG (1000 IU) TABLET PO SCH (08:28)
[2023-03-22] MEDS: CYANOCOBALAMIN 500 MCG TAB PO SCH (08:28)
[2023-03-22] MEDS: DEXAMETHASONE SOD PHOSPHATE 10 MG/ML 1 ML VIAL IVP SCH (08:28)
[2023-03-22] MEDS: LACOSAMIDE 50 MG TABLET PO SCH ×2 (08:34→21:59)
[2023-03-22] MEDS: ALBUTEROL HFA INHALER INHALATION SCH ×4 (09:06→20:56)
--- NOTE | 2023-03-22 12:29 | P.PN ---
Subjective Progress Note Date: 03/22/23 I am seeing this patient in new consultation today 03/20/2023 after he presented 2 days ago with apparently abnormal x-ray findings. 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 Patient presented March 18 for concerning findings on outpatient chest x-ray. Patient is a poor historian, and I'm unable to obtain events leading up to this. I believe he sees Dr. Barry in the outpatient setting. Apparently, the patient currently resides at an [facility]. Patient is resting in bed, on 3 L nasal cannula, in no acute distress. A follow-up CT of the abdomen and pelvis with contrast on arrival showed gaseous dilation of the descending and sigmoid colon with focal narrowing of the distal sigmoid colon. This was concerning for chronic stricture, colonic pseudoobstruction, versus colonic ileus. No evidence of perforation or pneumoperitoneum. There was also bibasilar patchy airspace opacities concerning for multifocal pneumonia versus atelectasis. Incidental findings included a non-obstructing right renal calculi and cholelithiasis without cholecystitis. Patient does have a persistent nonproductive cough. He denies any shortness of breath, chest pain, fevers, chills, hemoptysis. He also denies any GI complaints such as abdominal pain, nausea or vomiting, diarrhea, constipation. He states that he had a formed bowel movement this morning. His abdomen is quite distended. No plans for surgery at this time per surgical services. CBC on arrival did show some leukocytosis which is down to 15 today, hemoglobin 11.6, hematocrit 36.2, platelets 462. BMP shows a sodium 144, potassium 3.4, chloride 111, serum CO2 23, BUN 18, creatinine 0.9, glucose 94. Normal saline is infusing at 100 mL per hour. Patient nt proBNP was mildly elevated at 1770. No evidence of overt heart failure on chest x-ray. Patient's home dose of Lasix was restarted, and patient has urinary catheter with adequate urine output. No evidence of UTI on UA. Patient is currently covered on a course of Rocephin and Zithromax. He remains afebrile. Procalcitonin levels pending. Vital signs are stable. On today's evaluation of 03/21/2023, the patient is being seen for a follow-up. The patient is a poor historian. The patient resides in an ECF facility and the patient is currently on 2 L of oxygen by nasal cannula. He was having some diarrhea. Covid 19 testing came back positive. CAT scan of the abdomen was done that showed no evidence of pneumoperitoneum. Some limited patchy infiltrates in lung bases bilaterally and the patient had some colonic pseudoobstruction versus ileus and possibility of a focal narrowing of the distal sigmoid wall was also considered. Not having any major respiratory distress. Afebrile. Pulse ox is 96% liters of oxygen by nasal cannula. WBC count is 11.3 with a hemoglobin 10.8 and a platelet count of 434. The sodium level is at 142, BUN is at 4 with a creatinine of 0.8 and a potassium level of 3.3. Noted the patient has already been vaccinated for Covid 19. He is currently on IV Rocephin. Is also on Decadron 6 mg IV every 24 hours. On today's evaluation of 03/22/2023, the patient is on room air oxygen. No significant respiratory distress at the patient is infected with Covid 19 and the patient is not having any major hypoxemia. The patient has no significant cough or sputum production. No signs of any respiratory distress for now. The diarrhea has also subsided and the patient is not having any significant diarrhea this point in time. He is still being given IV fluid of normal saline at rate of 100 mL an hour. No other new complaints otherwise for now. The white cell count is down to 11.3 with a hemoglobin of 10.8 and the patient has a BUN of 12 and a creatinine of 0.8 and a sodium level is at 142 with a potassium level of 3.3. Potassium is being replaced. Objective - Vital Signs Vital signs: Vital Signs Temp 97.7 F 03/22/23 07:29 Pulse 63 03/22/23 07:29 Resp 17 03/22/23 07:29 BP 118/69 03/22/23 07:29 Pulse Ox 90 L 03/22/23 09:07 FiO2 Intake & Output 03/21/23 03/22/23 03/22/23 18:59 06:59 18:59 Intake Total 350 Output Total 1100 1500 Balance -750 -1500 Intake: Oral 350 Output: Urine 1100 1500 Other: Voiding Method Indwelling Catheter Indwelling Catheter Indwelling Catheter # Bowel Movements 1 1 - Exam GENERAL EXAM: Alert, only oriented to self and time, appears comfortable in no apparent distress. The patient is currently on room air oxygen HEAD: Normocephalic and atraumatic EYES: Normal reaction of pupils, equal size. NOSE: Clear with pink turbinates. THROAT: No erythema or exudates. NECK: No masses, no JVD. CHEST: No chest wall deformity. LUNGS: Equal air entry with bibasilar crackles. no wheeze, rhonchi or focal dullness. On room air oxygen and breathing is comfortable CVS: S1 and S2 normal with no audible murmur, regular rhythm. No extra heart sounds ABDOMEN: Abdomen is distended. No hepatosplenomegaly, active bowel sounds, no guarding or rigidity. SPINE: No scoliosis or deformity SKIN: No rashes CENTRAL NERVOUS SYSTEM: No focal deficits, tone is normal in all 4 extremities. EXTREMITIES: There is bilateral lower extremity 2+ peripheral edema. no clubbing, or cyanosis. Peripheral pulses are intact. - Labs CBC & Chem 7: 03/21/23 07:36 03/21/23 07:36 Labs: Abnormal Lab Results - Last 24 Hours (Table) 03/21/23 03/21/23 Range/Units 07:36 07:36 WBC 11.39 H (4.50-10.00) X 10*3/uL RBC 3.48 L (4.40-5.60) X 10*6/uL Hgb 10.8 L (13.0-17.0) g/dL Hct 33.0 L (39.6-50.0) % Immature Gran # 0.20 H (0.00-0.04) X 10*3/uL Neutrophils # 8.56 H (1.80-7.70) X 10*3/uL Potassium 3.3 L (3.5-5.5) mmol/L Glucose 112 H (70-110) mg/dL Microbiology - Last 24 Hours (Table) 03/18/23 18:30 Blood Culture - Preliminary Blood 03/18/23 17:15 Blood Culture - Preliminary Blood Assessment and Plan Plan: Acute Covid 19 infection, no clear indication for pneumonia and the patient is currently on room air oxygen, no signs of any significant respiratory distress Acute hypoxic respiratory failure, currently on room air oxygen Diarrhea, likely secondary to above, improved Leukocytosis, white cell count has dropped down to 10.4 from being as high as 21. The white cell count is improving Abnormal findings on CT of the abdomen and pelvis with contrast, indicating colonic distention and focal narrowing of the distal sigmoid colon. Abdomen does not appear acute, and there are no plans for surgery at this time. Hypertension Hyperlipidemia Seizure disorder Plan: Continue Decadron 6 mg IV every 24 hours, completed a ten-day course Pro calcitonin level is at 0.15 Patient is currently on room air oxygen Infiltrates are minimal in the lung bases bilaterally Diarrhea has subsided Urine Legionella antigen negative Blood cultures are negative thus far We'll continue to follow
[2023-03-22 13:05] VITALS: BMI 30.2
[2023-03-22] MEDS: ATORVASTATIN 20 MG TAB PO SCH (21:59)
[2023-03-22] MEDS: CALCIUM CARB-VIT D 500 MG-5 MCG TAB PO SCH (21:59)
--- NOTE | 2023-03-22 23:23 | P.PN ---
Subjective Progress Note Date: 03/22/23 Patient is a pleasant 72-year-old pleasantly confused patient with respiratory problems and Covid infection. Patient was recently at a rehab facility and he has since returned home with his sister she denies any complaints he denies any nausea vomiting or fever. Admits to cough patient is I'm not a good historian. Patient continues to improve. Respiratory status has remained stable and does not appear to be in any distress at this current time. Objective - Vital Signs Vital signs: Vital Signs Temp 98.7 F 03/22/23 20:00 Pulse 53 L 03/22/23 20:00 Resp 18 03/22/23 20:00 BP 134/78 03/22/23 20:00 Pulse Ox 96 03/22/23 20:00 FiO2 Intake & Output 03/22/23 03/22/23 03/23/23 06:59 18:59 06:59 Output Total 1500 3325 Balance -1500 -3325 Weight 95.708 kg Output: Urine 1500 3325 Other: Voiding Method Indwelling Catheter Indwelling Catheter Indwelling Catheter # Bowel Movements 1 1 - Exam PHYSICAL EXAMINATION: Patient is lying in the bed comfortably, no acute distress, awake alert and oriented.. HEENT: Normocephalic. Neck is supple. Pupils reactive. Nostrils clear. Oral cavity is moist. Neck reveals no JVD, carotid bruits, or thyromegaly. CHEST EXAMINATION: Trachea is central. Symmetrical expansion. Minimal left basilar crackles. No wheezing. CARDIAC: Normal S1, S2 with no gallops. No murmurs ABDOMEN: Soft. Bowel sounds normal. No organomegaly. No abdominal bruits. Extremities: reveal no edema. No clubbing or cyanosis Neurologically awake, alert, oriented 2-3 with well-coordinated movements. No focal deficits noted Skin: . Patient does have left groin rash and swelling. Scrotal swelling. No other skin lesions. Psychiatric: Coperative. Could not be sure she completely Musculoskeletal: No joint swelling or deformity. Normal range of motion. - Labs CBC & Chem 7: 03/21/23 07:36 03/21/23 07:36 Labs: Microbiology - Last 24 Hours (Table) 03/18/23 18:30 Blood Culture - Preliminary Blood 03/18/23 17:15 Blood Culture - Preliminary Blood Assessment and Plan (1) COVID-19 Current Visit: Yes Status: Acute Code(s): U07.1 - COVID-19 SNOMED Code(s): 483692659 (2) Multifocal pneumonia Current Visit: Yes Status: Acute Code(s): J18.9 - PNEUMONIA, UNSPECIFIED ORGANISM SNOMED Code(s): 131751977 (3) Closed head injury Current Visit: Yes Status: Chronic Code(s): S09.90XA - UNSPECIFIED INJURY OF HEAD, INITIAL ENCOUNTER SNOMED Code(s): 070631014497 (4) History of seizures Current Visit: No Status: Chronic Code(s): Z87.898 - PERSONAL HISTORY OF OTHER SPECIFIED CONDITIONS SNOMED Code(s): 580845822 Plan: Continue IV hydration and IV antibiotics pulmonary treatment continue to follow patient until improvement with hopes of discharge back to primary residence.
[2023-03-23] MEDS: hydrALAZINE HCL 25 MG TAB PO SCH ×3 (06:19→21:05)
[2023-03-23] MEDS: FUROSEMIDE 40 MG TAB PO SCH (06:20)
[2023-03-23] MEDS: ALBUTEROL HFA INHALER INHALATION SCH ×4 (08:09→19:52)
[2023-03-23] MEDS: ASPIRIN 81 MG PO SCH (09:40)
[2023-03-23] MEDS: CHOLECALCIFEROL 25 MCG (1000 IU) TABLET PO SCH (09:40)
[2023-03-23] MEDS: ASCORBIC ACID 500 MG TAB PO SCH (09:40)
[2023-03-23] MEDS: LOSARTAN 50 MG TAB PO SCH (09:40)
[2023-03-23] MEDS: LACOSAMIDE 50 MG TABLET PO SCH ×2 (09:41→21:06)
[2023-03-23] MEDS: DEXAMETHASONE SOD PHOSPHATE 10 MG/ML 1 ML VIAL IVP SCH (09:41)
[2023-03-23] MEDS: CYANOCOBALAMIN 500 MCG TAB PO SCH (09:41)
[2023-03-23] MEDS: amLODIPine 10 MG TAB PO SCH (09:41)
[2023-03-23] MEDS: SODIUM CHLORIDE 0.9% 1,000 ML IV SCH ×2 (09:46→16:15)
--- NOTE | 2023-03-23 15:46 | P.PN ---
Subjective Progress Note Date: 03/23/23 I am seeing this patient in new consultation today 03/20/2023 after he presented 2 days ago with apparently abnormal x-ray findings. 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 Patient presented March 18 for concerning findings on outpatient chest x-ray. Patient is a poor historian, and I'm unable to obtain events leading up to this. I believe he sees Dr. Barry in the outpatient setting. Apparently, the patient currently resides at an [facility]. Patient is resting in bed, on 3 L nasal cannula, in no acute distress. A follow-up CT of the abdomen and pelvis with contrast on arrival showed gaseous dilation of the descending and sigmoid colon with focal narrowing of the distal sigmoid colon. This was concerning for chronic stricture, colonic pseudoobstruction, versus colonic ileus. No evidence of perforation or pneumoperitoneum. There was also bibasilar patchy airspace opacities concerning for multifocal pneumonia versus atelectasis. Incidental findings included a non-obstructing right renal calculi and cholelithiasis without cholecystitis. Patient does have a persistent nonproductive cough. He denies any shortness of breath, chest pain, fevers, chills, hemoptysis. He also denies any GI complaints such as abdominal pain, nausea or vomiting, diarrhea, constipation. He states that he had a formed bowel movement this morning. His abdomen is quite distended. No plans for surgery at this time per surgical services. CBC on arrival did show some leukocytosis which is down to 15 today, hemoglobin 11.6, hematocrit 36.2, platelets 462. BMP shows a sodium 144, potassium 3.4, chloride 111, serum CO2 23, BUN 18, creatinine 0.9, glucose 94. Normal saline is infusing at 100 mL per hour. Patient nt proBNP was mildly elevated at 1770. No evidence of overt heart failure on chest x-ray. Patient's home dose of Lasix was restarted, and patient has urinary catheter with adequate urine output. No evidence of UTI on UA. Patient is currently covered on a course of Rocephin and Zithromax. He remains afebrile. Procalcitonin levels pending. Vital signs are stable. On today's evaluation of 03/21/2023, the patient is being seen for a follow-up. The patient is a poor historian. The patient resides in an ECF facility and the patient is currently on 2 L of oxygen by nasal cannula. He was having some diarrhea. Covid 19 testing came back positive. CAT scan of the abdomen was done that showed no evidence of pneumoperitoneum. Some limited patchy infiltrates in lung bases bilaterally and the patient had some colonic pseudoobstruction versus ileus and possibility of a focal narrowing of the distal sigmoid wall was also considered. Not having any major respiratory distress. Afebrile. Pulse ox is 96% liters of oxygen by nasal cannula. WBC count is 11.3 with a hemoglobin 10.8 and a platelet count of 434. The sodium level is at 142, BUN is at 4 with a creatinine of 0.8 and a potassium level of 3.3. Noted the patient has already been vaccinated for Covid 19. He is currently on IV Rocephin. Is also on Decadron 6 mg IV every 24 hours. On today's evaluation of 03/22/2023, the patient is on room air oxygen. No significant respiratory distress at the patient is infected with Covid 19 and the patient is not having any major hypoxemia. The patient has no significant cough or sputum production. No signs of any respiratory distress for now. The diarrhea has also subsided and the patient is not having any significant diarrhea this point in time. He is still being given IV fluid of normal saline at rate of 100 mL an hour. No other new complaints otherwise for now. The white cell count is down to 11.3 with a hemoglobin of 10.8 and the patient has a BUN of 12 and a creatinine of 0.8 and a sodium level is at 142 with a potassium level of 3.3. Potassium is being replaced. On 03/23/2023, the patient is stable. No specific complaints. Limited congestive cough. No significant sputum production. The patient remains on Decadron. No diarrhea. Tolerating his diet. Clinically stable. Hemodynamically stable. The WBC count is at 11 with a hemoglobin of 10.8. The BUN is 12 and a creatinine of 0.8. The electrolytes are all within normal limits. Objective - Vital Signs Vital signs: Vital Signs Temp 98.1 F 03/23/23 07:39 Pulse 61 03/23/23 07:39 Resp 16 03/23/23 07:39 BP 143/77 03/23/23 07:39 Pulse Ox 96 03/23/23 08:09 FiO2 21 03/23/23 08:09 Intake & Output 03/22/23 03/23/23 03/23/23 18:59 06:59 18:59 Output Total 3325 1400 Balance -3325 -1400 Weight 95.708 kg Output: Urine 3325 1400 Other: Voiding Method Indwelling Catheter Indwelling Catheter Indwelling Catheter # Bowel Movements 1 - Exam GENERAL EXAM: Alert, only oriented to self and time, appears comfortable in no apparent distress. The patient is currently on room air oxygen HEAD: Normocephalic and atraumatic EYES: Normal reaction of pupils, equal size. NOSE: Clear with pink turbinates. THROAT: No erythema or exudates. NECK: No masses, no JVD. CHEST: No chest wall deformity. LUNGS: Equal air entry with bibasilar crackles. no wheeze, rhonchi or focal dullness. On room air oxygen and breathing is comfortable CVS: S1 and S2 normal with no audible murmur, regular rhythm. No extra heart sounds ABDOMEN: Abdomen is distended. No hepatosplenomegaly, active bowel sounds, no guarding or rigidity. SPINE: No scoliosis or deformity SKIN: No rashes CENTRAL NERVOUS SYSTEM: No focal deficits, tone is normal in all 4 extremities. EXTREMITIES: There is bilateral lower extremity 2+ peripheral edema. no clubbing, or cyanosis. Peripheral pulses are intact. - Labs CBC & Chem 7: 03/21/23 07:36 03/21/23 07:36 Labs: Microbiology - Last 24 Hours (Table) 03/18/23 18:30 Blood Culture - Preliminary Blood 03/18/23 17:15 Blood Culture - Preliminary Blood Assessment and Plan Plan: Acute Covid 19 infection, no clear indication for pneumonia and the patient is currently on room air oxygen, no signs of any significant respiratory distress Acute hypoxic respiratory failure, currently on room air oxygen Diarrhea, likely secondary to above, improved Leukocytosis, white cell count has dropped down to 10.4 from being as high as 21. The white cell count is improving Abnormal findings on CT of the abdomen and pelvis with contrast, indicating colonic distention and focal narrowing of the distal sigmoid colon. Abdomen does not appear acute, and there are no plans for surgery at this time. Hypertension Hyperlipidemia Seizure disorder Plan: Overall respiratory status is stable Patient is currently on room air oxygen Continue Decadron 6 mg IV every 24 hours, completed a ten-day course Pro calcitonin level is at 0.15 Infiltrates are minimal in the lung bases bilaterally Diarrhea has subsided Urine Legionella antigen negative Blood cultures are negative thus far We'll continue to follow Discharge planning is in progress
[2023-03-23] MEDS: ATORVASTATIN 20 MG TAB PO SCH (21:04)
[2023-03-23] MEDS: CALCIUM CARB-VIT D 500 MG-5 MCG TAB PO SCH (21:04)
--- NOTE | 2023-03-23 22:50 | P.PN ---
Subjective Progress Note Date: 03/23/23 Patient is a pleasant 72-year-old pleasantly confused patient with respiratory problems and Covid infection. Patient was recently at a rehab facility and he has since returned home with his sister she denies any complaints he denies any nausea vomiting or fever. Admits to cough patient is I'm not a good historian. Patient continues to improve. Respiratory status has remained stable and does not appear to be in any distress at this current time. Objective - Vital Signs Vital signs: Vital Signs Temp 97.1 F L 03/23/23 19:25 Pulse 71 03/23/23 20:00 Resp 20 03/23/23 20:00 BP 142/79 03/23/23 19:25 Pulse Ox 93 L 03/23/23 19:25 FiO2 21 03/23/23 08:09 Intake & Output 03/23/23 03/23/23 03/24/23 06:59 18:59 06:59 Intake Total 600 Output Total 1400 2800 Balance -1400 -2200 Intake: Oral 600 Output: Urine 1400 2800 Other: Voiding Method Indwelling Catheter Indwelling Catheter Indwelling Catheter - Exam PHYSICAL EXAMINATION: Patient is lying in the bed comfortably, no acute distress, awake alert and oriented.. HEENT: Normocephalic. Neck is supple. Pupils reactive. Nostrils clear. Oral cavity is moist. Neck reveals no JVD, carotid bruits, or thyromegaly. CHEST EXAMINATION: Trachea is central. Symmetrical expansion. Minimal left basilar crackles. No wheezing. CARDIAC: Normal S1, S2 with no gallops. No murmurs ABDOMEN: Soft. Bowel sounds normal. No organomegaly. No abdominal bruits. Extremities: reveal no edema. No clubbing or cyanosis Neurologically awake, alert, oriented 2-3 with well-coordinated movements. No focal deficits noted Skin: . Patient does have left groin rash and swelling. Scrotal swelling. No other skin lesions. Psychiatric: Coperative. Could not be sure she completely Musculoskeletal: No joint swelling or deformity. Normal range of motion. - Labs CBC & Chem 7: 03/21/23 07:36 03/21/23 07:36 Labs: Microbiology - Last 24 Hours (Table) 03/18/23 18:30 Blood Culture - Preliminary Blood 03/18/23 17:15 Blood Culture - Preliminary Blood Assessment and Plan (1) COVID-19 Current Visit: Yes Status: Acute Code(s): U07.1 - COVID-19 SNOMED Code(s): 103739476 (2) Multifocal pneumonia Current Visit: Yes Status: Acute Code(s): J18.9 - PNEUMONIA, UNSPECIFIED ORGANISM SNOMED Code(s): 296472765 (3) Closed head injury Current Visit: Yes Status: Chronic Code(s): S09.90XA - UNSPECIFIED INJURY OF HEAD, INITIAL ENCOUNTER SNOMED Code(s): 342243539559 (4) History of seizures Current Visit: No Status: Chronic Code(s): Z87.898 - PERSONAL HISTORY OF OTHER SPECIFIED CONDITIONS SNOMED Code(s): 101492118 Plan: Continue IV hydration and IV antibiotics pulmonary treatment continue to follow patient until improvement with hopes of discharge back into jail versus rehab facility physical therapy continues to evaluate patient's current status we anticipate discharge by Monday morning
[2023-03-24 01:51] VITALS: RESP 18
[2023-03-24] MEDS: FUROSEMIDE 40 MG TAB PO SCH (06:01)
[2023-03-24] MEDS: hydrALAZINE HCL 25 MG TAB PO SCH (06:01)
[2023-03-24] MEDS: SODIUM CHLORIDE 0.9% 1,000 ML IV SCH (06:02)
[2023-03-24] MEDS: ALBUTEROL HFA INHALER INHALATION SCH ×2 (07:53→11:35)
[2023-03-24 08:16] VITALS: BP 148/82; PULSE 59; TEMP 99
[2023-03-24] MEDS: LACOSAMIDE 50 MG TABLET PO SCH (08:46)
[2023-03-24] MEDS: LOSARTAN 50 MG TAB PO SCH (08:46)
[2023-03-24] MEDS: ASCORBIC ACID 500 MG TAB PO SCH (08:46)
[2023-03-24] MEDS: CHOLECALCIFEROL 25 MCG (1000 IU) TABLET PO SCH (08:46)
[2023-03-24] MEDS: CYANOCOBALAMIN 500 MCG TAB PO SCH (08:46)
[2023-03-24] MEDS: amLODIPine 10 MG TAB PO SCH (08:46)
[2023-03-24] MEDS: ASPIRIN 81 MG PO SCH (08:46)
[2023-03-24] MEDS: DEXAMETHASONE SOD PHOSPHATE 10 MG/ML 1 ML VIAL IVP SCH (08:46)
--- NOTE | 2023-03-24 11:31 | P.DS ---
Providers Date of admission: 03/18/23 19:58 Expected date of discharge: 03/24/23 Attending physician: Carlos Barry Consults: 03/18/23 19:57 Consult Physician Routine Consulting Provider: Cristian Spicer Consult Reason/Comments: Abdominal distention, please review CT Do you want consulting provider notified?: Yes 03/19/23 11:56 Consult Physician Routine Consulting Provider: Cristian Adame Consult Reason/Comments: Multifocal pneumonia Do you want consulting provider notified?: Yes Primary care physician: Carlos Barry - Discharge Diagnosis(es) (1) COVID-19 Current Visit: Yes Status: Acute (2) Multifocal pneumonia Current Visit: Yes Status: Acute (3) Closed head injury Current Visit: Yes Status: Chronic (4) History of seizures Current Visit: No Status: Chronic Hospital Course: Patient is a pleasant 72-year-old pleasantly confused patient with respiratory problems and Covid infection. Patient was recently at a rehab facility and he has since returned home with his sister she denies any complaints he denies any nausea vomiting or fever. Admits to cough patient is I'm not a good historian. Patient continues to improve. Respiratory status has remained stable and does not appear to be in any distress at this current time.Patient is doing well today and has no respiratory symptoms at all and is cleared for discharge by Dr. Torres patient will resume care over at [facility] Patient Condition at Discharge: Fair Plan - Discharge Summary Discharge Rx Participant: No New Discharge Prescriptions: No Action Escitalopram [Lexapro] 10 mg PO HS levETIRAcetam [Levetiracetam] 1,500 mg PO BID Spironolactone [Aldactone] 25 mg PO DAILY #30 tab amLODIPine [Norvasc] 10 mg PO DAILY #30 tab Lacosamide [Vimpat] 200 mg PO BID hydrALAZINE HCL [Apresoline] 50 mg PO TID@0600,1400,2200 Zinc Gluconate [Zinc] 50 mg PO DAILY Cholecalciferol [Vitamin D3 (25 Mcg = 1000 Iu)] 50 mcg PO DAILY Potassium Chloride ER [K-Dur 20] 40 meq PO DAILY Atorvastatin [Lipitor] 20 mg PO HS Calcium Carbonate/Vitamin D3 [Calcium 600-Vit D3 10 mcg (400 Iu)] 2 tab PO HS@2100 Vit C/E/Zn/Coppr/Lutein/Zeaxan [Preservision Areds 2 Chew Tab] 1 tab PO BID@0500,2100 Aspirin EC [Ecotrin Low Dose] 81 mg PO DAILY #30 tab Omeprazole 40 mg PO DAILY #30 cap Losartan Potassium 100 mg PO DAILY Furosemide [Lasix] 40 mg PO DAILY@0600 Lactose-Reduced Food [Ensure Plus] 1 can PO DAILY Cyanocobalamin (Vitamin B-12) [Vitamin B-12] 1,000 mcg PO DAILY Ascorbic Acid [Vitamin C] 500 mg PO DAILY Ipratropium-Albuterol Nebulize [Duoneb 0.5 mg-3 mg/3 ml Soln] 3 ml INHALATION RT-QID Discharge Medication List Escitalopram [Lexapro] 10 mg PO HS 04/03/15 [History] levETIRAcetam [Levetiracetam] 1,500 mg PO BID 04/03/15 [History] Atorvastatin [Lipitor] 20 mg PO HS 01/25/23 [History] Calcium Carbonate/Vitamin D3 [Calcium 600-Vit D3 10 mcg (400 Iu)] 2 tab PO HS@2100 01/25/23 [History] Vit C/E/Zn/Coppr/Lutein/Zeaxan [Preservision Areds 2 Chew Tab] 1 tab PO BID@0500,2100 01/25/23 [History] Spironolactone [Aldactone] 25 mg PO DAILY #30 tab 01/30/23 [Rx] amLODIPine [Norvasc] 10 mg PO DAILY #30 tab 01/30/23 [Rx] Lacosamide [Vimpat] 200 mg PO BID 02/03/23 [History] Aspirin EC [Ecotrin Low Dose] 81 mg PO DAILY #30 tab 02/08/23 [Rx] Omeprazole 40 mg PO DAILY #30 cap 02/08/23 [Rx] Ascorbic Acid [Vitamin C] 500 mg PO DAILY 03/18/23 [History] Cholecalciferol [Vitamin D3 (25 Mcg = 1000 Iu)] 50 mcg PO DAILY 03/18/23 [History] Cyanocobalamin (Vitamin B-12) [Vitamin B-12] 1,000 mcg PO DAILY 03/18/23 [History] Furosemide [Lasix] 40 mg PO DAILY@0600 03/18/23 [History] Ipratropium-Albuterol Nebulize [Duoneb 0.5 mg-3 mg/3 ml Soln] 3 ml INHALATION RT-QID 03/18/23 [History] Lactose-Reduced Food [Ensure Plus] 1 can PO DAILY 03/18/23 [History] Losartan Potassium 100 mg PO DAILY 03/18/23 [History] Potassium Chloride ER [K-Dur 20] 40 meq PO DAILY 03/18/23 [History] Zinc Gluconate [Zinc] 50 mg PO DAILY 03/18/23 [History] hydrALAZINE HCL [Apresoline] 50 mg PO TID@0600,1400,2200 03/18/23 [History] Follow up Appointment(s)/Referral(s): Carlos Barry DO [Primary Care Provider] - 1 Week Discharge Disposition: TRANSFER TO SNF/ECF
== END 2023-03-24 13:12 | DRG 177 ==
LOC: EC 16:30 → 4SSUR 19:58
PROVIDERS: ADMIT Family Medicine; ATTEND Family Medicine
PROC: 3E0333Z Introduction of Anti-inflammatory into Peripheral Vein, Percutaneous Approach (ICD-10-PCS; principal; 2023-03-21)
DX: U07.1 COVID-19 (principal); J12.82 Pneumonia due to coronavirus disease 2019; J96.01 Acute respiratory failure with hypoxia; K56.7 Ileus, unspecified; G40.909 Epilepsy, unspecified, not intractable, without status epilepticus; I10 Essential (primary) hypertension; F32.A Depression, unspecified; N20.0 Calculus of kidney; K80.20 Calculus of gallbladder without cholecystitis without obstruction; E78.5 Hyperlipidemia, unspecified; T42.6X5A Adverse effect of other antiepileptic and sedative-hypnotic drugs, initial encounter; Z85.819 Personal history of malignant neoplasm of unspecified site of lip, oral cavity, and pharynx; Z87.820 Personal history of traumatic brain injury; Z79.899 Other long term (current) drug therapy; Z79.82 Long term (current) use of aspirin
CPT/HCPCS: 36415; 71045; 71046; 74177; 80048; 80053; 81003; 82150; 83690; 83880; 84145; 85025; 85610; 85730; 87040; 87449; 87635; 93005; 94640; 94760; 96361; 96365; 96375; 99285

== ENCOUNTER 2023-04-23 11:47 | Emergency (ER) | payer MEDICARE, BC, OTHER ==
--- NOTE | 2023-04-23 12:38 | ED ---
General Adult HPI - General Chief complaint: Weakness Stated complaint: Altered Mental Status Time Seen by Provider: 04/23/23 11:53 Source: EMS Mode of arrival: EMS - History of Present Illness Initial comments: Dictation was produced using [employer] dictation software. please excuse any grammatical, word or spelling errors. Chief Complaint: 72-year-old male past medical history of cognitive delay presents to the ER for failure to thrive History of Present Illness: Is 72-year-old female. History of present illness obtained solely from sister at the bedside. She is his legal guardian. Patient currently resident at [facility]. He has been having progressive lethargy for the last couple weeks. Sr. at the bedside would like to request that patient be no code. She states that he's been doing worse and worse. Patient unable to provide history of present illness due to mental status. The ROS documented in this emergency department record has been reviewed and confirmed by me. Those systems with pertinent positive or negative responses have been documented in the HPI. All other systems are other negative and/or noncontributory. - Related Data Home Medications Medication Instructions Recorded Confirmed Escitalopram [Lexapro] 10 mg PO HS 04/03/15 04/23/23 levETIRAcetam [Levetiracetam] 1,500 mg PO BID 04/03/15 04/23/23 Atorvastatin [Lipitor] 20 mg PO HS 01/25/23 04/23/23 Vit C/E/Zn/Coppr/Lutein/Zeaxan 1 tab PO BID@0500,2100 01/25/23 04/23/23 [Preservision Areds 2 Chew Tab] Lacosamide [Vimpat] 200 mg PO BID 02/03/23 04/23/23 Ascorbic Acid [Vitamin C] 500 mg PO DAILY 03/18/23 04/23/23 Cholecalciferol [Vitamin D3 (25 50 mcg PO DAILY 03/18/23 04/23/23 Mcg = 1000 Iu)] Furosemide [Lasix] 40 mg PO DAILY@0600 03/18/23 04/23/23 Ipratropium-Albuterol Nebulize 3 ml INHALATION RT-QID 03/18/23 04/23/23 [Duoneb 0.5 mg-3 mg/3 ml Soln] Losartan Potassium 100 mg PO DAILY 03/18/23 04/23/23 Potassium Chloride ER [K-Dur 20] 40 meq PO DAILY 03/18/23 04/23/23 Zinc Gluconate [Zinc] 50 mg PO DAILY 03/18/23 04/23/23 hydrALAZINE HCL [Apresoline] 50 mg PO TID@0600,1400,2200 03/18/23 04/23/23 Calcium Carbonate [Calcium] 1,200 mg PO DAILY 04/23/23 04/23/23 Clotrimazole/Betameth Cream 1 applic TOPICAL DAILY 04/23/23 04/23/23 [Lotrisone] Loperamide [Imodium] 2 mg PO BID PRN 04/23/23 04/23/23 Previous Rx's Medication Instructions Recorded Spironolactone [Aldactone] 25 mg PO DAILY #30 tab 01/30/23 amLODIPine [Norvasc] 10 mg PO DAILY #30 tab 01/30/23 Aspirin EC [Ecotrin Low Dose] 81 mg PO DAILY #30 tab 02/08/23 Omeprazole 40 mg PO DAILY #30 cap 02/08/23 Allergies Allergy/AdvReac Type Severity Reaction Status Date / Time No Known Allergies Allergy Verified 04/23/23 13:23 Review of Systems ROS Statement: Those systems with pertinent positive or pertinent negative responses have been documented in the HPI. ROS Other: All systems not noted in ROS Statement are negative. Past Medical History Past Medical History: Seizure Disorder Additional Past Medical History / Comment(s): head injury as a child History of Any Multi-Drug Resistant Organisms: None Reported Additional Past Surgical History / Comment(s): lip cancer removed Past Anesthesia/Blood Transfusion Reactions: No Reported Reaction Additional Past Anesthesia/Blood Transfusion Reaction / Comment(s): never had blood transfusion Past Psychological History: Anxiety Smoking Status: Never smoker Past Alcohol Use History: None Reported Past Drug Use History: None Reported - Past Family History Father Additional Family Medical History / Comment(s): alzheimers Mother Family Medical History: Myocardial Infarction (MD) Additional Family Medical History / Comment(s): macular degeneration General Exam - General Exam Comments Initial Comments: PHYSICAL EXAM: General Impression: Lethargic HEENT: Normocephalic atraumatic, extra-ocular movements intact, pupils equal and reactive to light bilaterally, dry mucous membranes Cardiovascular: Heart regular rate and rhythm Chestno retractions, no tachypnea Abdomen: Mildly tympanitic to percussion, diffuse abdominal tenderness Musculoskeletal: Pulses present and equal in all extremities, no peripheral edema Neurological: Grimaces to pain Skin: Intact with no visualized rashes Course Vital Signs 04/23/23 04/23/23 04/23/23 11:48 12:54 13:54 Temperature 97.7 F Pulse Rate 91 89 91 Respiratory 19 20 22 Rate Blood Pressure 91/58 89/57 92/52 O2 Sat by Pulse 94 L 93 L Oximetry 04/23/23 14:08 Temperature Pulse Rate 86 Respiratory Rate Blood Pressure O2 Sat by Pulse Oximetry EKG Findings - EKG Comments: EKG Findings:: My EKG interpretation: Ventricular rate 87, sinus rhythm,. Interval 92, QRS 110, QTc 42. No CO prolongation, no QTC prolongation, no ST or T-wave changes noted. EKG compared to 03/18/2023 showing no changes. Overall, this EKG is unremarkable Medical Decision Making - Medical Decision Making Was pt. sent in by a medical professional or institution (, PA, [employer], urgent ca re, hospital, or residential...) When possible be specific @ -[facility] Did you speak to anyone other than the patient for history (EMS, parent, family, police, friend...)? What history was obtained from this source @ -Sister legal guardian is a patient has been declining rapidly over the last several weeks provedeDid you review nursing and triage notes (agree or disagree)? Why? @ -I reviewed and agree with nursing and triage notes Were old charts reviewed (outside hosp., previous admission, EMS record, old EKG, old radiological studies, urgent care reports/EKG's, residential records)? Report findings @ -No old charts were reviewed Differential Diagnosis (chest pain, altered mental status, abdominal pain women, abdominal pain men, vaginal bleeding, musculoskeletal, weakness, fever, dyspnea, syncope, headache, dizziness, GI bleed, back pain, seizure, CVA, palpatations, mental health)? @ -Differential Weakness: Hypoglycemia, shock, sepsis, hyponatremia, anemia, infection, MD, ETOH, adverse medicine reaction, overdose, stroke, this is not meant to be an all-inclusive list. EKG interpreted by me (3pts min.). @ -see above X-rays interpreted by me (1pt min.). @ -None done CT interpreted by me (1pt min.). @ -None done U/S interpreted by me (1pt. min.). @ -None done What testing was considered but not performed or refused? (CT, X-rays, U/S, labs)? Why? @ -CT testing was considered for patient's abdominal pain however family does not wish to pursue any further care and make patient comfort care. What meds were considered but not given or refused? Why? @ -None Did you discuss the management of the patient with other professionals (professionals i.e. , PA, [employer], lab, RT, psych nurse, social work administrator, wire inspector, teacher, training and development officer, manager case)? Give summary @ -Case discussed with Dr. linares for admission. Case also discussed with hospice team Was smoking cessation discussed for >3mins.? @ -No Was critical care preformed (if so, how long)? @ -Yes, 33 minutes Were there social determinants of health that impacted care today? How? (Homelessness, low income, unemployed, alcoholism, drug addiction, transportation, low edu. Level, literacy, decrease access to med. care, correction, rehab)? @ -No Was there de-escalation of care discussed even if they declined (Discuss DNR or withdrawal of care, Hospice)? DNR status @ -After discussion with sister who is legal guardian patient was to be made comfort care What co-morbidities impacted this encounter? (DM, HTN, Smoking, COPD, CAD, Cancer, CVA, ARF, Chemo, Hep., AIDS, mental health diagnosis, sleep apnea, morbid obesity)? @ -None Was patient admitted / discharged? Hospital course, mention meds given and route, prescriptions, significant lab abnormalities, going to OR and other pertinent info. @ -72-year-old male presents emergency department for worsening lethargy. Vital signs upon arrival shows hypertension. Laboratory evaluation shows leukocytosis of 20.4. Significant metabolic derangement with gas was 7.2, bicarb 9, BUN of 142 and creatinine of 823. Troponin of 0.168. Clinical presentation consistent with severe acute kidney injury. Dialysis treatment was discussed with sister/legal guardian. She did not want to undergo any sort of invasive procedures. She understands that no hemodialysis could cause patient's symptoms to acutely worsen causing imminent . She understands and wants to make patient no code. Undiagnosed new problem with uncertain prognosis? @ -No Drug Therapy requiring intensive monitoring for toxicity (Heparin, Nitro, Insulin, Cardizem)? @ -No Were any procedures done? @ -No Diagnosis/symptom? Acute, or Chronic, or Acute on Chronic? Uncomplicated (without systemic symptoms) or Complicated (systemic symptoms)? @ -End-of-life care, acute kidney injury Side effects of treatment? @ -No Exacerbation, Progression, or Severe Exacerbation? @ -No Poses a threat to life or bodily function? How? (Chest pain, USA, MD, pneumonia, PE, COPD, DKA, ARF, appy, cholecystitis, CVA, Diverticulitis, Homicidal, Suicidal, threat to staff... and all critical care pts) @ -yes - Lab Data Result diagrams: 04/23/23 12:40 04/23/23 13:37 Lab Results 04/23/23 04/23/23 04/23/23 Range/Units 12:40 12:40 12:40 WBC 20.4 H (3.8-10.6) k/uL RBC 3.96 L (4.30-5.90) m/uL Hgb 12.0 L (13.0-17.5) gm/dL Hct 39.2 (39.0-53.0) % MCV 99.0 (80.0-100.0) fL MCH 30.3 (25.0-35.0) pg MCHC 30.6 L (31.0-37.0) g/dL RDW 14.9 (11.5-15.5) % Plt Count 323 (150-450) k/uL MPV 11.5 Neutrophils % 88 % Lymphocytes % 5 % Monocytes % 5 % Eosinophils % 0 % Basophils % 0 % Neutrophils # 17.9 H (1.3-7.7) k/uL Lymphocytes # 1.0 (1.0-4.8) k/uL Monocytes # 1.1 H (0-1.0) k/uL Eosinophils # 0.1 (0-0.7) k/uL Basophils # 0.0 (0-0.2) k/uL Hypochromasia Slight Macrocytosis Slight PT 14.7 H (9.0-12.0) sec INR 1.5 H (<1.2) APTT 32.4 H (22.0-30.0) sec Sodium 150 H (137-145) mmol/L Potassium 7.2 H* (3.5-5.1) mmol/L Chloride 124 H (98-107) mmol/L Carbon Dioxide 9 L* (22-30) mmol/L Anion Gap 17 mmol/L BUN 142 H* (9-20) mg/dL Creatinine 8.83 H* (0.66-1.25) mg/dL Est GFR (CKD-EPI)AfAm 6 (>60 ml/min/1.73 sqM) Est GFR (CKD-EPI)NonAf 5 (>60 ml/min/1.73 sqM) Glucose 115 H (74-99) mg/dL POC Glucose (mg/dL) (70-110) mg/dL POC Glu [employer] ID Calcium 8.5 (8.4-10.2) mg/dL Magnesium 3.2 H (1.6-2.3) mg/dL Total Bilirubin 0.6 (0.2-1.3) mg/dL AST 288 H (17-59) U/L ALT 347 H (4-49) U/L Alkaline Phosphatase 126 (38-126) U/L Troponin I (0.000-0.034) ng/mL Total Protein 5.7 L (6.3-8.2) g/dL Albumin 3.0 L (3.5-5.0) g/dL 04/23/23 04/23/23 04/23/23 Range/Units 12:40 12:43 13:37 WBC (3.8-10.6) k/uL RBC (4.30-5.90) m/uL Hgb (13.0-17.5) gm/dL Hct (39.0-53.0) % MCV (80.0-100.0) fL MCH (25.0-35.0) pg MCHC (31.0-37.0) g/dL RDW (11.5-15.5) % Plt Count (150-450) k/uL MPV Neutrophils % % Lymphocytes % % Monocytes % % Eosinophils % % Basophils % % Neutrophils # (1.3-7.7) k/uL Lymphocytes # (1.0-4.8) k/uL Monocytes # (0-1.0) k/uL Eosinophils # (0-0.7) k/uL Basophils # (0-0.2) k/uL Hypochromasia Macrocytosis PT (9.0-12.0) sec INR (<1.2) APTT (22.0-30.0) sec Sodium 147 H (137-145) mmol/L Potassium 7.0 H* (3.5-5.1) mmol/L Chloride 123 H (98-107) mmol/L Carbon Dioxide 9 L* (22-30) mmol/L Anion Gap 15 mmol/L BUN 144 H* (9-20) mg/dL Creatinine 8.64 H* (0.66-1.25) mg/dL Est GFR (CKD-EPI)AfAm 6 (>60 ml/min/1.73 sqM) Est GFR (CKD-EPI)NonAf 5 (>60 ml/min/1.73 sqM) Glucose 389 H (74-99) mg/dL POC Glucose (mg/dL) 109 (70-110) mg/dL POC Glu [employer] ID Melinda Fagan Calcium 7.8 L (8.4-10.2) mg/dL Magnesium (1.6-2.3) mg/dL Total Bilirubin (0.2-1.3) mg/dL AST (17-59) U/L ALT (4-49) U/L Alkaline Phosphatase (38-126) U/L Troponin I 0.168 H* (0.000-0.034) ng/mL Total Protein (6.3-8.2) g/dL Albumin (3.5-5.0) g/dL Disposition Clinical Impression: End of life care, HELENA (acute kidney injury) Disposition: ADMITTED IP TO THIS [facility] Condition: Critical Referrals: Carlos Barry DO [Primary Care Provider] - 1-2 days Decision Time: 14:22
[2023-04-23 12:44] LABS: Glucose,Whole Blood 109 mg/dL (70-110)
[2023-04-23 12:54] LABS: Basophils % (A) 0 %; Eosinophils # (A) 0.1 k/uL (0-0.7); Eosinophils % (A) 0 %; HCT 39.2 % (39.0-53.0); Hypochromasia Slight; Lymphocytes % (A) 5 %; MCH 30.3 pg (25.0-35.0); MCHC 30.6 g/dL (31.0-37.0); Macrocytosis Slight; Mean Platelet Volume 11.5; Monocytes # (A) 1.1 k/uL (0-1.0); Monocytes % (A) 5 %; Neutrophils # (A) 17.9 k/uL (1.3-7.7); Neutrophils % (A) 88 %; Platelet Count 323 k/uL (150-450); RBC 3.96 m/uL (4.30-5.90); RDW 14.9 % (11.5-15.5); WBC 20.4 k/uL (3.8-10.6)
[2023-04-23 13:09] LABS: ALT 347 U/L (4-49); AST 288 U/L (17-59); African American GFR (CKD) 6 (>60 ml/min/1.73 sqM); Alkaline Phosphatase 126 U/L (38-126); Anion Gap 17 mmol/L; Calcium 8.5 mg/dL (8.4-10.2); Chloride 124 mmol/L (98-107); Glucose 115 mg/dL (74-99); Magnesium 3.2 mg/dL (1.6-2.3); Non-African American GFR(CKD) 5 (>60 ml/min/1.73 sqM); Sodium 150 mmol/L (137-145); Total Bilirubin 0.6 mg/dL (0.2-1.3); Total Protein 5.7 g/dL (6.3-8.2)
[2023-04-23 13:13] LABS: INR 1.5 (<1.2); Partial Thromboplastin Time 32.4 sec (22.0-30.0); Prothrombin Time 14.7 sec (9.0-12.0)
[2023-04-23 13:19] LABS: Potassium 7.2 mmol/L (3.5-5.1)
[2023-04-23 13:20] LABS: Blood Urea Nitrogen 142 mg/dL (9-20); Carbon Dioxide 9 mmol/L (22-30)
[2023-04-23] MEDS ORDERED: ALBUTEROL NEB (CONC) 2.5 MG/0.5 ML INHALATION ONE (13:20)
[2023-04-23] MEDS ORDERED: DEXTROSE 50% SYRINGE 50 ML IVP ONE (13:20)
[2023-04-23] MEDS ORDERED: INSULIN REGULAR 100 UNIT/ML VIAL (IV) IV ONE (13:20)
[2023-04-23] MEDS ORDERED: CALCIUM GLUCONATE IN NACL 1 GM in SALINE 1 100ML.BAG IVPB ONE (13:45)
[2023-04-23] MEDS ORDERED: SODIUM POLYSTYRENE SULFONATE 30 GM/120 ML BOTTLE RECTAL ONE (13:45)
[2023-04-23] MEDS ORDERED: MORPHINE SULFATE (100 MG/2 ML) 100 MG in SODIUM CHLORIDE 0.9% 100 ML IV SCH (14:00)
[2023-04-23] MEDS ORDERED: ACETAMINOPHEN SUPPOSITORY 650 MG SUPP RECTAL PRN (14:00)
[2023-04-23] MEDS ORDERED: MORPHINE SULFATE 2 MG/ML SYRINGE IV PRN (14:00)
[2023-04-23 14:01] LABS: African American GFR (CKD) 6 (>60 ml/min/1.73 sqM); Anion Gap 15 mmol/L; Calcium 7.8 mg/dL (8.4-10.2); Chloride 123 mmol/L (98-107); Glucose 389 mg/dL (74-99); Non-African American GFR(CKD) 5 (>60 ml/min/1.73 sqM); Sodium 147 mmol/L (137-145)
[2023-04-23] MEDS ORDERED: NALOXONE 0.4 MG/ML 1 ML VIAL IV PRN (14:10)
[2023-04-23 14:12] LABS: Blood Urea Nitrogen 144 mg/dL (9-20); Carbon Dioxide 9 mmol/L (22-30)
[2023-04-23 17:08] VITALS: BP 92/51; PULSE 89; RESP 19; TEMP 97.8
--- NOTE | 2023-04-23 19:38 | P.HPIM ---
History of Present Illness Please consider this combined H&P and discharge summary This is a pleasant 72 years old male with past medical history of seizure and anxiety Who presents for altered mental status. Patient appended could not provide i nformation and it was obtained from his sister Sushma who is his legal guardian as well Since admission family and sister Sushma who is his legal guardian decided to pursue with hospice care. Dr. Reed sign out the case to me as hospice case in which hospice consult was already requested by Dr. Reed When I went to see the patient in the emergency room his sister Sushma was at bedside she confirms his wishes for him to be hospice. She states that over the last 2 months this is the fourth hospitalization. It looks like since last admission his been having worsening mental status. Unclear if he has been sober diet and his level of responsiveness gradually getting worse. To the degree that he could not get up on his own. Last Monday patient was able to sit and talk. Monday he was more lethargic, and one is day he hardly get his INR awake, he will answer to worse before he go back to sleep Yesterday he cannot. And today is more obtunded when she brought him to the emergency room On admission patient is hypotensive and febrile Has leukocytosis of 20,000, INR 1.5. Potassium is critically high at 7. Creatinine critically high at 8.8 on admission, previous creatinine is 0.8. Glu cose is 115 and 389. Elevated troponin 0.16. Elevated liver enzymes with AST 288 and ALT 347. EKG showing normal sinus rhythm at 87 with T-wave inversion in the precordial leads On admission he received with, calcium gluconate and insulin. Review of Systems ROS unobtainable: due to mental status Past Medical History Past Medical History: Seizure Disorder Additional Past Medical History / Comment(s): head injury as a child History of Any Multi-Drug Resistant Organisms: None Reported Additional Past Surgical History / Comment(s): lip cancer removed Past Anesthesia/Blood Transfusion Reactions: No Reported Reaction Additional Past Anesthesia/Blood Transfusion Reaction / Comment(s): never had blood transfusion Past Psychological History: Anxiety Smoking Status: Never smoker Past Alcohol Use History: None Reported Past Drug Use History: None Reported - Past Family History Father Additional Family Medical History / Comment(s): alzheimers Mother Family Medical History: Myocardial Infarction ([place]) Additional Family Medical History / Comment(s): macular degeneration Medications and Allergies Home Medications Medication Instructions Recorded Confirmed Type Escitalopram [Lexapro] 10 mg PO HS 04/03/15 04/23/23 History levETIRAcetam [Levetiracetam] 1,500 mg PO BID 04/03/15 04/23/23 History Atorvastatin [Lipitor] 20 mg PO HS 01/25/23 04/23/23 History Vit C/E/Zn/Coppr/Lutein/Zeaxan 1 tab PO BID@0500,2100 01/25/23 04/23/23 History [Preservision Areds 2 Chew Tab] Spironolactone [Aldactone] 25 mg PO DAILY #30 tab 01/30/23 04/23/23 Rx amLODIPine [Norvasc] 10 mg PO DAILY #30 tab 01/30/23 04/23/23 Rx Lacosamide [Vimpat] 200 mg PO BID 02/03/23 04/23/23 History Aspirin EC [Ecotrin Low Dose] 81 mg PO DAILY #30 tab 02/08/23 04/23/23 Rx Omeprazole 40 mg PO DAILY #30 cap 02/08/23 04/23/23 Rx Ascorbic Acid [Vitamin C] 500 mg PO DAILY 03/18/23 04/23/23 History Cholecalciferol [Vitamin D3 (25 50 mcg PO DAILY 03/18/23 04/23/23 History Mcg = 1000 Iu)] Furosemide [Lasix] 40 mg PO DAILY@0600 03/18/23 04/23/23 History Ipratropium-Albuterol Nebulize 3 ml INHALATION RT-QID 03/18/23 04/23/23 History [Duoneb 0.5 mg-3 mg/3 ml Soln] Losartan Potassium 100 mg PO DAILY 03/18/23 04/23/23 History Potassium Chloride ER [K-Dur 20] 40 meq PO DAILY 03/18/23 04/23/23 History Zinc Gluconate [Zinc] 50 mg PO DAILY 03/18/23 04/23/23 History hydrALAZINE HCL [Apresoline] 50 mg PO TID@0600,1400,2200 03/18/23 04/23/23 History Calcium Carbonate [Calcium] 1,200 mg PO DAILY 07/02/23 07/02/23 History Clotrimazole/Betameth Cream 1 applic TOPICAL DAILY 04/23/23 04/23/23 History [Lotrisone] Loperamide [Imodium] 2 mg PO BID PRN 04/23/23 04/23/23 History Allergies Allergy/AdvReac Type Severity Reaction Status Date / Time No Known Allergies Allergy Verified 04/23/23 13:23 Physical Exam Vitals: Vital Signs Temp Pulse Resp BP Pulse Ox 04/23/23 17:07 97.8 F 89 19 92/51 95 04/23/23 14:20 90 04/23/23 14:08 86 04/23/23 13:54 91 22 92/52 04/23/23 12:54 89 20 89/57 93 L 04/23/23 11:48 97.7 F 91 19 91/58 94 L Intake and Output 04/23/23 04/23/23 04/23/23 06:59 14:59 22:59 Other: Weight 113.398 kg -GENERAL: The patient is obtunded and unresponsive HEENT: Pupils are round and equally reacting to light. EOMI. No scleral icterus. No conjunctival pallor. Normocephalic, atraumatic. No pharyngeal erythema. No thyromegaly. CARDIOVASCULAR: S1 and S2 present. No murmurs, rubs, or gallops. PULMONARY: Chest is clear to auscultation, no wheezing . no crackles. ABDOMEN: Soft, nontender, nondistended, normoactive bowel sounds. No palpable organomegaly. MUSCULOSKELETAL: No joint swelling or deformity. EXTREMITIES: No cyanosis, clubbing, . No leg edema. NEUROLOGICAL: Gross neurological examination did not reveal any focal deficits. SKIN: No rashes. no petechiae. Results CBC & Chem 7: 04/23/23 12:40 04/23/23 13:37 Labs: Abnormal Lab Results - Last 24 Hours (Table) 04/23/23 04/23/23 04/23/23 Range/Units 12:40 12:40 12:40 WBC 20.4 H (3.8-10.6) k/uL RBC 3.96 L (4.30-5.90) m/uL Hgb 12.0 L (13.0-17.5) gm/dL MCHC 30.6 L (31.0-37.0) g/dL Neutrophils # 17.9 H (1.3-7.7) k/uL Monocytes # 1.1 H (0-1.0) k/uL PT 14.7 H (9.0-12.0) sec INR 1.5 H (<1.2) APTT 32.4 H (22.0-30.0) sec Sodium 150 H (137-145) mmol/L Potassium 7.2 H* (3.5-5.1) mmol/L Chloride 124 H (98-107) mmol/L Carbon Dioxide 9 L* (22-30) mmol/L BUN 142 H* (9-20) mg/dL Creatinine 8.83 H* (0.66-1.25) mg/dL Glucose 115 H (74-99) mg/dL Calcium (8.4-10.2) mg/dL Magnesium 3.2 H (1.6-2.3) mg/dL AST 288 H (17-59) U/L ALT 347 H (4-49) U/L Troponin I (0.000-0.034) ng/mL Total Protein 5.7 L (6.3-8.2) g/dL Albumin 3.0 L (3.5-5.0) g/dL 04/23/23 04/23/23 Range/Units 12:40 13:37 WBC (3.8-10.6) k/uL RBC (4.30-5.90) m/uL Hgb (13.0-17.5) gm/dL MCHC (31.0-37.0) g/dL Neutrophils # (1.3-7.7) k/uL Monocytes # (0-1.0) k/uL PT (9.0-12.0) sec INR (<1.2) APTT (22.0-30.0) sec Sodium 147 H (137-145) mmol/L Potassium 7.0 H* (3.5-5.1) mmol/L Chloride 123 H (98-107) mmol/L Carbon Dioxide 9 L* (22-30) mmol/L BUN 144 H* (9-20) mg/dL Creatinine 8.64 H* (0.66-1.25) mg/dL Glucose 389 H (74-99) mg/dL Calcium 7.8 L (8.4-10.2) mg/dL Magnesium (1.6-2.3) mg/dL AST (17-59) U/L ALT (4-49) U/L Troponin I 0.168 H* (0.000-0.034) ng/mL Total Protein (6.3-8.2) g/dL Albumin (3.5-5.0) g/dL Assessment and Plan Assessment: End-of-life care Altered mental status secondary to severe metabolic/toxic encephalopathy Acute renal failure with severe hyperkalemia Hyperglycemia Transaminitis Elevated troponin suspicious for non-STEMI Seizure Anxiety Multiple hospitalization Plan: Consults hospice care from emergency room Upon sister wishes who is his legal guardian I discussed the case with the hospice nurse at bedside and over the phone she confirmed to me He has signed hospice paper and hospice orders can be initiated We'll start with morphine Haldol for agitation and anxiety Ativan Scopolamine patch No code, confirmed with sister and his guardian Prognosis is extremely poor
== END 2023-04-23 17:08 | disposition other institution (70) ==
LOC: EC 11:47 → UNDOADMIN 14:14 → 5NMEDONC 14:14 → EC 17:08
DX: N17.9 Acute kidney failure, unspecified (principal); I10 Essential (primary) hypertension; D72.829 Elevated white blood cell count, unspecified; Z51.5 Encounter for palliative care; G40.909 Epilepsy, unspecified, not intractable, without status epilepticus; F41.9 Anxiety disorder, unspecified; Z79.899 Other long term (current) drug therapy
CPT/HCPCS: 99291; 96365; 96366; 96375 ×2; 36415; 94640; 93005; 80053; 80048; 83735; 84484; 85025; 85610; 85730; J2270; J0613

== ENCOUNTER 2023-04-23 16:17 | Inpatient (IN) | payer BC, MEDICAID, MEDICARE, OTHER ==
[2023-04-23] MEDS ORDERED: MORPHINE SULFATE 2 MG/ML SYRINGE IV PRN (17:43)
[2023-04-23] MEDS ORDERED: ACETAMINOPHEN SUPPOSITORY 650 MG SUPP RECTAL PRN (17:43)
[2023-04-23] MEDS ORDERED: HALOPERIDOL LACTATE 5 MG/ML 1 ML VIAL IM PRN (17:43)
[2023-04-23] MEDS ORDERED: ONDANSETRON 4 MG/2 ML VIAL IVP PRN (17:43)
[2023-04-23] MEDS ORDERED: LORazepam 2 MG/ML INJ IV PRN (17:43)
[2023-04-23] MEDS ORDERED: SCOPOLAMINE 1 MG/72 HR PATCH TRANSDERM SCH (17:45)
[2023-04-23] MEDS ORDERED: MORPHINE SULFATE (100 MG/2 ML) 100 MG in SODIUM CHLORIDE 0.9% 100 ML IV SCH (17:45)
[2023-04-23] MEDS: NYSTATIN 100,000 UNIT/GM POWD 15 GM TOPICAL SCH ×2 (19:38→20:56)
[2023-04-24] MEDS: NYSTATIN 100,000 UNIT/GM POWD 15 GM TOPICAL SCH (09:30)
[2023-04-24 10:29] VITALS: BMI 33.9
[2023-04-24 13:17] VITALS: BP 77/49; PULSE 84
[2023-04-24] MEDS ORDERED: ATROPINE OPHTH SOLN 1% 5ML BTL SUBLINGUAL PRN (14:03)
[2023-04-24] MEDS ORDERED: GLYCOPYRROLATE 0.2 MG/ML 2 ML VIAL IVP PRN (14:04)
--- NOTE | 2023-04-25 00:27 | P.HPIM ---
History of Present Illness This is a pleasant 72 years old male with past medical history of seizure and anxiety Who presents for altered mental status. Patient appended could not provide information and it was obtained from his sister Sushma who is his legal guardian as well Since admission family and sister Sushma who is his legal guardian decided to pursue with hospice care. Dr. Reed sign out the case to me as hospice case in which hospice consult was already requested by Dr. Reed When I went to see the patient in the emergency room his sister Sushma was at bedside she confirms his wishes for him to be hospice. She states that over the last 2 months this is the fourth hospitalization. It looks like since last admission his been having worsening mental status. Unclear if he has been sober diet and his level of responsiveness gradually getting worse. To the degree that he could not get up on his own. Last Monday patient was able to sit and talk. Monday he was more lethargic, and one is day he hardly get his INR awake, he will answer to worse before he go back to sleep Yesterday he cannot. And today is more obtunded when she brought him to the emergency room On admission patient is hypotensive and febrile Has leukocytosis of 20,000, INR 1.5. Potassium is critically high at 7. Creatinine critically high at 8.8 on admission, previous creatinine is 0.8. Glucose is 115 and 389. Elevated troponin 0.16. Elevated liver enzymes with AST 288 and ALT 347. EKG showing normal sinus rhythm at 87 with T-wave inversion in the precordial leads On admission he received with, calcium gluconate and insulin. 04/25/2023 Patient is obtunded, unresponsive, sister is at bedside stating that it looks comfortable, patient was noticed to be hypotensive She is aware he would not last long. Patient eventually Review of Systems ROS unobtainable: due to mental status Past Medical History Past Medical History: Seizure Disorder Additional Past Medical History / Comment(s): head injury as a child History of Any Multi-Drug Resistant Organisms: None Reported Additional Past Surgical History / Comment(s): lip cancer removed Past Anesthesia/Blood Transfusion Reactions: No Reported Reaction Additional Past Anesthesia/Blood Transfusion Reaction / Comment(s): never had blood transfusion Past Psychological History: Anxiety Additional Psychological History / Comment(s): On Lexapro Smoking Status: Never smoker Past Alcohol Use History: None Reported Past Drug Use History: None Reported - Past Family History Father Additional Family Medical History / Comment(s): alzheimers Mother Family Medical History: Myocardial Infarction (PR) Additional Family Medical History / Comment(s): macular degeneration Medications and Allergies Home Medications Medication Instructions Recorded Confirmed Type Escitalopram [Lexapro] 10 mg PO HS 04/03/15 04/23/23 History levETIRAcetam [Levetiracetam] 1,500 mg PO BID 04/03/15 04/23/23 History Atorvastatin [Lipitor] 20 mg PO HS 01/25/23 04/23/23 History Vit C/E/Zn/Coppr/Lutein/Zeaxan 1 tab PO BID@0500,2100 01/25/23 04/23/23 History [Preservision Areds 2 Chew Tab] Spironolactone [Aldactone] 25 mg PO DAILY #30 tab 01/30/23 04/23/23 Rx amLODIPine [Norvasc] 10 mg PO DAILY #30 tab 01/30/23 04/23/23 Rx Lacosamide [Vimpat] 200 mg PO BID 02/03/23 04/23/23 History Aspirin EC [Ecotrin Low Dose] 81 mg PO DAILY #30 tab 02/08/23 04/23/23 Rx Omeprazole 40 mg PO DAILY #30 cap 02/08/23 04/23/23 Rx Ascorbic Acid [Vitamin C] 500 mg PO DAILY 03/18/23 04/23/23 History Cholecalciferol [Vitamin D3 (25 50 mcg PO DAILY 03/18/23 04/23/23 History Mcg = 1000 Iu)] Furosemide [Lasix] 40 mg PO DAILY@0600 03/18/23 04/23/23 History Ipratropium-Albuterol Nebulize 3 ml INHALATION RT-QID 03/18/23 04/23/23 History [Duoneb 0.5 mg-3 mg/3 ml Soln] Losartan Potassium 100 mg PO DAILY 03/18/23 04/23/23 History Potassium Chloride ER [K-Dur 20] 40 meq PO DAILY 03/18/23 04/23/23 History Zinc Gluconate [Zinc] 50 mg PO DAILY 03/18/23 04/23/23 History hydrALAZINE HCL [Apresoline] 50 mg PO TID@0600,1400,2200 03/18/23 04/23/23 History Calcium Carbonate [Calcium] 1,200 mg PO DAILY 04/23/23 04/23/23 History Clotrimazole/Betameth Cream 1 applic TOPICAL DAILY 04/23/23 04/23/23 History [Lotrisone] Loperamide [Imodium] 2 mg PO BID PRN 04/23/23 04/23/23 History Allergies Allergy/AdvReac Type Severity Reaction Status Date / Time No Known Allergies Allergy Verified 04/23/23 13:23 Physical Exam Vitals: Intake and Output 04/23/23 04/24/23 04/24/23 22:59 06:59 14:59 Other: Voiding Method Diaper Diaper Incontinent Incontinent # Voids 1 3 # Bowel Movements 3 1 Weight 113.39 kg 113.39 kg -GENERAL: The patient is unresponsive, looks comfortable HEENT: Pupils are round and equally reacting to light. EOMI. No scleral icterus. No conjunctival pallor. Normocephalic, atraumatic. No pharyngeal erythema. No thyromegaly. CARDIOVASCULAR: S1 and S2 present. No murmurs, rubs, or gallops. PULMONARY: Chest is clear to auscultation, no wheezing . no crackles. ABDOMEN: Soft, nontender, nondistended, normoactive bowel sounds. No palpable organomegaly. MUSCULOSKELETAL: No joint swelling or deformity. EXTREMITIES: No cyanosis, clubbing, . No leg edema. NEUROLOGICAL: Gross neurological examination did not reveal any focal deficits. SKIN: No rashes. no petechiae. Assessment and Plan Assessment: End-of-life care Altered mental status secondary to severe metabolic/toxic encephalopathy Acute renal failure with severe hyperkalemia Hyperglycemia Transaminitis Elevated troponin suspicious for non-STEMI Seizure Anxiety Multiple hospitalization Plan: Consults hospice care from emergency room Upon sister wishes who is his legal guardian I discussed the case with the hospice nurse at bedside and over the phone she confirmed to me He has signed hospice paper and hospice orders can be initiated We'll start with morphine Haldol for agitation and anxiety Ativan Scopolamine patch No code, confirmed with sister and his guardian Prognosis is extremely poor
== END 2023-04-24 18:29 | disposition expired | DRG 951 ==
LOC: EC 16:17 → 5NMEDONC 16:54
PROVIDERS: ADMIT Internal Medicine; ATTEND Internal Medicine
DX: Z51.5 Encounter for palliative care (principal); G92.8 Other toxic encephalopathy; I21.4 Non-ST elevation (NSTEMI) myocardial infarction; N17.9 Acute kidney failure, unspecified; Z66 Do not resuscitate; I95.9 Hypotension, unspecified; R73.9 Hyperglycemia, unspecified; R74.01 Elevation of levels of liver transaminase levels; E87.5 Hyperkalemia; D72.829 Elevated white blood cell count, unspecified; G40.909 Epilepsy, unspecified, not intractable, without status epilepticus; F41.9 Anxiety disorder, unspecified; Z79.82 Long term (current) use of aspirin; Z79.899 Other long term (current) drug therapy; Z82.49 Family history of ischemic heart disease and other diseases of the circulatory system; Z87.828 Personal history of other (healed) physical injury and trauma; Z85.819 Personal history of malignant neoplasm of unspecified site of lip, oral cavity, and pharynx